=== PATIENT | female | born 1930 | race Asian ===

== ENCOUNTER 2016-06-21 10:58 | Inpatient (IN) | payer MEDICARE ==
[2016-06-21] MEDS ORDERED: MOTRIN PO ONE ×2 (11:17→11:23)
[2016-06-21] MEDS ORDERED: ZOFRAN IV ONE (11:41)
[2016-06-21] MEDS ORDERED: NACL 0.9% 1000 ML 1,000 ML IV ONE (11:41)
--- NOTE | 2016-06-21 11:57 | Emergency Department Report ---
ED Fever HPI - General Chief Complaint: Nausea/Vomiting/Diarrhea Stated Complaint: SHAKES/RUNNY BOWELS/HOT/COLD Time Seen by Provider: 06/21/16 11:31 Source: patient Exam Limitations: no limitations - History of Present Illness Initial Comments: 86-year-old female with no past medical history and no medications presents to the hospital with complaints of fever and cold symptoms 1 week. Patient states she has had a cough occasional productive of sputum. She's had intermittent chills with hot and cold flashes. This morning she developed nausea, one episode of vomiting, and multiple episodes of diarrhea. Generalized pain and aches rated a 10 intensity. Symptoms worse with movement and palpation. ED Review of Systems ROS: Stated complaint: SHAKES/RUNNY BOWELS/HOT/COLD Other details as noted in HPI Comment: All other systems reviewed and negative Other: Constitutional:as per hpi Eyes: No eye pain visual changes ENT: No ear pain or throat pain Neck: Denies pain Respiratory: Denieswheezing shortness of breath Cardiovascular: Denies chest pain, palpitations, syncope GI: as per hpi : Denies dysuria Musculoskeletal: Denies back pain, joint swelling Skin: Denies rash, lesions, erythema Neurologic: Denies headache, numbness, weakness Psychiatric: Denies suicidal ideation, hallucinations ED Past Medical Hx - Past Medical History Previous Medical History?: No - Surgical History Past Surgical History?: Yes Additional Surgical History: eyes, D&C - Medications Home Medications: Home Medications Medication Instructions Recorded Confirmed Last Taken Type No Known Home Medications [No 06/21/16 06/21/16 Unknown History Reported Home Medications] ED Physical Exam - General Limitations: No Limitations - Other Other exam information: General: No limitations, patient is alert in no acute distress Head exam: Atraumatic, normocephalic Eyes exam: Normal appearance, pupils equal reactive to light, extraocular movements intact ENT: Moist mucous membrane, normal oropharynx but no exudate Neck exam: Normal inspection, full range of motion, no meningismus nontender Respiratory exam: Clear to auscultation bilateral, no wheezes, rales, crackles Cardiovascular: Normal rate and rhythm, normal heart sounds Abdomen: Soft, nondistended, mild left lower quadrant tenderness, with normal bowel sounds, no rebound, or guarding Extremity: Full range of motion normal inspection no deformity Back: Normal Inspection, full range of motion, no tenderness Neurologic: Alert, oriented x3, cranial nerves intact, no motor or sensory deficit Psychiatric: normal affect, normal mood Skin: Warm, dry, intact ED Course Vital Signs 06/21/16 06/21/16 06/21/16 11:08 11:40 11:52 Temperature 100.2 F H 99.9 F H Pulse Rate 99 H 87 Respiratory 18 16 Rate Blood Pressure Blood Pressure 182/88 [Left] O2 Sat by Pulse 98 94 94 Oximetry 06/21/16 06/21/16 06/21/16 12:00 12:30 13:00 Temperature Pulse Rate Respiratory Rate Blood Pressure 156/77 143/66 139/69 Blood Pressure [Left] O2 Sat by Pulse 93 91 92 Oximetry 06/21/16 06/21/16 06/21/16 14:20 14:30 15:00 Temperature Pulse Rate Respiratory Rate Blood Pressure 143/66 152/61 143/63 Blood Pressure [Left] O2 Sat by Pulse 93 92 92 Oximetry ED Medical Decision Making - Lab Data Result diagrams: 06/21/16 11:49 06/21/16 11:49 Lab Results 06/21/16 06/21/16 06/21/16 Range/Units 11:49 11:49 11:49 WBC 6.5 (4.5-11.0) K/mm3 RBC 4.57 (3.65-5.03) M/mm3 Hgb 13.6 (10.1-14.3) gm/dl Hct 41.5 (30.3-42.9) % MCV 91 (79-97) fl MCH 30 (28-32) pg MCHC 33 (30-34) % RDW 13.3 (13.2-15.2) % Plt Count 147 (140-440) K/mm3 Add Manual Diff Complete Total Counted 100 Seg Neutrophils % [employer] Seg Neuts % (Manual) 72.0 H (40.0-70.0) % Band Neutrophils % 25.0 % Lymphocytes % (Manual) 3.0 L (13.4-35.0) % Reactive Lymphs % (Man) 0 % Monocytes % (Manual) 0 (0.0-7.3) % Eosinophils % (Manual) 0 (0.0-4.3) % Basophils % (Manual) 0 (0.0-1.8) % Metamyelocytes % 0 % Myelocytes % 0 % Promyelocytes % 0 % Blast Cells % 0 % Nucleated RBC % Not Reportable Seg Neutrophils # Man 4.7 (1.8-7.7) K/mm3 Band Neutrophils # 1.6 K/mm3 Lymphocytes # (Manual) 0.2 L (1.2-5.4) K/mm3 Abs React Lymphs (Man) 0.0 K/mm3 Monocytes # (Manual) 0.0 (0.0-0.8) K/mm3 Eosinophils # (Manual) 0.0 (0.0-0.4) K/mm3 Basophils # (Manual) 0.0 (0.0-0.1) K/mm3 Metamyelocytes # 0.0 K/mm3 Myelocytes # 0.0 K/mm3 Promyelocytes # 0.0 K/mm3 Blast Cells # 0.0 K/mm3 WBC Morphology Not Reportable Hypersegmented Neuts Not Reportable Hyposegmented Neuts Not Reportable Hypogranular Neuts Not Reportable Smudge Cells Not Reportable Toxic Granulation Not Reportable Toxic Vacuolation Not Reportable Dohle Bodies Not Reportable Pelger-Huet Anomaly Not Reportable Carlos Alberto Rods Not Reportable Platelet Estimate Consistent w auto Clumped Platelets Not Reportable Plt Clumps, EDTA Not Reportable Large Platelets Not Reportable Giant Platelets Not Reportable Platelet Satelliting Not Reportable Plt Morphology Comment Not Reportable RBC Morphology Not Reportable Dimorphic RBCs Not Reportable Polychromasia Not Reportable Hypochromasia Not Reportable Poikilocytosis Not Reportable Anisocytosis Not Reportable Microcytosis Not Reportable Macrocytosis Not Reportable Spherocytes Not Reportable Pappenheimer Bodies Not Reportable Sickle Cells Not Reportable Target Cells Not Reportable Tear Drop Cells Not Reportable Ovalocytes Not Reportable Helmet Cells Not Reportable Jacobsen-Heeia Bodies Not Reportable Olin Rings Not Reportable John Cells Not Reportable Bite Cells Not Reportable Crenated Cell Not Reportable Elliptocytes Not Reportable Acanthocytes (Spur) Not Reportable Rouleaux Not Reportable Hemoglobin C Crystals Not Reportable Schistocytes Not Reportable Malaria parasites Not Reportable Tyler Bodies Not Reportable Hem Pathologist Commnt No Sodium 137 (137-145) mmol/L Potassium 3.7 (3.6-5.0) mmol/L Chloride 92.4 L (98-107) mmol/L Carbon Dioxide 24 (22-30) mmol/L Anion Gap 24 mmol/L BUN 23 H (7-17) mg/dL Creatinine 1.6 H (0.7-1.2) mg/dL Estimated GFR 31 ml/min BUN/Creatinine Ratio 14.37 % Glucose 133 H (65-100) mg/dL Lactic Acid 2.2 H* (0.7-2.0) mmol/L Calcium 8.7 (8.4-10.2) mg/dL Total Bilirubin 0.4 (0.1-1.2) mg/dL AST 36 (5-40) units/L ALT 14 (7-56) units/L Alkaline Phosphatase 99 (35-129) units/L Total Protein 7.5 (6.3-8.2) g/dL Albumin 3.9 (3.9-5) g/dL Albumin/Globulin Ratio 1.1 % Lipase (13-60) units/L Urine Color (Yellow) Urine Turbidity (Clear) Urine pH (5.0-7.0) Ur Specific Pavo (1.003-1.030) Urine Protein (Negative) mg/dL Urine Glucose (UA) (Negative) mg/dL Urine Ketones (Negative) mg/dL Urine Blood (Negative) Urine Nitrite (Negative) Urine Bilirubin (Negative) Urine Urobilinogen (<2.0) mg/dL Ur Leukocyte Esterase (Negative) Urine WBC (Auto) (0.0-6.0) /HPF Urine RBC (Auto) (0.0-6.0) /HPF U Epithel Cells (Auto) (0-13.0) /HPF Urine Mucus /HPF Urine Yeast (Budding) /HPF 06/21/16 06/21/16 Range/Units 14:51 Unknown WBC (4.5-11.0) K/mm3 RBC (3.65-5.03) M/mm3 Hgb (10.1-14.3) gm/dl Hct (30.3-42.9) % MCV (79-97) fl MCH (28-32) pg MCHC (30-34) % RDW (13.2-15.2) % Plt Count (140-440) K/mm3 Add Manual Diff Total Counted Seg Neutrophils % Seg Neuts % (Manual) (40.0-70.0) % Band Neutrophils % % Lymphocytes % (Manual) (13.4-35.0) % Reactive Lymphs % (Man) % Monocytes % (Manual) (0.0-7.3) % Eosinophils % (Manual) (0.0-4.3) % Basophils % (Manual) (0.0-1.8) % Metamyelocytes % % Myelocytes % % Promyelocytes % % Blast Cells % % Nucleated RBC % Seg Neutrophils # Man (1.8-7.7) K/mm3 Band Neutrophils # K/mm3 Lymphocytes # (Manual) (1.2-5.4) K/mm3 Abs React Lymphs (Man) K/mm3 Monocytes # (Manual) (0.0-0.8) K/mm3 Eosinophils # (Manual) (0.0-0.4) K/mm3 Basophils # (Manual) (0.0-0.1) K/mm3 Metamyelocytes # K/mm3 Myelocytes # K/mm3 Promyelocytes # K/mm3 Blast Cells # K/mm3 WBC Morphology Hypersegmented Neuts Hyposegmented Neuts Hypogranular Neuts Smudge Cells Toxic Granulation Toxic Vacuolation Dohle Bodies Pelger-Huet Anomaly Carlos Alberto Rods Platelet Estimate Clumped Platelets Plt Clumps, EDTA Large Platelets Giant Platelets Platelet Satelliting Plt Morphology Comment RBC Morphology Dimorphic RBCs Polychromasia Hypochromasia Poikilocytosis Anisocytosis Microcytosis Macrocytosis Spherocytes Pappenheimer Bodies Sickle Cells Target Cells Tear Drop Cells Ovalocytes Helmet Cells Jacobsen-Heeia Bodies [place] Rings John Cells Bite Cells Crenated Cell Elliptocytes Acanthocytes (Spur) Rouleaux Hemoglobin C Crystals Schistocytes Malaria parasites Tyler Bodies Hem Pathologist Commnt Sodium (137-145) mmol/L Potassium (3.6-5.0) mmol/L Chloride (98-107) mmol/L Carbon Dioxide (22-30) mmol/L Anion Gap mmol/L BUN (7-17) mg/dL Creatinine (0.7-1.2) mg/dL Estimated GFR ml/min BUN/Creatinine Ratio % Glucose (65-100) mg/dL Lactic Acid (0.7-2.0) mmol/L Calcium (8.4-10.2) mg/dL Total Bilirubin (0.1-1.2) mg/dL AST (5-40) units/L ALT (7-56) units/L Alkaline Phosphatase (35-129) units/L Total Protein (6.3-8.2) g/dL Albumin (3.9-5) g/dL Albumin/Globulin Ratio % Lipase 43 (13-60) units/L Urine Color Yellow (Yellow) Urine Turbidity Clear (Clear) Urine pH 5.0 (5.0-7.0) Ur Specific Pavo 1.019 (1.003-1.030) Urine Protein 100 mg/dl (Negative) mg/dL Urine Glucose (UA) Neg (Negative) mg/dL Urine Ketones Tr (Negative) mg/dL Urine Blood Lg (Negative) Urine Nitrite Neg (Negative) Urine Bilirubin Neg (Negative) Urine Urobilinogen < 2.0 (<2.0) mg/dL Ur Leukocyte Esterase Neg (Negative) Urine WBC (Auto) 3.0 (0.0-6.0) /HPF Urine RBC (Auto) 20.0 (0.0-6.0) /HPF U Epithel Cells (Auto) 1.0 (0-13.0) /HPF Urine Mucus Few /HPF Urine Yeast (Budding) Few /HPF - Radiology Data Radiology results: report reviewed CT abdomen and pelvis IV contrast: Right kaye-abdominal subtle nonspecific CT appearance with clinical/laboratory correlation for possibilities as gastritis/ duodenitis versus subtle pancreatitis or colitis be obtained in light of provide a history of this unenhanced exam. Extensive diverticulosis without diverticulitis. See report for other various findings. Cxr: No acute findings - Medical Decision Making Patient's symptoms likely due to influenza. Patient has various some incidental findings on CT. Patient has renal sufficiency without previous creatinine for comparison. Given her age, dehydration, and GI symptoms diarrhea /vomiting patient will be admitted to the hospital for hydration and supportive care. Patient received normal saline, Zofran, and ibuprofen in the ED. - Differential Diagnosis Viral syndrome, diverticulitis, influenza Critical Care Time: No Critical care attestation.: If time is entered above; I have spent that time in minutes in the direct care of this critically ill patient, excluding procedure time. ED Disposition Clinical Impression: Influenza A, Acute diarrhea, Vomiting, Renal insufficiency, Dehydration Disposition: OP ADMITTED IP TO THIS HOSP Is pt being admited?: Yes Condition: Stable Time of Disposition: 15:29 (Dr Vaz/hosp)
[2016-06-21 12:07] LABS: Hematocrit 41.5 % (30.3-42.9); Hemoglobin 13.6 gm/dl (10.1-14.3); Mean Corpuscular HGB Conc 33 % (30-34); Mean Corpuscular Hemoglobin 30 pg (28-32); Mean Corpuscular Volume 91 fl (79-97); Platelet Count 147 K/mm3 (140-440); Red Blood Count 4.57 M/mm3 (3.65-5.03); Red Cell Distribution Width 13.3 % (13.2-15.2); White Blood Count 6.5 K/mm3 (4.5-11.0)
--- NOTE | 2016-06-21 12:11 | XRay Report ---
Single view chest: History: Fever and cough. Findings: Borderline cardiomegaly the trachea is midline. No consolidation, pneumothorax or pleural effusion. Impression: No acute cardiopulmonary findings.
[2016-06-21 12:22] LABS: Albumin 3.9 g/dL (3.9-5); Albumin/Globulin Ratio 1.1 %; BUN/Creatinine Ratio 14.37; Bilirubin,Total 0.4 mg/dL (0.1-1.2); Calcium 8.7 mg/dL (8.4-10.2); Chloride 92.4 mmol/L (98-107); Potassium 3.7 mmol/L (3.6-5.0); Total Protein 7.5 g/dL (6.3-8.2)
[2016-06-21 12:55] LABS: Basophils % (Manual) 0 % (0.0-1.8); Blastocytes % (Manual) 0 %; Eosinophils % (Manual) 0 % (0.0-4.3); Total Cells Counted Percent 0
[2016-06-21 12:56] LABS: Diff Status Complete; Platelet Estimate Consistent w Auto
--- NOTE | 2016-06-21 13:48 | Admit Criteria Form ---
Admission Criteria Documentation: DEHYDRATION Clinical Indications for Admission to Inpatient Care (Place 'X' for any and all applicable criteria): Admission is indicated for ANY ONE of the following (1)(2)(3)(4)(5): [X ]I. Inpatient admission required rather than observation care (see Dehydration: Observation Care guideline as appropriate) because of ANY ONE of the following: [ ]a) Vomiting that is severe or persistent [ ]b) Severe electrolyte abnormalities requiring inpatient care [ ]c) Hemodynamic instability [ ]d) IV fluid to replace significant ongoing losses (greater than 3 L/m2 per day (10) (11) [ ]e) Parenteral nutrition regimen that must be implemented on inpatient basis [ X]f) Other condition,treatment or monitoring requiring inpatient admission [ ]II. Serious cause for dehydration requiring acute hospitalization (eg, bowel obstruction, increased intracranial pressure, infectious cause) Extended stay beyond goal length of stay may be needed for(1)(3 )(4)(17): [ ]a) Chronic severe dehydration [ ]b) Persistent vital sign changes, severe electrolyte imbalance, or diagnosed cause of dehydration that requires continued hospitalization (eg, bowel obstruction, increased intracranial pressure) [ ]c) Older patients (65 years or older) [ ]d) Severe comorbid illness (eg, renal failure, heart failure, poorly controlled diabetes) The original [employer] content created by [employer] has been revised. The portions of the content which have been revised are identified through the use of italic text or in bold, and [facility] has neither reviewed nor approved the modified material. All other unmodified content is copyright [facility]. Please see references footnoted in the original [employer] edition 2016 Admission Criteria Met: Yes
--- NOTE | 2016-06-21 14:20 | Cat Scan Report ---
CT ABDOMEN AND PELVIS WITHOUT CONTRAST INDICATION: Abdominal pain, nausea, vomiting, diarrhea, fever. COMPARISON: None similar. FINDINGS: Noncontrast abdomen and pelvis CT performed. LUNG BASES: Borderline cardiomegaly. No effusions. Few atherosclerotic calcifications. Increased AP chest diameter/COPD. Right middle lobe, lingular and slight right lower lobe scarring. Bibasilar dependent atelectasis. Nonspecific distal esophageal wall thickening, not excluded for gastroesophageal reflux and/or hiatal hernia, amongst others. ABDOMEN: Please note that sensitivity to detect small visceral lesions is limited due to the absence of intravenous or oral contrast. Grossly unremarkable unenhanced liver, spleen, adrenals, nonaneurysmal abdominal aorta with few atherosclerotic calcifications and IVC. Possibly extrahepatic gallbladder as on axial image 20, series 2, amongst others. No radiopaque gallstones. Subtle prominent vascularity in the right hemiabdomen and questionable subtle fat stranding about the duodenum in the region of the pancreatic head as on axial image 27, series 2 nonspecific, though not entirely excluded for subtle inflammation. Pancreatic body and tail though appears age-appropriate atrophic. No radiopaque renal calculi or hydronephrosis with asymmetrically atrophic left renal length of 6.9 cm as compared to 9.2 cm on the right. No definite size significant retroperitoneal adenopathy, though few small right lower quadrant mesenteric lymph nodes measure up to 0.8 cm on axial image 41, series 2. Nonopacified GI tract evaluation limited, though grossly nonobstructive. Stomach poorly distended with exaggerated wall thickness. Similar appearance to the third and fourth portions of the duodenum also seen, containing some debris as on axial image 42, series 2, amongst others. Normal appendix. Approximately 9 mm ascending colon possible lipoma. Decompressed colon with somewhat exaggerated mid to distal ascending colon wall thickness as well, nonspecific. No ascites. PELVIS: Extensive sigmoid diverticulosis without acute inflammation. Grossly unremarkable nonopacified uterus, urinary bladder and the rectum. Small pelvic phleboliths. No free fluid or definite significant adenopathy. Mild thoracolumbar dextroscoliosis apex about L1. Demineralized bones with multilevel degenerative spurring along the imaged spine. CONCLUSION: 1. Right hemiabdomen subtle nonspecific CT appearance with clinical/laboratory correlation for possibilities as gastritis/duodenitis versus subtle pancreatitis or colitis be obtained in light of provided history on this unenhanced exam, as detailed above. 2. Various other incidental findings, as described. I phoned the above results to Dr. Luciano in the ER at 2 PM, 06/21/2016. Thank you for the opportunity to participate in this patient's care.
[2016-06-21 14:59] LABS: Bilirubin,Urine NEG (Negative); Blood,Urine LG (Negative); Ketones,Urine TR mg/dL (Negative); Leukocyte Esterase,Urine NEG (Negative); Mucus,Urine FEW /HPF; Nitrite,Urine NEG (Negative); Urobilinogen,Urine < 2.0 mg/dL (<2.0)
[2016-06-21] MEDS ORDERED: DULCOLAX PR PRN (20:17)
[2016-06-21] MEDS ORDERED: MILK OF MAGNESIA PO PRN (20:17)
[2016-06-21] MEDS ORDERED: TYLENOL PO PRN (20:17)
[2016-06-21] MEDS ORDERED: PERCOCET 5/325 PO PRN (20:17)
[2016-06-21] MEDS ORDERED: ZOFRAN IV PRN (20:17)
--- NOTE | 2016-06-21 20:17 | Event Note ---
Date: 06/21/16 See H/p in reports
[2016-06-21] MEDS ORDERED: LEVAQUIN 750MG/150ML 750 MG/150 ML BAG IV ONE (21:00)
[2016-06-21] MEDS ORDERED: LEVAQUIN 750MG/150ML 750 MG/150 ML BAG IV SCH (21:00)
[2016-06-22] MEDS: D5/0.45NS 1,000 ML IV SCH ×2 (10:55→22:15)
[2016-06-22] MEDS ORDERED: PNEUMOVAX 23 IM ONE (12:00)
--- NOTE | 2016-06-22 20:50 | History and Physical Report ---
CHIEF COMPLAINT: Fever. HISTORY OF PRESENT ILLNESS: This is an 86-year-old with no significant past medical history, comes in for fever and cold of 1 week duration. The patient has a cough productive of mucoid to light yellow sputum. Also, intermittent chills and hot and cold flashes. She does have nausea this morning and one episode of vomiting and multiple episodes of diarrhea. Generalized body aches. The pain is 10 on a scale of 1-10. In summary, the patient has fever and chills and diarrhea. Pain is about 10 on a scale of 1-10. PAST MEDICAL HISTORY: None. PAST SURGICAL HISTORY: D and C and eye surgery. CURRENT MEDICATIONS: None. FAMILY HISTORY: No diabetes, no hypertension. REVIEW OF SYSTEMS: CONSTITUTIONAL: Fever and chills present. No weight loss, no weight gain. HEENT: No sore throat. No postnasal drip. RESPIRATORY: No shortness of breath, no wheezing. Cough productive of mucoid sputum present. CARDIOVASCULAR: No shortness of breath, no chest pain, no palpitations. GASTROINTESTINAL: Nausea and vomiting x 1 present and also diarrhea 3-4 times. GENITOURINARY: No dysuria, no flank pain. MUSCULOSKELETAL: Has muscle pains and joint pains. CENTRAL NERVOUS SYSTEM: No syncope, no seizures. SKIN: No rashes. PSYCHIATRIC: Normal mood, no homicidal ideations. PHYSICAL EXAMINATION: GENERAL: Elderly female lying in bed. VITAL SIGNS: Temperature 100.2, pulse is 99, respirations are 18, sats are 98%. HEENT: Unremarkable. Pupils equal and reactive. NECK: Supple. No lymphadenopathy, no thyromegaly, no neck stiffness. LUNGS: Clear to auscultation and percussion. Good air entry. CARDIOVASCULAR: S1, S2 heard. No gallop, no murmur, no rub. Apical impulse in left fifth intercostal space and midclavicular line. ABDOMEN: Soft and benign. No hepatosplenomegaly. No guarding, no rigidity. Hernial orifices are normal. EXTREMITIES: Good pedal pulses. No pedal edema. CENTRAL NERVOUS SYSTEM: Alert and oriented x 4, nonfocal exam. LABORATORY DATA: White count is 6500, H and H is 13.6 and 41.5, platelet count is 147,000. BUN and creatinine are 23 and 1.6. Lactic acid is 2.2. CT of the abdomen and pelvis shows gastritis, duodenitis, and . ASSESSMENT AND PLAN: 1. Systemic inflammatory response syndrome. The patient with a high lactic acid of 2.2, but white count is normal, temperature of 100.2. The patient qualifies for SIRS. The patient to be on broad spectrum antibiotics possible, levofloxacin started ____ to cover possible colitis too. Also, Tamiflu 75 mg twice a day. 2. Dehydration. IV fluids for the time being. 3. Acute renal failure consistent with vasomotor nephropathy. IV fluids. 4. Deep venous thrombosis prophylaxis, Lovenox 40 mg subcutaneous daily. JOB# [id number] JOSE/JAS
--- NOTE | 2016-06-22 20:52 | Progress Note ---
Assessment and Plan - Patient Problems (1) Influenza A Current Visit: Yes Status: Acute Plan to address problem: Tamiflu BID, supportive care, IVF replacement, encourage oral intake (2) Dehydration Current Visit: Yes Status: Acute Plan to address problem: IVF, monitor uop q shift (3) Acute renal failure Current Visit: Yes Status: Acute Qualifiers: Acute renal failure type: A Plan to address problem: IVR replacement, monitor uop q shift, (4) DVT prophylaxis Current Visit: Yes Status: Acute History Interval history: Pt lying in bed, No reported nursing events. Pt denies pain. Pt states that she feels tired Hospitalist Physical - Constitutional Vitals: Temp Pulse Resp BP Pulse Ox 99.2 F 71 22 157/84 94 06/22/16 15:45 06/22/16 15:45 06/22/16 15:45 06/22/16 15:45 06/22/16 15:45 General appearance: Present: no acute distress - EENT Eyes: Present: PERRL ENT: hearing intact - Neck Neck: Present: supple - Respiratory Respiratory: bilateral: diminished - Cardiovascular Rhythm: regular Heart Sounds: Present: S1 & S2 - Extremities Extremities: no ischemia Peripheral Pulses: within normal limits - Abdominal General gastrointestinal: soft, non-tender, non-distended - Integumentary Integumentary: Present: clear, dry, decreased turgor - Psychiatric Psychiatric: appropriate mood/affect, cooperative - Neurologic Neurologic: CNII-XII intact, moves all extremities Results - Labs CBC & Chem 7: 06/21/16 11:49 06/21/16 11:49 Labs: Laboratory Last Values WBC 6.5 K/mm3 (4.5-11.0) 06/21/16 11:49 RBC 4.57 M/mm3 (3.65-5.03) 06/21/16 11:49 Hgb 13.6 gm/dl (10.1-14.3) 06/21/16 11:49 Hct 41.5 % (30.3-42.9) 06/21/16 11:49 MCV 91 fl (79-97) 06/21/16 11:49 MCH 30 pg (28-32) 06/21/16 11:49 MCHC 33 % (30-34) 06/21/16 11:49 RDW 13.3 % (13.2-15.2) 06/21/16 11:49 Plt Count 147 K/mm3 (140-440) 06/21/16 11:49 Add Manual Diff Complete 06/21/16 11:49 Total Counted 100 06/21/16 11:49 Seg Neutrophils % Glass Products Inspector 06/21/16 11:49 Seg Neuts % (Manual) 72.0 % (40.0-70.0) H 06/21/16 11:49 Band Neutrophils % 25.0 % 06/21/16 11:49 Lymphocytes % (Manual) 3.0 % (13.4-35.0) L 06/21/16 11:49 Reactive Lymphs % (Man) 0 % 06/21/16 11:49 Monocytes % (Manual) 0 % (0.0-7.3) 06/21/16 11:49 Eosinophils % (Manual) 0 % (0.0-4.3) 06/21/16 11:49 Basophils % (Manual) 0 % (0.0-1.8) 06/21/16 11:49 Metamyelocytes % 0 % 06/21/16 11:49 Myelocytes % 0 % 06/21/16 11:49 Promyelocytes % 0 % 06/21/16 11:49 Blast Cells % 0 % 06/21/16 11:49 Nucleated RBC % Not Reportable 06/21/16 11:49 Seg Neutrophils # Man 4.7 K/mm3 (1.8-7.7) 06/21/16 11:49 Band Neutrophils # 1.6 K/mm3 06/21/16 11:49 Lymphocytes # (Manual) 0.2 K/mm3 (1.2-5.4) L 06/21/16 11:49 Abs React Lymphs (Man) 0.0 K/mm3 06/21/16 11:49 Monocytes # (Manual) 0.0 K/mm3 (0.0-0.8) 06/21/16 11:49 Eosinophils # (Manual) 0.0 K/mm3 (0.0-0.4) 06/21/16 11:49 Basophils # (Manual) 0.0 K/mm3 (0.0-0.1) 06/21/16 11:49 Metamyelocytes # 0.0 K/mm3 06/21/16 11:49 Myelocytes # 0.0 K/mm3 06/21/16 11:49 Promyelocytes # 0.0 K/mm3 06/21/16 11:49 Blast Cells # 0.0 K/mm3 06/21/16 11:49 WBC Morphology Not Reportable 06/21/16 11:49 Hypersegmented Neuts Not Reportable 06/21/16 11:49 Hyposegmented Neuts Not Reportable 06/21/16 11:49 Hypogranular Neuts Not Reportable 06/21/16 11:49 Smudge Cells Not Reportable 06/21/16 11:49 Toxic Granulation Not Reportable 06/21/16 11:49 Toxic Vacuolation Not Reportable 06/21/16 11:49 Dohle Bodies Not Reportable 06/21/16 11:49 Pelger-Huet Anomaly Not Reportable 06/21/16 11:49 Carlos Alberto Rods Not Reportable 06/21/16 11:49 Platelet Estimate Consistent w auto 06/21/16 11:49 Clumped Platelets Not Reportable 06/21/16 11:49 Plt Clumps, EDTA Not Reportable 06/21/16 11:49 Large Platelets Not Reportable 06/21/16 11:49 Giant Platelets Not Reportable 06/21/16 11:49 Platelet Satelliting Not Reportable 06/21/16 11:49 Plt Morphology Comment Not Reportable 06/21/16 11:49 RBC Morphology Not Reportable 06/21/16 11:49 Dimorphic RBCs Not Reportable 06/21/16 11:49 Polychromasia Not Reportable 06/21/16 11:49 Hypochromasia Not Reportable 06/21/16 11:49 Poikilocytosis Not Reportable 06/21/16 11:49 Anisocytosis Not Reportable 06/21/16 11:49 Microcytosis Not Reportable 06/21/16 11:49 Macrocytosis Not Reportable 06/21/16 11:49 Spherocytes Not Reportable 06/21/16 11:49 Pappenheimer Bodies Not Reportable 06/21/16 11:49 Sickle Cells Not Reportable 06/21/16 11:49 Target Cells Not Reportable 06/21/16 11:49 Tear Drop Cells Not Reportable 06/21/16 11:49 Ovalocytes Not Reportable 06/21/16 11:49 Helmet Cells Not Reportable 06/21/16 11:49 Jacobsen-[place] Bodies Not Reportable 06/21/16 11:49 [place] Rings Not Reportable 06/21/16 11:49 [place] Cells Not Reportable 06/21/16 11:49 Bite Cells Not Reportable 06/21/16 11:49 Crenated Cell Not Reportable 06/21/16 11:49 Elliptocytes Not Reportable 06/21/16 11:49 Acanthocytes (Spur) Not Reportable 06/21/16 11:49 Rouleaux Not Reportable 06/21/16 11:49 Hemoglobin C Crystals Not Reportable 06/21/16 11:49 Schistocytes Not Reportable 06/21/16 11:49 Malaria parasites Not Reportable 06/21/16 11:49 Tyler Bodies Not Reportable 06/21/16 11:49 Hem Pathologist Commnt No 06/21/16 11:49 Sodium 137 mmol/L (137-145) 06/21/16 11:49 Potassium 3.7 mmol/L (3.6-5.0) 06/21/16 11:49 Chloride 92.4 mmol/L (98-107) L 06/21/16 11:49 Carbon Dioxide 24 mmol/L (22-30) 06/21/16 11:49 Anion Gap 24 mmol/L 06/21/16 11:49 BUN 23 mg/dL (7-17) H 06/21/16 11:49 Creatinine 1.6 mg/dL (0.7-1.2) H 06/21/16 11:49 Estimated GFR 31 ml/min 06/21/16 11:49 BUN/Creatinine Ratio 14.37 % 06/21/16 11:49 Glucose 133 mg/dL (65-100) H 06/21/16 11:49 Lactic Acid 2.2 mmol/L (0.7-2.0) H* 06/21/16 11:49 Calcium 8.7 mg/dL (8.4-10.2) 06/21/16 11:49 Total Bilirubin 0.4 mg/dL (0.1-1.2) 06/21/16 11:49 AST 36 units/L (5-40) 06/21/16 11:49 ALT 14 units/L (7-56) 06/21/16 11:49 Alkaline Phosphatase 99 units/L (35-129) 06/21/16 11:49 Total Protein 7.5 g/dL (6.3-8.2) 06/21/16 11:49 Albumin 3.9 g/dL (3.9-5) 06/21/16 11:49 Albumin/Globulin Ratio 1.1 % 06/21/16 11:49 Lipase 43 units/L (13-60) 06/21/16 Unknown Urine Color Yellow (Yellow) 06/21/16 14:51 Urine Turbidity Clear (Clear) 06/21/16 14:51 Urine pH 5.0 (5.0-7.0) 06/21/16 14:51 Ur Specific [place] 1.019 (1.003-1.030) 06/21/16 14:51 Urine Protein 100 mg/dl mg/dL (Negative) 06/21/16 14:51 Urine Glucose (UA) Neg mg/dL (Negative) 06/21/16 14:51 Urine Ketones Tr mg/dL (Negative) 06/21/16 14:51 Urine Blood Lg (Negative) 06/21/16 14:51 Urine Nitrite Neg (Negative) 06/21/16 14:51 Urine Bilirubin Neg (Negative) 06/21/16 14:51 Urine Urobilinogen < 2.0 mg/dL (<2.0) 06/21/16 14:51 Ur Leukocyte Esterase Neg (Negative) 06/21/16 14:51 Urine WBC (Auto) 3.0 /HPF (0.0-6.0) 06/21/16 14:51 Urine RBC (Auto) 20.0 /HPF (0.0-6.0) 06/21/16 14:51 U Epithel Cells (Auto) 1.0 /HPF (0-13.0) 06/21/16 14:51 Urine Mucus Few /HPF 06/21/16 14:51 Urine Yeast (Budding) Few /HPF 06/21/16 14:51
[2016-06-22] MEDS: TAMIFLU PO SCH (22:16)
[2016-06-23] MEDS: TAMIFLU PO SCH ×2 (10:30→21:20)
[2016-06-23] MEDS: LEVAQUIN 500MG/100ML 500 MG/100 ML BAG IV SCH (10:31)
[2016-06-23] MEDS: ZOFRAN IV PRN (13:51)
[2016-06-23] MEDS: D5/0.45NS 1,000 ML IV SCH (19:36)
[2016-06-24] MEDS: D5/0.45NS 1,000 ML IV SCH ×2 (06:23→18:47)
--- NOTE | 2016-06-24 06:55 | Progress Note ---
Assessment and Plan - Patient Problems (1) Influenza A Current Visit: Yes Status: Acute Plan to address problem: Tamiflu BID, supportive care, IVF replacement, encourage oral intake (2) Dehydration Current Visit: Yes Status: Acute Plan to address problem: IVF, monitor uop q shift (3) Acute renal failure Current Visit: Yes Status: Acute Qualifiers: Acute renal failure type: A Plan to address problem: IVR replacement, monitor uop q shift, (4) DVT prophylaxis Current Visit: Yes Status: Acute History Interval history: Pt lying in bed, No reported nursing events. Pt denies pain. Pt states that she feels weak and tired, and like her body is broken down Hospitalist Physical - Constitutional Vitals: Temp Pulse Resp BP Pulse Ox 98.2 F 70 18 111/62 97 06/24/16 00:00 06/24/16 00:00 06/24/16 00:00 06/24/16 00:00 06/24/16 00:00 General appearance: Present: no acute distress - EENT Eyes: Present: PERRL, EOM intact ENT: hearing intact - Neck Neck: Present: supple - Respiratory Respiratory: bilateral: diminished - Cardiovascular Rhythm: regular Heart Sounds: Present: S1 & S2 - Extremities Extremities: no ischemia Peripheral Pulses: within normal limits - Abdominal General gastrointestinal: soft, non-tender, non-distended - Integumentary Integumentary: Present: clear, dry, decreased turgor - Psychiatric Psychiatric: appropriate mood/affect, intact judgment & insight, cooperative - Neurologic Neurologic: CNII-XII intact, moves all extremities Results - Labs CBC & Chem 7: 06/21/16 11:49 06/21/16 11:49 Labs: Laboratory Last Values WBC 6.5 K/mm3 (4.5-11.0) 06/21/16 11:49 RBC 4.57 M/mm3 (3.65-5.03) 06/21/16 11:49 Hgb 13.6 gm/dl (10.1-14.3) 06/21/16 11:49 Hct 41.5 % (30.3-42.9) 06/21/16 11:49 MCV 91 fl (79-97) 06/21/16 11:49 MCH 30 pg (28-32) 06/21/16 11:49 MCHC 33 % (30-34) 06/21/16 11:49 RDW 13.3 % (13.2-15.2) 06/21/16 11:49 Plt Count 147 K/mm3 (140-440) 06/21/16 11:49 Add Manual Diff Complete 06/21/16 11:49 Total Counted 100 06/21/16 11:49 Seg Neutrophils % Shingle Grader 06/21/16 11:49 Seg Neuts % (Manual) 72.0 % (40.0-70.0) H 06/21/16 11:49 Band Neutrophils % 25.0 % 06/21/16 11:49 Lymphocytes % (Manual) 3.0 % (13.4-35.0) L 06/21/16 11:49 Reactive Lymphs % (Man) 0 % 06/21/16 11:49 Monocytes % (Manual) 0 % (0.0-7.3) 06/21/16 11:49 Eosinophils % (Manual) 0 % (0.0-4.3) 06/21/16 11:49 Basophils % (Manual) 0 % (0.0-1.8) 06/21/16 11:49 Metamyelocytes % 0 % 06/21/16 11:49 Myelocytes % 0 % 06/21/16 11:49 Promyelocytes % 0 % 06/21/16 11:49 Blast Cells % 0 % 06/21/16 11:49 Nucleated RBC % Not Reportable 06/21/16 11:49 Seg Neutrophils # Man 4.7 K/mm3 (1.8-7.7) 06/21/16 11:49 Band Neutrophils # 1.6 K/mm3 06/21/16 11:49 Lymphocytes # (Manual) 0.2 K/mm3 (1.2-5.4) L 06/21/16 11:49 Abs React Lymphs (Man) 0.0 K/mm3 06/21/16 11:49 Monocytes # (Manual) 0.0 K/mm3 (0.0-0.8) 06/21/16 11:49 Eosinophils # (Manual) 0.0 K/mm3 (0.0-0.4) 06/21/16 11:49 Basophils # (Manual) 0.0 K/mm3 (0.0-0.1) 06/21/16 11:49 Metamyelocytes # 0.0 K/mm3 06/21/16 11:49 Myelocytes # 0.0 K/mm3 06/21/16 11:49 Promyelocytes # 0.0 K/mm3 06/21/16 11:49 Blast Cells # 0.0 K/mm3 06/21/16 11:49 WBC Morphology Not Reportable 06/21/16 11:49 Hypersegmented Neuts Not Reportable 06/21/16 11:49 Hyposegmented Neuts Not Reportable 06/21/16 11:49 Hypogranular Neuts Not Reportable 06/21/16 11:49 Smudge Cells Not Reportable 06/21/16 11:49 Toxic Granulation Not Reportable 06/21/16 11:49 Toxic Vacuolation Not Reportable 06/21/16 11:49 Dohle Bodies Not Reportable 06/21/16 11:49 Pelger-Huet Anomaly Not Reportable 06/21/16 11:49 Carlos Alberto Rods Not Reportable 06/21/16 11:49 Platelet Estimate Consistent w auto 06/21/16 11:49 Clumped Platelets Not Reportable 06/21/16 11:49 Plt Clumps, EDTA Not Reportable 06/21/16 11:49 Large Platelets Not Reportable 06/21/16 11:49 Giant Platelets Not Reportable 06/21/16 11:49 Platelet Satelliting Not Reportable 06/21/16 11:49 Plt Morphology Comment Not Reportable 06/21/16 11:49 RBC Morphology Not Reportable 06/21/16 11:49 Dimorphic RBCs Not Reportable 06/21/16 11:49 Polychromasia Not Reportable 06/21/16 11:49 Hypochromasia Not Reportable 06/21/16 11:49 Poikilocytosis Not Reportable 06/21/16 11:49 Anisocytosis Not Reportable 06/21/16 11:49 Microcytosis Not Reportable 06/21/16 11:49 Macrocytosis Not Reportable 06/21/16 11:49 Spherocytes Not Reportable 06/21/16 11:49 Pappenheimer Bodies Not Reportable 06/21/16 11:49 Sickle Cells Not Reportable 06/21/16 11:49 Target Cells Not Reportable 06/21/16 11:49 Tear Drop Cells Not Reportable 06/21/16 11:49 Ovalocytes Not Reportable 06/21/16 11:49 Helmet Cells Not Reportable 06/21/16 11:49 Jacobsen-[place] Bodies Not Reportable 06/21/16 11:49 [place] Rings Not Reportable 06/21/16 11:49 [place]on Cells Not Reportable 06/21/16 11:49 Bite Cells Not Reportable 06/21/16 11:49 Crenated Cell Not Reportable 06/21/16 11:49 Elliptocytes Not Reportable 06/21/16 11:49 Acanthocytes (Spur) Not Reportable 06/21/16 11:49 Rouleaux Not Reportable 06/21/16 11:49 Hemoglobin C Crystals Not Reportable 06/21/16 11:49 Schistocytes Not Reportable 06/21/16 11:49 Malaria parasites Not Reportable 06/21/16 11:49 Tyler Bodies Not Reportable 06/21/16 11:49 Hem Pathologist Commnt No 06/21/16 11:49 Sodium 137 mmol/L (137-145) 06/21/16 11:49 Potassium 3.7 mmol/L (3.6-5.0) 06/21/16 11:49 Chloride 92.4 mmol/L (98-107) L 06/21/16 11:49 Carbon Dioxide 24 mmol/L (22-30) 06/21/16 11:49 Anion Gap 24 mmol/L 06/21/16 11:49 BUN 23 mg/dL (7-17) H 06/21/16 11:49 Creatinine 1.6 mg/dL (0.7-1.2) H 06/21/16 11:49 Estimated GFR 31 ml/min 06/21/16 11:49 BUN/Creatinine Ratio 14.37 % 06/21/16 11:49 Glucose 133 mg/dL (65-100) H 06/21/16 11:49 Lactic Acid 2.2 mmol/L (0.7-2.0) H* 06/21/16 11:49 Calcium 8.7 mg/dL (8.4-10.2) 06/21/16 11:49 Total Bilirubin 0.4 mg/dL (0.1-1.2) 06/21/16 11:49 AST 36 units/L (5-40) 06/21/16 11:49 ALT 14 units/L (7-56) 06/21/16 11:49 Alkaline Phosphatase 99 units/L (35-129) 06/21/16 11:49 Total Protein 7.5 g/dL (6.3-8.2) 06/21/16 11:49 Albumin 3.9 g/dL (3.9-5) 06/21/16 11:49 Albumin/Globulin Ratio 1.1 % 06/21/16 11:49 Lipase 43 units/L (13-60) 06/21/16 Unknown Urine Color Yellow (Yellow) 06/21/16 14:51 Urine Turbidity Clear (Clear) 06/21/16 14:51 Urine pH 5.0 (5.0-7.0) 06/21/16 14:51 Ur Specific [place] 1.019 (1.003-1.030) 06/21/16 14:51 Urine Protein 100 mg/dl mg/dL (Negative) 06/21/16 14:51 Urine Glucose (UA) Neg mg/dL (Negative) 06/21/16 14:51 Urine Ketones Tr mg/dL (Negative) 06/21/16 14:51 Urine Blood Lg (Negative) 06/21/16 14:51 Urine Nitrite Neg (Negative) 06/21/16 14:51 Urine Bilirubin Neg (Negative) 06/21/16 14:51 Urine Urobilinogen < 2.0 mg/dL (<2.0) 06/21/16 14:51 Ur Leukocyte Esterase Neg (Negative) 06/21/16 14:51 Urine WBC (Auto) 3.0 /HPF (0.0-6.0) 06/21/16 14:51 Urine RBC (Auto) 20.0 /HPF (0.0-6.0) 06/21/16 14:51 U Epithel Cells (Auto) 1.0 /HPF (0-13.0) 06/21/16 14:51 Urine Mucus Few /HPF 06/21/16 14:51 Urine Yeast (Budding) Few /HPF 06/21/16 14:51
[2016-06-24] MEDS: TAMIFLU PO SCH (09:44)
[2016-06-24 09:53] LABS: Sodium TNR mmol/L (137-145)
[2016-06-24 09:54] LABS: Anion Gap TNR mmol/L; BUN/Creatinine Ratio TNR; Blood Urea Nitrogen TNR mg/dL (7-17); Carbon Dioxide TNR mmol/L (22-30); Chloride TNR mmol/L (98-107); Potassium TNR mmol/L (3.6-5.0)
[2016-06-24 09:56] LABS: Calcium TNR mg/dL (8.4-10.2); Glucose TNR mg/dL (65-100)
[2016-06-24] MEDS: DILAUDID IV PRN (10:44)
[2016-06-24 14:06] LABS: Anion Gap 15 mmol/L; BUN/Creatinine Ratio 11.25; Blood Urea Nitrogen 9 mg/dL (7-17); Calcium 7.7 mg/dL (8.4-10.2); Carbon Dioxide 27 mmol/L (22-30); Chloride 84.9 mmol/L (98-107); Glucose 162 mg/dL (65-100); Sodium 124 mmol/L (137-145)
[2016-06-24 14:20] LABS: Potassium 2.6 mmol/L (3.6-5.0)
[2016-06-24] MEDS: ZOFRAN IV PRN ×2 (15:16→19:03)
--- NOTE | 2016-06-24 15:18 | Progress Note ---
Assessment and Plan - Patient Problems (1) Influenza A Current Visit: Yes Status: Acute Plan to address problem: Tamiflu BID, supportive care, IVF replacement, encourage oral intake (2) Dehydration Current Visit: Yes Status: Acute Plan to address problem: IVF, monitor uop q shift (3) Acute renal failure Current Visit: Yes Status: Acute Qualifiers: Acute renal failure type: A Plan to address problem: IVR replacement, monitor uop q shift, (4) DVT prophylaxis Current Visit: Yes Status: Acute History Interval history: Pt lying in bed, No reported nursing events. Pt denies pain. Pt states that she feels weak and tired. Pt acknowledges diminished oral intake, Hospitalist Physical - Constitutional Vitals: Temp Pulse Resp BP Pulse Ox 98.6 F 80 20 136/73 95 06/24/16 09:42 06/24/16 11:00 06/24/16 11:00 06/24/16 09:42 06/24/16 09:42 General appearance: Present: no acute distress - EENT Eyes: Present: PERRL ENT: hearing intact - Neck Neck: Present: supple - Respiratory Respiratory: bilateral: diminished - Cardiovascular Rhythm: regular Heart Sounds: Present: S1 & S2 - Extremities Extremities: no ischemia - Abdominal General gastrointestinal: soft - Integumentary Integumentary: Present: clear, dry - Psychiatric Psychiatric: appropriate mood/affect, cooperative - Neurologic Neurologic: CNII-XII intact Results - Labs CBC & Chem 7: 06/21/16 11:49 06/24/16 13:32 Labs: Laboratory Last Values WBC 6.5 K/mm3 (4.5-11.0) 06/21/16 11:49 RBC 4.57 M/mm3 (3.65-5.03) 06/21/16 11:49 Hgb 13.6 gm/dl (10.1-14.3) 06/21/16 11:49 Hct 41.5 % (30.3-42.9) 06/21/16 11:49 MCV 91 fl (79-97) 06/21/16 11:49 MCH 30 pg (28-32) 06/21/16 11:49 MCHC 33 % (30-34) 06/21/16 11:49 RDW 13.3 % (13.2-15.2) 06/21/16 11:49 Plt Count 147 K/mm3 (140-440) 06/21/16 11:49 Add Manual Diff Complete 06/21/16 11:49 Total Counted 100 06/21/16 11:49 Seg Neutrophils % Study Assistant 06/21/16 11:49 Seg Neuts % (Manual) 72.0 % (40.0-70.0) H 06/21/16 11:49 Band Neutrophils % 25.0 % 06/21/16 11:49 Lymphocytes % (Manual) 3.0 % (13.4-35.0) L 06/21/16 11:49 Reactive Lymphs % (Man) 0 % 06/21/16 11:49 Monocytes % (Manual) 0 % (0.0-7.3) 06/21/16 11:49 Eosinophils % (Manual) 0 % (0.0-4.3) 06/21/16 11:49 Basophils % (Manual) 0 % (0.0-1.8) 06/21/16 11:49 Metamyelocytes % 0 % 06/21/16 11:49 Myelocytes % 0 % 06/21/16 11:49 Promyelocytes % 0 % 06/21/16 11:49 Blast Cells % 0 % 06/21/16 11:49 Nucleated RBC % Not Reportable 06/21/16 11:49 Seg Neutrophils # Man 4.7 K/mm3 (1.8-7.7) 06/21/16 11:49 Band Neutrophils # 1.6 K/mm3 06/21/16 11:49 Lymphocytes # (Manual) 0.2 K/mm3 (1.2-5.4) L 06/21/16 11:49 Abs React Lymphs (Man) 0.0 K/mm3 06/21/16 11:49 Monocytes # (Manual) 0.0 K/mm3 (0.0-0.8) 06/21/16 11:49 Eosinophils # (Manual) 0.0 K/mm3 (0.0-0.4) 06/21/16 11:49 Basophils # (Manual) 0.0 K/mm3 (0.0-0.1) 06/21/16 11:49 Metamyelocytes # 0.0 K/mm3 06/21/16 11:49 Myelocytes # 0.0 K/mm3 06/21/16 11:49 Promyelocytes # 0.0 K/mm3 06/21/16 11:49 Blast Cells # 0.0 K/mm3 06/21/16 11:49 WBC Morphology Not Reportable 06/21/16 11:49 Hypersegmented Neuts Not Reportable 06/21/16 11:49 Hyposegmented Neuts Not Reportable 06/21/16 11:49 Hypogranular Neuts Not Reportable 06/21/16 11:49 Smudge Cells Not Reportable 06/21/16 11:49 Toxic Granulation Not Reportable 06/21/16 11:49 Toxic Vacuolation Not Reportable 06/21/16 11:49 Dohle Bodies Not Reportable 06/21/16 11:49 Pelger-Huet Anomaly Not Reportable 06/21/16 11:49 Carlos Alberto Rods Not Reportable 06/21/16 11:49 Platelet Estimate Consistent w auto 06/21/16 11:49 Clumped Platelets Not Reportable 06/21/16 11:49 Plt Clumps, EDTA Not Reportable 06/21/16 11:49 Large Platelets Not Reportable 06/21/16 11:49 Giant Platelets Not Reportable 06/21/16 11:49 Platelet Satelliting Not Reportable 06/21/16 11:49 Plt Morphology Comment Not Reportable 06/21/16 11:49 RBC Morphology Not Reportable 06/21/16 11:49 Dimorphic RBCs Not Reportable 06/21/16 11:49 Polychromasia Not Reportable 06/21/16 11:49 Hypochromasia Not Reportable 06/21/16 11:49 Poikilocytosis Not Reportable 06/21/16 11:49 Anisocytosis Not Reportable 06/21/16 11:49 Microcytosis Not Reportable 06/21/16 11:49 Macrocytosis Not Reportable 06/21/16 11:49 Spherocytes Not Reportable 06/21/16 11:49 Pappenheimer Bodies Not Reportable 06/21/16 11:49 Sickle Cells Not Reportable 06/21/16 11:49 Target Cells Not Reportable 06/21/16 11:49 Tear Drop Cells Not Reportable 06/21/16 11:49 Ovalocytes Not Reportable 06/21/16 11:49 Helmet Cells Not Reportable 06/21/16 11:49 Jacobsen-[place] Bodies Not Reportable 06/21/16 11:49 [place] Rings Not Reportable 06/21/16 11:49 [place] Cells Not Reportable 06/21/16 11:49 Bite Cells Not Reportable 06/21/16 11:49 Crenated Cell Not Reportable 06/21/16 11:49 Elliptocytes Not Reportable 06/21/16 11:49 Acanthocytes (Spur) Not Reportable 06/21/16 11:49 Rouleaux Not Reportable 06/21/16 11:49 Hemoglobin C Crystals Not Reportable 06/21/16 11:49 Schistocytes Not Reportable 06/21/16 11:49 Malaria parasites Not Reportable 06/21/16 11:49 Tyler Bodies Not Reportable 06/21/16 11:49 Hem Pathologist Commnt No 06/21/16 11:49 Sodium 124 mmol/L (137-145) L D 06/24/16 13:32 Potassium 2.6 mmol/L (3.6-5.0) L* D 06/24/16 13:32 Chloride 84.9 mmol/L (98-107) L 06/24/16 13:32 Carbon Dioxide 27 mmol/L (22-30) 06/24/16 13:32 Anion Gap 15 mmol/L 06/24/16 13:32 BUN 9 mg/dL (7-17) 06/24/16 13:32 Creatinine 0.8 mg/dL (0.7-1.2) 06/24/16 13:32 Estimated GFR > 60 ml/min 06/24/16 13:32 BUN/Creatinine Ratio 11.25 % 06/24/16 13:32 Glucose 162 mg/dL (65-100) H 06/24/16 13:32 Lactic Acid 2.2 mmol/L (0.7-2.0) H* 06/21/16 11:49 Calcium 7.7 mg/dL (8.4-10.2) L 06/24/16 13:32 Total Bilirubin 0.4 mg/dL (0.1-1.2) 06/21/16 11:49 AST 36 units/L (5-40) 06/21/16 11:49 ALT 14 units/L (7-56) 06/21/16 11:49 Alkaline Phosphatase 99 units/L (35-129) 06/21/16 11:49 Total Protein 7.5 g/dL (6.3-8.2) 06/21/16 11:49 Albumin 3.9 g/dL (3.9-5) 06/21/16 11:49 Albumin/Globulin Ratio 1.1 % 06/21/16 11:49 Lipase 43 units/L (13-60) 06/21/16 Unknown Urine Color Yellow (Yellow) 06/21/16 14:51 Urine Turbidity Clear (Clear) 06/21/16 14:51 Urine pH 5.0 (5.0-7.0) 06/21/16 14:51 Ur Specific [place] 1.019 (1.003-1.030) 06/21/16 14:51 Urine Protein 100 mg/dl mg/dL (Negative) 06/21/16 14:51 Urine Glucose (UA) Neg mg/dL (Negative) 06/21/16 14:51 Urine Ketones Tr mg/dL (Negative) 06/21/16 14:51 Urine Blood Lg (Negative) 06/21/16 14:51 Urine Nitrite Neg (Negative) 06/21/16 14:51 Urine Bilirubin Neg (Negative) 06/21/16 14:51 Urine Urobilinogen < 2.0 mg/dL (<2.0) 06/21/16 14:51 Ur Leukocyte Esterase Neg (Negative) 06/21/16 14:51 Urine WBC (Auto) 3.0 /HPF (0.0-6.0) 06/21/16 14:51 Urine RBC (Auto) 20.0 /HPF (0.0-6.0) 06/21/16 14:51 U Epithel Cells (Auto) 1.0 /HPF (0-13.0) 06/21/16 14:51 Urine Mucus Few /HPF 06/21/16 14:51 Urine Yeast (Budding) Few /HPF 06/21/16 14:51
[2016-06-24] MEDS ORDERED: POTASSIUM CHLORIDE FEEDTUBE ONE (15:25)
[2016-06-24] MEDS: POTASSIUM CHLORIDE FEEDTUBE SCH (17:53)
[2016-06-25] MEDS: TAMIFLU PO SCH ×3 (00:15→22:10)
[2016-06-25] MEDS: KCL 10MEQ/100ML 10 MEQ/100 ML BAG IV SCH ×4 (00:17→04:22)
[2016-06-25] MEDS: POTASSIUM CHLORIDE FEEDTUBE SCH (00:38)
[2016-06-25] MEDS: DILAUDID IV PRN ×2 (00:49→04:24)
[2016-06-25] MEDS: D5/0.45NS 1,000 ML IV SCH ×2 (08:40→22:06)
--- NOTE | 2016-06-25 09:32 | Query- Renal Failure ---
Deahanna Sr Date:__06/25/2016 Associate Web Developer/CDS:__Glen Paz Phone#: Exercise your independent professional judgment when responding to query. Questions asked do not imply a particular answer is desired or expected. We greatly appreciate your clarification on this issue. Clinical Documentation States: The patient was admitted due to Hip Effusion. "Acute Renal Failure" (Dr. Phelps in [place] on 06/24/2016). Clinical Findings Show: 06/21 06/24 Creatinine 1.6 mg/dl 0.8 mg/dl BUN 23 mg/dl 9 mg/dl GFR 31 60 Please clarify if you mean: Acute Renal Failure with or due to: [ ] Tubular Necrosis [ ] Medullary Necrosis [ x] Vasomotor Nephropathy [ ] Shock Kidney [ ] Tubular Nephrosis [ ] Renal Tubular Stasis [ ] Cortical Necrosis [ ] Acute Renal Failure (unspecified) [ ] Lower Tubular Nephrosis [ ] Other: [ ] Not Applicable Present on Admission: [x ] Yes (Y) [ ] Clinically undeterminable (W) [ ] No (N) Please also document response in your Progress Notes and/or Discharge Summary and indicate if the condition was present on admission. MTDD
[2016-06-25] MEDS: LEVAQUIN 500MG/100ML 500 MG/100 ML BAG IV SCH (10:26)
--- NOTE | 2016-06-25 16:46 | Progress Note ---
Assessment and Plan - Patient Problems (1) Influenza A Current Visit: Yes Status: Acute Plan to address problem: Tamiflu BID, supportive care, IVF replacement, encourage oral intake (2) Dehydration Current Visit: Yes Status: Acute Plan to address problem: IVF, monitor uop q shift (3) Acute renal failure Current Visit: Yes Status: Acute Qualifiers: Acute renal failure type: A Plan to address problem: IVR replacement, monitor uop q shift, (4) DVT prophylaxis Current Visit: Yes Status: Acute History Interval history: Pt lying in bed, No reported nursing events. Pt denies pain. Pt states that she still feels weak and tired. Pt acknowledges diminished oral intake, Hospitalist Physical - Constitutional Vitals: Temp Pulse Resp BP Pulse Ox 98.4 F 69 18 144/74 95 06/25/16 07:00 06/25/16 07:00 06/25/16 07:00 06/25/16 00:00 06/25/16 07:00 General appearance: Present: no acute distress - EENT Eyes: Present: PERRL, EOM intact ENT: hearing intact - Neck Neck: Present: supple - Respiratory Respiratory: bilateral: diminished - Cardiovascular Rhythm: regular Heart Sounds: Present: S1 & S2 - Extremities Extremities: no ischemia Peripheral Pulses: within normal limits - Abdominal General gastrointestinal: soft, non-tender, non-distended - Integumentary Integumentary: Present: clear, dry, decreased turgor - Psychiatric Psychiatric: appropriate mood/affect, cooperative - Neurologic Neurologic: CNII-XII intact, no gait normal Results - Labs CBC & Chem 7: 06/21/16 11:49 06/24/16 13:32 Labs: Laboratory Last Values WBC 6.5 K/mm3 (4.5-11.0) 06/21/16 11:49 RBC 4.57 M/mm3 (3.65-5.03) 06/21/16 11:49 Hgb 13.6 gm/dl (10.1-14.3) 06/21/16 11:49 Hct 41.5 % (30.3-42.9) 06/21/16 11:49 MCV 91 fl (79-97) 06/21/16 11:49 MCH 30 pg (28-32) 06/21/16 11:49 MCHC 33 % (30-34) 06/21/16 11:49 RDW 13.3 % (13.2-15.2) 06/21/16 11:49 Plt Count 147 K/mm3 (140-440) 06/21/16 11:49 Add Manual Diff Complete 06/21/16 11:49 Total Counted 100 06/21/16 11:49 Seg Neutrophils % Baby Sitter 06/21/16 11:49 Seg Neuts % (Manual) 72.0 % (40.0-70.0) H 06/21/16 11:49 Band Neutrophils % 25.0 % 06/21/16 11:49 Lymphocytes % (Manual) 3.0 % (13.4-35.0) L 06/21/16 11:49 Reactive Lymphs % (Man) 0 % 06/21/16 11:49 Monocytes % (Manual) 0 % (0.0-7.3) 06/21/16 11:49 Eosinophils % (Manual) 0 % (0.0-4.3) 06/21/16 11:49 Basophils % (Manual) 0 % (0.0-1.8) 06/21/16 11:49 Metamyelocytes % 0 % 06/21/16 11:49 Myelocytes % 0 % 06/21/16 11:49 Promyelocytes % 0 % 06/21/16 11:49 Blast Cells % 0 % 06/21/16 11:49 Nucleated RBC % Not Reportable 06/21/16 11:49 Seg Neutrophils # Man 4.7 K/mm3 (1.8-7.7) 06/21/16 11:49 Band Neutrophils # 1.6 K/mm3 06/21/16 11:49 Lymphocytes # (Manual) 0.2 K/mm3 (1.2-5.4) L 06/21/16 11:49 Abs React Lymphs (Man) 0.0 K/mm3 06/21/16 11:49 Monocytes # (Manual) 0.0 K/mm3 (0.0-0.8) 06/21/16 11:49 Eosinophils # (Manual) 0.0 K/mm3 (0.0-0.4) 06/21/16 11:49 Basophils # (Manual) 0.0 K/mm3 (0.0-0.1) 06/21/16 11:49 Metamyelocytes # 0.0 K/mm3 06/21/16 11:49 Myelocytes # 0.0 K/mm3 06/21/16 11:49 Promyelocytes # 0.0 K/mm3 06/21/16 11:49 Blast Cells # 0.0 K/mm3 06/21/16 11:49 WBC Morphology Not Reportable 06/21/16 11:49 Hypersegmented Neuts Not Reportable 06/21/16 11:49 Hyposegmented Neuts Not Reportable 06/21/16 11:49 Hypogranular Neuts Not Reportable 06/21/16 11:49 Smudge Cells Not Reportable 06/21/16 11:49 Toxic Granulation Not Reportable 06/21/16 11:49 Toxic Vacuolation Not Reportable 06/21/16 11:49 Dohle Bodies Not Reportable 06/21/16 11:49 Pelger-Huet Anomaly Not Reportable 06/21/16 11:49 Carlos Alberto Rods Not Reportable 06/21/16 11:49 Platelet Estimate Consistent w auto 06/21/16 11:49 Clumped Platelets Not Reportable 06/21/16 11:49 Plt Clumps, EDTA Not Reportable 06/21/16 11:49 Large Platelets Not Reportable 06/21/16 11:49 Giant Platelets Not Reportable 06/21/16 11:49 Platelet Satelliting Not Reportable 06/21/16 11:49 Plt Morphology Comment Not Reportable 06/21/16 11:49 RBC Morphology Not Reportable 06/21/16 11:49 Dimorphic RBCs Not Reportable 06/21/16 11:49 Polychromasia Not Reportable 06/21/16 11:49 Hypochromasia Not Reportable 06/21/16 11:49 Poikilocytosis Not Reportable 06/21/16 11:49 Anisocytosis Not Reportable 06/21/16 11:49 Microcytosis Not Reportable 06/21/16 11:49 Macrocytosis Not Reportable 06/21/16 11:49 Spherocytes Not Reportable 06/21/16 11:49 Pappenheimer Bodies Not Reportable 06/21/16 11:49 Sickle Cells Not Reportable 06/21/16 11:49 Target Cells Not Reportable 06/21/16 11:49 Tear Drop Cells Not Reportable 06/21/16 11:49 Ovalocytes Not Reportable 06/21/16 11:49 Helmet Cells Not Reportable 06/21/16 11:49 Jacobsen[place] Bodies Not Reportable 06/21/16 11:49 [place] Rings Not Reportable 06/21/16 11:49 John Cells Not Reportable 06/21/16 11:49 Bite Cells Not Reportable 06/21/16 11:49 Crenated Cell Not Reportable 06/21/16 11:49 Elliptocytes Not Reportable 06/21/16 11:49 Acanthocytes (Spur) Not Reportable 06/21/16 11:49 Rouleaux Not Reportable 06/21/16 11:49 Hemoglobin C Crystals Not Reportable 06/21/16 11:49 Schistocytes Not Reportable 06/21/16 11:49 Malaria parasites Not Reportable 06/21/16 11:49 Tyler Bodies Not Reportable 06/21/16 11:49 Hem Pathologist Commnt No 06/21/16 11:49 Sodium 124 mmol/L (137-145) L D 06/24/16 13:32 Potassium 2.6 mmol/L (3.6-5.0) L* D 06/24/16 13:32 Chloride 84.9 mmol/L (98-107) L 06/24/16 13:32 Carbon Dioxide 27 mmol/L (22-30) 06/24/16 13:32 Anion Gap 15 mmol/L 06/24/16 13:32 BUN 9 mg/dL (7-17) 06/24/16 13:32 Creatinine 0.8 mg/dL (0.7-1.2) 06/24/16 13:32 Estimated GFR > 60 ml/min 06/24/16 13:32 BUN/Creatinine Ratio 11.25 % 06/24/16 13:32 Glucose 162 mg/dL (65-100) H 06/24/16 13:32 Lactic Acid 2.2 mmol/L (0.7-2.0) H* 06/21/16 11:49 Calcium 7.7 mg/dL (8.4-10.2) L 06/24/16 13:32 Total Bilirubin 0.4 mg/dL (0.1-1.2) 06/21/16 11:49 AST 36 units/L (5-40) 06/21/16 11:49 ALT 14 units/L (7-56) 06/21/16 11:49 Alkaline Phosphatase 99 units/L (35-129) 06/21/16 11:49 Total Protein 7.5 g/dL (6.3-8.2) 06/21/16 11:49 Albumin 3.9 g/dL (3.9-5) 06/21/16 11:49 Albumin/Globulin Ratio 1.1 % 06/21/16 11:49 Lipase 43 units/L (13-60) 06/21/16 Unknown Urine Color Yellow (Yellow) 06/21/16 14:51 Urine Turbidity Clear (Clear) 06/21/16 14:51 Urine pH 5.0 (5.0-7.0) 06/21/16 14:51 Ur Specific [place] 1.019 (1.003-1.030) 06/21/16 14:51 Urine Protein 100 mg/dl mg/dL (Negative) 06/21/16 14:51 Urine Glucose (UA) Neg mg/dL (Negative) 06/21/16 14:51 Urine Ketones Tr mg/dL (Negative) 06/21/16 14:51 Urine Blood Lg (Negative) 06/21/16 14:51 Urine Nitrite Neg (Negative) 06/21/16 14:51 Urine Bilirubin Neg (Negative) 06/21/16 14:51 Urine Urobilinogen < 2.0 mg/dL (<2.0) 06/21/16 14:51 Ur Leukocyte Esterase Neg (Negative) 06/21/16 14:51 Urine WBC (Auto) 3.0 /HPF (0.0-6.0) 06/21/16 14:51 Urine RBC (Auto) 20.0 /HPF (0.0-6.0) 06/21/16 14:51 U Epithel Cells (Auto) 1.0 /HPF (0-13.0) 06/21/16 14:51 Urine Mucus Few /HPF 06/21/16 14:51 Urine Yeast (Budding) Few /HPF 06/21/16 14:51
[2016-06-26 05:22] LABS: BUN/Creatinine Ratio 11.11; Calcium 7.8 mg/dL (8.4-10.2); Potassium 3.3 mmol/L (3.6-5.0)
[2016-06-26] MEDS ORDERED: K-DUR PO ONE (05:58)
[2016-06-26] MEDS: LEVAQUIN PO SCH (11:28)
[2016-06-26] MEDS: TAMIFLU PO SCH ×2 (11:28→22:46)
--- NOTE | 2016-06-26 14:21 | Progress Note ---
Assessment and Plan - Patient Problems (1) Acute renal failure Current Visit: Yes Status: Acute Qualifiers: Acute renal failure type: A Plan to address problem: Erum was treated with IV fluids and resolved. (2) Dehydration Current Visit: Yes Status: Acute Plan to address problem: Patient was treated with IV fluid and get better. (3) Influenza A Current Visit: Yes Status: Acute Plan to address problem: Patient is on Tamiflu, and denied any fever or chills (4) Hyponatremia Current Visit: Yes Status: Acute Plan to address problem: Showed mild improvement from yesterday, no neurologic symptoms, will improve slowly. (5) Hypokalemia Current Visit: Yes Status: Acute Plan to address problem: Repleted History Interval history: Patient was seen and evaluated this morning, patient states she wants to go to [facility]. Hospitalist Physical - Physical exam Narrative exam: Friable, female lying on the bed. Not in cardiopulmonary distress. Vital signs as documented. Head exam is unremarkable. No scleral icterus . Neck is without jugular venous distension, thyromegaly, or carotid bruits. Lungs are clear to auscultation. Cardiac exam reveals regular rate and Rhythm. First and second heart sounds normal. No murmurs, rubs or gallops. Abdominal exam reveals normal bowel sounds, no masses, no organomegaly and no aortic enlargement. Extremities are nonedematous and both femoral and pedal pulses are normal. 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 No focal weakness. - Constitutional Vitals: Temp Pulse Resp BP Pulse Ox 98.6 F 80 16 166/81 94 06/26/16 07:55 06/26/16 07:55 06/26/16 07:55 06/26/16 07:55 06/26/16 07:55 General appearance: Present: no acute distress Results - Labs CBC & Chem 7: 06/21/16 11:49 06/26/16 04:27 Labs: Laboratory Last Values WBC 6.5 K/mm3 (4.5-11.0) 06/21/16 11:49 RBC 4.57 M/mm3 (3.65-5.03) 06/21/16 11:49 Hgb 13.6 gm/dl (10.1-14.3) 06/21/16 11:49 Hct 41.5 % (30.3-42.9) 06/21/16 11:49 MCV 91 fl (79-97) 06/21/16 11:49 MCH 30 pg (28-32) 06/21/16 11:49 MCHC 33 % (30-34) 06/21/16 11:49 RDW 13.3 % (13.2-15.2) 06/21/16 11:49 Plt Count 147 K/mm3 (140-440) 06/21/16 11:49 Add Manual Diff Complete 06/21/16 11:49 Total Counted 100 06/21/16 11:49 Seg Neutrophils % Project Management 06/21/16 11:49 Seg Neuts % (Manual) 72.0 % (40.0-70.0) H 06/21/16 11:49 Band Neutrophils % 25.0 % 06/21/16 11:49 Lymphocytes % (Manual) 3.0 % (13.4-35.0) L 06/21/16 11:49 Reactive Lymphs % (Man) 0 % 06/21/16 11:49 Monocytes % (Manual) 0 % (0.0-7.3) 06/21/16 11:49 Eosinophils % (Manual) 0 % (0.0-4.3) 06/21/16 11:49 Basophils % (Manual) 0 % (0.0-1.8) 06/21/16 11:49 Metamyelocytes % 0 % 06/21/16 11:49 Myelocytes % 0 % 06/21/16 11:49 Promyelocytes % 0 % 06/21/16 11:49 Blast Cells % 0 % 06/21/16 11:49 Nucleated RBC % Not Reportable 06/21/16 11:49 Seg Neutrophils # Man 4.7 K/mm3 (1.8-7.7) 06/21/16 11:49 Band Neutrophils # 1.6 K/mm3 06/21/16 11:49 Lymphocytes # (Manual) 0.2 K/mm3 (1.2-5.4) L 06/21/16 11:49 Abs React Lymphs (Man) 0.0 K/mm3 06/21/16 11:49 Monocytes # (Manual) 0.0 K/mm3 (0.0-0.8) 06/21/16 11:49 Eosinophils # (Manual) 0.0 K/mm3 (0.0-0.4) 06/21/16 11:49 Basophils # (Manual) 0.0 K/mm3 (0.0-0.1) 06/21/16 11:49 Metamyelocytes # 0.0 K/mm3 06/21/16 11:49 Myelocytes # 0.0 K/mm3 06/21/16 11:49 Promyelocytes # 0.0 K/mm3 06/21/16 11:49 Blast Cells # 0.0 K/mm3 06/21/16 11:49 WBC Morphology Not Reportable 06/21/16 11:49 Hypersegmented Neuts Not Reportable 06/21/16 11:49 Hyposegmented Neuts Not Reportable 06/21/16 11:49 Hypogranular Neuts Not Reportable 06/21/16 11:49 Smudge Cells Not Reportable 06/21/16 11:49 Toxic Granulation Not Reportable 06/21/16 11:49 Toxic Vacuolation Not Reportable 06/21/16 11:49 Dohle Bodies Not Reportable 06/21/16 11:49 Pelger-Huet Anomaly Not Reportable 06/21/16 11:49 Carlos Alberto Rods Not Reportable 06/21/16 11:49 Platelet Estimate Consistent w auto 06/21/16 11:49 Clumped Platelets Not Reportable 06/21/16 11:49 Plt Clumps, EDTA Not Reportable 06/21/16 11:49 Large Platelets Not Reportable 06/21/16 11:49 Giant Platelets Not Reportable 06/21/16 11:49 Platelet Satelliting Not Reportable 06/21/16 11:49 Plt Morphology Comment Not Reportable 06/21/16 11:49 RBC Morphology Not Reportable 06/21/16 11:49 Dimorphic RBCs Not Reportable 06/21/16 11:49 Polychromasia Not Reportable 06/21/16 11:49 Hypochromasia Not Reportable 06/21/16 11:49 Poikilocytosis Not Reportable 06/21/16 11:49 Anisocytosis Not Reportable 06/21/16 11:49 Microcytosis Not Reportable 06/21/16 11:49 Macrocytosis Not Reportable 06/21/16 11:49 Spherocytes Not Reportable 06/21/16 11:49 Pappenheimer Bodies Not Reportable 06/21/16 11:49 Sickle Cells Not Reportable 06/21/16 11:49 Target Cells Not Reportable 06/21/16 11:49 Tear Drop Cells Not Reportable 06/21/16 11:49 Ovalocytes Not Reportable 06/21/16 11:49 Helmet Cells Not Reportable 06/21/16 11:49 Jacobsen-[place] Bodies Not Reportable 06/21/16 11:49 [place] Rings Not Reportable 06/21/16 11:49 John Cells Not Reportable 06/21/16 11:49 Bite Cells Not Reportable 06/21/16 11:49 Crenated Cell Not Reportable 06/21/16 11:49 Elliptocytes Not Reportable 06/21/16 11:49 Acanthocytes (Spur) Not Reportable 06/21/16 11:49 Rouleaux Not Reportable 06/21/16 11:49 Hemoglobin C Crystals Not Reportable 06/21/16 11:49 Schistocytes Not Reportable 06/21/16 11:49 Malaria parasites Not Reportable 06/21/16 11:49 Tyler Bodies Not Reportable 06/21/16 11:49 Hem Pathologist Commnt No 06/21/16 11:49 Sodium 126 mmol/L (137-145) L 06/26/16 04:27 Potassium 3.3 mmol/L (3.6-5.0) L D 06/26/16 04:27 Chloride 88.0 mmol/L (98-107) L 06/26/16 04:27 Carbon Dioxide 28 mmol/L (22-30) 06/26/16 04:27 Anion Gap 13 mmol/L 06/26/16 04:27 BUN 10 mg/dL (7-17) 06/26/16 04:27 Creatinine 0.9 mg/dL (0.7-1.2) 06/26/16 04:27 Estimated GFR 60 ml/min 06/26/16 04:27 BUN/Creatinine Ratio 11.11 % 06/26/16 04:27 Glucose 95 mg/dL (65-100) 06/26/16 04:27 Lactic Acid 2.2 mmol/L (0.7-2.0) H* 06/21/16 11:49 Calcium 7.8 mg/dL (8.4-10.2) L 06/26/16 04:27 Magnesium 1.9 mg/dL (1.7-2.3) 06/26/16 04:27 Total Bilirubin 0.4 mg/dL (0.1-1.2) 06/21/16 11:49 AST 36 units/L (5-40) 06/21/16 11:49 ALT 14 units/L (7-56) 06/21/16 11:49 Alkaline Phosphatase 99 units/L (35-129) 06/21/16 11:49 Total Protein 7.5 g/dL (6.3-8.2) 06/21/16 11:49 Albumin 3.9 g/dL (3.9-5) 06/21/16 11:49 Albumin/Globulin Ratio 1.1 % 06/21/16 11:49 Lipase 43 units/L (13-60) 06/21/16 Unknown Urine Color Yellow (Yellow) 06/21/16 14:51 Urine Turbidity Clear (Clear) 06/21/16 14:51 Urine pH 5.0 (5.0-7.0) 06/21/16 14:51 Ur Specific [place] 1.019 (1.003-1.030) 06/21/16 14:51 Urine Protein 100 mg/dl mg/dL (Negative) 06/21/16 14:51 Urine Glucose (UA) Neg mg/dL (Negative) 06/21/16 14:51 Urine Ketones Tr mg/dL (Negative) 06/21/16 14:51 Urine Blood Lg (Negative) 06/21/16 14:51 Urine Nitrite Neg (Negative) 06/21/16 14:51 Urine Bilirubin Neg (Negative) 06/21/16 14:51 Urine Urobilinogen < 2.0 mg/dL (<2.0) 06/21/16 14:51 Ur Leukocyte Esterase Neg (Negative) 06/21/16 14:51 Urine WBC (Auto) 3.0 /HPF (0.0-6.0) 06/21/16 14:51 Urine RBC (Auto) 20.0 /HPF (0.0-6.0) 06/21/16 14:51 U Epithel Cells (Auto) 1.0 /HPF (0-13.0) 06/21/16 14:51 Urine Mucus Few /HPF 06/21/16 14:51 Urine Yeast (Budding) Few /HPF 06/21/16 14:51
[2016-06-26] MEDS: D5/0.45NS 1,000 ML IV SCH (18:20)
[2016-06-27] MEDS: D5/0.45NS 1,000 ML IV SCH (04:05)
[2016-06-27 07:06] LABS: Chloride 95.1 mmol/L (98-107); Potassium 3.6 mmol/L (3.6-5.0)
[2016-06-27] MEDS: LEVAQUIN PO SCH (10:06)
[2016-06-27] MEDS: TAMIFLU PO SCH (10:07)
--- NOTE | 2016-06-27 13:41 | Progress Note ---
Assessment and Plan - Patient Problems (1) Acute renal failure Current Visit: Yes Status: Acute Qualifiers: Acute renal failure type: A (2) Dehydration Current Visit: Yes Status: Acute (3) Influenza A Current Visit: Yes Status: Acute (4) Hyponatremia Current Visit: Yes Status: Acute (5) Hypokalemia Current Visit: Yes Status: Acute History Interval history: Patient was seen and evaluated this morning, patient is pending placement. Hospitalist Physical - Physical exam Narrative exam: Friable, female lying on the bed. Not in cardiopulmonary distress. Vital signs as documented. Head exam is unremarkable. No scleral icterus . Neck is without jugular venous distension, thyromegaly, or carotid bruits. Lungs are clear to auscultation. Cardiac exam reveals regular rate and Rhythm. First and second heart sounds normal. No murmurs, rubs or gallops. Abdominal exam reveals normal bowel sounds, no masses, no organomegaly and no aortic enlargement. Extremities are nonedematous and both femoral and pedal pulses are normal. 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 No focal weakness. - Constitutional Vitals: Temp Pulse Resp BP Pulse Ox 98.7 F 87 16 157/85 94 06/27/16 07:15 06/27/16 07:15 06/27/16 07:15 06/27/16 07:15 06/27/16 07:15 General appearance: Present: no acute distress Results - Labs CBC & Chem 7: 06/21/16 11:49 06/27/16 06:20 Labs: Laboratory Last Values WBC 6.5 K/mm3 (4.5-11.0) 06/21/16 11:49 RBC 4.57 M/mm3 (3.65-5.03) 06/21/16 11:49 Hgb 13.6 gm/dl (10.1-14.3) 06/21/16 11:49 Hct 41.5 % (30.3-42.9) 06/21/16 11:49 MCV 91 fl (79-97) 06/21/16 11:49 MCH 30 pg (28-32) 06/21/16 11:49 MCHC 33 % (30-34) 06/21/16 11:49 RDW 13.3 % (13.2-15.2) 06/21/16 11:49 Plt Count 147 K/mm3 (140-440) 06/21/16 11:49 Add Manual Diff Complete 06/21/16 11:49 Total Counted 100 06/21/16 11:49 Seg Neutrophils % Cullet Crusher 06/21/16 11:49 Seg Neuts % (Manual) 72.0 % (40.0-70.0) H 06/21/16 11:49 Band Neutrophils % 25.0 % 06/21/16 11:49 Lymphocytes % (Manual) 3.0 % (13.4-35.0) L 06/21/16 11:49 Reactive Lymphs % (Man) 0 % 06/21/16 11:49 Monocytes % (Manual) 0 % (0.0-7.3) 06/21/16 11:49 Eosinophils % (Manual) 0 % (0.0-4.3) 06/21/16 11:49 Basophils % (Manual) 0 % (0.0-1.8) 06/21/16 11:49 Metamyelocytes % 0 % 06/21/16 11:49 Myelocytes % 0 % 06/21/16 11:49 Promyelocytes % 0 % 06/21/16 11:49 Blast Cells % 0 % 06/21/16 11:49 Nucleated RBC % Not Reportable 06/21/16 11:49 Seg Neutrophils # Man 4.7 K/mm3 (1.8-7.7) 06/21/16 11:49 Band Neutrophils # 1.6 K/mm3 06/21/16 11:49 Lymphocytes # (Manual) 0.2 K/mm3 (1.2-5.4) L 06/21/16 11:49 Abs React Lymphs (Man) 0.0 K/mm3 06/21/16 11:49 Monocytes # (Manual) 0.0 K/mm3 (0.0-0.8) 06/21/16 11:49 Eosinophils # (Manual) 0.0 K/mm3 (0.0-0.4) 06/21/16 11:49 Basophils # (Manual) 0.0 K/mm3 (0.0-0.1) 06/21/16 11:49 Metamyelocytes # 0.0 K/mm3 06/21/16 11:49 Myelocytes # 0.0 K/mm3 06/21/16 11:49 Promyelocytes # 0.0 K/mm3 06/21/16 11:49 Blast Cells # 0.0 K/mm3 06/21/16 11:49 WBC Morphology Not Reportable 06/21/16 11:49 Hypersegmented Neuts Not Reportable 06/21/16 11:49 Hyposegmented Neuts Not Reportable 06/21/16 11:49 Hypogranular Neuts Not Reportable 06/21/16 11:49 Smudge Cells Not Reportable 06/21/16 11:49 Toxic Granulation Not Reportable 06/21/16 11:49 Toxic Vacuolation Not Reportable 06/21/16 11:49 Dohle Bodies Not Reportable 06/21/16 11:49 Pelger-Huet Anomaly Not Reportable 06/21/16 11:49 Carlos Alberto Rods Not Reportable 06/21/16 11:49 Platelet Estimate Consistent w auto 06/21/16 11:49 Clumped Platelets Not Reportable 06/21/16 11:49 Plt Clumps, EDTA Not Reportable 06/21/16 11:49 Large Platelets Not Reportable 06/21/16 11:49 Giant Platelets Not Reportable 06/21/16 11:49 Platelet Satelliting Not Reportable 06/21/16 11:49 Plt Morphology Comment Not Reportable 06/21/16 11:49 RBC Morphology Not Reportable 06/21/16 11:49 Dimorphic RBCs Not Reportable 06/21/16 11:49 Polychromasia Not Reportable 06/21/16 11:49 Hypochromasia Not Reportable 06/21/16 11:49 Poikilocytosis Not Reportable 06/21/16 11:49 Anisocytosis Not Reportable 06/21/16 11:49 Microcytosis Not Reportable 06/21/16 11:49 Macrocytosis Not Reportable 06/21/16 11:49 Spherocytes Not Reportable 06/21/16 11:49 Pappenheimer Bodies Not Reportable 06/21/16 11:49 Sickle Cells Not Reportable 06/21/16 11:49 Target Cells Not Reportable 06/21/16 11:49 Tear Drop Cells Not Reportable 06/21/16 11:49 Ovalocytes Not Reportable 06/21/16 11:49 Helmet Cells Not Reportable 06/21/16 11:49 [place] Bodies Not Reportable 06/21/16 11:49 [place] Rings Not Reportable 06/21/16 11:49 John Cells Not Reportable 06/21/16 11:49 Bite Cells Not Reportable 06/21/16 11:49 Crenated Cell Not Reportable 06/21/16 11:49 Elliptocytes Not Reportable 06/21/16 11:49 Acanthocytes (Spur) Not Reportable 06/21/16 11:49 Rouleaux Not Reportable 06/21/16 11:49 Hemoglobin C Crystals Not Reportable 06/21/16 11:49 Schistocytes Not Reportable 06/21/16 11:49 Malaria parasites Not Reportable 06/21/16 11:49 Tyler Bodies Not Reportable 06/21/16 11:49 Hem Pathologist Commnt No 06/21/16 11:49 Sodium 133 mmol/L (137-145) L D 06/27/16 06:20 Potassium 3.6 mmol/L (3.6-5.0) 06/27/16 06:20 Chloride 95.1 mmol/L (98-107) L 06/27/16 06:20 Carbon Dioxide 28 mmol/L (22-30) 06/27/16 06:20 Anion Gap 14 mmol/L 06/27/16 06:20 BUN 12 mg/dL (7-17) 06/27/16 06:20 Creatinine 1.0 mg/dL (0.7-1.2) 06/27/16 06:20 Estimated GFR 53 ml/min 06/27/16 06:20 BUN/Creatinine Ratio 12.00 % 06/27/16 06:20 Glucose 100 mg/dL (65-100) 06/27/16 06:20 Lactic Acid 2.2 mmol/L (0.7-2.0) H* 06/21/16 11:49 Calcium 8.0 mg/dL (8.4-10.2) L 06/27/16 06:20 Magnesium 1.9 mg/dL (1.7-2.3) 06/26/16 04:27 Total Bilirubin 0.4 mg/dL (0.1-1.2) 06/21/16 11:49 AST 36 units/L (5-40) 06/21/16 11:49 ALT 14 units/L (7-56) 06/21/16 11:49 Alkaline Phosphatase 99 units/L (35-129) 06/21/16 11:49 Total Protein 7.5 g/dL (6.3-8.2) 06/21/16 11:49 Albumin 3.9 g/dL (3.9-5) 06/21/16 11:49 Albumin/Globulin Ratio 1.1 % 06/21/16 11:49 Lipase 43 units/L (13-60) 06/21/16 Unknown Urine Color Yellow (Yellow) 06/21/16 14:51 Urine Turbidity Clear (Clear) 06/21/16 14:51 Urine pH 5.0 (5.0-7.0) 06/21/16 14:51 Ur Specific [place] 1.019 (1.003-1.030) 06/21/16 14:51 Urine Protein 100 mg/dl mg/dL (Negative) 06/21/16 14:51 Urine Glucose (UA) Neg mg/dL (Negative) 06/21/16 14:51 Urine Ketones Tr mg/dL (Negative) 06/21/16 14:51 Urine Blood Lg (Negative) 06/21/16 14:51 Urine Nitrite Neg (Negative) 06/21/16 14:51 Urine Bilirubin Neg (Negative) 06/21/16 14:51 Urine Urobilinogen < 2.0 mg/dL (<2.0) 06/21/16 14:51 Ur Leukocyte Esterase Neg (Negative) 06/21/16 14:51 Urine WBC (Auto) 3.0 /HPF (0.0-6.0) 06/21/16 14:51 Urine RBC (Auto) 20.0 /HPF (0.0-6.0) 06/21/16 14:51 U Epithel Cells (Auto) 1.0 /HPF (0-13.0) 06/21/16 14:51 Urine Mucus Few /HPF 06/21/16 14:51 Urine Yeast (Budding) Few /HPF 06/21/16 14:51
--- NOTE | 2016-06-27 13:48 | Discharge Summary ---
Providers - Providers Date of Admission: 06/21/16 15:30 Date of discharge: 06/27/16 Attending physician: TORY MANCINI MD 06/26/16 16:14 Physical Therapy Evaluation and Treat [CONS] Routine Comment: Reason For Exam: DECONDITIONING AND PLACEMENT Primary care physician: ADJUNCT PHILOSOPHY FACULTY Hospitalization Reason for admission: Influenza infection Condition: Stable Disposition: DC/TX [facility] Time spent for discharge: 31 minutes - Discharge Diagnoses (1) Acute renal failure Status: Acute Qualifiers: Acute renal failure type: A (2) Dehydration Status: Acute (3) Influenza A Status: Acute (4) Hyponatremia Status: Acute (5) Hypokalemia Status: Acute Core Measure Documentation - Palliative Care Palliative Care/ Comfort Measures: Not Applicable - Core Measures Any of the following diagnoses?: none Exam - Physical Exam Narrative exam: Friable, female lying on the bed. Not in cardiopulmonary distress. Vital signs as documented. Head exam is unremarkable. No scleral icterus . Neck is without jugular venous distension, thyromegaly, or carotid bruits. Lungs are clear to auscultation. Cardiac exam reveals regular rate and Rhythm. First and second heart sounds normal. No murmurs, rubs or gallops. Abdominal exam reveals normal bowel sounds, no masses, no organomegaly and no aortic enlargement. Extremities are nonedematous and both femoral and pedal pulses are normal. LEASE EXAMINER: Alert and oriented 3. No focal weakness. - Constitutional Vitals: Temp Pulse Resp BP Pulse Ox 98.7 F 87 16 157/85 94 06/27/16 07:15 06/27/16 07:15 06/27/16 07:15 06/27/16 07:15 06/27/16 07:15 Plan Activity: no restrictions, advance as tolerated Weight Bearing Status: Weight Bear as Tolerated Diet: regular Follow up with: PRIMARY CAREMD [Primary Care Provider] - 7 Days Prescriptions: oxyCODONE /ACETAMINOPHEN [Percocet 5/325 mg] 1 tab PO Q6H PRN #12 tablet PRN Reason: Pain, Moderate (4-6)
[2016-06-27] MEDS ORDERED: APRESOLINE IV ONE (16:13)
[2016-06-27 17:37] VITALS: BP 122/66
== END 2016-06-27 17:30 | DRG 152 ==
LOC: ED 10:58 → 3A 15:30
PROVIDERS: ADMIT Internal Medicine; ATTEND Internal Medicine
DX: J11.1 Influenza due to unidentified influenza virus with other respiratory manifestations (principal); N17.0 Acute kidney failure with tubular necrosis; R65.10 Systemic inflammatory response syndrome (SIRS) of non-infectious origin without acute organ dysfunction; E87.1 Hypo-osmolality and hyponatremia; E86.0 Dehydration; E87.6 Hypokalemia
CPT/HCPCS: 36415; 71010; 74176; 80048; 80053; 81001; 82140; 83690; 83735; 85007; 85025; 87040; 87086; 87400; 90732; 96361; 96374; J0360; J1170; J1956; J2405; J3480; J7030

== ENCOUNTER 2017-04-23 11:41 | Inpatient (IN) | payer MEDICARE ==
--- NOTE | 2017-04-23 13:16 | Emergency Department Report ---
Chief Complaint: Upper Respiratory Infection Stated Complaint: FLU LIKE SYMPTOMS Time Seen by Provider: 04/23/17 13:12 - HPI History of Present Illness: Patient is a 87-year-old female with a history of blood pressure presents ED complaining of intermittent, yellow productive cough 1 week. Patient states symptoms persisted for about a week now. Patient states she sat up primary care physician sometime ago. Patient denies fever/chills/vomiting Patient also mentions that she has aching pain all over. - ROS Review of Systems: As noted in HPI - Exam Vital Signs: Vital Signs 04/23/17 11:48 Temperature 98.5 F Pulse Rate 118 H Respiratory 22 Rate Blood Pressure 147/80 O2 Sat by Pulse 92 Oximetry Physical Exam: GENERAL: Alert , no apparent distress, , atraumatic. LUNGS: Symetrical with respiration, No wheezing, no rales or crackles, CTAB. HEART: S1, S2 present, regular rate and rhythm without murmur, no rubs, no gallops. Non tender to palpation SKIN: Warm and dry, No lesions, No ulceration or induration present. MSE screening note: Focused history and physical exam performed. Due to findings the following was ordered: ED Medical Decision Making - Medical Decision Making Chest x-ray ordered: A 87-year-old female she states she is in no acute distress The patient to be seen by ED physician. ED Disposition for MSE Condition: Stable
--- NOTE | 2017-04-23 14:13 | XRay Report ---
ROUTINE CHEST, TWO VIEWS: HISTORY: Cough. Advanced COPD changes are again noted. There is subtle peribronchial density in the inferior right lung which is new since 06/21/16. This could represent an early infiltrate. There is no evidence for consolidation, pleural effusion or pneumothorax. Heart and mediastinal structures are unremarkable. The bony structures are demineralized but grossly intact. IMPRESSION: COPD. Questionable early infiltrate in the right lung. Correlate for pneumonia.
[2017-04-23] MEDS ORDERED: NACL 0.9% 1000 ML IV ONE (16:44)
[2017-04-23] MEDS ORDERED: ROCEPHIN/NS 1 GM/50 ML 1 GM/50 ML BAG IV ONE (16:44)
[2017-04-23] MEDS ORDERED: ZITHROMAX 500 MG in NACL 0.9% 250ML 250 ML IV ONE (16:47)
--- NOTE | 2017-04-23 16:48 | Emergency Department Report ---
ED General Adult HPI - General Chief complaint: Upper Respiratory Infection Stated complaint: FLU LIKE SYMPTOMS Time Seen by Provider: 04/23/17 13:12 Source: patient, family, RN/MD, RN notes reviewed, old records reviewed Mode of arrival: Wheelchair Limitations: Physical Limitation, Other (the patient is a poor historian) - History of Present Illness Initial comments: This is an 87-year-old female who was previously unknown to this provider. Past medical history includes Hospital admission for systemic inflammatory response syndrome, dehydration, Lyme disease, diverticulitis, shingles. As per triage nurse documentation, patient is sent to the ER for flulike symptoms for one week. The patient complains of cough and mucus production and generalized weakness. The patient is a poor historian, and she cannot describe exacerbating or relieving factors. To me, the patient denies headache, neck pain, chest pain, abdominal pain. She admits to cough, mucus production and shortness of breath. Patient cannot describe exacerbating or relieving factors or radiation. -: unknown Radiation: other (per hpi) Quality: other (per hpi) Consistency: other (per hpi) Improves with: other (per hpi) Associated Symptoms: cough, fever/chills, shortness of breath, weakness - Related Data Home Medications Medication Instructions Recorded Confirmed Last Taken Benazepril (Nf) 10 mg PO DAILY 04/23/17 04/23/17 Unknown Allergies Allergy/AdvReac Type Severity Reaction Status Date / Time dextromethorphan HBr Allergy Unknown Verified 06/21/16 11:57 [From DexAlone] ED Review of Systems ROS: Stated complaint: FLU LIKE SYMPTOMS Other details as noted in HPI Comment: Unobtainable due to pts medical conditions ED Past Medical Hx - Past Medical History Previous Medical History?: Yes Hx Hypertension: Yes Additional medical history: Lyme disease, Diverticulitis, Shingles - Surgical History Past Surgical History?: Yes Additional Surgical History: eyes, D&C - Social History Smoking Status: Never Smoker Substance Use Type: Prescribed - Medications Home Medications: Home Medications Medication Instructions Recorded Confirmed Last Taken Type Benazepril (Nf) 10 mg PO DAILY 04/23/17 04/23/17 Unknown History ED Physical Exam - General Limitations: Physical Limitation, Other (the patient is a poor historian) General appearance: in no apparent distress - Head Head exam: Present: atraumatic, normocephalic - Eye Eye exam: Present: normal appearance, EOMI - ENT ENT exam: Present: mucous membranes dry - Neck Neck exam: Present: normal inspection, full ROM - Respiratory Respiratory exam: Present: decreased breath sounds. Absent: respiratory distress - Cardiovascular Cardiovascular Exam: Present: normal rhythm, tachycardia, normal heart sounds. Absent: systolic murmur, diastolic murmur, rubs, gallop - GI/Abdominal GI/Abdominal exam: Present: soft, normal bowel sounds. Absent: distended, tenderness, rebound, pulsatile mass - Extremities Exam Extremities exam: Present: normal inspection, full ROM. Absent: pedal edema, joint swelling, calf tenderness - Back Exam Back exam: Present: normal inspection, full ROM. Absent: tenderness, CVA tenderness (R), paraspinal tenderness, vertebral tenderness - Neurological Exam Neurological exam: Present: alert, other (Extraocular movements intact. Tongue midline. No facial droop. Facial sensation intact to light touch in the V1, V2 , V3 distribution bilaterally. 5 and 5 strength in 4 extremities.. Sensation is intact to light touch in 4 extremities.) - Psychiatric Psychiatric exam: Present: anxious - Skin Skin exam: Present: warm, dry, intact, normal color. Absent: rash ED Course Vital Signs 04/23/17 04/23/17 04/23/17 11:48 14:04 14:15 Temperature 98.5 F Pulse Rate 118 H 95 H 108 H Respiratory 22 11 L 29 H Rate Blood Pressure 147/80 Blood Pressure [Left] O2 Sat by Pulse 92 96 Oximetry 04/23/17 04/23/17 04/23/17 14:30 14:45 15:00 Temperature Pulse Rate 97 H 98 H 94 H Respiratory 19 22 17 Rate Blood Pressure 145/67 120/83 140/68 Blood Pressure [Left] O2 Sat by Pulse 94 94 95 Oximetry 04/23/17 04/23/17 04/23/17 15:05 17:04 19:28 Temperature 98.6 F 101.8 F H 99.1 F Pulse Rate 104 H 103 H 93 H Respiratory 15 18 20 Rate Blood Pressure Blood Pressure 146/76 140/78 128/64 [Left] O2 Sat by Pulse 96 94 94 Oximetry 04/23/17 04/23/17 20:35 21:16 Temperature 100 F H 97.6 F Pulse Rate 98 H 84 Respiratory 18 19 Rate Blood Pressure 139/78 Blood Pressure 127/88 [Left] O2 Sat by Pulse 100 92 Oximetry - Reevaluation(s) Reevaluation #1: 04/23/17 18:09 Arterial blood gas demonstrates hypoxemic respiratory failure 04/24/17 01:04 Reevaluation #2: 04/23/17 19:31 Blood pressure within acceptable limits. Influenza screen is negative. ED Medical Decision Making - Lab Data Result diagrams: 04/23/17 17:00 04/23/17 17:00 Vital Signs 04/23/17 04/23/17 04/23/17 11:48 14:04 14:15 Temperature 98.5 F Pulse Rate 118 H 95 H 108 H Respiratory 22 11 L 29 H Rate Blood Pressure 147/80 Blood Pressure [Left] O2 Sat by Pulse 92 96 Oximetry 04/23/17 04/23/17 04/23/17 14:30 14:45 15:00 Temperature Pulse Rate 97 H 98 H 94 H Respiratory 19 22 17 Rate Blood Pressure 145/67 120/83 140/68 Blood Pressure [Left] O2 Sat by Pulse 94 94 95 Oximetry 04/23/17 04/23/17 15:05 17:04 Temperature 98.6 F 101.8 F H Pulse Rate 104 H 103 H Respiratory 15 18 Rate Blood Pressure Blood Pressure 146/76 140/78 [Left] O2 Sat by Pulse 96 94 Oximetry Labs 04/23/17 04/23/17 04/23/17 17:00 17:00 17:00 WBC 17.3 H RBC 4.01 Hgb 12.2 Hct 36.4 MCV 91 MCH 31 MCHC 34 RDW 13.2 Plt Count 289 Add Manual Diff Complete Total Counted 100 Seg Neutrophils % Esl Teacher Seg Neuts % (Manual) 96.0 H Band Neutrophils % 0 Lymphocytes % (Manual) 2.0 L Reactive Lymphs % (Man) 0 Monocytes % (Manual) 2.0 Eosinophils % (Manual) 0 Basophils % (Manual) 0 Metamyelocytes % 0 Myelocytes % 0 Promyelocytes % 0 Blast Cells % 0 Nucleated RBC % Not Reportable Seg Neutrophils # Man 16.6 H Band Neutrophils # 0.0 Lymphocytes # (Manual) 0.3 L Abs React Lymphs (Man) 0.0 Monocytes # (Manual) 0.3 Eosinophils # (Manual) 0.0 Basophils # (Manual) 0.0 Metamyelocytes # 0.0 Myelocytes # 0.0 Promyelocytes # 0.0 Blast Cells # 0.0 WBC Morphology Not Reportable Hypersegmented Neuts Not Reportable Hyposegmented Neuts Not Reportable Hypogranular Neuts Not Reportable Smudge Cells Not Reportable Toxic Granulation Not Reportable Toxic Vacuolation Not Reportable Dohle Bodies Not Reportable Pelger-Huet Anomaly Not Reportable Carlos Alberto Rods Not Reportable Platelet Estimate Appears normal Clumped Platelets Not Reportable Plt Clumps, EDTA Not Reportable Large Platelets Not Reportable Giant Platelets Not Reportable Platelet Satelliting Not Reportable Plt Morphology Comment Not Reportable RBC Morphology Not Reportable Dimorphic RBCs Not Reportable Polychromasia Not Reportable Hypochromasia Not Reportable Poikilocytosis Few Anisocytosis Few Microcytosis Not Reportable Macrocytosis Not Reportable Spherocytes Not Reportable Pappenheimer Bodies Not Reportable Sickle Cells Not Reportable Target Cells Not Reportable Tear Drop Cells Not Reportable Ovalocytes Not Reportable Helmet Cells Not Reportable Jacobsen-[place] Bodies Not Reportable [place] Rings Not Reportable John Cells Not Reportable Bite Cells Not Reportable Crenated Cell Not Reportable Elliptocytes Not Reportable Acanthocytes (Spur) Not Reportable Rouleaux Not Reportable Hemoglobin C Crystals Not Reportable Schistocytes Not Reportable Malaria parasites Not Reportable Tyler Bodies Not Reportable Hem Pathologist Commnt No PT 13.7 INR 1.00 POC ABG pH POC ABG pCO2 POC ABG pO2 POC ABG HCO3 POC ABG Total CO2 POC ABG O2 Sat POC ABG Base Excess FiO2 Sodium Potassium Chloride Carbon Dioxide Anion Gap BUN Creatinine Estimated GFR BUN/Creatinine Ratio Glucose Lactic Acid 1.30 Calcium Magnesium Troponin T 04/23/17 04/23/17 04/23/17 17:00 17:00 17:19 WBC RBC Hgb Hct MCV MCH MCHC RDW Plt Count Add Manual Diff Total Counted Seg Neutrophils % Seg Neuts % (Manual) Band Neutrophils % Lymphocytes % (Manual) Reactive Lymphs % (Man) Monocytes % (Manual) Eosinophils % (Manual) Basophils % (Manual) Metamyelocytes % Myelocytes % Promyelocytes % Blast Cells % Nucleated RBC % Seg Neutrophils # Man Band Neutrophils # Lymphocytes # (Manual) Abs React Lymphs (Man) Monocytes # (Manual) Eosinophils # (Manual) Basophils # (Manual) Metamyelocytes # Myelocytes # Promyelocytes # Blast Cells # WBC Morphology Hypersegmented Neuts Hyposegmented Neuts Hypogranular Neuts Smudge Cells Toxic Granulation Toxic Vacuolation Dohle Bodies Pelger-Huet Anomaly Carlos Alberto Rods Platelet Estimate Clumped Platelets Plt Clumps, EDTA Large Platelets Giant Platelets Platelet Satelliting Plt Morphology Comment RBC Morphology Dimorphic RBCs Polychromasia Hypochromasia Poikilocytosis Anisocytosis Microcytosis Macrocytosis Spherocytes Pappenheimer Bodies Sickle Cells Target Cells Tear Drop Cells Ovalocytes Helmet Cells Jacobsen-[place] Bodies [place] Rings John Cells Bite Cells Crenated Cell Elliptocytes Acanthocytes (Spur) Rouleaux Hemoglobin C Crystals Schistocytes Malaria parasites Tyler Bodies Hem Pathologist Commnt PT INR POC ABG pH 7.485 H POC ABG pCO2 33.9 L POC ABG pO2 58 L POC ABG HCO3 25.5 POC ABG Total CO2 27 POC ABG O2 Sat 92 POC ABG Base Excess 2 FiO2 21 Sodium 136 L Potassium 3.8 Chloride 94.6 L Carbon Dioxide 25 Anion Gap 20 BUN 41 H Creatinine 1.4 H Estimated GFR 36 BUN/Creatinine Ratio 29 Glucose 113 H Lactic Acid Calcium 8.5 Magnesium 1.90 Troponin T < 0.010 - Radiology Data Radiology results: report reviewed, image reviewed X-ray of the chest, interpreted by radiology, suggests pneumonia on the right hemithorax. - Medical Decision Making Differential diagnosis, including not limited to: Urinary tract infection, bacteremia, viremia, influenza, pneumonia Assessment and plan: 87-year-old female with fever, tachycardia, leukocytosis, x -ray of the chest suggesting pneumonia, systemic inflammatory response syndrome/ sepsis criteria, patient was medicated with IV fluids, Tylenol, 30 mL/kg bolus of IV fluid, ceftriaxone, azithromycin. Lactic acid, blood cultures will be ordered as per the sepsis pathway protocol. Case presented to the Hospital physician, Dr. Phelps who accepts the patient to the medical service for the aforementioned. Critical care attestation.: If time is entered above; I have spent that time in minutes in the direct care of this critically ill patient, excluding procedure time. ED Disposition Clinical Impression: Dehydration, Acute renal failure, Acute hypoxemic respiratory failure Sepsis Qualifiers: Sepsis type: sepsis due to unspecified organism Qualified Code(s): A41.9 - Sepsis, unspecified organism Disposition: [id number] OP ADMIT IP TO THIS HOSP Is pt being admited?: Yes Condition: Good
[2017-04-23] MEDS ORDERED: cefTRIAXone 1 GM in NACL 0.9% 20 ML IV ONE (17:00)
[2017-04-23] MEDS ORDERED: TYLENOL PO ONE (17:00)
[2017-04-23] MEDS ORDERED: TYLENOL ONE (17:02)
[2017-04-23 17:22] LABS: Hematocrit 36.4 % (30.3-42.9); Hemoglobin 12.2 gm/dl (10.1-14.3); Mean Corpuscular HGB Conc 34 % (30-34); Mean Corpuscular Hemoglobin 31 pg (28-32); Mean Corpuscular Volume 91 fl (79-97); Platelet Count 289 K/mm3 (140-440); Red Blood Count 4.01 M/mm3 (3.65-5.03); Red Cell Distribution Width 13.2 % (13.2-15.2)
[2017-04-23 17:34] LABS: BUN/Creatinine Ratio 29; Blood Urea Nitrogen 41 mg/dL (7-17); Calcium 8.5 mg/dL (8.4-10.2); Hemolysis Index 0
[2017-04-23 17:55] LABS: Basophils % (Manual) 0 % (0.0-1.8); Eosinophils % (Manual) 0 % (0.0-4.3); Total Cells Counted 100
[2017-04-23 17:56] LABS: Anisocytosis Few; Poikilocytosis Few
--- NOTE | 2017-04-23 18:08 | History and Physical Report ---
History of Present Illness Chief complaint: I feel like i got the flu, History of present illness: 87 YO Female HTN, Lyme Disease, Diverticulitis, Shingles presents to ED for evaluation. Pt states that she has been feeling sick for the past 1 week. Pt states that she has experienced productive cough of green sputum, and shortness of breath and subjective fever. The patient denies headache, neck pain, chest pain, abdominal pain, NVD, Syncope, BRBPR, hemoptysis, or recent ill contacts. Pt seen and evaluated in ED found to have Pneumonia complicated by sepsis. Pt initiated on the sepsis protocol and treated with IV antibiotics, and IVF resuscitation. Past History Past Medical History: hypertension, other (Diverticulitis, Lyme disease, Shingles) Past Surgical History: Other (eye surgery, D&C) Social history: . denies: smoking, alcohol abuse, prescription drug abuse Family history: hypertension Medications and Allergies Allergies Allergy/AdvReac Type Severity Reaction Status Date / Time dextromethorphan HBr Allergy Unknown Verified 06/21/16 11:57 [From DexAlone] Home Medications Medication Instructions Recorded Confirmed Last Taken Type Benazepril (Nf) 10 mg PO DAILY 04/23/17 04/23/17 Unknown History Review of Systems Constitutional: fever, no weight loss, no weight gain, no chills, no sweats, no night sweats Ears, nose, mouth and throat: no ear pain, no ear discharge, no tinnitis, no decreased hearing, no nose pain, no nasal congestion, no nasal discharge Breasts: no change in shape, no swelling, no mass Cardiovascular: no chest pain, no orthopnea, no palpitations, no rapid/ irregular heart beat Respiratory: cough with sputum, shortness of breath Gastrointestinal: no abdominal pain, no nausea, no vomiting, no diarrhea, no constipation Genitourinary Female: no pelvic pain, no flank pain, no menorrhagia, no dysuria Rectal: no pain, no incontinence, no bleeding Musculoskeletal: no neck stiffness, no neck pain, no shooting arm pain, no arm numbness/tingling, no low back pain Integumentary: no rash, no pruritis, no redness, no sores Neurological: no head injury, no transient paralysis, no paralysis, no weakness , no parathesias, no numbness, no tingling Psychiatric: no anxiety, no memory loss, no change in sleep habits, no sleep disturbances, no insomnia, no hypersomnia, no change in appetite, no change in libido Endocrine: no cold intolerance, no heat intolerance, no polyphagia, no excessive thirst, no polydipsia, no polyuria, no nocturia Hematologic/Lymphatic: no easy bruising, no easy bleeding Allergic/Immunologic: no urticaria, no allergic rhinitis, no wheezing Exam - Constitutional Vitals: Temp Pulse Resp BP Pulse Ox 101.8 F H 103 H 18 140/78 94 04/23/17 17:04 04/23/17 17:04 04/23/17 17:04 04/23/17 17:04 04/23/17 17:04 General appearance: Present: mild distress - EENT Eyes: Present: PERRL ENT: hearing intact, clear oral mucosa - Neck Neck: Present: supple, normal ROM - Respiratory Respiratory effort: labored Respiratory: bilateral: diminished - Cardiovascular Heart Sounds: Present: S1 & S2. Absent: rub, click - Extremities Extremities: pulses symmetrical, No edema Peripheral Pulses: within normal limits - Abdominal General gastrointestinal: Present: soft, non-tender, non-distended, normal bowel sounds Female genitourinary: Present: normal - Integumentary Integumentary: Present: clear, warm, dry - Musculoskeletal Musculoskeletal: generalized weakness - Psychiatric Psychiatric: appropriate mood/affect, intact judgment & insight - Neurologic Neurologic: CNII-XII intact, moves all extremities Results - Labs CBC & Chem 7: 04/23/17 17:00 04/23/17 17:00 Labs: Abnormal lab results 04/23/17 04/23/17 04/23/17 Range/Units 17:00 17:00 17:19 WBC 17.3 H (4.5-11.0) K/mm3 Seg Neuts % (Manual) 96.0 H (40.0-70.0) % Lymphocytes % (Manual) 2.0 L (13.4-35.0) % Seg Neutrophils # Man 16.6 H (1.8-7.7) K/mm3 Lymphocytes # (Manual) 0.3 L (1.2-5.4) K/mm3 POC ABG pH 7.485 H (7.35-7.45) POC ABG pCO2 33.9 L (35-45) POC ABG pO2 58 L (80-105) Sodium 136 L (137-145) mmol/L Chloride 94.6 L (98-107) mmol/L BUN 41 H (7-17) mg/dL Creatinine 1.4 H (0.7-1.2) mg/dL Glucose 113 H (65-100) mg/dL Assessment and Plan - Patient Problems (1) Sepsis Current Visit: Yes Status: Acute Qualifiers: Sepsis type: sepsis due to unspecified organism Qualified Code(s): A41.9 - Sepsis, unspecified organism Plan to address problem: Sepsis Protocol: IV abx, IVF Resuscitation, Monitor UOP q shift, Serial lactic acid level, blood cultures, urinalysis, Chest X ray, (2) Pneumonia Current Visit: Yes Status: Acute Qualifiers: Laterality: right Lung location: lower lobe of lung Plan to address problem: IV abx, nebulizer therapy, supplemental oxygen, aspiration precautions, blood cultures, supportive care. (3) Acute hypoxemic respiratory failure Current Visit: Yes Status: Acute Plan to address problem: Supplemental oxygen, nebulizer therapy, aspiration precautions, NIPPV as clinically indicated. (4) Acute renal failure Current Visit: Yes Status: Acute Plan to address problem: IVF resuscitation therapy, monitor uop q shift, repeat bmp. (5) COPD (chronic obstructive pulmonary disease) Current Visit: Yes Status: Acute Plan to address problem: Supplemental oxygen, nebulizer therapy, aspiration precautions, Hold steroids for now. (6) Hyponatremia syndrome Current Visit: Yes Status: Acute Plan to address problem: IVF resuscitation, supportive care. (7) DVT prophylaxis Current Visit: Yes Status: Acute Plan to address problem: SCD to BLE while in bed.
[2017-04-23] MEDS ORDERED: TYLENOL PO PRN (18:10)
[2017-04-23] MEDS ORDERED: ZOFRAN IV PRN (18:10)
[2017-04-23] MEDS ORDERED: PROVENTIL IH PRN (18:10)
[2017-04-23 18:37] LABS: Bacteria,Urine 1+ /HPF (Negative); Bilirubin,Urine NEG (Negative); Blood,Urine MOD (Negative); Color,Urine Amber (Yellow); Mucus,Urine FEW /HPF; Nitrite,Urine NEG (Negative)
--- NOTE | 2017-04-24 09:31 | Progress Note ---
Assessment and Plan Assessment and plan: 87 YO Female HTN, Lyme Disease, Diverticulitis, Shingles presents with productive cough, sob and subjective fever Sepsis Sepsis Protocol: IV abx, IVF Resuscitation, Monitor UOP q shift, Serial lactic acid level, blood cultures, urinalysis, Chest X ray, Pneumonia IV abx, nebulizer therapy, supplemental oxygen, aspiration precautions, blood cultures, supportive care. Acute hypoxemic respiratory failure Supplemental oxygen, nebulizer therapy, aspiration precautions, NIPPV as clinically indicated. wean off oxygen as tolerated Acute renal failure/vasomotor nephropathy IVF resuscitation therapy, monitor uop q shift, repeat bmp. COPD (chronic obstructive pulmonary disease) Supplemental oxygen, not in exacerbation Hyponatremia syndrome IVF resuscitation, supportive care. 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 continue abx, fup urine cultures History Interval history: She is complaining of productive cough, denies chest pain, denies shortness of breath. She admits generalized weakness, anorexia. States that she'll likely stay in the hospital longer because she is entering a nursing care does not want to come in. She also states that she does not want to go to subacute rehabilitation placement either. that she would like to stay in the hospital for a week and then go home Review of systems Constitutional: No fevers, no malaise, no joint pains CVS: No chest pain, no orthopnea, no dyspnea on exertion, no pedal edema GI: No abdominal pain, no diarrhea, no vomiting, no constipation Respiratory: No shortness of breath, no wheezing, Hospitalist Physical - Physical exam Narrative exam: General.: Appears well, no distress, nontoxic HEENT: Moist mucous membranes, extraocular muscles intact, no lymphadenopathy Neck: supple Cardiac: S1-S2 heard Lungs: clear to auscultation bilaterally Abdomen: soft , nontender, nondistended, bowel sounds positive Extremities: no edema clubbing or cyanosis Skin: no rash or lesions Neurologic: no gross focal deficits Psych: appropriate behavior, appropriate mood, corporative, judgment intact - Constitutional Vitals: Temp Pulse Resp BP Pulse Ox 97.3 F L 65 17 142/78 97 04/24/17 00:13 04/24/17 06:31 04/24/17 06:31 04/24/17 06:31 04/24/17 06:31 General appearance: Present: mild distress Results - Labs CBC & Chem 7: 04/23/17 17:00 04/23/17 17:00 Labs: Laboratory Last Values WBC 17.3 K/mm3 (4.5-11.0) H 04/23/17 17:00 RBC 4.01 M/mm3 (3.65-5.03) 04/23/17 17:00 Hgb 12.2 gm/dl (10.1-14.3) 04/23/17 17:00 Hct 36.4 % (30.3-42.9) 04/23/17 17:00 MCV 91 fl (79-97) 04/23/17 17:00 MCH 31 pg (28-32) 04/23/17 17:00 MCHC 34 % (30-34) 04/23/17 17:00 RDW 13.2 % (13.2-15.2) 04/23/17 17:00 Plt Count 289 K/mm3 (140-440) 04/23/17 17:00 Add Manual Diff Complete 04/23/17 17:00 Total Counted 100 04/23/17 17:00 Seg Neutrophils % Rn Pediatric 04/23/17 17:00 Seg Neuts % (Manual) 96.0 % (40.0-70.0) H 04/23/17 17:00 Band Neutrophils % 0 % 04/23/17 17:00 Lymphocytes % (Manual) 2.0 % (13.4-35.0) L 04/23/17 17:00 Reactive Lymphs % (Man) 0 % 04/23/17 17:00 Monocytes % (Manual) 2.0 % (0.0-7.3) 04/23/17 17:00 Eosinophils % (Manual) 0 % (0.0-4.3) 04/23/17 17:00 Basophils % (Manual) 0 % (0.0-1.8) 04/23/17 17:00 Metamyelocytes % 0 % 04/23/17 17:00 Myelocytes % 0 % 04/23/17 17:00 Promyelocytes % 0 % 04/23/17 17:00 Blast Cells % 0 % 04/23/17 17:00 Nucleated RBC % Not Reportable 04/23/17 17:00 Seg Neutrophils # Man 16.6 K/mm3 (1.8-7.7) H 04/23/17 17:00 Band Neutrophils # 0.0 K/mm3 04/23/17 17:00 Lymphocytes # (Manual) 0.3 K/mm3 (1.2-5.4) L 04/23/17 17:00 Abs React Lymphs (Man) 0.0 K/mm3 04/23/17 17:00 Monocytes # (Manual) 0.3 K/mm3 (0.0-0.8) 04/23/17 17:00 Eosinophils # (Manual) 0.0 K/mm3 (0.0-0.4) 04/23/17 17:00 Basophils # (Manual) 0.0 K/mm3 (0.0-0.1) 04/23/17 17:00 Metamyelocytes # 0.0 K/mm3 04/23/17 17:00 Myelocytes # 0.0 K/mm3 04/23/17 17:00 Promyelocytes # 0.0 K/mm3 04/23/17 17:00 Blast Cells # 0.0 K/mm3 04/23/17 17:00 WBC Morphology Not Reportable 04/23/17 17:00 Hypersegmented Neuts Not Reportable 04/23/17 17:00 Hyposegmented Neuts Not Reportable 04/23/17 17:00 Hypogranular Neuts Not Reportable 04/23/17 17:00 Smudge Cells Not Reportable 04/23/17 17:00 Toxic Granulation Not Reportable 04/23/17 17:00 Toxic Vacuolation Not Reportable 04/23/17 17:00 Dohle Bodies Not Reportable 04/23/17 17:00 Pelger-Huet Anomaly Not Reportable 04/23/17 17:00 Carlos Alberto Rods Not Reportable 04/23/17 17:00 Platelet Estimate Appears normal 04/23/17 17:00 Clumped Platelets Not Reportable 04/23/17 17:00 Plt Clumps, EDTA Not Reportable 04/23/17 17:00 Large Platelets Not Reportable 04/23/17 17:00 Giant Platelets Not Reportable 04/23/17 17:00 Platelet Satelliting Not Reportable 04/23/17 17:00 Plt Morphology Comment Not Reportable 04/23/17 17:00 RBC Morphology Not Reportable 04/23/17 17:00 Dimorphic RBCs Not Reportable 04/23/17 17:00 Polychromasia Not Reportable 04/23/17 17:00 Hypochromasia Not Reportable 04/23/17 17:00 Poikilocytosis Few 04/23/17 17:00 Anisocytosis Few 04/23/17 17:00 Microcytosis Not Reportable 04/23/17 17:00 Macrocytosis Not Reportable 04/23/17 17:00 Spherocytes Not Reportable 04/23/17 17:00 Pappenheimer Bodies Not Reportable 04/23/17 17:00 Sickle Cells Not Reportable 04/23/17 17:00 Target Cells Not Reportable 04/23/17 17:00 Tear Drop Cells Not Reportable 04/23/17 17:00 Ovalocytes Not Reportable 04/23/17 17:00 Helmet Cells Not Reportable 04/23/17 17:00 Jacob[place] Bodies Not Reportable 04/23/17 17:00 [place] Rings Not Reportable 04/23/17 17:00 [place] Cells Not Reportable 04/23/17 17:00 Bite Cells Not Reportable 04/23/17 17:00 Crenated Cell Not Reportable 04/23/17 17:00 Elliptocytes Not Reportable 04/23/17 17:00 Acanthocytes (Spur) Not Reportable 04/23/17 17:00 Rouleaux Not Reportable 04/23/17 17:00 Hemoglobin C Crystals Not Reportable 04/23/17 17:00 Schistocytes Not Reportable 04/23/17 17:00 Malaria parasites Not Reportable 04/23/17 17:00 Tyler Bodies Not Reportable 04/23/17 17:00 Hem Pathologist Commnt No 04/23/17 17:00 PT 13.7 Sec. (12.2-14.9) 04/23/17 17:00 INR 1.00 (0.87-1.13) 04/23/17 17:00 POC ABG pH 7.485 (7.35-7.45) H 04/23/17 17:19 POC ABG pCO2 33.9 (35-45) L 04/23/17 17:19 POC ABG pO2 58 (80-105) L 04/23/17 17:19 POC ABG HCO3 25.5 04/23/17 17:19 POC ABG Total CO2 27 04/23/17 17:19 POC ABG O2 Sat 92 04/23/17 17:19 POC ABG Base Excess 2 04/23/17 17:19 FiO2 21 % 04/23/17 17:19 Sodium 136 mmol/L (137-145) L 04/23/17 17:00 Potassium 3.8 mmol/L (3.6-5.0) 04/23/17 17:00 Chloride 94.6 mmol/L (98-107) L 04/23/17 17:00 Carbon Dioxide 25 mmol/L (22-30) 04/23/17 17:00 Anion Gap 20 mmol/L 04/23/17 17:00 BUN 41 mg/dL (7-17) H 04/23/17 17:00 Creatinine 1.4 mg/dL (0.7-1.2) H 04/23/17 17:00 Estimated GFR 36 ml/min 04/23/17 17:00 BUN/Creatinine Ratio 29 % 04/23/17 17:00 Glucose 113 mg/dL (65-100) H 04/23/17 17:00 Lactic Acid 1.10 mmol/L (0.7-2.0) 04/24/17 00:24 Calcium 8.5 mg/dL (8.4-10.2) 04/23/17 17:00 Magnesium 1.90 mg/dL (1.7-2.3) 04/23/17 17:00 Troponin T < 0.010 ng/mL (0.00-0.029) 04/23/17 17:00 Urine Color Jannet (Yellow) 04/23/17 17:52 Urine Turbidity Clear (Clear) 04/23/17 17:52 Urine pH 5.0 (5.0-7.0) 04/23/17 17:52 Ur Specific [place] 1.018 (1.003-1.030) 04/23/17 17:52 Urine Protein 30 mg/dl mg/dL (Negative) 04/23/17 17:52 Urine Glucose (UA) Neg mg/dL (Negative) 04/23/17 17:52 Urine Ketones Neg mg/dL (Negative) 04/23/17 17:52 Urine Blood Mod (Negative) 04/23/17 17:52 Urine Nitrite Neg (Negative) 04/23/17 17:52 Urine Bilirubin Neg (Negative) 04/23/17 17:52 Urine Urobilinogen 4.0 mg/dL (<2.0) 04/23/17 17:52 Ur Leukocyte Esterase Neg (Negative) 04/23/17 17:52 Urine WBC (Auto) 18.0 /HPF (0.0-6.0) H 04/23/17 17:52 Urine RBC (Auto) 40.0 /HPF (0.0-6.0) 04/23/17 17:52 Urine Bacteria (Auto) 1+ /HPF (Negative) 04/23/17 17:52 Urine Mucus Few /HPF 04/23/17 17:52
[2017-04-24] MEDS ORDERED: ROCEPHIN/NS 2 GM/100 ML 2 GM/100 ML BAG IV SCH (10:00)
[2017-04-24] MEDS: cefTRIAXone 2 GM in NACL 0.9% 20 ML IV SCH (10:15)
[2017-04-24] MEDS: ZITHROMAX 500 MG in NACL 0.9% 250ML 250 ML IV SCH (10:16)
[2017-04-24] MEDS ORDERED: BENAZEPRIL 10 MG PO SCH (11:30)
[2017-04-24] MEDS ORDERED: Fluarix Quad 2017-2018(36 MOS+ IM ONE (12:00)
[2017-04-24] MEDS: APRESOLINE IV PRN (12:20)
[2017-04-25] MEDS: ZESTRIL PO SCH (09:48)
[2017-04-25] MEDS: ZITHROMAX 500 MG in NACL 0.9% 250ML 250 ML IV SCH (09:50)
[2017-04-25] MEDS: cefTRIAXone 2 GM in NACL 0.9% 20 ML IV SCH (09:50)
[2017-04-25] MEDS: ISOPTO TEARS 0.5% OU SCH ×2 (16:13→22:53)
[2017-04-26] MEDS: cefTRIAXone 2 GM in NACL 0.9% 20 ML IV SCH (09:46)
[2017-04-26] MEDS: ISOPTO TEARS 0.5% OU SCH ×3 (09:47→21:39)
[2017-04-26] MEDS: ZESTRIL PO SCH (09:47)
[2017-04-26] MEDS: ZITHROMAX 500 MG in NACL 0.9% 250ML 250 ML IV SCH (10:16)
--- NOTE | 2017-04-26 11:54 | Progress Note ---
Assessment and Plan Assessment and plan: 87 YO Female HTN, Lyme Disease, Diverticulitis, Shingles presents with productive cough, sob and subjective fever Sepsis due to PNA Pneumonia continue abx, for 7 days total Acute hypoxemic respiratory failure improved has now weaned off oxygen Acute renal failure/vasomotor nephropathy IVF resuscitation therapy, monitor uop q shift, repeat bmp. COPD (chronic obstructive pulmonary disease) Supplemental oxygen, not in exacerbation Hyponatremia syndrome IVF resuscitation, supportive care. 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 She admits generalized weakness, anorexia. States that she'll likely stay in the hospital longer because she is entering a nursing care does not want to come in. She also states that she does not want to go to subacute rehabilitation placement either. that she would like to stay in the hospital for a week and then go home Review of systems Constitutional: No fevers, no malaise, no joint pains CVS: No chest pain, no orthopnea, no dyspnea on exertion, no pedal edema GI: No abdominal pain, no diarrhea, no vomiting, no constipation Respiratory: No shortness of breath, no wheezing, Hospitalist Physical - Physical exam Narrative exam: General.: Appears well, no distress, nontoxic HEENT: Moist mucous membranes, extraocular muscles intact, no lymphadenopathy Neck: supple Cardiac: S1-S2 heard Lungs: clear to auscultation bilaterally Abdomen: soft , nontender, nondistended, bowel sounds positive Extremities: no edema clubbing or cyanosis Skin: no rash or lesions Neurologic: no gross focal deficits Psych: appropriate behavior, appropriate mood, corporative, judgment intact - Constitutional Vitals: Temp Pulse Resp BP Pulse Ox 98.0 F 95 H 18 164/75 93 04/26/17 04:29 04/26/17 04:29 04/26/17 04:29 04/26/17 04:29 04/26/17 11:01 General appearance: Present: mild distress Results - Labs CBC & Chem 7: 04/23/17 17:00 04/23/17 17:00 Labs: Laboratory Last Values WBC 17.3 K/mm3 (4.5-11.0) H 04/23/17 17:00 RBC 4.01 M/mm3 (3.65-5.03) 04/23/17 17:00 Hgb 12.2 gm/dl (10.1-14.3) 04/23/17 17:00 Hct 36.4 % (30.3-42.9) 04/23/17 17:00 MCV 91 fl (79-97) 04/23/17 17:00 MCH 31 pg (28-32) 04/23/17 17:00 MCHC 34 % (30-34) 04/23/17 17:00 RDW 13.2 % (13.2-15.2) 04/23/17 17:00 Plt Count 289 K/mm3 (140-440) 04/23/17 17:00 Add Manual Diff Complete 04/23/17 17:00 Total Counted 100 04/23/17 17:00 Seg Neutrophils % Information Systems Security Analyst 04/23/17 17:00 Seg Neuts % (Manual) 96.0 % (40.0-70.0) H 04/23/17 17:00 Band Neutrophils % 0 % 04/23/17 17:00 Lymphocytes % (Manual) 2.0 % (13.4-35.0) L 04/23/17 17:00 Reactive Lymphs % (Man) 0 % 04/23/17 17:00 Monocytes % (Manual) 2.0 % (0.0-7.3) 04/23/17 17:00 Eosinophils % (Manual) 0 % (0.0-4.3) 04/23/17 17:00 Basophils % (Manual) 0 % (0.0-1.8) 04/23/17 17:00 Metamyelocytes % 0 % 04/23/17 17:00 Myelocytes % 0 % 04/23/17 17:00 Promyelocytes % 0 % 04/23/17 17:00 Blast Cells % 0 % 04/23/17 17:00 Nucleated RBC % Not Reportable 04/23/17 17:00 Seg Neutrophils # Man 16.6 K/mm3 (1.8-7.7) H 04/23/17 17:00 Band Neutrophils # 0.0 K/mm3 04/23/17 17:00 Lymphocytes # (Manual) 0.3 K/mm3 (1.2-5.4) L 04/23/17 17:00 Abs React Lymphs (Man) 0.0 K/mm3 04/23/17 17:00 Monocytes # (Manual) 0.3 K/mm3 (0.0-0.8) 04/23/17 17:00 Eosinophils # (Manual) 0.0 K/mm3 (0.0-0.4) 04/23/17 17:00 Basophils # (Manual) 0.0 K/mm3 (0.0-0.1) 04/23/17 17:00 Metamyelocytes # 0.0 K/mm3 04/23/17 17:00 Myelocytes # 0.0 K/mm3 04/23/17 17:00 Promyelocytes # 0.0 K/mm3 04/23/17 17:00 Blast Cells # 0.0 K/mm3 04/23/17 17:00 WBC Morphology Not Reportable 04/23/17 17:00 Hypersegmented Neuts Not Reportable 04/23/17 17:00 Hyposegmented Neuts Not Reportable 04/23/17 17:00 Hypogranular Neuts Not Reportable 04/23/17 17:00 Smudge Cells Not Reportable 04/23/17 17:00 Toxic Granulation Not Reportable 04/23/17 17:00 Toxic Vacuolation Not Reportable 04/23/17 17:00 Dohle Bodies Not Reportable 04/23/17 17:00 Pelger-Huet Anomaly Not Reportable 04/23/17 17:00 Carlos Alberto Rods Not Reportable 04/23/17 17:00 Platelet Estimate Appears normal 04/23/17 17:00 Clumped Platelets Not Reportable 04/23/17 17:00 Plt Clumps, EDTA Not Reportable 04/23/17 17:00 Large Platelets Not Reportable 04/23/17 17:00 Giant Platelets Not Reportable 04/23/17 17:00 Platelet Satelliting Not Reportable 04/23/17 17:00 Plt Morphology Comment Not Reportable 04/23/17 17:00 RBC Morphology Not Reportable 04/23/17 17:00 Dimorphic RBCs Not Reportable 04/23/17 17:00 Polychromasia Not Reportable 04/23/17 17:00 Hypochromasia Not Reportable 04/23/17 17:00 Poikilocytosis Few 04/23/17 17:00 Anisocytosis Few 04/23/17 17:00 Microcytosis Not Reportable 04/23/17 17:00 Macrocytosis Not Reportable 04/23/17 17:00 Spherocytes Not Reportable 04/23/17 17:00 Pappenheimer Bodies Not Reportable 04/23/17 17:00 Sickle Cells Not Reportable 04/23/17 17:00 Target Cells Not Reportable 04/23/17 17:00 Tear Drop Cells Not Reportable 04/23/17 17:00 Ovalocytes Not Reportable 04/23/17 17:00 Helmet Cells Not Reportable 04/23/17 17:00 Jacobsen-[place] Bodies Not Reportable 04/23/17 17:00 [place] Rings Not Reportable 04/23/17 17:00 [place] Cells Not Reportable 04/23/17 17:00 Bite Cells Not Reportable 04/23/17 17:00 Crenated Cell Not Reportable 04/23/17 17:00 Elliptocytes Not Reportable 04/23/17 17:00 Acanthocytes (Spur) Not Reportable 04/23/17 17:00 Rouleaux Not Reportable 04/23/17 17:00 Hemoglobin C Crystals Not Reportable 04/23/17 17:00 Schistocytes Not Reportable 04/23/17 17:00 Malaria parasites Not Reportable 04/23/17 17:00 Tyler Bodies Not Reportable 04/23/17 17:00 Hem Pathologist Commnt No 04/23/17 17:00 PT 13.7 Sec. (12.2-14.9) 04/23/17 17:00 INR 1.00 (0.87-1.13) 04/23/17 17:00 POC ABG pH 7.485 (7.35-7.45) H 04/23/17 17:19 POC ABG pCO2 33.9 (35-45) L 04/23/17 17:19 POC ABG pO2 58 (80-105) L 04/23/17 17:19 POC ABG HCO3 25.5 04/23/17 17:19 POC ABG Total CO2 27 04/23/17 17:19 POC ABG O2 Sat 92 04/23/17 17:19 POC ABG Base Excess 2 04/23/17 17:19 FiO2 21 % 04/23/17 17:19 Sodium 136 mmol/L (137-145) L 04/23/17 17:00 Potassium 3.8 mmol/L (3.6-5.0) 04/23/17 17:00 Chloride 94.6 mmol/L (98-107) L 04/23/17 17:00 Carbon Dioxide 25 mmol/L (22-30) 04/23/17 17:00 Anion Gap 20 mmol/L 04/23/17 17:00 BUN 41 mg/dL (7-17) H 04/23/17 17:00 Creatinine 1.4 mg/dL (0.7-1.2) H 04/23/17 17:00 Estimated GFR 36 ml/min 04/23/17 17:00 BUN/Creatinine Ratio 29 % 04/23/17 17:00 Glucose 113 mg/dL (65-100) H 04/23/17 17:00 Lactic Acid 1.10 mmol/L (0.7-2.0) 04/24/17 00:24 Calcium 8.5 mg/dL (8.4-10.2) 04/23/17 17:00 Magnesium 1.90 mg/dL (1.7-2.3) 04/23/17 17:00 Troponin T < 0.010 ng/mL (0.00-0.029) 04/23/17 17:00 Urine Color Jannet (Yellow) 04/23/17 17:52 Urine Turbidity Clear (Clear) 04/23/17 17:52 Urine pH 5.0 (5.0-7.0) 04/23/17 17:52 Ur Specific [place] 1.018 (1.003-1.030) 04/23/17 17:52 Urine Protein 30 mg/dl mg/dL (Negative) 04/23/17 17:52 Urine Glucose (UA) Neg mg/dL (Negative) 04/23/17 17:52 Urine Ketones Neg mg/dL (Negative) 04/23/17 17:52 Urine Blood Mod (Negative) 04/23/17 17:52 Urine Nitrite Neg (Negative) 04/23/17 17:52 Urine Bilirubin Neg (Negative) 04/23/17 17:52 Urine Urobilinogen 4.0 mg/dL (<2.0) 04/23/17 17:52 Ur Leukocyte Esterase Neg (Negative) 04/23/17 17:52 Urine WBC (Auto) 18.0 /HPF (0.0-6.0) H 04/23/17 17:52 Urine RBC (Auto) 40.0 /HPF (0.0-6.0) 04/23/17 17:52 Urine Bacteria (Auto) 1+ /HPF (Negative) 04/23/17 17:52 Urine Mucus Few /HPF 04/23/17 17:52
[2017-04-26 13:29] LABS: Hematocrit 36.4 % (30.3-42.9); Hemoglobin 12.3 gm/dl (10.1-14.3); Mean Corpuscular HGB Conc 34 % (30-34); Mean Corpuscular Hemoglobin 31 pg (28-32); Mean Corpuscular Volume 91 fl (79-97); Platelet Count 364 K/mm3 (140-440); Red Blood Count 4.01 M/mm3 (3.65-5.03); Red Cell Distribution Width 13.4 % (13.2-15.2)
[2017-04-26 13:30] LABS: BUN/Creatinine Ratio 36; Blood Urea Nitrogen 25 mg/dL (7-17); Calcium 8.4 mg/dL (8.4-10.2); Hemolysis Index 11
[2017-04-27] MEDS: ISOPTO TEARS 0.5% OU SCH ×3 (06:21→22:22)
[2017-04-27] MEDS: ZITHROMAX PO SCH (09:17)
[2017-04-27] MEDS: ZESTRIL PO SCH (09:17)
[2017-04-27] MEDS: cefTRIAXone 2 GM in NACL 0.9% 20 ML IV SCH (10:51)
--- NOTE | 2017-04-27 15:29 | Progress Note ---
Assessment and Plan Assessment and plan: 87 YO Female HTN, Lyme Disease, Diverticulitis, Shingles presents with productive cough, sob and subjective fever Sepsis due to PNA Pneumonia continue abx, for 7 days total Acute hypoxemic respiratory failure improved has now weaned off oxygen Acute renal failure/vasomotor nephropathy IVF resuscitation therapy, monitor uop q shift, repeat bmp. COPD (chronic obstructive pulmonary disease) Supplemental oxygen, not in exacerbation Hyponatremia syndrome IVF resuscitation, supportive care. 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 She admits generalized weakness, anorexia. States that she'll likely stay in the hospital longer because she is entering a nursing care does not want to come in. She also states that she does not want to go to subacute rehabilitation placement either. that she would like to stay in the hospital for a week and then go home Review of systems Constitutional: No fevers, no malaise, no joint pains CVS: No chest pain, no orthopnea, no dyspnea on exertion, no pedal edema GI: No abdominal pain, no diarrhea, no vomiting, no constipation Respiratory: No shortness of breath, no wheezing, Hospitalist Physical - Physical exam Narrative exam: General.: Appears well, no distress, nontoxic HEENT: Moist mucous membranes, extraocular muscles intact, no lymphadenopathy Neck: supple Cardiac: S1-S2 heard Lungs: clear to auscultation bilaterally Abdomen: soft , nontender, nondistended, bowel sounds positive Extremities: no edema clubbing or cyanosis Skin: no rash or lesions Neurologic: no gross focal deficits Psych: appropriate behavior, appropriate mood, corporative, judgment intact - Constitutional Vitals: Temp Pulse Resp BP Pulse Ox 98.1 F 105 H 20 154/85 92 04/27/17 12:14 04/27/17 12:14 04/27/17 12:14 04/27/17 12:14 04/27/17 12:14 General appearance: Present: mild distress Results - Labs CBC & Chem 7: 04/26/17 12:34 04/26/17 12:34 Labs: Laboratory Last Values WBC 12.4 K/mm3 (4.5-11.0) H 04/26/17 12:34 RBC 4.01 M/mm3 (3.65-5.03) 04/26/17 12:34 Hgb 12.3 gm/dl (10.1-14.3) 04/26/17 12:34 Hct 36.4 % (30.3-42.9) 04/26/17 12:34 MCV 91 fl (79-97) 04/26/17 12:34 MCH 31 pg (28-32) 04/26/17 12:34 MCHC 34 % (30-34) 04/26/17 12:34 RDW 13.4 % (13.2-15.2) 04/26/17 12:34 Plt Count 364 K/mm3 (140-440) 04/26/17 12:34 Add Manual Diff Complete 04/23/17 17:00 Total Counted 100 04/23/17 17:00 Seg Neutrophils % Scale Tester 04/23/17 17:00 Seg Neuts % (Manual) 96.0 % (40.0-70.0) H 04/23/17 17:00 Band Neutrophils % 0 % 04/23/17 17:00 Lymphocytes % (Manual) 2.0 % (13.4-35.0) L 04/23/17 17:00 Reactive Lymphs % (Man) 0 % 04/23/17 17:00 Monocytes % (Manual) 2.0 % (0.0-7.3) 04/23/17 17:00 Eosinophils % (Manual) 0 % (0.0-4.3) 04/23/17 17:00 Basophils % (Manual) 0 % (0.0-1.8) 04/23/17 17:00 Metamyelocytes % 0 % 04/23/17 17:00 Myelocytes % 0 % 04/23/17 17:00 Promyelocytes % 0 % 04/23/17 17:00 Blast Cells % 0 % 04/23/17 17:00 Nucleated RBC % Not Reportable 04/23/17 17:00 Seg Neutrophils # Man 16.6 K/mm3 (1.8-7.7) H 04/23/17 17:00 Band Neutrophils # 0.0 K/mm3 04/23/17 17:00 Lymphocytes # (Manual) 0.3 K/mm3 (1.2-5.4) L 04/23/17 17:00 Abs React Lymphs (Man) 0.0 K/mm3 04/23/17 17:00 Monocytes # (Manual) 0.3 K/mm3 (0.0-0.8) 04/23/17 17:00 Eosinophils # (Manual) 0.0 K/mm3 (0.0-0.4) 04/23/17 17:00 Basophils # (Manual) 0.0 K/mm3 (0.0-0.1) 04/23/17 17:00 Metamyelocytes # 0.0 K/mm3 04/23/17 17:00 Myelocytes # 0.0 K/mm3 04/23/17 17:00 Promyelocytes # 0.0 K/mm3 04/23/17 17:00 Blast Cells # 0.0 K/mm3 04/23/17 17:00 WBC Morphology Not Reportable 04/23/17 17:00 Hypersegmented Neuts Not Reportable 04/23/17 17:00 Hyposegmented Neuts Not Reportable 04/23/17 17:00 Hypogranular Neuts Not Reportable 04/23/17 17:00 Smudge Cells Not Reportable 04/23/17 17:00 Toxic Granulation Not Reportable 04/23/17 17:00 Toxic Vacuolation Not Reportable 04/23/17 17:00 Dohle Bodies Not Reportable 04/23/17 17:00 Pelger-Huet Anomaly Not Reportable 04/23/17 17:00 Carlos Alberto Rods Not Reportable 04/23/17 17:00 Platelet Estimate Appears normal 04/23/17 17:00 Clumped Platelets Not Reportable 04/23/17 17:00 Plt Clumps, EDTA Not Reportable 04/23/17 17:00 Large Platelets Not Reportable 04/23/17 17:00 Giant Platelets Not Reportable 04/23/17 17:00 Platelet Satelliting Not Reportable 04/23/17 17:00 Plt Morphology Comment Not Reportable 04/23/17 17:00 RBC Morphology Not Reportable 04/23/17 17:00 Dimorphic RBCs Not Reportable 04/23/17 17:00 Polychromasia Not Reportable 04/23/17 17:00 Hypochromasia Not Reportable 04/23/17 17:00 Poikilocytosis Few 04/23/17 17:00 Anisocytosis Few 04/23/17 17:00 Microcytosis Not Reportable 04/23/17 17:00 Macrocytosis Not Reportable 04/23/17 17:00 Spherocytes Not Reportable 04/23/17 17:00 Pappenheimer Bodies Not Reportable 04/23/17 17:00 Sickle Cells Not Reportable 04/23/17 17:00 Target Cells Not Reportable 04/23/17 17:00 Tear Drop Cells Not Reportable 04/23/17 17:00 Ovalocytes Not Reportable 04/23/17 17:00 Helmet Cells Not Reportable 04/23/17 17:00 Jacobsen-[place]oul[place] Bodies Not Reportable 04/23/17 17:00 [place] Rings Not Reportable 04/23/17 17:00 John Cells Not Reportable 04/23/17 17:00 Bite Cells Not Reportable 04/23/17 17:00 Crenated Cell Not Reportable 04/23/17 17:00 Elliptocytes Not Reportable 04/23/17 17:00 Acanthocytes (Spur) Not Reportable 04/23/17 17:00 Rouleaux Not Reportable 04/23/17 17:00 Hemoglobin C Crystals Not Reportable 04/23/17 17:00 Schistocytes Not Reportable 04/23/17 17:00 Malaria parasites Not Reportable 04/23/17 17:00 Tyler Bodies Not Reportable 04/23/17 17:00 Hem Pathologist Commnt No 04/23/17 17:00 PT 13.7 Sec. (12.2-14.9) 04/23/17 17:00 INR 1.00 (0.87-1.13) 04/23/17 17:00 POC ABG pH 7.485 (7.35-7.45) H 04/23/17 17:19 POC ABG pCO2 33.9 (35-45) L 04/23/17 17:19 POC ABG pO2 58 (80-105) L 04/23/17 17:19 POC ABG HCO3 25.5 04/23/17 17:19 POC ABG Total CO2 27 04/23/17 17:19 POC ABG O2 Sat 92 04/23/17 17:19 POC ABG Base Excess 2 04/23/17 17:19 FiO2 21 % 04/23/17 17:19 Sodium 139 mmol/L (137-145) 04/26/17 12:34 Potassium 4.0 mmol/L (3.6-5.0) 04/26/17 12:34 Chloride 98.7 mmol/L (98-107) 04/26/17 12:34 Carbon Dioxide 26 mmol/L (22-30) 04/26/17 12:34 Anion Gap 18 mmol/L 04/26/17 12:34 BUN 25 mg/dL (7-17) H 04/26/17 12:34 Creatinine 0.7 mg/dL (0.7-1.2) 04/26/17 12:34 Estimated GFR > 60 ml/min 04/26/17 12:34 BUN/Creatinine Ratio 36 % 04/26/17 12:34 Glucose 119 mg/dL (65-100) H 04/26/17 12:34 Lactic Acid 1.10 mmol/L (0.7-2.0) 04/24/17 00:24 Calcium 8.4 mg/dL (8.4-10.2) 04/26/17 12:34 Magnesium 1.90 mg/dL (1.7-2.3) 04/23/17 17:00 Troponin T < 0.010 ng/mL (0.00-0.029) 04/23/17 17:00 Urine Color Jannet (Yellow) 04/23/17 17:52 Urine Turbidity Clear (Clear) 04/23/17 17:52 Urine pH 5.0 (5.0-7.0) 04/23/17 17:52 Ur Specific [place] 1.018 (1.003-1.030) 04/23/17 17:52 Urine Protein 30 mg/dl mg/dL (Negative) 04/23/17 17:52 Urine Glucose (UA) Neg mg/dL (Negative) 04/23/17 17:52 Urine Ketones Neg mg/dL (Negative) 04/23/17 17:52 Urine Blood Mod (Negative) 04/23/17 17:52 Urine Nitrite Neg (Negative) 04/23/17 17:52 Urine Bilirubin Neg (Negative) 04/23/17 17:52 Urine Urobilinogen 4.0 mg/dL (<2.0) 04/23/17 17:52 Ur Leukocyte Esterase Neg (Negative) 04/23/17 17:52 Urine WBC (Auto) 18.0 /HPF (0.0-6.0) H 04/23/17 17:52 Urine RBC (Auto) 40.0 /HPF (0.0-6.0) 04/23/17 17:52 Urine Bacteria (Auto) 1+ /HPF (Negative) 04/23/17 17:52 Urine Mucus Few /HPF 04/23/17 17:52
[2017-04-28] MEDS: ISOPTO TEARS 0.5% OU SCH ×3 (06:31→21:38)
--- NOTE | 2017-04-28 10:26 | Progress Note ---
Assessment and Plan Assessment and plan: 87 YO Female HTN, Lyme Disease, Diverticulitis, Shingles presents with productive cough, sob and subjective fever Sepsis due to PNA Pneumonia continue abx, for 7 days total Acute hypoxemic respiratory failure improved has now weaned off oxygen Acute renal failure/vasomotor nephropathy IVF resuscitation therapy, monitor uop q shift, repeat bmp. COPD (chronic obstructive pulmonary disease) Supplemental oxygen, not in exacerbation Hyponatremia syndrome IVF resuscitation, supportive care. 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 She admits generalized weakness, anorexia. States that she'll likely stay in the hospital longer because she is entering a nursing care does not want to come in. She also states that she does not want to go to subacute rehabilitation placement either. that she would like to stay in the hospital for a week and then go home Review of systems Constitutional: No fevers, no malaise, no joint pains CVS: No chest pain, no orthopnea, no dyspnea on exertion, no pedal edema GI: No abdominal pain, no diarrhea, no vomiting, no constipation Respiratory: No shortness of breath, no wheezing, Hospitalist Physical - Physical exam Narrative exam: General.: Appears well, no distress, nontoxic HEENT: Moist mucous membranes, extraocular muscles intact, no lymphadenopathy Neck: supple Cardiac: S1-S2 heard Lungs: clear to auscultation bilaterally Abdomen: soft , nontender, nondistended, bowel sounds positive Extremities: no edema clubbing or cyanosis Skin: no rash or lesions Neurologic: no gross focal deficits Psych: appropriate behavior, appropriate mood, corporative, judgment intact - Constitutional Vitals: Temp Pulse Resp BP Pulse Ox 98.4 F 112 H 18 128/71 89 04/28/17 08:36 04/28/17 08:36 04/28/17 08:36 04/28/17 08:36 04/28/17 08:36 General appearance: Present: mild distress Results - Labs CBC & Chem 7: 04/26/17 12:34 04/26/17 12:34 Labs: Laboratory Last Values WBC 12.4 K/mm3 (4.5-11.0) H 04/26/17 12:34 RBC 4.01 M/mm3 (3.65-5.03) 04/26/17 12:34 Hgb 12.3 gm/dl (10.1-14.3) 04/26/17 12:34 Hct 36.4 % (30.3-42.9) 04/26/17 12:34 MCV 91 fl (79-97) 04/26/17 12:34 MCH 31 pg (28-32) 04/26/17 12:34 MCHC 34 % (30-34) 04/26/17 12:34 RDW 13.4 % (13.2-15.2) 04/26/17 12:34 Plt Count 364 K/mm3 (140-440) 04/26/17 12:34 Add Manual Diff Complete 04/23/17 17:00 Total Counted 100 04/23/17 17:00 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 04/23/17 17:00 Seg Neuts % (Manual) 96.0 % (40.0-70.0) H 04/23/17 17:00 Band Neutrophils % 0 % 04/23/17 17:00 Lymphocytes % (Manual) 2.0 % (13.4-35.0) L 04/23/17 17:00 Reactive Lymphs % (Man) 0 % 04/23/17 17:00 Monocytes % (Manual) 2.0 % (0.0-7.3) 04/23/17 17:00 Eosinophils % (Manual) 0 % (0.0-4.3) 04/23/17 17:00 Basophils % (Manual) 0 % (0.0-1.8) 04/23/17 17:00 Metamyelocytes % 0 % 04/23/17 17:00 Myelocytes % 0 % 04/23/17 17:00 Promyelocytes % 0 % 04/23/17 17:00 Blast Cells % 0 % 04/23/17 17:00 Nucleated RBC % Not Reportable 04/23/17 17:00 Seg Neutrophils # Man 16.6 K/mm3 (1.8-7.7) H 04/23/17 17:00 Band Neutrophils # 0.0 K/mm3 04/23/17 17:00 Lymphocytes # (Manual) 0.3 K/mm3 (1.2-5.4) L 04/23/17 17:00 Abs React Lymphs (Man) 0.0 K/mm3 04/23/17 17:00 Monocytes # (Manual) 0.3 K/mm3 (0.0-0.8) 04/23/17 17:00 Eosinophils # (Manual) 0.0 K/mm3 (0.0-0.4) 04/23/17 17:00 Basophils # (Manual) 0.0 K/mm3 (0.0-0.1) 04/23/17 17:00 Metamyelocytes # 0.0 K/mm3 04/23/17 17:00 Myelocytes # 0.0 K/mm3 04/23/17 17:00 Promyelocytes # 0.0 K/mm3 04/23/17 17:00 Blast Cells # 0.0 K/mm3 04/23/17 17:00 WBC Morphology Not Reportable 04/23/17 17:00 Hypersegmented Neuts Not Reportable 04/23/17 17:00 Hyposegmented Neuts Not Reportable 04/23/17 17:00 Hypogranular Neuts Not Reportable 04/23/17 17:00 Smudge Cells Not Reportable 04/23/17 17:00 Toxic Granulation Not Reportable 04/23/17 17:00 Toxic Vacuolation Not Reportable 04/23/17 17:00 Dohle Bodies Not Reportable 04/23/17 17:00 Pelger-Huet Anomaly Not Reportable 04/23/17 17:00 Carlos Alberto Rods Not Reportable 04/23/17 17:00 Platelet Estimate Appears normal 04/23/17 17:00 Clumped Platelets Not Reportable 04/23/17 17:00 Plt Clumps, EDTA Not Reportable 04/23/17 17:00 Large Platelets Not Reportable 04/23/17 17:00 Giant Platelets Not Reportable 04/23/17 17:00 Platelet Satelliting Not Reportable 04/23/17 17:00 Plt Morphology Comment Not Reportable 04/23/17 17:00 RBC Morphology Not Reportable 04/23/17 17:00 Dimorphic RBCs Not Reportable 04/23/17 17:00 Polychromasia Not Reportable 04/23/17 17:00 Hypochromasia Not Reportable 04/23/17 17:00 Poikilocytosis Few 04/23/17 17:00 Anisocytosis Few 04/23/17 17:00 Microcytosis Not Reportable 04/23/17 17:00 Macrocytosis Not Reportable 04/23/17 17:00 Spherocytes Not Reportable 04/23/17 17:00 Pappenheimer Bodies Not Reportable 04/23/17 17:00 Sickle Cells Not Reportable 04/23/17 17:00 Target Cells Not Reportable 04/23/17 17:00 Tear Drop Cells Not Reportable 04/23/17 17:00 Ovalocytes Not Reportable 04/23/17 17:00 Helmet Cells Not Reportable 04/23/17 17:00 Jacobsen-Vel[place] Bodies Not Reportable 04/23/17 17:00 [place] Rings Not Reportable 04/23/17 17:00 John Cells Not Reportable 04/23/17 17:00 Bite Cells Not Reportable 04/23/17 17:00 Crenated Cell Not Reportable 04/23/17 17:00 Elliptocytes Not Reportable 04/23/17 17:00 Acanthocytes (Spur) Not Reportable 04/23/17 17:00 Rouleaux Not Reportable 04/23/17 17:00 Hemoglobin C Crystals Not Reportable 04/23/17 17:00 Schistocytes Not Reportable 04/23/17 17:00 Malaria parasites Not Reportable 04/23/17 17:00 Tyler Bodies Not Reportable 04/23/17 17:00 Hem Pathologist Commnt No 04/23/17 17:00 PT 13.7 Sec. (12.2-14.9) 04/23/17 17:00 INR 1.00 (0.87-1.13) 04/23/17 17:00 POC ABG pH 7.485 (7.35-7.45) H 04/23/17 17:19 POC ABG pCO2 33.9 (35-45) L 04/23/17 17:19 POC ABG pO2 58 (80-105) L 04/23/17 17:19 POC ABG HCO3 25.5 04/23/17 17:19 POC ABG Total CO2 27 04/23/17 17:19 POC ABG O2 Sat 92 04/23/17 17:19 POC ABG Base Excess 2 04/23/17 17:19 FiO2 21 % 04/23/17 17:19 Sodium 139 mmol/L (137-145) 04/26/17 12:34 Potassium 4.0 mmol/L (3.6-5.0) 04/26/17 12:34 Chloride 98.7 mmol/L (98-107) 04/26/17 12:34 Carbon Dioxide 26 mmol/L (22-30) 04/26/17 12:34 Anion Gap 18 mmol/L 04/26/17 12:34 BUN 25 mg/dL (7-17) H 04/26/17 12:34 Creatinine 0.7 mg/dL (0.7-1.2) 04/26/17 12:34 Estimated GFR > 60 ml/min 04/26/17 12:34 BUN/Creatinine Ratio 36 % 04/26/17 12:34 Glucose 119 mg/dL (65-100) H 04/26/17 12:34 Lactic Acid 1.10 mmol/L (0.7-2.0) 04/24/17 00:24 Calcium 8.4 mg/dL (8.4-10.2) 04/26/17 12:34 Magnesium 1.90 mg/dL (1.7-2.3) 04/23/17 17:00 Troponin T < 0.010 ng/mL (0.00-0.029) 04/23/17 17:00 Urine Color Jannet (Yellow) 04/23/17 17:52 Urine Turbidity Clear (Clear) 04/23/17 17:52 Urine pH 5.0 (5.0-7.0) 04/23/17 17:52 Ur Specific [place] 1.018 (1.003-1.030) 04/23/17 17:52 Urine Protein 30 mg/dl mg/dL (Negative) 04/23/17 17:52 Urine Glucose (UA) Neg mg/dL (Negative) 04/23/17 17:52 Urine Ketones Neg mg/dL (Negative) 04/23/17 17:52 Urine Blood Mod (Negative) 04/23/17 17:52 Urine Nitrite Neg (Negative) 04/23/17 17:52 Urine Bilirubin Neg (Negative) 04/23/17 17:52 Urine Urobilinogen 4.0 mg/dL (<2.0) 04/23/17 17:52 Ur Leukocyte Esterase Neg (Negative) 04/23/17 17:52 Urine WBC (Auto) 18.0 /HPF (0.0-6.0) H 04/23/17 17:52 Urine RBC (Auto) 40.0 /HPF (0.0-6.0) 04/23/17 17:52 Urine Bacteria (Auto) 1+ /HPF (Negative) 04/23/17 17:52 Urine Mucus Few /HPF 04/23/17 17:52
[2017-04-28] MEDS: ZITHROMAX PO SCH (11:10)
[2017-04-28] MEDS: ZESTRIL PO SCH (11:12)
[2017-04-28] MEDS: cefTRIAXone 2 GM in NACL 0.9% 20 ML IV SCH (17:37)
[2017-04-29] MEDS: ISOPTO TEARS 0.5% OU SCH ×3 (06:15→22:05)
[2017-04-29] MEDS: ZITHROMAX PO SCH (10:11)
[2017-04-29] MEDS: ZESTRIL PO SCH (10:12)
[2017-04-29] MEDS: cefTRIAXone 2 GM in NACL 0.9% 20 ML IV SCH (10:47)
--- NOTE | 2017-04-29 13:17 | Progress Note ---
Assessment and Plan 87 YO Female HTN, Lyme Disease, Diverticulitis, Shingles presents with productive cough, sob and subjective fever /Sepsis due to PNA /Pneumonia continue abx, for 7 days total / Acute hypoxemic respiratory failure improved has now weaned off oxygen /Acute renal failure/vasomotor nephropathy IVF resuscitation therapy, monitor uop q shift, repeat bmp. /COPD (chronic obstructive pulmonary disease) Supplemental oxygen, not in exacerbation /Hyponatremia syndrome IVF resuscitation, supportive care. 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 She admits generalized weakness, anorexia. States that she'll likely stay in the hospital longer because she is entering a nursing care does not want to come in. She also states that she does not want to go to subacute rehabilitation placement either. that she would like to stay in the hospital for a week and then go home Hospitalist Physical - Physical exam Narrative exam: General.: Appears well, no distress, nontoxic, malnurished HEENT: Moist mucous membranes, extraocular muscles intact, no lymphadenopathy Neck: supple Cardiac: S1-S2 heard Lungs: clear to auscultation bilaterally Abdomen: soft , nontender, nondistended, bowel sounds positive Extremities: no edema clubbing or cyanosis Skin: no rash or lesions Neurologic: no gross focal deficits Psych: appropriate behavior, appropriate mood, corporative, judgment intact Subjective Date of service: 04/29/17 Objective - Constitutional Vitals: Vital Signs - 12hr 04/29/17 04/29/17 04/29/17 01:18 02:47 02:55 Temperature 98.5 F Pulse Rate 91 H 91 H Respiratory 22 Rate Blood Pressure 151/85 153/90 O2 Sat by Pulse 90 Oximetry 04/29/17 04/29/17 04/29/17 04:35 07:27 10:12 Temperature 98.8 F 98.3 F Pulse Rate 94 H 90 92 H Respiratory 18 16 Rate Blood Pressure 147/87 151/82 151/82 O2 Sat by Pulse 95 96 Oximetry - Labs CBC & Chem 7: 04/26/17 12:34 04/26/17 12:34
[2017-04-29] MEDS: APRESOLINE IV PRN (20:38)
[2017-04-30] MEDS: ISOPTO TEARS 0.5% OU SCH ×3 (05:15→21:25)
[2017-04-30] MEDS: cefTRIAXone 2 GM in NACL 0.9% 20 ML IV SCH (10:04)
[2017-04-30] MEDS: ZESTRIL PO SCH (10:05)
[2017-04-30] MEDS: ZITHROMAX PO SCH (10:05)
--- NOTE | 2017-04-30 18:35 | Progress Note ---
Assessment and Plan 87 YO Female HTN, Lyme Disease, Diverticulitis, Shingles presents with productive cough, sob and subjective fever /Sepsis due to PNA /Pneumonia continue abx, for 7 days total (stop on 05/03/17) / Acute hypoxemic respiratory failure improved has now weaned off oxygen /Acute renal failure/vasomotor nephropathy IVF resuscitation therapy, monitor uop q shift, repeat bmp. /COPD (chronic obstructive pulmonary disease) Supplemental oxygen, not in exacerbation /Hyponatremia syndrome IVF resuscitation, supportive care. 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 She admits generalized weakness, anorexia. States that she'll likely stay in the hospital longer because she is entering a nursing care does not want to come in. She also states that she does not want to go to subacute rehabilitation placement either. that she would like to stay in the hospital for a week and then go home Hospitalist Physical - Physical exam Narrative exam: General.: Appears well, no distress, nontoxic, malnurished HEENT: Moist mucous membranes, extraocular muscles intact, no lymphadenopathy Neck: supple Cardiac: S1-S2 heard Lungs: clear to auscultation bilaterally Abdomen: soft , nontender, nondistended, bowel sounds positive Extremities: no edema clubbing or cyanosis Skin: no rash or lesions Neurologic: no gross focal deficits Psych: appropriate behavior, appropriate mood, corporative, judgment intact Subjective Date of service: 04/30/17 Objective - Constitutional Vitals: Vital Signs - 12hr 04/30/17 04/30/17 04/30/17 08:03 10:00 10:05 Temperature 98.9 F Pulse Rate 99 H 99 H 98 H Respiratory 18 Rate Blood Pressure 137/75 137/75 O2 Sat by Pulse 95 Oximetry 04/30/17 04/30/17 11:18 15:31 Temperature 98.4 F 98.8 F Pulse Rate 95 H 96 H Respiratory 18 18 Rate Blood Pressure 129/72 129/70 O2 Sat by Pulse 94 93 Oximetry - Labs CBC & Chem 7: 04/26/17 12:34 04/26/17 12:34
[2017-05-01] MEDS: ISOPTO TEARS 0.5% OU SCH ×3 (05:22→22:17)
[2017-05-01] MEDS: ZITHROMAX PO SCH (09:50)
[2017-05-01] MEDS: ZESTRIL PO SCH (09:50)
[2017-05-01] MEDS: cefTRIAXone 2 GM in NACL 0.9% 20 ML IV SCH (10:17)
--- NOTE | 2017-05-01 14:20 | Event Note ---
Date: 05/01/17 Echocardiogram done today shows a mobile echogenic density in the right atrium. Normal left ventricular systolic function, EF 65%. LISBETH is warranted for further cardiac evaluation. Discussed findings and recommendation for LISBETH with son, Bill Han, who agrees to proceed.
--- NOTE | 2017-05-01 15:17 | Progress Note ---
Assessment and Plan Assessment and plan: 87 YO Female HTN, Lyme Disease, Diverticulitis, Shingles presents with productive cough, sob and subjective fever /Sepsis due to PNA /Pneumonia continue abx, for 7 days total (stop on 05/03/17) / Acute hypoxemic respiratory failure improved has now weaned off oxygen /Acute renal failure/vasomotor nephropathy IVF resuscitation therapy, monitor uop q shift, repeat bmp. /COPD (chronic obstructive pulmonary disease) Supplemental oxygen, not in exacerbation /Hyponatremia syndrome IVF resuscitation, supportive care. 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 Normal left ventricular systolic function, EF 65%. LISBETH is warranted for further cardiac evaluation. Discussed findings and recommendation for LISBETH with son, Bill Han, who agrees to proceed. History Interval history: Patient was seen and examined. Follow-up on current diagnosis. Overnight uneventful. Patient denies any chest pain, shortness breath, nausea/vomiting or severe headaches. Imaging, nursing note, chart, labs and old chart reviewed. Discussed with patient. Hospitalist Physical - Physical exam Narrative exam: GEN: Cachectic BMI 15 NAD, AWAKE, ALERT, ORIENTATED x 3 HEENT: NCAT, EOMI, PERRL, OP Clear NECK: supple, no adenopathy, no thyromegaly, no JVD CVS/HEART: RRR, NORMAL S1S2, NO JVD, pulses present bilaterally CHEST/LUNGS: CTA B, Symmetrical chest expansion, good air entry bilaterally GI/Abdomen: soft, NTND, good bowel sounds, no guarding or rebound /Bladder: no suprapubic tenderness, no CVA or paraspinal tenderness EXT/Skin: no c/c/e, no obvious rash MSK: FROM x 4 Neuro: CN 2-12 grossly intact, no new focal deficits Psych: calm - Constitutional Vitals: Temp Pulse Resp BP Pulse Ox 98.1 F 100 H 20 121/63 97 05/01/17 11:58 05/01/17 11:58 05/01/17 11:58 05/01/17 11:58 05/01/17 11:58 Results - Labs CBC & Chem 7: 04/26/17 12:34 04/26/17 12:34 Labs: Laboratory Last Values WBC 12.4 K/mm3 (4.5-11.0) H 04/26/17 12:34 RBC 4.01 M/mm3 (3.65-5.03) 04/26/17 12:34 Hgb 12.3 gm/dl (10.1-14.3) 04/26/17 12:34 Hct 36.4 % (30.3-42.9) 04/26/17 12:34 MCV 91 fl (79-97) 04/26/17 12:34 MCH 31 pg (28-32) 04/26/17 12:34 MCHC 34 % (30-34) 04/26/17 12:34 RDW 13.4 % (13.2-15.2) 04/26/17 12:34 Plt Count 364 K/mm3 (140-440) 04/26/17 12:34 Add Manual Diff Complete 04/23/17 17:00 Total Counted 100 04/23/17 17:00 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 04/23/17 17:00 Seg Neuts % (Manual) 96.0 % (40.0-70.0) H 04/23/17 17:00 Band Neutrophils % 0 % 04/23/17 17:00 Lymphocytes % (Manual) 2.0 % (13.4-35.0) L 04/23/17 17:00 Reactive Lymphs % (Man) 0 % 04/23/17 17:00 Monocytes % (Manual) 2.0 % (0.0-7.3) 04/23/17 17:00 Eosinophils % (Manual) 0 % (0.0-4.3) 04/23/17 17:00 Basophils % (Manual) 0 % (0.0-1.8) 04/23/17 17:00 Metamyelocytes % 0 % 04/23/17 17:00 Myelocytes % 0 % 04/23/17 17:00 Promyelocytes % 0 % 04/23/17 17:00 Blast Cells % 0 % 04/23/17 17:00 Nucleated RBC % Not Reportable 04/23/17 17:00 Seg Neutrophils # Man 16.6 K/mm3 (1.8-7.7) H 04/23/17 17:00 Band Neutrophils # 0.0 K/mm3 04/23/17 17:00 Lymphocytes # (Manual) 0.3 K/mm3 (1.2-5.4) L 04/23/17 17:00 Abs React Lymphs (Man) 0.0 K/mm3 04/23/17 17:00 Monocytes # (Manual) 0.3 K/mm3 (0.0-0.8) 04/23/17 17:00 Eosinophils # (Manual) 0.0 K/mm3 (0.0-0.4) 04/23/17 17:00 Basophils # (Manual) 0.0 K/mm3 (0.0-0.1) 04/23/17 17:00 Metamyelocytes # 0.0 K/mm3 04/23/17 17:00 Myelocytes # 0.0 K/mm3 04/23/17 17:00 Promyelocytes # 0.0 K/mm3 04/23/17 17:00 Blast Cells # 0.0 K/mm3 04/23/17 17:00 WBC Morphology Not Reportable 04/23/17 17:00 Hypersegmented Neuts Not Reportable 04/23/17 17:00 Hyposegmented Neuts Not Reportable 04/23/17 17:00 Hypogranular Neuts Not Reportable 04/23/17 17:00 Smudge Cells Not Reportable 04/23/17 17:00 Toxic Granulation Not Reportable 04/23/17 17:00 Toxic Vacuolation Not Reportable 04/23/17 17:00 Dohle Bodies Not Reportable 04/23/17 17:00 Pelger-Huet Anomaly Not Reportable 04/23/17 17:00 Carlos Alberto Rods Not Reportable 04/23/17 17:00 Platelet Estimate Appears normal 04/23/17 17:00 Clumped Platelets Not Reportable 04/23/17 17:00 Plt Clumps, EDTA Not Reportable 04/23/17 17:00 Large Platelets Not Reportable 04/23/17 17:00 Giant Platelets Not Reportable 04/23/17 17:00 Platelet Satelliting Not Reportable 04/23/17 17:00 Plt Morphology Comment Not Reportable 04/23/17 17:00 RBC Morphology Not Reportable 04/23/17 17:00 Dimorphic RBCs Not Reportable 04/23/17 17:00 Polychromasia Not Reportable 04/23/17 17:00 Hypochromasia Not Reportable 04/23/17 17:00 Poikilocytosis Few 04/23/17 17:00 Anisocytosis Few 04/23/17 17:00 Microcytosis Not Reportable 04/23/17 17:00 Macrocytosis Not Reportable 04/23/17 17:00 Spherocytes Not Reportable 04/23/17 17:00 Pappenheimer Bodies Not Reportable 04/23/17 17:00 Sickle Cells Not Reportable 04/23/17 17:00 Target Cells Not Reportable 04/23/17 17:00 Tear Drop Cells Not Reportable 04/23/17 17:00 Ovalocytes Not Reportable 04/23/17 17:00 Helmet Cells Not Reportable 04/23/17 17:00 Jacobsen-[place] Bodies Not Reportable 04/23/17 17:00 [place] Rings Not Reportable 04/23/17 17:00 [place] Cells Not Reportable 04/23/17 17:00 Bite Cells Not Reportable 04/23/17 17:00 Crenated Cell Not Reportable 04/23/17 17:00 Elliptocytes Not Reportable 04/23/17 17:00 Acanthocytes (Spur) Not Reportable 04/23/17 17:00 Rouleaux Not Reportable 04/23/17 17:00 Hemoglobin C Crystals Not Reportable 04/23/17 17:00 Schistocytes Not Reportable 04/23/17 17:00 Malaria parasites Not Reportable 04/23/17 17:00 Tyler Bodies Not Reportable 04/23/17 17:00 Hem Pathologist Commnt No 04/23/17 17:00 PT 13.7 Sec. (12.2-14.9) 04/23/17 17:00 INR 1.00 (0.87-1.13) 04/23/17 17:00 POC ABG pH 7.485 (7.35-7.45) H 04/23/17 17:19 POC ABG pCO2 33.9 (35-45) L 04/23/17 17:19 POC ABG pO2 58 (80-105) L 04/23/17 17:19 POC ABG HCO3 25.5 04/23/17 17:19 POC ABG Total CO2 27 04/23/17 17:19 POC ABG O2 Sat 92 04/23/17 17:19 POC ABG Base Excess 2 04/23/17 17:19 FiO2 21 % 04/23/17 17:19 Sodium 139 mmol/L (137-145) 04/26/17 12:34 Potassium 4.0 mmol/L (3.6-5.0) 04/26/17 12:34 Chloride 98.7 mmol/L (98-107) 04/26/17 12:34 Carbon Dioxide 26 mmol/L (22-30) 04/26/17 12:34 Anion Gap 18 mmol/L 04/26/17 12:34 BUN 25 mg/dL (7-17) H 04/26/17 12:34 Creatinine 0.7 mg/dL (0.7-1.2) 04/26/17 12:34 Estimated GFR > 60 ml/min 04/26/17 12:34 BUN/Creatinine Ratio 36 % 04/26/17 12:34 Glucose 119 mg/dL (65-100) H 04/26/17 12:34 Lactic Acid 1.10 mmol/L (0.7-2.0) 04/24/17 00:24 Calcium 8.4 mg/dL (8.4-10.2) 04/26/17 12:34 Magnesium 1.90 mg/dL (1.7-2.3) 04/23/17 17:00 Troponin T < 0.010 ng/mL (0.00-0.029) 04/23/17 17:00 Urine Color Jannet (Yellow) 04/23/17 17:52 Urine Turbidity Clear (Clear) 04/23/17 17:52 Urine pH 5.0 (5.0-7.0) 04/23/17 17:52 Ur Specific [place] 1.018 (1.003-1.030) 04/23/17 17:52 Urine Protein 30 mg/dl mg/dL (Negative) 04/23/17 17:52 Urine Glucose (UA) Neg mg/dL (Negative) 04/23/17 17:52 Urine Ketones Neg mg/dL (Negative) 04/23/17 17:52 Urine Blood Mod (Negative) 04/23/17 17:52 Urine Nitrite Neg (Negative) 04/23/17 17:52 Urine Bilirubin Neg (Negative) 04/23/17 17:52 Urine Urobilinogen 4.0 mg/dL (<2.0) 04/23/17 17:52 Ur Leukocyte Esterase Neg (Negative) 04/23/17 17:52 Urine WBC (Auto) 18.0 /HPF (0.0-6.0) H 04/23/17 17:52 Urine RBC (Auto) 40.0 /HPF (0.0-6.0) 04/23/17 17:52 Urine Bacteria (Auto) 1+ /HPF (Negative) 04/23/17 17:52 Urine Mucus Few /HPF 04/23/17 17:52
[2017-05-01] MEDS: MUCINEX ER PO SCH ×2 (18:40→22:17)
[2017-05-02] MEDS: ISOPTO TEARS 0.5% OU SCH ×3 (05:55→21:12)
[2017-05-02] MEDS: MUCINEX ER PO SCH ×2 (10:58→21:12)
[2017-05-02] MEDS: ZITHROMAX PO SCH (10:59)
[2017-05-02] MEDS: ZESTRIL PO SCH (11:02)
[2017-05-02] MEDS: cefTRIAXone 2 GM in NACL 0.9% 20 ML IV SCH (12:06)
--- NOTE | 2017-05-02 15:19 | Progress Note ---
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 /COPD (chronic obstructive pulmonary disease) Supplemental oxygen, not in exacerbation /Hyponatremia syndrome IVF resuscitation, supportive care. 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 Normal left ventricular systolic function, EF 65%. LISBETH is warranted for further cardiac evaluation. Discussed findings and recommendation for LISBETH with son, Bill Han, who agrees to proceed. 05/02/17: LISBETH pending [facility] has accepted per Case management. History Interval history: Patient was seen and examined. Follow-up on current diagnosis. Overnight uneventful. Patient denies any chest pain, shortness breath, nausea/vomiting or severe headaches. Imaging, nursing note, chart, labs and old chart reviewed. Discussed with patient. Hospitalist Physical - Physical exam Narrative exam: GEN: Cachectic BMI 15 NAD, AWAKE, ALERT, ORIENTATED x 3 HEENT: NCAT, EOMI, PERRL, OP Clear NECK: supple, no adenopathy, no thyromegaly, no JVD CVS/HEART: RRR, NORMAL S1S2, NO JVD, pulses present bilaterally CHEST/LUNGS: CTA B, Symmetrical chest expansion, good air entry bilaterally GI/Abdomen: soft, NTND, good bowel sounds, no guarding or rebound /Bladder: no suprapubic tenderness, no CVA or paraspinal tenderness EXT/Skin: no c/c/e, no obvious rash MSK: FROM x 4 Neuro: CN 2-12 grossly intact, no new focal deficits Psych: calm - Constitutional Vitals: Temp Pulse Resp BP Pulse Ox 98.3 F 96 H 18 114/60 95 05/02/17 13:42 05/02/17 13:42 05/02/17 13:42 05/02/17 13:42 05/02/17 13:42 Results - Labs CBC & Chem 7: 04/26/17 12:34 04/26/17 12:34 Labs: Laboratory Last Values WBC 12.4 K/mm3 (4.5-11.0) H 04/26/17 12:34 RBC 4.01 M/mm3 (3.65-5.03) 04/26/17 12:34 Hgb 12.3 gm/dl (10.1-14.3) 04/26/17 12:34 Hct 36.4 % (30.3-42.9) 04/26/17 12:34 MCV 91 fl (79-97) 04/26/17 12:34 MCH 31 pg (28-32) 04/26/17 12:34 MCHC 34 % (30-34) 04/26/17 12:34 RDW 13.4 % (13.2-15.2) 04/26/17 12:34 Plt Count 364 K/mm3 (140-440) 04/26/17 12:34 Add Manual Diff Complete 04/23/17 17:00 Total Counted 100 04/23/17 17:00 Seg Neutrophils % House Parent 04/23/17 17:00 Seg Neuts % (Manual) 96.0 % (40.0-70.0) H 04/23/17 17:00 Band Neutrophils % 0 % 04/23/17 17:00 Lymphocytes % (Manual) 2.0 % (13.4-35.0) L 04/23/17 17:00 Reactive Lymphs % (Man) 0 % 04/23/17 17:00 Monocytes % (Manual) 2.0 % (0.0-7.3) 04/23/17 17:00 Eosinophils % (Manual) 0 % (0.0-4.3) 04/23/17 17:00 Basophils % (Manual) 0 % (0.0-1.8) 04/23/17 17:00 Metamyelocytes % 0 % 04/23/17 17:00 Myelocytes % 0 % 04/23/17 17:00 Promyelocytes % 0 % 04/23/17 17:00 Blast Cells % 0 % 04/23/17 17:00 Nucleated RBC % Not Reportable 04/23/17 17:00 Seg Neutrophils # Man 16.6 K/mm3 (1.8-7.7) H 04/23/17 17:00 Band Neutrophils # 0.0 K/mm3 04/23/17 17:00 Lymphocytes # (Manual) 0.3 K/mm3 (1.2-5.4) L 04/23/17 17:00 Abs React Lymphs (Man) 0.0 K/mm3 04/23/17 17:00 Monocytes # (Manual) 0.3 K/mm3 (0.0-0.8) 04/23/17 17:00 Eosinophils # (Manual) 0.0 K/mm3 (0.0-0.4) 04/23/17 17:00 Basophils # (Manual) 0.0 K/mm3 (0.0-0.1) 04/23/17 17:00 Metamyelocytes # 0.0 K/mm3 04/23/17 17:00 Myelocytes # 0.0 K/mm3 04/23/17 17:00 Promyelocytes # 0.0 K/mm3 04/23/17 17:00 Blast Cells # 0.0 K/mm3 04/23/17 17:00 WBC Morphology Not Reportable 04/23/17 17:00 Hypersegmented Neuts Not Reportable 04/23/17 17:00 Hyposegmented Neuts Not Reportable 04/23/17 17:00 Hypogranular Neuts Not Reportable 04/23/17 17:00 Smudge Cells Not Reportable 04/23/17 17:00 Toxic Granulation Not Reportable 04/23/17 17:00 Toxic Vacuolation Not Reportable 04/23/17 17:00 Dohle Bodies Not Reportable 04/23/17 17:00 Pelger-Huet Anomaly Not Reportable 04/23/17 17:00 Carlos Alberto Rods Not Reportable 04/23/17 17:00 Platelet Estimate Appears normal 04/23/17 17:00 Clumped Platelets Not Reportable 04/23/17 17:00 Plt Clumps, EDTA Not Reportable 04/23/17 17:00 Large Platelets Not Reportable 04/23/17 17:00 Giant Platelets Not Reportable 04/23/17 17:00 Platelet Satelliting Not Reportable 04/23/17 17:00 Plt Morphology Comment Not Reportable 04/23/17 17:00 RBC Morphology Not Reportable 04/23/17 17:00 Dimorphic RBCs Not Reportable 04/23/17 17:00 Polychromasia Not Reportable 04/23/17 17:00 Hypochromasia Not Reportable 04/23/17 17:00 Poikilocytosis Few 04/23/17 17:00 Anisocytosis Few 04/23/17 17:00 Microcytosis Not Reportable 04/23/17 17:00 Macrocytosis Not Reportable 04/23/17 17:00 Spherocytes Not Reportable 04/23/17 17:00 Pappenheimer Bodies Not Reportable 04/23/17 17:00 Sickle Cells Not Reportable 04/23/17 17:00 Target Cells Not Reportable 04/23/17 17:00 Tear Drop Cells Not Reportable 04/23/17 17:00 Ovalocytes Not Reportable 04/23/17 17:00 Helmet Cells Not Reportable 04/23/17 17:00 [place] Bodies Not Reportable 04/23/17 17:00 Rupert Rings Not Reportable 04/23/17 17:00 John Cells Not Reportable 04/23/17 17:00 Bite Cells Not Reportable 04/23/17 17:00 Crenated Cell Not Reportable 04/23/17 17:00 Elliptocytes Not Reportable 04/23/17 17:00 Acanthocytes (Spur) Not Reportable 04/23/17 17:00 Rouleaux Not Reportable 04/23/17 17:00 Hemoglobin C Crystals Not Reportable 04/23/17 17:00 Schistocytes Not Reportable 04/23/17 17:00 Malaria parasites Not Reportable 04/23/17 17:00 Tyler Bodies Not Reportable 04/23/17 17:00 Hem Pathologist Commnt No 04/23/17 17:00 PT 13.7 Sec. (12.2-14.9) 04/23/17 17:00 INR 1.00 (0.87-1.13) 04/23/17 17:00 POC ABG pH 7.485 (7.35-7.45) H 04/23/17 17:19 POC ABG pCO2 33.9 (35-45) L 04/23/17 17:19 POC ABG pO2 58 (80-105) L 04/23/17 17:19 POC ABG HCO3 25.5 04/23/17 17:19 POC ABG Total CO2 27 04/23/17 17:19 POC ABG O2 Sat 92 04/23/17 17:19 POC ABG Base Excess 2 04/23/17 17:19 FiO2 21 % 04/23/17 17:19 Sodium 139 mmol/L (137-145) 04/26/17 12:34 Potassium 4.0 mmol/L (3.6-5.0) 04/26/17 12:34 Chloride 98.7 mmol/L (98-107) 04/26/17 12:34 Carbon Dioxide 26 mmol/L (22-30) 04/26/17 12:34 Anion Gap 18 mmol/L 04/26/17 12:34 BUN 25 mg/dL (7-17) H 04/26/17 12:34 Creatinine 0.7 mg/dL (0.7-1.2) 04/26/17 12:34 Estimated GFR > 60 ml/min 04/26/17 12:34 BUN/Creatinine Ratio 36 % 04/26/17 12:34 Glucose 119 mg/dL (65-100) H 04/26/17 12:34 Lactic Acid 1.10 mmol/L (0.7-2.0) 04/24/17 00:24 Calcium 8.4 mg/dL (8.4-10.2) 04/26/17 12:34 Magnesium 1.90 mg/dL (1.7-2.3) 04/23/17 17:00 Troponin T < 0.010 ng/mL (0.00-0.029) 04/23/17 17:00 Urine Color Jannet (Yellow) 04/23/17 17:52 Urine Turbidity Clear (Clear) 04/23/17 17:52 Urine pH 5.0 (5.0-7.0) 04/23/17 17:52 Ur Specific [place] 1.018 (1.003-1.030) 04/23/17 17:52 Urine Protein 30 mg/dl mg/dL (Negative) 04/23/17 17:52 Urine Glucose (UA) Neg mg/dL (Negative) 04/23/17 17:52 Urine Ketones Neg mg/dL (Negative) 04/23/17 17:52 Urine Blood Mod (Negative) 04/23/17 17:52 Urine Nitrite Neg (Negative) 04/23/17 17:52 Urine Bilirubin Neg (Negative) 04/23/17 17:52 Urine Urobilinogen 4.0 mg/dL (<2.0) 04/23/17 17:52 Ur Leukocyte Esterase Neg (Negative) 04/23/17 17:52 Urine WBC (Auto) 18.0 /HPF (0.0-6.0) H 04/23/17 17:52 Urine RBC (Auto) 40.0 /HPF (0.0-6.0) 04/23/17 17:52 Urine Bacteria (Auto) 1+ /HPF (Negative) 04/23/17 17:52 Urine Mucus Few /HPF 04/23/17 17:52
[2017-05-03] MEDS: ISOPTO TEARS 0.5% OU SCH ×3 (05:11→21:19)
[2017-05-03] MEDS ORDERED: SUBLIMAZE IV ONE (09:21)
[2017-05-03] MEDS ORDERED: VERSED IV ONE (09:21)
[2017-05-03] MEDS ORDERED: HURRICAINE ONE 20% TOPICAL SPRAY MM NR (10:00)
[2017-05-03] MEDS: ZESTRIL PO SCH (10:00)
[2017-05-03] MEDS: MUCINEX ER PO SCH ×2 (10:00→21:20)
--- NOTE | 2017-05-03 11:11 | Progress Note ---
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 /COPD (chronic obstructive pulmonary disease) Supplemental oxygen, not in exacerbation /Hyponatremia syndrome IVF resuscitation, supportive care. 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 Normal left ventricular systolic function, EF 65%. LISBETH is warranted for further cardiac evaluation. Discussed findings and recommendation for LISBETH with son, Bill Han, who agrees to proceed. 05/03/17: LISBETH pending [facility] has accepted per Case management. Last day for abx History Interval history: Patient was seen and examined. Follow-up on current diagnosis. Overnight uneventful. Patient denies any chest pain, shortness breath, nausea/vomiting or severe headaches. Imaging, nursing note, chart, labs and old chart reviewed. Discussed with patient. Hospitalist Physical - Physical exam Narrative exam: GEN: Cachectic BMI 15 NAD, AWAKE, ALERT, ORIENTATED x 3 HEENT: NCAT, EOMI, PERRL, OP Clear NECK: supple, no adenopathy, no thyromegaly, no JVD CVS/HEART: RRR, NORMAL S1S2, NO JVD, pulses present bilaterally CHEST/LUNGS: CTA B, Symmetrical chest expansion, good air entry bilaterally GI/Abdomen: soft, NTND, good bowel sounds, no guarding or rebound /Bladder: no suprapubic tenderness, no CVA or paraspinal tenderness EXT/Skin: no c/c/e, no obvious rash MSK: FROM x 4 Neuro: CN 2-12 grossly intact, no new focal deficits Psych: calm - Constitutional Vitals: Temp Pulse Resp BP Pulse Ox 97.9 F 102 H 20 139/77 90 12/29/17 08:21 05/03/17 10:10 05/03/17 10:10 05/03/17 10:10 05/03/17 10:10 Results - Labs CBC & Chem 7: 04/26/17 12:34 04/26/17 12:34 Labs: Laboratory Last Values WBC 12.4 K/mm3 (4.5-11.0) H 04/26/17 12:34 RBC 4.01 M/mm3 (3.65-5.03) 04/26/17 12:34 Hgb 12.3 gm/dl (10.1-14.3) 04/26/17 12:34 Hct 36.4 % (30.3-42.9) 04/26/17 12:34 MCV 91 fl (79-97) 04/26/17 12:34 MCH 31 pg (28-32) 04/26/17 12:34 MCHC 34 % (30-34) 04/26/17 12:34 RDW 13.4 % (13.2-15.2) 04/26/17 12:34 Plt Count 364 K/mm3 (140-440) 04/26/17 12:34 Add Manual Diff Complete 04/23/17 17:00 Total Counted 100 04/23/17 17:00 Seg Neutrophils % Health Specialist 04/23/17 17:00 Seg Neuts % (Manual) 96.0 % (40.0-70.0) H 04/23/17 17:00 Band Neutrophils % 0 % 04/23/17 17:00 Lymphocytes % (Manual) 2.0 % (13.4-35.0) L 04/23/17 17:00 Reactive Lymphs % (Man) 0 % 04/23/17 17:00 Monocytes % (Manual) 2.0 % (0.0-7.3) 04/23/17 17:00 Eosinophils % (Manual) 0 % (0.0-4.3) 04/23/17 17:00 Basophils % (Manual) 0 % (0.0-1.8) 04/23/17 17:00 Metamyelocytes % 0 % 04/23/17 17:00 Myelocytes % 0 % 04/23/17 17:00 Promyelocytes % 0 % 04/23/17 17:00 Blast Cells % 0 % 04/23/17 17:00 Nucleated RBC % Not Reportable 04/23/17 17:00 Seg Neutrophils # Man 16.6 K/mm3 (1.8-7.7) H 04/23/17 17:00 Band Neutrophils # 0.0 K/mm3 04/23/17 17:00 Lymphocytes # (Manual) 0.3 K/mm3 (1.2-5.4) L 04/23/17 17:00 Abs React Lymphs (Man) 0.0 K/mm3 04/23/17 17:00 Monocytes # (Manual) 0.3 K/mm3 (0.0-0.8) 04/23/17 17:00 Eosinophils # (Manual) 0.0 K/mm3 (0.0-0.4) 04/23/17 17:00 Basophils # (Manual) 0.0 K/mm3 (0.0-0.1) 04/23/17 17:00 Metamyelocytes # 0.0 K/mm3 04/23/17 17:00 Myelocytes # 0.0 K/mm3 04/23/17 17:00 Promyelocytes # 0.0 K/mm3 04/23/17 17:00 Blast Cells # 0.0 K/mm3 04/23/17 17:00 WBC Morphology Not Reportable 04/23/17 17:00 Hypersegmented Neuts Not Reportable 04/23/17 17:00 Hyposegmented Neuts Not Reportable 04/23/17 17:00 Hypogranular Neuts Not Reportable 04/23/17 17:00 Smudge Cells Not Reportable 04/23/17 17:00 Toxic Granulation Not Reportable 04/23/17 17:00 Toxic Vacuolation Not Reportable 04/23/17 17:00 Dohle Bodies Not Reportable 04/23/17 17:00 Pelger-Huet Anomaly Not Reportable 04/23/17 17:00 Carlos Alberto Rods Not Reportable 04/23/17 17:00 Platelet Estimate Appears normal 04/23/17 17:00 Clumped Platelets Not Reportable 04/23/17 17:00 Plt Clumps, EDTA Not Reportable 04/23/17 17:00 Large Platelets Not Reportable 04/23/17 17:00 Giant Platelets Not Reportable 04/23/17 17:00 Platelet Satelliting Not Reportable 04/23/17 17:00 Plt Morphology Comment Not Reportable 04/23/17 17:00 RBC Morphology Not Reportable 04/23/17 17:00 Dimorphic RBCs Not Reportable 04/23/17 17:00 Polychromasia Not Reportable 04/23/17 17:00 Hypochromasia Not Reportable 04/23/17 17:00 Poikilocytosis Few 04/23/17 17:00 Anisocytosis Few 04/23/17 17:00 Microcytosis Not Reportable 04/23/17 17:00 Macrocytosis Not Reportable 04/23/17 17:00 Spherocytes Not Reportable 04/23/17 17:00 Pappenheimer Bodies Not Reportable 04/23/17 17:00 Sickle Cells Not Reportable 04/23/17 17:00 Target Cells Not Reportable 04/23/17 17:00 Tear Drop Cells Not Reportable 04/23/17 17:00 Ovalocytes Not Reportable 04/23/17 17:00 Helmet Cells Not Reportable 04/23/17 17:00 Jacobsen-[place] Bodies Not Reportable 04/23/17 17:00 [place] Rings Not Reportable 04/23/17 17:00 John Cells Not Reportable 04/23/17 17:00 Bite Cells Not Reportable 04/23/17 17:00 Crenated Cell Not Reportable 04/23/17 17:00 Elliptocytes Not Reportable 04/23/17 17:00 Acanthocytes (Spur) Not Reportable 04/23/17 17:00 Rouleaux Not Reportable 04/23/17 17:00 Hemoglobin C Crystals Not Reportable 04/23/17 17:00 Schistocytes Not Reportable 04/23/17 17:00 Malaria parasites Not Reportable 04/23/17 17:00 Tyler Bodies Not Reportable 04/23/17 17:00 Hem Pathologist Commnt No 04/23/17 17:00 PT 13.7 Sec. (12.2-14.9) 04/23/17 17:00 INR 1.00 (0.87-1.13) 04/23/17 17:00 POC ABG pH 7.485 (7.35-7.45) H 04/23/17 17:19 POC ABG pCO2 33.9 (35-45) L 12/19/17 17:19 POC ABG pO2 58 (80-105) L 04/23/17 17:19 POC ABG HCO3 25.5 04/23/17 17:19 POC ABG Total CO2 27 04/23/17 17:19 POC ABG O2 Sat 92 04/23/17 17:19 POC ABG Base Excess 2 04/23/17 17:19 FiO2 21 % 04/23/17 17:19 Sodium 139 mmol/L (137-145) 04/26/17 12:34 Potassium 4.0 mmol/L (3.6-5.0) 04/26/17 12:34 Chloride 98.7 mmol/L (98-107) 04/26/17 12:34 Carbon Dioxide 26 mmol/L (22-30) 04/26/17 12:34 Anion Gap 18 mmol/L 04/26/17 12:34 BUN 25 mg/dL (7-17) H 04/26/17 12:34 Creatinine 0.7 mg/dL (0.7-1.2) 04/26/17 12:34 Estimated GFR > 60 ml/min 04/26/17 12:34 BUN/Creatinine Ratio 36 % 04/26/17 12:34 Glucose 119 mg/dL (65-100) H 04/26/17 12:34 Lactic Acid 1.10 mmol/L (0.7-2.0) 04/24/17 00:24 Calcium 8.4 mg/dL (8.4-10.2) 04/26/17 12:34 Magnesium 1.90 mg/dL (1.7-2.3) 04/23/17 17:00 Troponin T < 0.010 ng/mL (0.00-0.029) 04/23/17 17:00 Urine Color Jannet (Yellow) 04/23/17 17:52 Urine Turbidity Clear (Clear) 04/23/17 17:52 Urine pH 5.0 (5.0-7.0) 04/23/17 17:52 Ur Specific [place] 1.018 (1.003-1.030) 04/23/17 17:52 Urine Protein 30 mg/dl mg/dL (Negative) 04/23/17 17:52 Urine Glucose (UA) Neg mg/dL (Negative) 04/23/17 17:52 Urine Ketones Neg mg/dL (Negative) 04/23/17 17:52 Urine Blood Mod (Negative) 04/23/17 17:52 Urine Nitrite Neg (Negative) 04/23/17 17:52 Urine Bilirubin Neg (Negative) 04/23/17 17:52 Urine Urobilinogen 4.0 mg/dL (<2.0) 04/23/17 17:52 Ur Leukocyte Esterase Neg (Negative) 04/23/17 17:52 Urine WBC (Auto) 18.0 /HPF (0.0-6.0) H 04/23/17 17:52 Urine RBC (Auto) 40.0 /HPF (0.0-6.0) 04/23/17 17:52 Urine Bacteria (Auto) 1+ /HPF (Negative) 04/23/17 17:52 Urine Mucus Few /HPF 04/23/17 17:52
--- NOTE | 2017-05-03 13:03 | Progress Note ---
Assessment and Plan Abnormal TTE suggestive of right atrial mass LISBETH showing no evidence of a right atrial mass - prominent eustachian valve and cristae terminalis (normal structures) No need for further cardiac testing Subjective Date of service: 05/03/17 Principal diagnosis: Abnormal echocardiogram Interval history: Patient underwent a LISBETH today without complications Objective Vital Signs Temp Pulse Pulse Pulse Resp Resp Resp 05/03/17 10:10 102 H 20 05/03/17 09:53 108 H 16 05/03/17 09:50 100 H 27 H 05/03/17 09:47 112 H 28 H 05/03/17 09:45 104 H 20 05/03/17 09:42 98 H 14 05/03/17 08:21 97.9 F 16 05/03/17 04:14 98.3 F 90 19 05/03/17 01:15 98.3 F 88 18 05/02/17 19:44 20 05/02/17 19:10 98.5 F 96 H 20 05/02/17 19:05 96 H 05/02/17 17:52 05/02/17 13:42 98.3 F 96 H 18 BP BP BP Pulse Ox Pulse Ox Pulse Ox 05/03/17 10:10 139/77 90 05/03/17 09:53 179/108 90 05/03/17 09:50 175/91 100 05/03/17 09:47 191/88 94 05/03/17 09:45 172/82 99 05/03/17 09:42 190/89 96 05/03/17 08:21 115/69 05/03/17 04:14 148/74 94 05/03/17 01:15 135/74 97 05/02/17 19:44 05/02/17 19:10 116/63 96 05/02/17 19:05 05/02/17 17:52 125/65 05/02/17 13:42 114/60 95 - Physical Examination General: Appears Well HEENT: Positive: PERRL Neck: Positive: neck supple Cardiac: Positive: Reg Rate and Rhythm Lungs: Positive: Normal Exam Abdomen: Positive: Soft
[2017-05-03] MEDS: ZITHROMAX PO SCH (15:30)
[2017-05-03] MEDS: cefTRIAXone 2 GM in NACL 0.9% 20 ML IV SCH (15:35)
[2017-05-04] MEDS: ISOPTO TEARS 0.5% OU SCH ×3 (05:26→23:09)
[2017-05-04] MEDS: ZESTRIL PO SCH (09:15)
[2017-05-04] MEDS: ZITHROMAX PO SCH (09:15)
[2017-05-04] MEDS: MUCINEX ER PO SCH ×2 (09:15→23:09)
--- NOTE | 2017-05-04 14:12 | Progress Note ---
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 /COPD (chronic obstructive pulmonary disease) Supplemental oxygen, not in exacerbation /Hyponatremia syndrome IVF resuscitation, supportive care. 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 Normal left ventricular systolic function, EF 65%. LISBETH is warranted for further cardiac evaluation. Discussed findings and recommendation for LISBETH with son, Bill Han, who agrees to proceed. 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. Last day for abx 05/04/17: Discussed case management; hopefully to [facility] today History Interval history: Patient was seen and examined. Follow-up on current diagnosis. Overnight uneventful. Patient denies any chest pain, shortness breath, nausea/vomiting or severe headaches. Imaging, nursing note, chart, labs and old chart reviewed. Discussed with patient. Hospitalist Physical - Physical exam Narrative exam: GEN: Cachectic BMI 15 NAD, AWAKE, ALERT, ORIENTATED x 3 HEENT: NCAT, EOMI, PERRL, OP Clear NECK: supple, no adenopathy, no thyromegaly, no JVD CVS/HEART: RRR, NORMAL S1S2, NO JVD, pulses present bilaterally CHEST/LUNGS: CTA B, Symmetrical chest expansion, good air entry bilaterally GI/Abdomen: soft, NTND, good bowel sounds, no guarding or rebound /Bladder: no suprapubic tenderness, no CVA or paraspinal tenderness EXT/Skin: no c/c/e, no obvious rash MSK: FROM x 4 Neuro: CN 2-12 grossly intact, no new focal deficits Psych: calm - Constitutional Vitals: Temp Pulse Resp BP Pulse Ox 98.6 F 94 H 16 102/61 94 05/04/17 12:39 05/04/17 12:39 05/04/17 12:39 05/04/17 12:39 05/04/17 12:39 Results - Labs CBC & Chem 7: 04/26/17 12:34 04/26/17 12:34 Labs: Laboratory Last Values WBC 12.4 K/mm3 (4.5-11.0) H 04/26/17 12:34 RBC 4.01 M/mm3 (3.65-5.03) 04/26/17 12:34 Hgb 12.3 gm/dl (10.1-14.3) 04/26/17 12:34 Hct 36.4 % (30.3-42.9) 04/26/17 12:34 MCV 91 fl (79-97) 04/26/17 12:34 MCH 31 pg (28-32) 04/26/17 12:34 MCHC 34 % (30-34) 04/26/17 12:34 RDW 13.4 % (13.2-15.2) 04/26/17 12:34 Plt Count 364 K/mm3 (140-440) 04/26/17 12:34 Add Manual Diff Complete 04/23/17 17:00 Total Counted 100 04/23/17 17:00 Seg Neutrophils % [facility] 04/23/17 17:00 Seg Neuts % (Manual) 96.0 % (40.0-70.0) H 04/23/17 17:00 Band Neutrophils % 0 % 04/23/17 17:00 Lymphocytes % (Manual) 2.0 % (13.4-35.0) L 04/23/17 17:00 Reactive Lymphs % (Man) 0 % 04/23/17 17:00 Monocytes % (Manual) 2.0 % (0.0-7.3) 04/23/17 17:00 Eosinophils % (Manual) 0 % (0.0-4.3) 04/23/17 17:00 Basophils % (Manual) 0 % (0.0-1.8) 04/23/17 17:00 Metamyelocytes % 0 % 04/23/17 17:00 Myelocytes % 0 % 04/23/17 17:00 Promyelocytes % 0 % 04/23/17 17:00 Blast Cells % 0 % 04/23/17 17:00 Nucleated RBC % Not Reportable 04/23/17 17:00 Seg Neutrophils # Man 16.6 K/mm3 (1.8-7.7) H 04/23/17 17:00 Band Neutrophils # 0.0 K/mm3 04/23/17 17:00 Lymphocytes # (Manual) 0.3 K/mm3 (1.2-5.4) L 04/23/17 17:00 Abs React Lymphs (Man) 0.0 K/mm3 04/23/17 17:00 Monocytes # (Manual) 0.3 K/mm3 (0.0-0.8) 04/23/17 17:00 Eosinophils # (Manual) 0.0 K/mm3 (0.0-0.4) 04/23/17 17:00 Basophils # (Manual) 0.0 K/mm3 (0.0-0.1) 04/23/17 17:00 Metamyelocytes # 0.0 K/mm3 04/23/17 17:00 Myelocytes # 0.0 K/mm3 04/23/17 17:00 Promyelocytes # 0.0 K/mm3 04/23/17 17:00 Blast Cells # 0.0 K/mm3 04/23/17 17:00 WBC Morphology Not Reportable 04/23/17 17:00 Hypersegmented Neuts Not Reportable 04/23/17 17:00 Hyposegmented Neuts Not Reportable 04/23/17 17:00 Hypogranular Neuts Not Reportable 04/23/17 17:00 Smudge Cells Not Reportable 04/23/17 17:00 Toxic Granulation Not Reportable 04/23/17 17:00 Toxic Vacuolation Not Reportable 04/23/17 17:00 Dohle Bodies Not Reportable 04/23/17 17:00 Pelger-Huet Anomaly Not Reportable 04/23/17 17:00 Carlos Alberto Rods Not Reportable 04/23/17 17:00 Platelet Estimate Appears normal 04/23/17 17:00 Clumped Platelets Not Reportable 04/23/17 17:00 Plt Clumps, EDTA Not Reportable 04/23/17 17:00 Large Platelets Not Reportable 04/23/17 17:00 Giant Platelets Not Reportable 04/23/17 17:00 Platelet Satelliting Not Reportable 04/23/17 17:00 Plt Morphology Comment Not Reportable 04/23/17 17:00 RBC Morphology Not Reportable 04/23/17 17:00 Dimorphic RBCs Not Reportable 04/23/17 17:00 Polychromasia Not Reportable 04/23/17 17:00 Hypochromasia Not Reportable 04/23/17 17:00 Poikilocytosis Few 04/23/17 17:00 Anisocytosis Few 04/23/17 17:00 Microcytosis Not Reportable 04/23/17 17:00 Macrocytosis Not Reportable 04/23/17 17:00 Spherocytes Not Reportable 04/23/17 17:00 Pappenheimer Bodies Not Reportable 04/23/17 17:00 Sickle Cells Not Reportable 04/23/17 17:00 Target Cells Not Reportable 04/23/17 17:00 Tear Drop Cells Not Reportable 04/23/17 17:00 Ovalocytes Not Reportable 04/23/17 17:00 Helmet Cells Not Reportable 04/23/17 17:00 [place] Bodies Not Reportable 04/23/17 17:00 [place] Rings Not Reportable 04/23/17 17:00 John Cells Not Reportable 04/23/17 17:00 Bite Cells Not Reportable 04/23/17 17:00 Crenated Cell Not Reportable 04/23/17 17:00 Elliptocytes Not Reportable 04/23/17 17:00 Acanthocytes (Spur) Not Reportable 04/23/17 17:00 Rouleaux Not Reportable 04/23/17 17:00 Hemoglobin C Crystals Not Reportable 04/23/17 17:00 Schistocytes Not Reportable 04/23/17 17:00 Malaria parasites Not Reportable 04/23/17 17:00 [place] Bodies Not Reportable 04/23/17 17:00 Hem Pathologist Commnt No 04/23/17 17:00 PT 13.7 Sec. (12.2-14.9) 04/23/17 17:00 INR 1.00 (0.87-1.13) 04/23/17 17:00 POC ABG pH 7.485 (7.35-7.45) H 04/23/17 17:19 POC ABG pCO2 33.9 (35-45) L 04/23/17 17:19 POC ABG pO2 58 (80-105) L 04/23/17 17:19 POC ABG HCO3 25.5 04/23/17 17:19 POC ABG Total CO2 27 04/23/17 17:19 POC ABG O2 Sat 92 04/23/17 17:19 POC ABG Base Excess 2 04/23/17 17:19 FiO2 21 % 04/23/17 17:19 Sodium 139 mmol/L (137-145) 04/26/17 12:34 Potassium 4.0 mmol/L (3.6-5.0) 04/26/17 12:34 Chloride 98.7 mmol/L (98-107) 04/26/17 12:34 Carbon Dioxide 26 mmol/L (22-30) 04/26/17 12:34 Anion Gap 18 mmol/L 04/26/17 12:34 BUN 25 mg/dL (7-17) H 04/26/17 12:34 Creatinine 0.7 mg/dL (0.7-1.2) 04/26/17 12:34 Estimated GFR > 60 ml/min 04/26/17 12:34 BUN/Creatinine Ratio 36 % 04/26/17 12:34 Glucose 119 mg/dL (65-100) H 04/26/17 12:34 Lactic Acid 1.10 mmol/L (0.7-2.0) 04/24/17 00:24 Calcium 8.4 mg/dL (8.4-10.2) 04/26/17 12:34 Magnesium 1.90 mg/dL (1.7-2.3) 04/23/17 17:00 Troponin T < 0.010 ng/mL (0.00-0.029) 04/23/17 17:00 Urine Color Jannet (Yellow) 04/23/17 17:52 Urine Turbidity Clear (Clear) 04/23/17 17:52 Urine pH 5.0 (5.0-7.0) 04/23/17 17:52 Ur Specific [place] 1.018 (1.003-1.030) 04/23/17 17:52 Urine Protein 30 mg/dl mg/dL (Negative) 04/23/17 17:52 Urine Glucose (UA) Neg mg/dL (Negative) 04/23/17 17:52 Urine Ketones Neg mg/dL (Negative) 04/23/17 17:52 Urine Blood Mod (Negative) 04/23/17 17:52 Urine Nitrite Neg (Negative) 04/23/17 17:52 Urine Bilirubin Neg (Negative) 04/23/17 17:52 Urine Urobilinogen 4.0 mg/dL (<2.0) 04/23/17 17:52 Ur Leukocyte Esterase Neg (Negative) 04/23/17 17:52 Urine WBC (Auto) 18.0 /HPF (0.0-6.0) H 04/23/17 17:52 Urine RBC (Auto) 40.0 /HPF (0.0-6.0) 04/23/17 17:52 Urine Bacteria (Auto) 1+ /HPF (Negative) 04/23/17 17:52 Urine Mucus Few /HPF 04/23/17 17:52
--- NOTE | 2017-05-04 14:17 | Discharge Summary ---
Providers - Providers Date of Admission: 04/23/17 18:10 Date of discharge: 05/07/17 Attending physician: BLAINE YARBROUGH 04/24/17 11:25 Physical Therapy Evaluation and Treat [CONS] Routine Comment: Reason For Exam: debility Speech Therapy Evaluation and Treat [CONS] Routine Reason For Exam: dysphagia/ ?aspiration Primary care physician: CARLOS ARROYO Hospitalization Condition: Stable Hospital course: 87 YO Female HTN, Lyme Disease, Diverticulitis, Shingles who presented with productive cough, sob and subjective fevers /Sepsis due to PNA continue abx, for 7 days total (stop on 05/03/17) /Severe malnutrition, 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 /COPD (chronic obstructive pulmonary disease) Supplemental oxygen, not in exacerbation /Hyponatremia syndrome IVF resuscitation, supportive care. 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 Normal left ventricular systolic function, EF 65%. LISBETH is warranted for further cardiac evaluation. Discussed findings and recommendation for LISBETH with son, Bill Han, who agrees to proceed. 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 [facility] has accepted per Case management. Last day for abx per Cardiology, Dr. Ponce: Abnormal TTE suggestive of right atrial mass LISBETH showing no evidence of a right atrial mass - prominent eustachian valve and cristae terminalis (normal structures) No need for further cardiac testing" 05/04/17: Discussed case management; hopefully to [facility] today poor chcf prognosis BMI only 16 Disposition: DC/TX-03 SNF W [facility] CERT Time spent for discharge: 35 minutes Core Measure Documentation - Palliative Care Palliative Care/ Comfort Measures: Not Applicable - Core Measures Any of the following diagnoses?: none - VTE Discharge Requirements Deep Vein Thrombosis/Pulmonary Embolism Present on Admission: No Has pt received <5 days of overlap therapy or INR<2.0: No Anticoagulant overlap therapy prescribed at discharge: No Contraindication No Overlap Therapy order at DC: Not Indicated Exam - Physical Exam Narrative exam: GEN: Cachectic BMI 15 NAD, AWAKE, ALERT, ORIENTATED x 3 HEENT: NCAT, EOMI, PERRL, OP Clear NECK: supple, no adenopathy, no thyromegaly, no JVD CVS/HEART: RRR, NORMAL S1S2, NO JVD, pulses present bilaterally CHEST/LUNGS: CTA B, Symmetrical chest expansion, good air entry bilaterally GI/Abdomen: soft, NTND, good bowel sounds, no guarding or rebound /Bladder: no suprapubic tenderness, no CVA or paraspinal tenderness EXT/Skin: no c/c/e, no obvious rash MSK: FROM x 4 Neuro: CN 2-12 grossly intact, no new focal deficits Psych: calm - Constitutional Vitals: Temp Pulse Resp BP Pulse Ox 98.6 F 94 H 16 102/61 94 05/04/17 12:39 05/04/17 12:39 05/04/17 12:39 05/04/17 12:39 05/04/17 12:39 Plan Activity: other (no strenous activity) Diet: other (mechanical soft diet) Follow up with: CARLOS ARROYO MD [Primary Care Provider] - 3-5 Days
[2017-05-05] MEDS: ISOPTO TEARS 0.5% OU SCH ×3 (05:53→21:35)
[2017-05-05] MEDS: ZESTRIL PO SCH (10:06)
[2017-05-05] MEDS: MUCINEX ER PO SCH ×2 (10:06→21:34)
--- NOTE | 2017-05-05 17:24 | Progress Note ---
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 /COPD (chronic obstructive pulmonary disease) Supplemental oxygen, not in exacerbation /Hyponatremia syndrome IVF resuscitation, supportive care. 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 Normal left ventricular systolic function, EF 65%. LISBETH is warranted for further cardiac evaluation. Discussed findings and recommendation for LISBETH with son, Bill Han, who agrees to proceed. 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 [facility] management. Last day for abx 05/04/17: Discussed case management; hopefully to [facility] today 05/05/17: Waiting on placement History Interval history: Patient was seen and examined. Follow-up on current diagnosis. Overnight uneventful. Patient denies any chest pain, shortness breath, nausea/vomiting or severe headaches. Imaging, nursing note, chart, labs and old chart reviewed. Discussed with patient. Hospitalist Physical - Physical exam Narrative exam: GEN: Cachectic BMI 15 NAD, AWAKE, ALERT, ORIENTATED x 3 HEENT: NCAT, EOMI, PERRL, OP Clear NECK: supple, no adenopathy, no thyromegaly, no JVD CVS/HEART: RRR, NORMAL S1S2, NO JVD, pulses present bilaterally CHEST/LUNGS: CTA B, Symmetrical chest expansion, good air entry bilaterally GI/Abdomen: soft, NTND, good bowel sounds, no guarding or rebound /Bladder: no suprapubic tenderness, no CVA or paraspinal tenderness EXT/Skin: no c/c/e, no obvious rash MSK: FROM x 4 Neuro: CN 2-12 grossly intact, no new focal deficits Psych: calm - Constitutional Vitals: Temp Pulse Resp BP Pulse Ox 97.8 F 84 18 114/44 97 05/05/17 04:48 05/05/17 10:06 05/05/17 04:48 05/05/17 10:06 05/05/17 07:28 General appearance: Absent: mild distress Results - Labs CBC & Chem 7: 04/26/17 12:34 04/26/17 12:34 Labs: Laboratory Last Values WBC 12.4 K/mm3 (4.5-11.0) H 04/26/17 12:34 RBC 4.01 M/mm3 (3.65-5.03) 04/26/17 12:34 Hgb 12.3 gm/dl (10.1-14.3) 04/26/17 12:34 Hct 36.4 % (30.3-42.9) 04/26/17 12:34 MCV 91 fl (79-97) 04/26/17 12:34 MCH 31 pg (28-32) 04/26/17 12:34 MCHC 34 % (30-34) 04/26/17 12:34 RDW 13.4 % (13.2-15.2) 04/26/17 12:34 Plt Count 364 K/mm3 (140-440) 04/26/17 12:34 Add Manual Diff Complete 04/23/17 17:00 Total Counted 100 04/23/17 17:00 Seg Neutrophils % Event Representative 04/23/17 17:00 Seg Neuts % (Manual) 96.0 % (40.0-70.0) H 04/23/17 17:00 Band Neutrophils % 0 % 04/23/17 17:00 Lymphocytes % (Manual) 2.0 % (13.4-35.0) L 04/23/17 17:00 Reactive Lymphs % (Man) 0 % 04/23/17 17:00 Monocytes % (Manual) 2.0 % (0.0-7.3) 04/23/17 17:00 Eosinophils % (Manual) 0 % (0.0-4.3) 04/23/17 17:00 Basophils % (Manual) 0 % (0.0-1.8) 04/23/17 17:00 Metamyelocytes % 0 % 04/23/17 17:00 Myelocytes % 0 % 04/23/17 17:00 Promyelocytes % 0 % 04/23/17 17:00 Blast Cells % 0 % 04/23/17 17:00 Nucleated RBC % Not Reportable 04/23/17 17:00 Seg Neutrophils # Man 16.6 K/mm3 (1.8-7.7) H 04/23/17 17:00 Band Neutrophils # 0.0 K/mm3 04/23/17 17:00 Lymphocytes # (Manual) 0.3 K/mm3 (1.2-5.4) L 04/23/17 17:00 Abs React Lymphs (Man) 0.0 K/mm3 04/23/17 17:00 Monocytes # (Manual) 0.3 K/mm3 (0.0-0.8) 04/23/17 17:00 Eosinophils # (Manual) 0.0 K/mm3 (0.0-0.4) 04/23/17 17:00 Basophils # (Manual) 0.0 K/mm3 (0.0-0.1) 04/23/17 17:00 Metamyelocytes # 0.0 K/mm3 04/23/17 17:00 Myelocytes # 0.0 K/mm3 04/23/17 17:00 Promyelocytes # 0.0 K/mm3 04/23/17 17:00 Blast Cells # 0.0 K/mm3 04/23/17 17:00 WBC Morphology Not Reportable 04/23/17 17:00 Hypersegmented Neuts Not Reportable 04/23/17 17:00 Hyposegmented Neuts Not Reportable 04/23/17 17:00 Hypogranular Neuts Not Reportable 04/23/17 17:00 Smudge Cells Not Reportable 04/23/17 17:00 Toxic Granulation Not Reportable 04/23/17 17:00 Toxic Vacuolation Not Reportable 04/23/17 17:00 Dohle Bodies Not Reportable 04/23/17 17:00 Pelger-Huet Anomaly Not Reportable 04/23/17 17:00 Carlos Alberto Rods Not Reportable 04/23/17 17:00 Platelet Estimate Appears normal 04/23/17 17:00 Clumped Platelets Not Reportable 04/23/17 17:00 Plt Clumps, EDTA Not Reportable 04/23/17 17:00 Large Platelets Not Reportable 04/23/17 17:00 Giant Platelets Not Reportable 04/23/17 17:00 Platelet Satelliting Not Reportable 04/23/17 17:00 Plt Morphology Comment Not Reportable 04/23/17 17:00 RBC Morphology Not Reportable 04/23/17 17:00 Dimorphic RBCs Not Reportable 04/23/17 17:00 Polychromasia Not Reportable 04/23/17 17:00 Hypochromasia Not Reportable 04/23/17 17:00 Poikilocytosis Few 04/23/17 17:00 Anisocytosis Few 04/23/17 17:00 Microcytosis Not Reportable 04/23/17 17:00 Macrocytosis Not Reportable 04/23/17 17:00 Spherocytes Not Reportable 04/23/17 17:00 Pappenheimer Bodies Not Reportable 04/23/17 17:00 Sickle Cells Not Reportable 04/23/17 17:00 Target Cells Not Reportable 04/23/17 17:00 Tear Drop Cells Not Reportable 04/23/17 17:00 Ovalocytes Not Reportable 04/23/17 17:00 Helmet Cells Not Reportable 04/23/17 17:00 [place] Bodies Not Reportable 04/23/17 17:00 [place] Rings Not Reportable 04/23/17 17:00 [place] Cells Not Reportable 04/23/17 17:00 Bite Cells Not Reportable 04/23/17 17:00 Crenated Cell Not Reportable 04/23/17 17:00 Elliptocytes Not Reportable 04/23/17 17:00 Acanthocytes (Spur) Not Reportable 04/23/17 17:00 Rouleaux Not Reportable 04/23/17 17:00 Hemoglobin C Crystals Not Reportable 04/23/17 17:00 Schistocytes Not Reportable 04/23/17 17:00 Malaria parasites Not Reportable 04/23/17 17:00 [place] Bodies Not Reportable 04/23/17 17:00 Hem Pathologist Commnt No 04/23/17 17:00 PT 13.7 Sec. (12.2-14.9) 04/23/17 17:00 INR 1.00 (0.87-1.13) 04/23/17 17:00 POC ABG pH 7.485 (7.35-7.45) H 04/23/17 17:19 POC ABG pCO2 33.9 (35-45) L 04/23/17 17:19 POC ABG pO2 58 (80-105) L 04/23/17 17:19 POC ABG HCO3 25.5 04/23/17 17:19 POC ABG Total CO2 27 04/23/17 17:19 POC ABG O2 Sat 92 04/23/17 17:19 POC ABG Base Excess 2 04/23/17 17:19 FiO2 21 % 04/23/17 17:19 Sodium 139 mmol/L (137-145) 04/26/17 12:34 Potassium 4.0 mmol/L (3.6-5.0) 04/26/17 12:34 Chloride 98.7 mmol/L (98-107) 04/26/17 12:34 Carbon Dioxide 26 mmol/L (22-30) 04/26/17 12:34 Anion Gap 18 mmol/L 04/26/17 12:34 BUN 25 mg/dL (7-17) H 04/26/17 12:34 Creatinine 0.7 mg/dL (0.7-1.2) 04/26/17 12:34 Estimated GFR > 60 ml/min 04/26/17 12:34 BUN/Creatinine Ratio 36 % 04/26/17 12:34 Glucose 119 mg/dL (65-100) H 04/26/17 12:34 Lactic Acid 1.10 mmol/L (0.7-2.0) 04/24/17 00:24 Calcium 8.4 mg/dL (8.4-10.2) 04/26/17 12:34 Magnesium 1.90 mg/dL (1.7-2.3) 04/23/17 17:00 Troponin T < 0.010 ng/mL (0.00-0.029) 04/23/17 17:00 Urine Color Jannet (Yellow) 04/23/17 17:52 Urine Turbidity Clear (Clear) 04/23/17 17:52 Urine pH 5.0 (5.0-7.0) 04/23/17 17:52 Ur Specific [place] 1.018 (1.003-1.030) 04/23/17 17:52 Urine Protein 30 mg/dl mg/dL (Negative) 04/23/17 17:52 Urine Glucose (UA) Neg mg/dL (Negative) 04/23/17 17:52 Urine Ketones Neg mg/dL (Negative) 04/23/17 17:52 Urine Blood Mod (Negative) 04/23/17 17:52 Urine Nitrite Neg (Negative) 04/23/17 17:52 Urine Bilirubin Neg (Negative) 04/23/17 17:52 Urine Urobilinogen 4.0 mg/dL (<2.0) 04/23/17 17:52 Ur Leukocyte Esterase Neg (Negative) 04/23/17 17:52 Urine WBC (Auto) 18.0 /HPF (0.0-6.0) H 04/23/17 17:52 Urine RBC (Auto) 40.0 /HPF (0.0-6.0) 04/23/17 17:52 Urine Bacteria (Auto) 1+ /HPF (Negative) 04/23/17 17:52 Urine Mucus Few /HPF 04/23/17 17:52
[2017-05-06] MEDS: ISOPTO TEARS 0.5% OU SCH ×3 (06:09→21:43)
[2017-05-06] MEDS: MUCINEX ER PO SCH ×2 (09:50→21:42)
[2017-05-06] MEDS: ZESTRIL PO SCH (09:51)
--- NOTE | 2017-05-06 14:34 | Progress Note ---
Assessment and Plan Assessment and plan: 87 YO Female HTN, Lyme Disease, Diverticulitis, Shingles who presented with productive cough, sob and subjective fevers /Sepsis due to PNA continue abx, for 7 days total (stop on 05/03/17) /Severe malnutrition manager heavy duty to follow / Acute hypoxemic respiratory failure improved has now weaned off oxygen /Acute renal failure/vasomotor nephropathy IVF resuscitation therapy, monitor uop q shift, repeat bmp. /COPD (chronic obstructive pulmonary disease) Supplemental oxygen, not in exacerbation /Hyponatremia syndrome IVF resuscitation, supportive care. 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 Normal left ventricular systolic function, EF 65%. LISBETH is warranted for further cardiac evaluation. Discussed findings and recommendation for LISBETH with son, Bill Han, who agrees to proceed. 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 [facility] has accepted per Case management. Last day for abx 05/04/17: Discussed case management; hopefully to [facility] today Waiting on placement History Interval history: Patient was seen and examined. Follow-up on current diagnosis. Overnight uneventful. Patient denies any chest pain, shortness breath, nausea/vomiting or severe headaches. Imaging, nursing note, chart, labs and old chart reviewed. Discussed with patient. Hospitalist Physical - Physical exam Narrative exam: GEN: Cachectic BMI 15 NAD, AWAKE, ALERT, ORIENTATED x 3 HEENT: NCAT, EOMI, PERRL, OP Clear NECK: supple, no adenopathy, no thyromegaly, no JVD CVS/HEART: RRR, NORMAL S1S2, NO JVD, pulses present bilaterally CHEST/LUNGS: CTA B, Symmetrical chest expansion, good air entry bilaterally GI/Abdomen: soft, NTND, good bowel sounds, no guarding or rebound /Bladder: no suprapubic tenderness, no CVA or paraspinal tenderness EXT/Skin: no c/c/e, no obvious rash MSK: FROM x 4 Neuro: CN 2-12 grossly intact, no new focal deficits Psych: calm - Constitutional Vitals: Temp Pulse Resp BP Pulse Ox 98.5 F 94 H 16 103/52 94 05/06/17 12:27 05/06/17 12:27 05/06/17 12:27 05/06/17 12:27 05/06/17 12:27 General appearance: Absent: mild distress Results - Labs CBC & Chem 7: 04/26/17 12:34 04/26/17 12:34 Labs: Laboratory Last Values WBC 12.4 K/mm3 (4.5-11.0) H 04/26/17 12:34 RBC 4.01 M/mm3 (3.65-5.03) 04/26/17 12:34 Hgb 12.3 gm/dl (10.1-14.3) 04/26/17 12:34 Hct 36.4 % (30.3-42.9) 04/26/17 12:34 MCV 91 fl (79-97) 04/26/17 12:34 MCH 31 pg (28-32) 04/26/17 12:34 MCHC 34 % (30-34) 04/26/17 12:34 RDW 13.4 % (13.2-15.2) 04/26/17 12:34 Plt Count 364 K/mm3 (140-440) 04/26/17 12:34 Add Manual Diff Complete 04/23/17 17:00 Total Counted 100 04/23/17 17:00 Seg Neutrophils % Route Delivery Service Driver 04/23/17 17:00 Seg Neuts % (Manual) 96.0 % (40.0-70.0) H 04/23/17 17:00 Band Neutrophils % 0 % 04/23/17 17:00 Lymphocytes % (Manual) 2.0 % (13.4-35.0) L 04/23/17 17:00 Reactive Lymphs % (Man) 0 % 04/23/17 17:00 Monocytes % (Manual) 2.0 % (0.0-7.3) 04/23/17 17:00 Eosinophils % (Manual) 0 % (0.0-4.3) 04/23/17 17:00 Basophils % (Manual) 0 % (0.0-1.8) 04/23/17 17:00 Metamyelocytes % 0 % 04/23/17 17:00 Myelocytes % 0 % 04/23/17 17:00 Promyelocytes % 0 % 04/23/17 17:00 Blast Cells % 0 % 04/23/17 17:00 Nucleated RBC % Not Reportable 04/23/17 17:00 Seg Neutrophils # Man 16.6 K/mm3 (1.8-7.7) H 04/23/17 17:00 Band Neutrophils # 0.0 K/mm3 04/23/17 17:00 Lymphocytes # (Manual) 0.3 K/mm3 (1.2-5.4) L 04/23/17 17:00 Abs React Lymphs (Man) 0.0 K/mm3 04/23/17 17:00 Monocytes # (Manual) 0.3 K/mm3 (0.0-0.8) 04/23/17 17:00 Eosinophils # (Manual) 0.0 K/mm3 (0.0-0.4) 04/23/17 17:00 Basophils # (Manual) 0.0 K/mm3 (0.0-0.1) 04/23/17 17:00 Metamyelocytes # 0.0 K/mm3 04/23/17 17:00 Myelocytes # 0.0 K/mm3 04/23/17 17:00 Promyelocytes # 0.0 K/mm3 04/23/17 17:00 Blast Cells # 0.0 K/mm3 04/23/17 17:00 WBC Morphology Not Reportable 04/23/17 17:00 Hypersegmented Neuts Not Reportable 04/23/17 17:00 Hyposegmented Neuts Not Reportable 04/23/17 17:00 Hypogranular Neuts Not Reportable 04/23/17 17:00 Smudge Cells Not Reportable 04/23/17 17:00 Toxic Granulation Not Reportable 04/23/17 17:00 Toxic Vacuolation Not Reportable 04/23/17 17:00 Dohle Bodies Not Reportable 04/23/17 17:00 Pelger-Huet Anomaly Not Reportable 04/23/17 17:00 Carlos Alberto Rods Not Reportable 04/23/17 17:00 Platelet Estimate Appears normal 04/23/17 17:00 Clumped Platelets Not Reportable 04/23/17 17:00 Plt Clumps, EDTA Not Reportable 04/23/17 17:00 Large Platelets Not Reportable 04/23/17 17:00 Giant Platelets Not Reportable 04/23/17 17:00 Platelet Satelliting Not Reportable 04/23/17 17:00 Plt Morphology Comment Not Reportable 04/23/17 17:00 RBC Morphology Not Reportable 04/23/17 17:00 Dimorphic RBCs Not Reportable 04/23/17 17:00 Polychromasia Not Reportable 04/23/17 17:00 Hypochromasia Not Reportable 04/23/17 17:00 Poikilocytosis Few 04/23/17 17:00 Anisocytosis Few 04/23/17 17:00 Microcytosis Not Reportable 04/23/17 17:00 Macrocytosis Not Reportable 04/23/17 17:00 Spherocytes Not Reportable 04/23/17 17:00 Pappenheimer Bodies Not Reportable 04/23/17 17:00 Sickle Cells Not Reportable 04/23/17 17:00 Target Cells Not Reportable 04/23/17 17:00 Tear Drop Cells Not Reportable 04/23/17 17:00 Ovalocytes Not Reportable 04/23/17 17:00 Helmet Cells Not Reportable 04/23/17 17:00 Jacobsen-Joanna Bodies Not Reportable 04/23/17 17:00 [place] Rings Not Reportable 04/23/17 17:00 [place] Cells Not Reportable 04/23/17 17:00 Bite Cells Not Reportable 04/23/17 17:00 Crenated Cell Not Reportable 04/23/17 17:00 Elliptocytes Not Reportable 04/23/17 17:00 Acanthocytes (Spur) Not Reportable 04/23/17 17:00 Rouleaux Not Reportable 04/23/17 17:00 Hemoglobin C Crystals Not Reportable 04/23/17 17:00 Schistocytes Not Reportable 04/23/17 17:00 Malaria parasites Not Reportable 04/23/17 17:00 Tyler Bodies Not Reportable 04/23/17 17:00 Hem Pathologist Commnt No 04/23/17 17:00 PT 13.7 Sec. (12.2-14.9) 04/23/17 17:00 INR 1.00 (0.87-1.13) 04/23/17 17:00 POC ABG pH 7.485 (7.35-7.45) H 04/23/17 17:19 POC ABG pCO2 33.9 (35-45) L 04/23/17 17:19 POC ABG pO2 58 (80-105) L 04/23/17 17:19 POC ABG HCO3 25.5 04/23/17 17:19 POC ABG Total CO2 27 04/23/17 17:19 POC ABG O2 Sat 92 04/23/17 17:19 POC ABG Base Excess 2 04/23/17 17:19 FiO2 21 % 04/23/17 17:19 Sodium 139 mmol/L (137-145) 04/26/17 12:34 Potassium 4.0 mmol/L (3.6-5.0) 04/26/17 12:34 Chloride 98.7 mmol/L (98-107) 04/26/17 12:34 Carbon Dioxide 26 mmol/L (22-30) 04/26/17 12:34 Anion Gap 18 mmol/L 04/26/17 12:34 BUN 25 mg/dL (7-17) H 04/26/17 12:34 Creatinine 0.7 mg/dL (0.7-1.2) 04/26/17 12:34 Estimated GFR > 60 ml/min 04/26/17 12:34 BUN/Creatinine Ratio 36 % 04/26/17 12:34 Glucose 119 mg/dL (65-100) H 04/26/17 12:34 Lactic Acid 1.10 mmol/L (0.7-2.0) 04/24/17 00:24 Calcium 8.4 mg/dL (8.4-10.2) 04/26/17 12:34 Magnesium 1.90 mg/dL (1.7-2.3) 04/23/17 17:00 Troponin T < 0.010 ng/mL (0.00-0.029) 04/23/17 17:00 Urine Color Jannet (Yellow) 04/23/17 17:52 Urine Turbidity Clear (Clear) 04/23/17 17:52 Urine pH 5.0 (5.0-7.0) 04/23/17 17:52 Ur Specific [place] 1.018 (1.003-1.030) 04/23/17 17:52 Urine Protein 30 mg/dl mg/dL (Negative) 04/23/17 17:52 Urine Glucose (UA) Neg mg/dL (Negative) 04/23/17 17:52 Urine Ketones Neg mg/dL (Negative) 04/23/17 17:52 Urine Blood Mod (Negative) 04/23/17 17:52 Urine Nitrite Neg (Negative) 04/23/17 17:52 Urine Bilirubin Neg (Negative) 04/23/17 17:52 Urine Urobilinogen 4.0 mg/dL (<2.0) 04/23/17 17:52 Ur Leukocyte Esterase Neg (Negative) 04/23/17 17:52 Urine WBC (Auto) 18.0 /HPF (0.0-6.0) H 04/23/17 17:52 Urine RBC (Auto) 40.0 /HPF (0.0-6.0) 04/23/17 17:52 Urine Bacteria (Auto) 1+ /HPF (Negative) 04/23/17 17:52 Urine Mucus Few /HPF 04/23/17 17:52
[2017-05-07] MEDS: ISOPTO TEARS 0.5% OU SCH (05:47)
[2017-05-07] MEDS: MUCINEX ER PO SCH (11:06)
[2017-05-07] MEDS: ZESTRIL PO SCH (11:07)
[2017-05-07 14:34] VITALS: BP 101/49
== END 2017-05-07 14:34 | DRG 871 ==
LOC: ED 11:41 → 4A 18:10
PROVIDERS: ADMIT Internal Medicine; ATTEND Internal Medicine
PROC: 4A033R1 Measurement of Arterial Saturation, Peripheral, Percutaneous Approach (ICD-10-PCS; principal; 2017-04-23)
PROC: 3E0234Z Introduction of Serum, Toxoid and Vaccine into Muscle, Percutaneous Approach (ICD-10-PCS; 2017-04-24)
DX: A41.9 Sepsis, unspecified organism (principal); J96.01 Acute respiratory failure with hypoxia; E43 Unspecified severe protein-calorie malnutrition; J18.9 Pneumonia, unspecified organism; N17.0 Acute kidney failure with tubular necrosis; Z68.1 Body mass index [BMI] 19.9 or less, adult; J44.0 Chronic obstructive pulmonary disease with (acute) lower respiratory infection; E87.1 Hypo-osmolality and hyponatremia; A69.20 Lyme disease, unspecified; K57.92 Diverticulitis of intestine, part unspecified, without perforation or abscess without bleeding; I10 Essential (primary) hypertension; E86.0 Dehydration; R53.81 Other malaise; Z23 Encounter for immunization; Z79.899 Other long term (current) drug therapy; Z82.49 Family history of ischemic heart disease and other diseases of the circulatory system
CPT/HCPCS: 36415; 71020; 80048; 81001; 82140; 82803; 83735; 84484; 85007; 85025; 85027; 85610; 87040; 87086; 87400; 90686; 93005; 93010; 93306; 93312; 93320; 93325; 94760; 96374; 96375; J0360; J0456; J0696; J2250; J3010; J7030; J7050

== ENCOUNTER 2018-06-11 08:46 | Emergency (ER) | payer MEDICARE ==
[2018-06-11] MEDS ORDERED: ZOFRAN IV ONE (11:01)
[2018-06-11] MEDS ORDERED: NACL 0.9% 1000 ML 1,000 ML IV ONE (11:01)
--- NOTE | 2018-06-11 11:06 | Emergency Department Report ---
ED General Adult HPI - General Chief complaint: Upper Respiratory Infection Stated complaint: PNEUMONIA Time Seen by Provider: 06/11/18 10:53 Source: patient, family Mode of arrival: Ambulatory Limitations: No Limitations - History of Present Illness Initial comments: Patient is a 88-year-old female with a past medical history of hypertension who is here secondary to multiple general complaints. The patient is a very poor historian and began to discuss why she is here today with a story about a fall. Further questioning of when this fall occurred patient states it actually happened in May and she did not come because of the [place] was going [place] be in the city. Patient states she hurt her tailbone at that time. Patient states she thinks may have passed out while she was found she couldn't hold onto anything with her arms but also states she was holding her cat at the time. Patient states that she feels as though if she doesn't get any help she is going to be "6 feet under". Patient states "I think I have pneumonia" ho wever she denies any cough congestion fevers or chills or shortness of breath. Patient states she did have a problem "holding her urine" yesterday and also states that she does feel some weakness. Patient states she couldn't hold anything down last night. - Related Data Previous Rx's Medication Instructions Recorded Last Taken Type ALBUTEROL NEB's [Proventil 0.083% 2.5 mg IH Q4HRT PRN #30 day 05/04/17 Unknown Rx NEBS] Acetaminophen [Acetaminophen TAB] 650 mg PO Q4H PRN #30 tablet 05/04/17 Unknown Rx Hypromellose [Isopto Tears 0.5%] 2 drops OU Q8HR #30 day 05/04/17 Unknown Rx Lisinopril [Zestril TAB] 10 mg PO QDAY #30 tablet 05/04/17 Unknown Rx guaiFENesin ER [Mucinex ER] 600 mg PO BID #7 day 05/04/17 Unknown Rx Doxycycline [Vibramycin CAP] 100 mg PO Q12HR #14 capsule 06/11/18 Unknown Rx Allergies Allergy/AdvReac Type Severity Reaction Status Date / Time dextromethorphan HBr Allergy Unknown Verified 06/21/16 11:57 [From DexAlone] ED Review of Systems ROS: Stated complaint: PNEUMONIA Other details as noted in HPI Comment: All other systems reviewed and negative ED Past Medical Hx - Past Medical History Hx Hypertension: Yes Additional medical history: Lyme disease, Diverticulitis, Shingles - Surgical History Additional Surgical History: eyes, D&C - Social History Smoking Status: Never Smoker Substance Use Type: None - Medications Home Medications: Home Medications Medication Instructions Recorded Confirmed Last Taken Type ALBUTEROL NEB's [Proventil 0.083% 2.5 mg IH Q4HRT PRN #30 day 05/04/17 Unknown Rx NEBS] Acetaminophen [Acetaminophen TAB] 650 mg PO Q4H PRN #30 tablet 05/04/17 Unknown Rx Hypromellose [Isopto Tears 0.5%] 2 drops OU Q8HR #30 day 05/04/17 Unknown Rx Lisinopril [Zestril TAB] 10 mg PO QDAY #30 tablet 05/04/17 Unknown Rx guaiFENesin ER [Mucinex ER] 600 mg PO BID #7 day 05/04/17 Unknown Rx Doxycycline [Vibramycin CAP] 100 mg PO Q12HR #14 capsule 06/11/18 Unknown Rx ED Physical Exam - General Limitations: No Limitations General appearance: alert, in no apparent distress - Head Head exam: Present: atraumatic, normocephalic - Eye Eye exam: Present: normal appearance - ENT ENT exam: Present: normal orophraynx, mucous membranes moist - Neck Neck exam: Present: normal inspection - Respiratory Respiratory exam: Present: normal lung sounds bilaterally. Absent: respiratory distress, wheezes, rales, rhonchi, stridor - Cardiovascular Cardiovascular Exam: Present: regular rate, normal rhythm, normal heart sounds. Absent: systolic murmur, diastolic murmur, rubs, gallop - GI/Abdominal GI/Abdominal exam: Present: soft, normal bowel sounds. Absent: distended, tenderness, guarding, rebound - Extremities Exam Extremities exam: Present: normal inspection - Back Exam Back exam: Present: normal inspection - Neurological Exam Neurological exam: Present: alert, oriented X3 - Psychiatric Psychiatric exam: Present: normal affect, normal mood - Skin Skin exam: Present: warm, dry, intact, normal color. Absent: rash ED Course Vital Signs 06/11/18 06/11/18 06/11/18 08:51 12:15 12:33 Temperature 98.3 F 98.7 F Pulse Rate 111 H 90 80 Respiratory 18 Rate Blood Pressure 192/110 200/105 Blood Pressure 200/105 [Left] O2 Sat by Pulse 95 Oximetry 06/11/18 13:15 Temperature Pulse Rate Respiratory Rate Blood Pressure Blood Pressure 147/76 [Left] O2 Sat by Pulse Oximetry ED Medical Decision Making - Lab Data Result diagrams: 06/11/18 11:15 06/11/18 11:15 Labs 06/11/18 06/11/18 06/11/18 11:15 11:15 12:14 WBC 5.8 RBC 4.33 Hgb 13.5 Hct 40.2 MCV 93 MCH 31 MCHC 34 RDW 13.3 Plt Count 212 Lymph % (Auto) Experience Specialist [place] % (Auto) Experience Specialist Eos % (Auto) Experience Specialist Baso % (Auto) Experience Specialist Lymph # Experience Specialist [place] # Experience Specialist Eos # Experience Specialist Baso # Experience Specialist Add Manual Diff Complete Total Counted 100 Seg Neutrophils % Experience Specialist Seg Neuts % (Manual) 89.0 H Band Neutrophils % 0 Lymphocytes % (Manual) 7.0 L Reactive Lymphs % (Man) 0 Monocytes % (Manual) 4.0 Eosinophils % (Manual) 0 Basophils % (Manual) 0 Metamyelocytes % 0 Myelocytes % 0 Promyelocytes % 0 Blast Cells % 0 Nucleated RBC % Not Reportable Seg Neutrophils # Experience Specialist Seg Neutrophils # Man 5.2 Band Neutrophils # 0.0 Lymphocytes # (Manual) 0.4 L Abs React Lymphs (Man) 0.0 Monocytes # (Manual) 0.2 Eosinophils # (Manual) 0.0 Basophils # (Manual) 0.0 Metamyelocytes # 0.0 Myelocytes # 0.0 Promyelocytes # 0.0 Blast Cells # 0.0 WBC Morphology Not Reportable Hypersegmented Neuts Not Reportable Hyposegmented Neuts Not Reportable Hypogranular Neuts Not Reportable Smudge Cells Not Reportable Toxic Granulation Not Reportable Toxic Vacuolation Not Reportable Dohle Bodies Not Reportable Pelger-Huet Anomaly Not Reportable Carlos Alberto Rods Not Reportable Platelet Estimate Consistent w auto Clumped Platelets Not Reportable Plt Clumps, EDTA Not Reportable Large Platelets Not Reportable Giant Platelets Not Reportable Platelet Satelliting Not Reportable Plt Morphology Comment Not Reportable RBC Morphology Not Reportable Dimorphic RBCs Not Reportable Polychromasia Not Reportable Hypochromasia Not Reportable Poikilocytosis 1+ Anisocytosis 1+ Microcytosis Not Reportable Macrocytosis Not Reportable Spherocytes Not Reportable Pappenheimer Bodies Not Reportable Sickle Cells Not Reportable Target Cells Not Reportable Tear Drop Cells Not Reportable Ovalocytes Few Helmet Cells Not Reportable Jacobsen-Kenedy Bodies Not Reportable [place] Rings Not Reportable John Cells Not Reportable Bite Cells Not Reportable Crenated Cell Not Reportable Elliptocytes Few Acanthocytes (Spur) Not Reportable Rouleaux Not Reportable Hemoglobin C Crystals Not Reportable Schistocytes Not Reportable Malaria parasites Not Reportable Tyler Bodies Not Reportable Hem Pathologist Commnt No Sodium 132 L Potassium 5.3 H Chloride 93.0 L Carbon Dioxide 23 Anion Gap 21 BUN 19 H Creatinine 1.1 Estimated GFR 47 BUN/Creatinine Ratio 17 Glucose 91 Calcium 9.3 Urine Color Colorless Urine Turbidity Clear Urine pH 8.0 H Ur Specific [place] 1.004 Urine Protein <15 mg/dl Urine Glucose (UA) Neg Urine Ketones Neg Urine Blood Mod Urine Nitrite Neg Urine Bilirubin Neg Urine Urobilinogen < 2.0 Ur Leukocyte Esterase Neg Urine WBC (Auto) 1.0 Urine RBC (Auto) 24.0 U Epithel Cells (Auto) < 1.0 - Medical Decision Making Patient so was hydrated here in the emergency department. She had a very mild h yponatremia that was treated with the normal saline. Patient still states she wants to stay in the hospital however she is still unable to tell exactly how she feels. She denies any having any pain or dizziness upon standing. Patient vital signs are stable at discharge. The patient did show some mild hematuria on her urinalysis. There is no leuk esterase and nitrites with the patient was having some difficulty urinating yesterday and patient will be started on antibiotics for possible interstitial cystitis. Patient stable for discharge and will follow with Dr. Hoskins. Critical care attestation.: If time is entered above; I have spent that time in minutes in the direct care of this critically ill patient, excluding procedure time. ED Disposition Clinical Impression: Interstitial cystitis, Mild dehydration Disposition: DC-01 TO HOME OR SELFCARE Is pt being admited?: No Does the pt Need Aspirin: No Condition: Stable Instructions: Dehydration (ED) Referrals: KERVIN BRUNNER MD [Primary Care Provider] - 3-5 Days Time of Disposition: 13:56
[2018-06-11] MEDS ORDERED: APRESOLINE IV ONE (11:07)
[2018-06-11 11:42] LABS: Hematocrit 40.2 % (30.3-42.9); Hemoglobin 13.5 gm/dl (10.1-14.3); Mean Corpuscular HGB Conc 34 % (30-34); Mean Corpuscular Volume 93 fl (79-97); Platelet Count 212 K/mm3 (140-440); Red Blood Count 4.33 M/mm3 (3.65-5.03); Red Cell Distribution Width 13.3 % (13.2-15.2)
[2018-06-11 12:01] LABS: Calcium 9.3 mg/dL (8.4-10.2)
[2018-06-11 12:42] LABS: Bilirubin,Urine NEG (Negative); Blood,Urine MOD (Negative); Color,Urine Colorless (Yellow); Protein,Urine <15 mg/dL mg/dL (Negative); Urobilinogen,Urine < 2.0 mg/dL (<2.0)
[2018-06-11 13:28] LABS: Basophils % (Manual) 0 % (0.0-1.8); Eosinophils % (Manual) 0 % (0.0-4.3); Total Cells Counted 100
[2018-06-11 13:29] LABS: Anisocytosis 1+; Ovalocytes Few; Platelet Estimate Consistent w Auto; Poikilocytosis 1+
[2018-06-11 14:52] VITALS: BP 174/90
== END 2018-06-11 14:52 | disposition home or self-care (01) ==
LOC: ED 08:46
DX: E86.0 Dehydration (principal); N30.10 Interstitial cystitis (chronic) without hematuria; I10 Essential (primary) hypertension; Z79.899 Other long term (current) drug therapy; Z88.8 Allergy status to other drugs, medicaments and biological substances
CPT/HCPCS: 36415; 80048; 81001; 85007; 85025; 96361; 96374; 96375; 99283; J0360; J2405; J7030

== ENCOUNTER 2018-06-30 08:08 | Emergency (ER) | payer MEDICARE ==
[2018-06-30] MEDS ORDERED: ZOFRAN IV ONE (10:22)
[2018-06-30] MEDS ORDERED: NACL 0.9% 1000 ML 1,000 ML IV ONE (10:22)
[2018-06-30 10:51] LABS: Hematocrit 34.7 % (30.3-42.9); Hemoglobin 12.2 gm/dl (10.1-14.3); Mean Corpuscular HGB Conc 35 % (30-34); Mean Corpuscular Volume 93 fl (79-97); Platelet Count 389 K/mm3 (140-440); Red Blood Count 3.72 M/mm3 (3.65-5.03); Red Cell Distribution Width 13.4 % (13.2-15.2)
[2018-06-30 11:04] LABS: INR 1.05 (0.87-1.13); Partial Thromboplastin Time 27.5 Sec. (24.2-36.6)
[2018-06-30 11:20] LABS: Albumin 3.4 g/dL (3.9-5); BUN/Creatinine Ratio 31; Blood Urea Nitrogen 53 mg/dL (7-17); Calcium 9.5 mg/dL (8.4-10.2); Hemolysis Index 270
[2018-06-30 11:27] LABS: Alanine Aminotransferase TNR units/L (7-56)
--- NOTE | 2018-06-30 12:01 | Emergency Department Report ---
ED General Adult HPI - General Chief complaint: Nausea/Vomiting/Diarrhea Stated complaint: GENERAL SICKNESS Time Seen by Provider: 06/30/18 10:13 Source: patient, family Mode of arrival: Ambulatory Limitations: No Limitations - History of Present Illness Initial comments: Patient presents to the emergency department complaint of abdominal pain with nausea, vomiting, diarrhea 2 weeks. Patient denies any sick contacts. Patient also denies chest pain, shortness breath, or headache. Patient also complains of cough 2 weeks. -: Gradual Location: abdomen Severity scale (0 -10): 7 Quality: aching Consistency: constant Improves with: none Worsens with: none Associated Symptoms: nausea/vomiting Treatments Prior to Arrival: none - Related Data Previous Rx's Medication Instructions Recorded Last Taken Type ALBUTEROL NEB's [Proventil 0.083% 2.5 mg IH Q4HRT PRN #30 day 05/04/17 Unknown Rx NEBS] Acetaminophen [Acetaminophen TAB] 650 mg PO Q4H PRN #30 tablet 05/04/17 Unknown Rx Hypromellose [Isopto Tears 0.5%] 2 drops OU Q8HR #30 day 05/04/17 Unknown Rx Lisinopril [Zestril TAB] 10 mg PO QDAY #30 tablet 05/04/17 Unknown Rx guaiFENesin ER [Mucinex ER] 600 mg PO BID #7 day 05/04/17 Unknown Rx Doxycycline [Vibramycin CAP] 100 mg PO Q12HR #14 capsule 06/11/18 Unknown Rx ALBUTEROL Inhaler (OR & NICU) 2 puff IH Q4HR PRN #1 inhalation 06/30/18 Unknown Rx [ProAir HFA Inhaler] Benzonatate [Tessalon Perles] 100 mg PO Q8HR PRN #20 capsule 06/30/18 Unknown Rx Ondansetron [Zofran Odt] 4 mg PO Q4HR PRN #20 tab.rapdis 06/30/18 Unknown Rx Allergies Allergy/AdvReac Type Severity Reaction Status Date / Time dextromethorphan HBr Allergy Unknown Verified 06/21/16 11:57 [From DexAlone] ED Review of Systems ROS: Stated complaint: GENERAL SICKNESS Other details as noted in HPI Comment: All other systems reviewed and negative Constitutional: denies: chills, fever Eyes: denies: eye pain, eye discharge, vision change ENT: denies: ear pain, throat pain Respiratory: denies: cough, shortness of breath, wheezing Cardiovascular: denies: chest pain, palpitations Endocrine: no symptoms reported Gastrointestinal: abdominal pain, nausea, vomiting, diarrhea Genitourinary: denies: urgency, dysuria, discharge Musculoskeletal: denies: back pain, joint swelling, arthralgia Skin: denies: rash, lesions Neurological: denies: headache, weakness, paresthesias Psychiatric: denies: anxiety, depression Hematological/Lymphatic: denies: easy bleeding, easy bruising ED Past Medical Hx - Past Medical History Previous Medical History?: Yes Hx Hypertension: Yes Additional medical history: Lyme disease, Diverticulitis, Shingles - Surgical History Past Surgical History?: Yes Additional Surgical History: eyes, D&C - Social History Smoking Status: Never Smoker Substance Use Type: None - Medications Home Medications: Home Medications Medication Instructions Recorded Confirmed Last Taken Type ALBUTEROL NEB's [Proventil 0.083% 2.5 mg IH Q4HRT PRN #30 day 05/04/17 Unknown Rx NEBS] Acetaminophen [Acetaminophen TAB] 650 mg PO Q4H PRN #30 tablet 05/04/17 Unknown Rx Hypromellose [Isopto Tears 0.5%] 2 drops OU Q8HR #30 day 05/04/17 Unknown Rx Lisinopril [Zestril TAB] 10 mg PO QDAY #30 tablet 05/04/17 Unknown Rx guaiFENesin ER [Mucinex ER] 600 mg PO BID #7 day 05/04/17 Unknown Rx Doxycycline [Vibramycin CAP] 100 mg PO Q12HR #14 capsule 06/11/18 Unknown Rx ALBUTEROL Inhaler (OR & NICU) 2 puff IH Q4HR PRN #1 inhalation 06/30/18 Unknown Rx [ProAir HFA Inhaler] Benzonatate [Tessalon Perles] 100 mg PO Q8HR PRN #20 capsule 06/30/18 Unknown Rx Ondansetron [Zofran Odt] 4 mg PO Q4HR PRN #20 tab.rapdis 06/30/18 Unknown Rx ED Physical Exam - General Limitations: No Limitations General appearance: alert, in no apparent distress - Head Head exam: Present: atraumatic, normocephalic - Eye Eye exam: Present: normal appearance, PERRL, EOMI - ENT ENT exam: Present: mucous membranes dry - Neck Neck exam: Present: normal inspection - Respiratory Respiratory exam: Present: normal lung sounds bilaterally. Absent: respiratory distress, wheezes, rales - Cardiovascular Cardiovascular Exam: Present: regular rate, normal rhythm. Absent: systolic murmur, diastolic murmur, rubs, gallop - GI/Abdominal GI/Abdominal exam: Present: soft, tenderness (diffusely tender to palpation), normal bowel sounds. Absent: distended - Extremities Exam Extremities exam: Present: normal inspection - Back Exam Back exam: Present: normal inspection - Neurological Exam Neurological exam: Present: alert, oriented X3, CN II-XII intact. Absent: motor sensory deficit - Psychiatric Psychiatric exam: Present: normal affect, normal mood - Skin Skin exam: Present: warm, dry, intact, normal color. Absent: rash ED Course Vital Signs 06/30/18 06/30/18 08:27 09:14 Temperature 97.7 F Pulse Rate 104 H Respiratory 16 20 Rate Blood Pressure 116/77 [Left] O2 Sat by Pulse 97 97 Oximetry ED Medical Decision Making - Lab Data Result diagrams: 06/30/18 10:39 06/30/18 11:39 Lab Results 06/30/18 06/30/18 06/30/18 Range/Units 10:39 10:39 10:39 WBC 10.6 (4.5-11.0) K/mm3 RBC 3.72 (3.65-5.03) M/mm3 Hgb 12.2 (10.1-14.3) gm/dl Hct 34.7 (30.3-42.9) % MCV 93 (79-97) fl MCH 33 H (28-32) pg MCHC 35 H (30-34) % RDW 13.4 (13.2-15.2) % Plt Count 389 (140-440) K/mm3 Add Manual Diff Complete Total Counted 100 Seg Neuts % (Manual) 89.0 H (40.0-70.0) % Band Neutrophils % 0 % Lymphocytes % (Manual) 9.0 L (13.4-35.0) % Reactive Lymphs % (Man) 0 % Monocytes % (Manual) 2.0 (0.0-7.3) % Eosinophils % (Manual) 0 (0.0-4.3) % Basophils % (Manual) 0 (0.0-1.8) % Metamyelocytes % 0 % Myelocytes % 0 % Promyelocytes % 0 % Blast Cells % 0 % Nucleated RBC % Not Reportable Seg Neutrophils # Man 9.4 H (1.8-7.7) K/mm3 Band Neutrophils # 0.0 K/mm3 Lymphocytes # (Manual) 1.0 L (1.2-5.4) K/mm3 Abs React Lymphs (Man) 0.0 K/mm3 Monocytes # (Manual) 0.2 (0.0-0.8) K/mm3 Eosinophils # (Manual) 0.0 (0.0-0.4) K/mm3 Basophils # (Manual) 0.0 (0.0-0.1) K/mm3 Metamyelocytes # 0.0 K/mm3 Myelocytes # 0.0 K/mm3 Promyelocytes # 0.0 K/mm3 Blast Cells # 0.0 K/mm3 WBC Morphology Not Reportable Hypersegmented Neuts Not Reportable Hyposegmented Neuts Not Reportable Hypogranular Neuts Not Reportable Smudge Cells Not Reportable Toxic Granulation Not Reportable Toxic Vacuolation Not Reportable Dohle Bodies Not Reportable Pelger-Huet Anomaly Not Reportable Carlos Alberto Rods Not Reportable Platelet Estimate Consistent w auto Clumped Platelets Not Reportable Plt Clumps, EDTA Not Reportable Large Platelets Not Reportable Giant Platelets Not Reportable Platelet Satelliting Not Reportable Plt Morphology Comment Not Reportable RBC Morphology Not Reportable Dimorphic RBCs Not Reportable Polychromasia Not Reportable Hypochromasia Not Reportable Poikilocytosis 1+ Anisocytosis 1+ Microcytosis Not Reportable Macrocytosis Not Reportable Spherocytes Not Reportable Pappenheimer Bodies Not Reportable Sickle Cells Not Reportable Target Cells Not Reportable Tear Drop Cells Not Reportable Ovalocytes Few Helmet Cells Not Reportable Jacobsen-Gracey Bodies Not Reportable Strunk Rings Not Reportable [place] Cells Not Reportable Bite Cells Not Reportable Crenated Cell Not Reportable Elliptocytes Not Reportable Acanthocytes (Spur) Not Reportable Rouleaux Not Reportable Hemoglobin C Crystals Not Reportable Schistocytes Not Reportable Malaria parasites Not Reportable Tyler Bodies Not Reportable Hem Pathologist Commnt No PT 14.3 (12.2-14.9) Sec. INR 1.05 (0.87-1.13) APTT 27.5 (24.2-36.6) Sec. Sodium 133 L (137-145) mmol/L Potassium TNR Chloride 92.7 L (98-107) mmol/L Carbon Dioxide 21 L (22-30) mmol/L Anion Gap 25 mmol/L BUN 53 H (7-17) mg/dL Creatinine 1.7 H (0.7-1.2) mg/dL Estimated GFR 28 ml/min BUN/Creatinine Ratio 31 % Glucose 87 (65-100) mg/dL Calcium 9.5 (8.4-10.2) mg/dL Total Bilirubin 0.50 (0.1-1.2) mg/dL AST TNR ALT TNR Alkaline Phosphatase TNR NT-Pro-B Natriuret Pep 1770 H (0-900) pg/mL Total Protein 7.8 (6.3-8.2) g/dL Albumin 3.4 L (3.9-5) g/dL Albumin/Globulin Ratio 0.8 % Lipase 41 (13-60) units/L 06/30/18 Range/Units 11:39 WBC (4.5-11.0) K/mm3 RBC (3.65-5.03) M/mm3 Hgb (10.1-14.3) gm/dl Hct (30.3-42.9) % MCV (79-97) fl MCH (28-32) pg MCHC (30-34) % RDW (13.2-15.2) % Plt Count (140-440) K/mm3 Add Manual Diff Total Counted Seg Neuts % (Manual) (40.0-70.0) % Band Neutrophils % % Lymphocytes % (Manual) (13.4-35.0) % Reactive Lymphs % (Man) % Monocytes % (Manual) (0.0-7.3) % Eosinophils % (Manual) (0.0-4.3) % Basophils % (Manual) (0.0-1.8) % Metamyelocytes % % Myelocytes % % Promyelocytes % % Blast Cells % % Nucleated RBC % Seg Neutrophils # Man (1.8-7.7) K/mm3 Band Neutrophils # K/mm3 Lymphocytes # (Manual) (1.2-5.4) K/mm3 Abs React Lymphs (Man) K/mm3 Monocytes # (Manual) (0.0-0.8) K/mm3 Eosinophils # (Manual) (0.0-0.4) K/mm3 Basophils # (Manual) (0.0-0.1) K/mm3 Metamyelocytes # K/mm3 Myelocytes # K/mm3 Promyelocytes # K/mm3 Blast Cells # K/mm3 WBC Morphology Hypersegmented Neuts Hyposegmented Neuts Hypogranular Neuts Smudge Cells Toxic Granulation Toxic Vacuolation Dohle Bodies Pelger-Huet Anomaly Carlos Alberto Rods Platelet Estimate Clumped Platelets Plt Clumps, EDTA Large Platelets Giant Platelets Platelet Satelliting Plt Morphology Comment RBC Morphology Dimorphic RBCs Polychromasia Hypochromasia Poikilocytosis Anisocytosis Microcytosis Macrocytosis Spherocytes Pappenheimer Bodies Sickle Cells Target Cells Tear Drop Cells Ovalocytes Helmet Cells Jacobsen-Gracey Bodies Strunk Rings [place] Cells Bite Cells Crenated Cell Elliptocytes Acanthocytes (Spur) Rouleaux Hemoglobin C Crystals Schistocytes Malaria parasites Tyler Bodies Hem Pathologist Commnt PT (12.2-14.9) Sec. INR (0.87-1.13) APTT (24.2-36.6) Sec. Sodium 135 L (137-145) mmol/L Potassium 4.8 Chloride 96.3 L (98-107) mmol/L Carbon Dioxide 21 L (22-30) mmol/L Anion Gap 23 mmol/L BUN 50 H (7-17) mg/dL Creatinine 1.5 H (0.7-1.2) mg/dL Estimated GFR 33 ml/min BUN/Creatinine Ratio 33 % Glucose 88 (65-100) mg/dL Calcium 9.0 (8.4-10.2) mg/dL Total Bilirubin 0.50 (0.1-1.2) mg/dL AST 22 ALT 12 Alkaline Phosphatase 142 H NT-Pro-B Natriuret Pep (0-900) pg/mL Total Protein 7.5 (6.3-8.2) g/dL Albumin 3.3 L (3.9-5) g/dL Albumin/Globulin Ratio 0.8 % Lipase (13-60) units/L - Radiology Data Radiology results: report reviewed - Medical Decision Making Discussed results with patient and her son Critical care attestation.: If time is entered above; I have spent that time in minutes in the direct care of this critically ill patient, excluding procedure time. ED Disposition Clinical Impression: Nausea & vomiting, Diarrhea, Cough Disposition: DC-01 TO HOME OR SELFCARE Is pt being admited?: No Does the pt Need Aspirin: No Condition: Stable Instructions: Acute Nausea and Vomiting (ED), Acute Diarrhea (ED), Cold Symptoms (ED) Additional Instructions: return if worse Prescriptions: ALBUTEROL Inhaler (OR & NICU) [ProAir HFA Inhaler] 2 puff IH Q4HR PRN #1 inhalation PRN Reason: Shortness Of Breath Benzonatate [Tessalon Perles] 100 mg PO Q8HR PRN #20 capsule PRN Reason: Cough Ondansetron [Zofran Odt] 4 mg PO Q4HR PRN #20 tab.rapdis PRN Reason: Nausea [facility] - 3-5 Days POONAM CARTER MD [Staff Physician] - 3-5 Days [facility] [Provider Group] - 3-5 Days [facility] [Provider Group] - 3-5 Days Time of Disposition: 13:59
[2018-06-30 12:10] LABS: Albumin 3.3 g/dL (3.9-5)
--- NOTE | 2018-06-30 12:44 | Cat Scan Report ---
CT ABDOMEN PELVIS WITHOUT CONTRAST: HISTORY: Nausea, vomiting and diarrhea. COMPARISON: 06/21/16. TECHNIQUE: Helical CT in 1.25mm intervals without IV contrast. Sagittal and coronal reconstructions. FINDINGS: Lung bases: Multifocal segmental atelectasis or scarring is identified at the lung bases. No pleural effusion. Borderline to mild cardiomegaly. Small hiatal hernia. Liver: Normal. Biliary system: Normal. Pancreas: Normal. Spleen: Normal. Kidneys/ureters/bladder: The left kidney is markedly atrophic. The right kidney is normal size. No focal renal lesion or nephrolithiasis. The collecting systems and bladder are unremarkable. Adrenal glands: Normal. Aorta: Moderate diffuse calcifications. No aneurysm. Intestines: Limited without oral contrast. Diverticulosis of the distal colon is identified. No evidence for obstruction or focal inflammation. Appendix: Not confidently identified. Pelvic viscera: Normal. Ascites: None. Adenopathy: None. Musculoskeletal: Osteopenia. Mild scoliosis and moderate degenerative changes in the spine. IMPRESSION: No acute inflammatory process is identified. Small hiatal hernia. Atrophic left kidney. Diverticulosis of the distal colon. Multifocal atelectasis or scarring at the lung bases. Scoliosis with degenerative changes.
[2018-06-30 12:51] LABS: Anisocytosis 1+; Basophils % (Manual) 0 % (0.0-1.8); Eosinophils % (Manual) 0 % (0.0-4.3); Poikilocytosis 1+; Total Cells Counted 100
[2018-06-30 12:52] LABS: Ovalocytes Few; Platelet Estimate Consistent w Auto
[2018-06-30 13:58] LABS: Bilirubin,Urine NEG (Negative); Blood,Urine MOD (Negative); Color,Urine Yellow (Yellow); Mucus,Urine 1+ /HPF; Urobilinogen,Urine < 2.0 mg/dL (<2.0)
[2018-06-30 14:17] VITALS: BP 168/79
== END 2018-06-30 14:18 | disposition home or self-care (01) ==
LOC: ED 08:08
DX: R10.9 Unspecified abdominal pain (principal); R11.2 Nausea with vomiting, unspecified; R19.7 Diarrhea, unspecified; I10 Essential (primary) hypertension
CPT/HCPCS: 36415; 74176; 80053; 81001; 83690; 83880; 85007; 85025; 85610; 85730; 96361; 96374; 99284; J2405; J7030

== ENCOUNTER 2018-07-01 17:17 | Inpatient (IN) | payer MEDICARE ==
--- NOTE | 2018-07-01 18:52 | Emergency Department Report ---
Blank Doc - Documentation Documentation: This is a 88 y.o. female that presents for medical clearance for admission to a [facility]. Patient son states he tried to admit her into [facility]. Patient can't take care of herself and need assistance. Patient was discharged from this ER yesterday. Main ER for further evaluation.
--- NOTE | 2018-07-01 20:58 | Emergency Department Report ---
ED General Adult HPI - General Chief complaint: Medical Clearance Stated complaint: PRISON PLACEMENT Time Seen by Provider: 07/01/18 18:47 Source: patient Mode of arrival: Ambulatory Limitations: No Limitations - History of Present Illness Initial comments: Patient is a 88-year-old female with history of hypertension, congestive heart failure, COPD and history of Lyme disease. Patient presented to the ER accompanied by her son stating that she's been having diarrhea for the last week. Patient stated that everything she eats or drinks it will pass through as the diarrhea. Patient also complaining of generalized weakness. Patient son stating that his mother is unable to take care of herself and nobody at home to take care of her. Patient denies any fever or chills. Patient was seen here yesterday and had a CT abdomen and pelvis which was unremarkable. Severity scale (0 -10): 0 - Related Data Previous Rx's Medication Instructions Recorded Last Taken Type ALBUTEROL NEB's [Proventil 0.083% 2.5 mg IH Q4HRT PRN #30 day 05/04/17 Unknown Rx NEBS] Acetaminophen [Acetaminophen TAB] 650 mg PO Q4H PRN #30 tablet 05/04/17 Unknown Rx Hypromellose [Isopto Tears 0.5%] 2 drops OU Q8HR #30 day 05/04/17 Unknown Rx Lisinopril [Zestril TAB] 10 mg PO QDAY #30 tablet 05/04/17 Unknown Rx guaiFENesin ER [Mucinex ER] 600 mg PO BID #7 day 05/04/17 Unknown Rx Doxycycline [Vibramycin CAP] 100 mg PO Q12HR #14 capsule 06/11/18 Unknown Rx ALBUTEROL Inhaler (OR & NICU) 2 puff IH Q4HR PRN #1 inhalation 06/30/18 Unknown Rx [ProAir HFA Inhaler] Benzonatate [Tessalon Perles] 100 mg PO Q8HR PRN #20 capsule 06/30/18 Unknown Rx Ondansetron [Zofran Odt] 4 mg PO Q4HR PRN #20 tab.rapdis 06/30/18 Unknown Rx Allergies Allergy/AdvReac Type Severity Reaction Status Date / Time dextromethorphan HBr Allergy Unknown Verified 07/01/18 17:20 [From DexAlone] ED Review of Systems ROS: Stated complaint: PRISON PLACEMENT Other details as noted in HPI Comment: All other systems reviewed and negative Constitutional: denies: chills, fever Respiratory: denies: cough, orthopnea, shortness of breath, SOB with exertion, SOB at rest, wheezing Cardiovascular: denies: chest pain Gastrointestinal: nausea, diarrhea. denies: abdominal pain, constipation, h ematemesis, melena, hematochezia Musculoskeletal: denies: back pain ED Past Medical Hx - Past Medical History Previous Medical History?: Yes Hx Hypertension: Yes Additional medical history: Lyme disease, Diverticulitis, Shingles - Surgical History Additional Surgical History: eyes, D&C - Social History Smoking Status: Never Smoker - Medications Home Medications: Home Medications Medication Instructions Recorded Confirmed Last Taken Type ALBUTEROL NEB's [Proventil 0.083% 2.5 mg IH Q4HRT PRN #30 day 05/04/17 Unknown Rx NEBS] Acetaminophen [Acetaminophen TAB] 650 mg PO Q4H PRN #30 tablet 05/04/17 Unknown Rx Hypromellose [Isopto Tears 0.5%] 2 drops OU Q8HR #30 day 05/04/17 Unknown Rx Lisinopril [Zestril TAB] 10 mg PO QDAY #30 tablet 05/04/17 Unknown Rx guaiFENesin ER [Mucinex ER] 600 mg PO BID #7 day 05/04/17 Unknown Rx Doxycycline [Vibramycin CAP] 100 mg PO Q12HR #14 capsule 06/11/18 Unknown Rx ALBUTEROL Inhaler (OR & NICU) 2 puff IH Q4HR PRN #1 inhalation 06/30/18 Unknown Rx [ProAir HFA Inhaler] Benzonatate [Tessalon Perles] 100 mg PO Q8HR PRN #20 capsule 06/30/18 Unknown Rx Ondansetron [Zofran Odt] 4 mg PO Q4HR PRN #20 tab.rapdis 06/30/18 Unknown Rx ED Physical Exam - General Limitations: No Limitations General appearance: alert, in no apparent distress - Head Head exam: Present: atraumatic, normocephalic, normal inspection - ENT ENT exam: Present: normal exam - Neck Neck exam: Present: normal inspection, full ROM. Absent: tenderness, meningismus - Respiratory Respiratory exam: Present: normal lung sounds bilaterally. Absent: respiratory distress, wheezes, rales, rhonchi, chest wall tenderness, accessory muscle use, decreased breath sounds, prolonged expiratory - Cardiovascular Cardiovascular Exam: Present: regular rate, normal rhythm, normal heart sounds - GI/Abdominal GI/Abdominal exam: Present: soft, normal bowel sounds. Absent: distended, tenderness, guarding, rebound, rigid, organomegaly, mass, bruit, pulsatile mass, hernia - Extremities Exam Extremities exam: Present: normal inspection, full ROM, normal capillary refill. Absent: pedal edema, calf tenderness - Back Exam Back exam: Present: normal inspection, full ROM - Neurological Exam Neurological exam: Present: alert, oriented X3, CN II-XII intact - Skin Skin exam: Present: warm, intact, normal color ED Course Vital Signs 07/01/18 18:00 Temperature 98.4 F Pulse Rate 98 H Respiratory 12 Rate Blood Pressure 163/90 [Right] O2 Sat by Pulse 97 Oximetry ED Medical Decision Making - Lab Data Result diagrams: 07/01/18 21:02 07/01/18 21:02 - Medical Decision Making Patient is a 88-year-old female with history of hypertension, congestive heart f ailure, COPD and history of Lyme disease. Patient presented to the ER accompanied by her son stating that she's been having diarrhea for the last week. Patient stated that everything she eats or drinks it will pass through as the diarrhea. Patient also complaining of generalized weakness. Patient son stating that his mother is unable to take care of herself and nobody at home to take care of her. Patient denies any fever or chills. Patient was seen here yesterday and had a CT abdomen and pelvis which was unremarkable. Patient found to be in acute renal failure. Patient baseline creatinine is 0.7 and now her creatinine is 1.7. Patient is started on fluids. I did discuss the patient was Dr. Maldonado who was personal clothing laundry aide for Dr. Hoskins her primary care physician, Dr. Maldonado agreed that patient needed to be admitted to the hospital and plan for half-way admission. I discussed the patient was Dr. Arellano, she agreed to admit the patient to medical service. Critical Care Time: Yes Critical care time in (mins) excluding proc time.: 30 Critical care attestation.: If time is entered above; I have spent that time in minutes in the direct care of this critically ill patient, excluding procedure time. ED Disposition Clinical Impression: Acute renal failure, Hyperkalemia, Acute diarrhea Disposition: OP ADMIT IP TO THIS HOSP Is pt being admited?: Yes Condition: Stable Referrals: PRIMARY CARE, [Primary Care Provider] - 3-5 Days
[2018-07-01 21:21] LABS: Basophils % (Auto) 0.2 % (0.0-1.8); Eosinophils % (Auto) 0.4 % (0.0-4.3); Hematocrit 36.1 % (30.3-42.9); Hemoglobin 12.2 gm/dl (10.1-14.3); Lymphocytes # (Auto) 0.8 K/mm3 (1.2-5.4); Lymphocytes % (Auto) 9.3 % (13.4-35.0); Mean Corpuscular HGB Conc 34 % (30-34); Mean Corpuscular Volume 94 fl (79-97); Monocytes # (Auto) 0.5 K/mm3 (0.0-0.8); Monocytes % (Auto) 6.2 % (0.0-7.3); Platelet Count 424 K/mm3 (140-440); Red Blood Count 3.85 M/mm3 (3.65-5.03); Red Cell Distribution Width 13.8 % (13.2-15.2)
[2018-07-01 21:42] LABS: Alanine Aminotransferase 12 units/L (7-56); Albumin 3.4 g/dL (3.9-5); BUN/Creatinine Ratio 28; Blood Urea Nitrogen 47 mg/dL (7-17); Calcium 9.6 mg/dL (8.4-10.2); Hemolysis Index 3
[2018-07-01 21:43] LABS: Bilirubin,Direct < 0.2 mg/dL (0-0.2)
[2018-07-01] MEDS ORDERED: NACL 0.9% 1000 ML 1,000 ML IV ONE ×2 (21:44→23:20)
[2018-07-01] MEDS ORDERED: ZOFRAN IV PRN (22:49)
[2018-07-01] MEDS ORDERED: TYLENOL PO PRN (22:49)
[2018-07-01] MEDS ORDERED: SODIUM CHLORIDE FLUSH SYRINGE 10 ML IV PRN (22:49)
[2018-07-02] MEDS: LOPRESSOR PO SCH ×2 (00:41→09:35)
[2018-07-02] MEDS: NACL 0.9% 1000 ML 1,000 ML IV SCH ×2 (00:41→20:21)
--- NOTE | 2018-07-02 00:51 | History and Physical Report ---
History of Present Illness Date of examination: 07/01/18 Date of admission: 07/01/18 22:50 Chief complaint: Diarrhea History of present illness: Patient is a 88-year-old female with history of hypertension who was brought to the ED by the son on account of 1 Week History of Diarrhea. Patient was seen in the ED on 06/30/18 for the same complaint and was sent home after treatment. She returns today with associated generalized weakness and inability to take care of herself according to the son. Patient was a very poor historian and the son was not available during my history taking. No reported history of fever, chills, chest pain, shortness of breath, nausea, vomiting, syncope or loss of consciousness. No other history could be obtained from the patient. Past History Past Medical History: hypertension Past Surgical History: Other (eye surgery, D&C) Social history: no significant social history (no reported history of tobacco, alcohol or illicit drug use) Family history: other (unable to obtain due to altered mental status which is likely her baseline) Medications and Allergies Allergies Allergy/AdvReac Type Severity Reaction Status Date / Time dextromethorphan HBr Allergy Unknown Verified 07/01/18 17:20 [From DexAlone] Home Medications Medication Instructions Recorded Confirmed Last Taken Type ALBUTEROL NEB's [Proventil 0.083% 2.5 mg IH Q4HRT PRN #30 day 05/04/17 Unknown Rx NEBS] Acetaminophen [Acetaminophen TAB] 650 mg PO Q4H PRN #30 tablet 05/04/17 Unknown Rx Hypromellose [Isopto Tears 0.5%] 2 drops OU Q8HR #30 day 05/04/17 Unknown Rx Lisinopril [Zestril TAB] 10 mg PO QDAY #30 tablet 05/04/17 Unknown Rx guaiFENesin ER [Mucinex ER] 600 mg PO BID #7 day 05/04/17 Unknown Rx Doxycycline [Vibramycin CAP] 100 mg PO Q12HR #14 capsule 06/11/18 Unknown Rx ALBUTEROL Inhaler (OR & NICU) 2 puff IH Q4HR PRN #1 inhalation 06/30/18 Unknown Rx [ProAir HFA Inhaler] Benzonatate [Tessalon Perles] 100 mg PO Q8HR PRN #20 capsule 06/30/18 Unknown Rx Ondansetron [Zofran Odt] 4 mg PO Q4HR PRN #20 tab.rapdis 06/30/18 Unknown Rx Active Meds: Active Medications Acetaminophen (Tylenol) 650 mg PO Q4H PRN PRN Reason: Pain MILD(1-3)/Fever >100.5/SILVESTRE Heparin Sodium (Porcine) (Heparin) 5,000 unit SUB-Q Q12HR RUDDY Sodium Chloride (Nacl 0.9% 1000 Ml) 1,000 mls @ 250 mls/hr IV ONCE ONE Stop: 07/02/18 01:43 Last Admin: 07/01/18 22:15 Dose: 250 mls/hr Documented by: Sodium Chloride (Nacl 0.9% 1000 Ml) 1,000 mls @ 100 mls/hr IV DIRECT RUDDY Last Admin: 07/02/18 00:41 Dose: 100 mls/hr Documented by: Metoprolol Tartrate (Lopressor) 25 mg PO BID RUDDY Last Admin: 07/02/18 00:41 Dose: 25 mg Documented by: Ondansetron HCl (Zofran) 4 mg IV Q8H PRN PRN Reason: Nausea And Vomiting Sodium Chloride (Sodium Chloride Flush Syringe 10 Ml) 10 ml IV BID RUDDY Sodium Chloride (Sodium Chloride Flush Syringe 10 Ml) 10 ml IV PRN PRN PRN Reason: LINE FLUSH Review of Systems ROS unobtainable: due to mental status (unable to obtain due to altered mental status which is likely her baseline) Exam - Constitutional Vitals: Temp Pulse Resp BP Pulse Ox 98.4 F 88 12 188/90 97 07/01/18 18:00 07/02/18 00:41 07/01/18 18:00 07/02/18 00:41 07/01/18 18:00 General appearance: Present: no acute distress - EENT Eyes: Present: PERRL, EOM intact ENT: hearing intact, clear oral mucosa - Neck Neck: Present: supple, normal ROM - Respiratory Respiratory effort: normal Respiratory: bilateral: CTA - Cardiovascular Rhythm: regular Heart Sounds: Present: S1 & S2. Absent: rub, click - Extremities Extremities: No edema Peripheral Pulses: within normal limits - Abdominal General gastrointestinal: Present: soft, non-tender, non-distended, normal bowel sounds Female genitourinary: Present: deferred - Integumentary Integumentary: Present: clear, warm, dry - Musculoskeletal Musculoskeletal: generalized weakness - Neurologic Neurologic: CNII-XII intact, moves all extremities Results - Labs CBC & Chem 7: 07/01/18 21:02 07/01/18 21:02 Labs: Laboratory Last Values WBC 8.8 K/mm3 (4.5-11.0) 07/01/18 21:02 RBC 3.85 M/mm3 (3.65-5.03) 07/01/18 21:02 Hgb 12.2 gm/dl (10.1-14.3) 07/01/18 21:02 Hct 36.1 % (30.3-42.9) 07/01/18 21: MCV 94 fl (79-97) 07/01/18 21: MCH 32 pg (28-32) 07/01/18 21:02 MCHC 34 % (30-34) 07/01/18 21:02 RDW 13.8 % (13.2-15.2) 07/01/18 21:02 Plt Count 424 K/mm3 (140-440) 07/01/18 21:02 Lymph % (Auto) 9.3 % (13.4-35.0) L 07/01/18 21:02 [place] % (Auto) 6.2 % (0.0-7.3) 07/01/18 21:02 Eos % (Auto) 0.4 % (0.0-4.3) 07/01/18 21:02 Baso % (Auto) 0.2 % (0.0-1.8) 07/01/18 21:02 Lymph # 0.8 K/mm3 (1.2-5.4) L 07/01/18 21:02 [place] # 0.5 K/mm3 (0.0-0.8) 07/01/18 21:02 Eos # 0.0 K/mm3 (0.0-0.4) 07/01/18 21:02 Baso # 0.0 K/mm3 (0.0-0.1) 07/01/18 21:02 Seg Neutrophils % 83.9 % (40.0-70.0) H 07/01/18 21:02 Seg Neutrophils # 7.3 K/mm3 (1.8-7.7) 07/01/18 21:02 Sodium 138 mmol/L (137-145) 07/01/18 21:02 Potassium 5.1 mmol/L (3.6-5.0) H 07/01/18 21:02 Chloride 99.0 mmol/L (98-107) 07/01/18 21:02 Carbon Dioxide 23 mmol/L (22-30) 07/01/18 21:02 Anion Gap 21 mmol/L 07/01/18 21:02 BUN 47 mg/dL (7-17) H 07/01/18 21:02 Creatinine 1.7 mg/dL (0.7-1.2) H 07/01/18 21:02 Estimated GFR 28 ml/min 07/01/18 21:02 BUN/Creatinine Ratio 28 % 07/01/18 21:02 Glucose 83 mg/dL (65-100) 07/01/18 21:02 Calcium 9.6 mg/dL (8.4-10.2) 07/01/18 21:02 Total Bilirubin 0.50 mg/dL (0.1-1.2) 07/01/18 21:02 Direct Bilirubin < 0.2 mg/dL (0-0.2) 07/01/18 21:02 Indirect Bilirubin 0.3 mg/dL 07/01/18 21:02 AST 24 units/L (5-40) 07/01/18 21:02 ALT 12 units/L (7-56) 07/01/18 21:02 Alkaline Phosphatase 147 units/L (35-129) H 07/01/18 21:02 Total Protein 7.5 g/dL (6.3-8.2) 07/01/18 21:02 Albumin 3.4 g/dL (3.9-5) L 07/01/18 21:02 Albumin/Globulin Ratio 0.8 % 07/01/18 21:02 Assessment and Plan Assessment and plan: GUSTAVO, likely prerenal azotemia -On IV fluid, will monitor creatinine level Mild hyperkalemia -On IV fluid, will monitor potassium level Diarrhea -Resolved Uncontrolled hypertension -On antihypertensive, will monitor -Avoid ACEI due to the hyperkalemia Generalized weakness -PT/OT consulted Placement -The patient's son requested for her to be placed in a custodial because she is unable to take care of herself -manager care consulted DVT prophylaxis with heparin Disposition: Patient will be placed on inpatient status. Time spent: 35 minutes
[2018-07-02 06:43] LABS: Calcium 8.9 mg/dL (8.4-10.2)
[2018-07-02 07:15] LABS: Bacteria,Urine 1+ /HPF (Negative); Bilirubin,Urine NEG (Negative); Blood,Urine MOD (Negative); Color,Urine Yellow (Yellow); Protein,Urine <15 mg/dL mg/dL (Negative); Urobilinogen,Urine < 2.0 mg/dL (<2.0)
[2018-07-02] MEDS: HEPARIN SUB-Q SCH (09:35)
[2018-07-02] MEDS: SODIUM CHLORIDE FLUSH SYRINGE 10 ML IV SCH (09:36)
[2018-07-02] MEDS ORDERED: PNEUMOVAX 23 IM ONE (12:00)
[2018-07-02] MEDS ORDERED: PROAIR IH PRN (16:29)
[2018-07-02] MEDS ORDERED: PROVENTIL IH PRN (16:29)
[2018-07-02] MEDS ORDERED: LOMOTIL PO PRN (16:30)
[2018-07-02] MEDS ORDERED: APRESOLINE IV PRN (16:30)
[2018-07-02] MEDS ORDERED: IMODIUM PO PRN (16:30)
[2018-07-02] MEDS: ZESTRIL PO SCH (17:32)
[2018-07-03] MEDS: ISOPTO TEARS 0.5% OU SCH ×4 (00:41→22:09)
[2018-07-03] MEDS: HEPARIN SUB-Q SCH ×3 (00:42→22:09)
[2018-07-03] MEDS: LOPRESSOR PO SCH ×3 (00:42→22:08)
[2018-07-03] MEDS: MUCINEX ER PO SCH ×3 (00:42→22:09)
[2018-07-03] MEDS: SODIUM CHLORIDE FLUSH SYRINGE 10 ML IV SCH ×3 (00:49→22:10)
[2018-07-03] MEDS: NACL 0.9% 1000 ML 1,000 ML IV SCH ×2 (06:07→15:45)
[2018-07-03] MEDS: ZESTRIL PO SCH (08:59)
--- NOTE | 2018-07-03 09:36 | Progress Note ---
Assessment and Plan Assessment and plan: Patient is a 88-year-old female with history of hypertension, congestive heart failure, COPD and history of Lyme disease., pw diarrhea x 1 week, son requesting NH placement Diagnosis Diarrhea, due to ?gastroenteritis GUSTAVO- vasomotor nephropathy htn urgency hyperkalemia, resolved Debility Plan -stool studies have been difficult to collect as she is incontinent of stool in diaper, asked RN to put her on bed zambrano, anti-diarrheals prn -cont IVF -PT consult, for NH placement per son's request History Interval history: Review of systems Constitutional: No fevers, no malaise, no joint pains CVS: No chest pain, no orthopnea, no dyspnea on exertion, no pedal edema GI: She still complaining of watery diarrhea, she is incontinent, Respiratory: No shortness of breath, no wheezing, no coughing Hospitalist Physical - Physical exam Narrative exam: General.: Appears well, no distress, nontoxic HEENT: Moist mucous membranes, extraocular muscles intact, no lymphadenopathy Neck: supple Cardiac: S1-S2 heard Lungs: clear to auscultation bilaterally Abdomen: soft , nontender, nondistended, bowel sounds positive Extremities: no edema clubbing or cyanosis Skin: no rash or lesions Neurologic: no gross focal deficits Psych: calm, and cooperative - Constitutional Vitals: Temp Pulse Resp BP Pulse Ox 99.0 F 83 18 127/63 96 07/03/18 07:31 07/03/18 08:59 07/03/18 07:31 07/03/18 08:59 07/03/18 08:21 General appearance: Present: no acute distress Results - Labs CBC & Chem 7: 07/01/18 21:02 07/03/18 10:59 Labs: Laboratory Last Values WBC 8.8 K/mm3 (4.5-11.0) 07/01/18 21:02 RBC 3.85 M/mm3 (3.65-5.03) 07/01/18 21:02 Hgb 12.2 gm/dl (10.1-14.3) 07/01/18 21:02 Hct 36.1 % (30.3-42.9) 07/01/18 21:02 MCV 94 fl (79-97) 07/01/18 21:02 MCH 32 pg (28-32) 07/01/18 21:02 MCHC 34 % (30-34) 07/01/18 21:02 RDW 13.8 % (13.2-15.2) 07/01/18 21:02 Plt Count 424 K/mm3 (140-440) 07/01/18 21:02 Lymph % (Auto) 9.3 % (13.4-35.0) L 07/01/18 21:02 [place] % (Auto) 6.2 % (0.0-7.3) 07/01/18 21:02 Eos % (Auto) 0.4 % (0.0-4.3) 07/01/18 21:02 Baso % (Auto) 0.2 % (0.0-1.8) 07/01/18 21:02 Lymph # 0.8 K/mm3 (1.2-5.4) L 07/01/18 21:02 [place] # 0.5 K/mm3 (0.0-0.8) 07/01/18 21:02 Eos # 0.0 K/mm3 (0.0-0.4) 07/01/18 21:02 Baso # 0.0 K/mm3 (0.0-0.1) 07/01/18 21:02 Seg Neutrophils % 83.9 % (40.0-70.0) H 07/01/18 21:02 Seg Neutrophils # 7.3 K/mm3 (1.8-7.7) 07/01/18 21:02 Sodium 137 mmol/L (137-145) 07/02/18 05:51 Potassium 4.6 mmol/L (3.6-5.0) 07/02/18 05:51 Chloride 100.8 mmol/L (98-107) 07/02/18 05:51 Carbon Dioxide 21 mmol/L (22-30) L 07/02/18 05:51 Anion Gap 20 mmol/L 07/02/18 05:51 BUN 41 mg/dL (7-17) H 07/02/18 05:51 Creatinine 1.4 mg/dL (0.7-1.2) H 07/02/18 05:51 Estimated GFR 36 ml/min 07/02/18 05:51 BUN/Creatinine Ratio 29 % 07/02/18 05:51 Glucose 74 mg/dL (65-100) 07/02/18 05:51 Calcium 8.9 mg/dL (8.4-10.2) 07/02/18 05:51 Magnesium 2.00 mg/dL (1.7-2.3) 07/02/18 05:51 Total Bilirubin 0.50 mg/dL (0.1-1.2) 07/01/18 21:02 Direct Bilirubin < 0.2 mg/dL (0-0.2) 07/01/18 21:02 Indirect Bilirubin 0.3 mg/dL 07/01/18 21:02 AST 24 units/L (5-40) 07/01/18 21:02 ALT 12 units/L (7-56) 07/01/18 21:02 Alkaline Phosphatase 147 units/L (35-129) H 07/01/18 21:02 Total Protein 7.5 g/dL (6.3-8.2) 07/01/18 21:02 Albumin 3.4 g/dL (3.9-5) L 07/01/18 21:02 Albumin/Globulin Ratio 0.8 % 07/01/18 21:02 Urine Color Yellow (Yellow) 07/02/18 06:58 Urine Turbidity Clear (Clear) 07/02/18 06:58 Urine pH 5.0 (5.0-7.0) 07/02/18 06:58 Ur Specific [place] 1.011 (1.003-1.030) 07/02/18 06:58 Urine Protein <15 mg/dl mg/dL (Negative) 07/02/18 06:58 Urine Glucose (UA) Neg mg/dL (Negative) 07/02/18 06:58 Urine Ketones Tr mg/dL (Negative) 07/02/18 06:58 Urine Blood Mod (Negative) 07/02/18 06:58 Urine Nitrite Neg (Negative) 07/02/18 06:58 Urine Bilirubin Neg (Negative) 07/02/18 06:58 Urine Urobilinogen < 2.0 mg/dL (<2.0) 07/02/18 06:58 Ur Leukocyte Esterase Neg (Negative) 07/02/18 06:58 Urine WBC (Auto) 1.0 /HPF (0.0-6.0) 07/02/18 06:58 Urine RBC (Auto) 4.0 /HPF (0.0-6.0) 07/02/18 06:58 Urine Bacteria (Auto) 1+ /HPF (Negative) 07/02/18 06:58
[2018-07-03 12:12] LABS: Calcium 8.3 mg/dL (8.4-10.2)
[2018-07-04] MEDS: NACL 0.9% 1000 ML 1,000 ML IV SCH (01:41)
[2018-07-04] MEDS: ISOPTO TEARS 0.5% OU SCH (05:42)
[2018-07-04] MEDS: ZESTRIL PO SCH (09:20)
[2018-07-04] MEDS: LOPRESSOR PO SCH (09:20)
[2018-07-04] MEDS: HEPARIN SUB-Q SCH (09:20)
[2018-07-04] MEDS: SODIUM CHLORIDE FLUSH SYRINGE 10 ML IV SCH (09:21)
[2018-07-04] MEDS: MUCINEX ER PO SCH (09:25)
--- NOTE | 2018-07-04 10:47 | Discharge Summary ---
Providers - Providers Date of Admission: 07/01/18 22:50 Date of discharge: 07/04/18 Attending physician: DAVID ABBOTT 07/02/18 00:57 Consult to Case Management [CONS] Routine Services Needed at Discharge: Other Notified:: Romelia Additional Physician Instructions: NH PLACEMENT Occupational Therapy Evaluate and Treat [CONS] Routine Comment: Reason For Exam: GENERALIZED WEAKNESS Physical Therapy Evaluation and Treat [CONS] Routine Comment: Reason For Exam: GENERALIZED WEAKNESS Primary care physician: [employer]PER[employer] Hospitalization Reason for admission: Generalized weakness, Diarrhea Condition: Fair Pertinent studies: None Procedures: None. Hospital course: CC: Diarrhea History of present illness: Patient is a 88-year-old female with history of hypertension who was brought to the ED by the son on account of 1 Week History of Diarrhea. Patient was seen in the ED on 06/30/18 for the same complaint and was sent home after treatment. She returns today with associated generalized weakness and inability to take care of herself according to the son. Patient was a very poor historian and the son was not available during my history taking. No reported history of fever, chills, chest pain, shortness of breath, nausea, vomiting, syncope or loss of consciousness. No other history could be obtained from the patient. Brief Hospital course: Patient is a 88-year-old female with history of hypertension, congestive heart failure, COPD and history of Lyme disease., pw diarrhea x 1 week, son requesting NH placement. Patient was admitted to the hospital medicine service, managed with IVF hydration. Seen by the PT who recommended SNF placement. Diarrhea has resolved. Patient remains weak but better. Her appetite has improved. No falls reported by the staff. Patient has been accepted to SNF at [facility] and is being discharged today with stable VS. Fall and aspiration precautions to be instituted at all times at the SNF. Disposition: DC/TX-03 SNF W [facility] CERT Time spent for discharge: More than 30 mins spent - Discharge Diagnoses (1) Physical deconditioning Status: Acute Comment: Seen by PT and is being discharged to [facility] facility (2) Generalized muscle weakness Status: Acute (3) Acute renal failure Status: Resolved Comment: Managed with IVF hydration and has resolved. (4) Hyperkalemia Status: Resolved Comment: Resolved. Will continue to monitor (5) Acute diarrhea Status: Resolved Comment: stool studies negative. Keep hydrated. Core Measure Documentation - Palliative Care Palliative Care/ Comfort Measures: Not Applicable - Core Measures Any of the following diagnoses?: none - VTE Discharge Requirements Deep Vein Thrombosis/Pulmonary Embolism Present on Admission: No - Acute CO Discharge Requirements Aspirin at discharge: No Reason for no aspirin on DC: Medical contraindication SANDEEP/ARB for LVSD if EF <40%: Not Applicable Reason for no SANDEEP/ARB: Hyperkalemia Beta benny at discharge: No Reason for no beta benny on DC: COPD Statin for LDL = or >100 mg/dl on DC: Not Applicable Reason for no statin on DC: Allergy or sensitivity - Heart Failure Discharge Requirements SANDEEP/ARB for LVSD if EF <40%: Not Applicable Reason for no SANDEEP/ARB: Hyperkalemia Beta benny at discharge: No Reason for no beta benny on DC: COPD - Stroke Discharge Requirements Statin for LDL = or >70 mg/dl on DC: Not Applicable Exam - Constitutional Vitals: Temp Pulse Resp BP Pulse Ox 98.3 F 71 20 175/91 96 07/04/18 02:00 07/04/18 09:20 07/04/18 07:46 07/04/18 09:20 07/04/18 07:46 General appearance: Present: no acute distress, other (elderly female, fairly nourished. ) - EENT Eyes: Present: PERRL, EOM intact ENT: clear oral mucosa, other (hard of hearing) - Neck Neck: Present: supple, normal ROM - Respiratory Respiratory: bilateral: CTA, negative: diminished, rales, rhonchi, wheezing - Cardiovascular Rhythm: regular Heart Sounds: Present: S1 & S2 - Extremities Extremities: no ischemia, No edema, normal temperature - Abdominal General gastrointestinal: Present: soft, non-tender, non-distended, normal bowel sounds Female genitourinary: Present: deferred - Rectal Rectal Exam: deferred - Integumentary Integumentary: Present: clear, warm, dry - Musculoskeletal Musculoskeletal: generalized weakness - Psychiatric Psychiatric: appropriate mood/affect, intact judgment & insight - Neurologic Neurologic: CNII-XII intact, moves all extremities - Allied Health Allied health notes reviewed: nursing, PT, OT, social work, case management Plan Activity: advance as tolerated, fall precautions Weight Bearing Status: Weight Bear as Tolerated Diet: low fat, low cholesterol Special Instructions: record daily weights, record daily BP diary Follow up with: PRIMARY CARE, [Primary Care Provider] - 3-5 Days
[2018-07-04 12:49] VITALS: BP 157/83
== END 2018-07-04 13:23 | DRG 684 ==
LOC: ED 17:17 → 2B-ACE 22:50
PROVIDERS: ADMIT Internal Medicine; ATTEND Family Medicine
PROC: 3E0234Z Introduction of Serum, Toxoid and Vaccine into Muscle, Percutaneous Approach (ICD-10-PCS; principal; 2018-07-02)
DX: N17.0 Acute kidney failure with tubular necrosis (principal); E87.5 Hyperkalemia; R19.7 Diarrhea, unspecified; I16.0 Hypertensive urgency; I11.0 Hypertensive heart disease with heart failure; I50.9 Heart failure, unspecified; J44.9 Chronic obstructive pulmonary disease, unspecified; R53.81 Other malaise; Z79.899 Other long term (current) drug therapy; Z23 Encounter for immunization
CPT/HCPCS: 36415; 74176; 80048; 80053; 80076; 81001; 83690; 83735; 83880; 85007; 85025; 85610; 85730; 87045; 87177; 87324; 90471; 90732; 96360; 96361; 96374; G0378; G0009; J1644; J2405; J7030

== ENCOUNTER 2019-11-25 08:37 | Emergency (ER) | payer MEDICARE ==
[2019-11-25 17:48] LABS: Hematocrit 36.5 % (30.3-42.9)
[2019-11-25 17:53] LABS: Calcium 9.6 mg/dL (8.4-10.2)
--- NOTE | 2019-11-25 18:18 | Emergency Department Report ---
ED General Adult HPI - General Chief complaint: Nausea/Vomiting/Diarrhea Stated complaint: RUNNY BM PUI?: No Time Seen by Provider: 11/25/19 17:01 Source: patient, RN notes reviewed, old records reviewed Mode of arrival: Wheelchair Limitations: No Limitations - History of Present Illness Initial comments: Patient is an 89-year-old female. I have evaluated her in the past. She has a past medical history of diverticulosis, hard of hearing, and Lyme disease. She presents to the ER with a complaint of 6 weeks of diarrhea. Her primary care doctor is Dr. Atilio Maldonado. She is currently being maintained on loperamide, and she also takes chronic narcotics, such as morphine and oxycodone. She denies physical pain. She denies headache, neck pain, chest pain, abdominal pain, new or different shortness of breath, vomiting, and she denies dysuria. Of note, the patient was evaluated in this hospital in the past for chronic diarrhea. She had a fairly unremarkable work-up. Diarrhea does not have exacerbating or relieving factors with the exception of eating, which she indicates increases her symptoms. -: week(s) Severity scale (0 -10): 0 Worsens with: eating - Related Data Previous Rx's Medication Instructions Recorded Last Taken Type Acetaminophen [Acetaminophen TAB] 650 mg PO Q4H PRN #30 tablet 05/04/17 Unknown Rx Hypromellose [Isopto Tears 0.5%] 2 drops OU Q8HR #30 day 05/04/17 Unknown Rx lisinopriL [Zestril TAB] 10 mg PO QDAY #30 tablet 05/04/17 Unknown Rx Benzonatate [Tessalon Perles] 100 mg PO Q8HR PRN #20 capsule 06/30/18 Unknown Rx Ondansetron [Zofran ODT TAB] 4 mg PO Q4HR PRN #20 tab.rapdis 06/30/18 Unknown Rx Metoprolol [Lopressor TAB] 25 mg PO BID tablet 07/04/18 Unknown Rx Nitrofurantoin [place]/M-Cryst 100 mg PO Q12HR #14 capsule 11/25/19 Unknown Rx [Macrobid CAP] Allergies Allergy/AdvReac Type Severity Reaction Status Date / Time dextromethorphan HBr Allergy Unknown Verified 11/25/19 08:50 [From DexAlone] ED Review of Systems ROS: Stated complaint: RUNNY BM Other details as noted in HPI Constitutional: denies: fever Eyes: denies: eye discharge Respiratory: denies: cough Cardiovascular: denies: chest pain Gastrointestinal: diarrhea. denies: nausea, vomiting Genitourinary: denies: dysuria Musculoskeletal: as per HPI, other (Chronic bilateral lower extremity edema) Skin: as per HPI Hematological/Lymphatic: denies: easy bleeding ED Past Medical Hx - Past Medical History Hx Hypertension: Yes Hx Heart Attack/AMI: Yes Additional medical history: Lyme disease, Diverticulitis, Shingles - Surgical History Additional Surgical History: eyes, D&C - Social History Smoking Status: Unknown if ever smoked - Medications Home Medications: Home Medications Medication Instructions Recorded Confirmed Last Taken Type Acetaminophen [Acetaminophen TAB] 650 mg PO Q4H PRN #30 tablet 05/04/17 10/14/19 Unknown Rx Hypromellose [Isopto Tears 0.5%] 2 drops OU Q8HR #30 day 05/04/17 10/14/19 Unknown Rx lisinopriL [Zestril TAB] 10 mg PO QDAY #30 tablet 05/04/17 10/14/19 Unknown Rx Benzonatate [Tessalon Perles] 100 mg PO Q8HR PRN #20 capsule 06/30/18 10/14/19 Unknown Rx Ondansetron [Zofran ODT TAB] 4 mg PO Q4HR PRN #20 tab.rapdis 06/30/18 10/14/19 Unknown Rx Metoprolol [Lopressor TAB] 25 mg PO BID tablet 07/04/18 10/14/19 Unknown Rx Nitrofurantoin [place]/M-Cryst 100 mg PO Q12HR #14 capsule 11/25/19 Unknown Rx [Macrobid CAP] ED Physical Exam - General Limitations: No Limitations General appearance: alert, in no apparent distress - Head Head exam: Present: atraumatic, normocephalic - Eye Eye exam: Present: normal appearance - ENT ENT exam: Present: normal exam, mucous membranes moist, normal external ear exam - Neck Neck exam: Present: normal inspection, full ROM. Absent: tenderness, meningismus - Respiratory Respiratory exam: Present: normal lung sounds bilaterally. Absent: respiratory distress - Cardiovascular Cardiovascular Exam: Present: regular rate, normal rhythm, normal heart sounds. Absent: bradycardia, tachycardia, irregular rhythm, systolic murmur, diastolic murmur, rubs, gallop - GI/Abdominal GI/Abdominal exam: Present: soft, normal bowel sounds. Absent: distended, tenderness, guarding, rebound, rigid, pulsatile mass - Extremities Exam Extremities exam: Present: normal inspection, full ROM, pedal edema, other (2+ pulses noted in the bilateral upper and lower extremities. There is no palpable cord. negative Homans sign. Muscular compartments are soft. The pelvis is stable.). Absent: calf tenderness - Back Exam Back exam: Present: normal inspection, full ROM. Absent: tenderness, CVA tenderness (R), CVA tenderness (L), paraspinal tenderness, vertebral tenderness - Neurological Exam Neurological exam: Present: alert, normal gait, other (No facial droop. Tongue midline. Extraocular movements intact bilaterally. Facial sensation intact to light touch in V1, V2, V3 distribution bilaterally. 5 and a 5 strength in 4 extremities. Sensation intact to light touch in 4 extremities.). Absent: motor sensory deficit - Psychiatric Psychiatric exam: Present: normal affect, normal mood - Skin Skin exam: Present: warm, dry, intact, normal color. Absent: rash ED Course Vital Signs 11/25/19 11/25/19 11/25/19 08:56 16:54 16:56 Temperature 98.2 F 98.3 F 98.3 F Pulse Rate 83 83 83 Respiratory 18 20 20 Rate Blood Pressure 177/87 185/86 Blood Pressure 185/86 [Right] O2 Sat by Pulse 94 100 100 Oximetry - Reevaluation(s) Reevaluation #1: 11/25/19 18:21 Differential diagnosis, including but not limited to: Electrolyte derangement, urinary tract infection, chronic diarrhea Assessment and plan: 89-year-old female, who is afebrile, with reassuring vital signs, on chronic narcotic therapy, also appears to be on loperamide, with no evidence of electrolyte derangement, unremarkable physical exam with the exception of chronic lower extremity edema, no crackles, no rales, no abdominal tenderness, rebound or guarding, no vomiting, with a complaint of diarrhea for 6 weeks. Her electrolyte studies are unremarkable. Mild elevation in TSH reviewed and appreciated, she can follow-up with her outpatient primary care doctor for this. Urinalysis pending at this time. I reviewed the patient's home medications, it appears that she has not taken an antibiotic recently. The patient does not appear to have an emergent medical condition at this time. She can amend diet and lifestyle at home and follow-up with her outpatient primary care doctor or nursing tech. These changes would include consuming plenty of fiber, vegetables, lean protein, she can continue loperamide for the time being, return precautions are reviewed. Elevated blood pressure is reviewed appreciated and chronic. We will give the patient her home medications. She can follow-up with her outpatient primary care doctor for her elevated blood pressure. 11/25/19 18:23 Reevaluation #2: 11/25/19 18:44 Laboratory studies reviewed and appreciated. Urinalysis reviewed and appreciated. Given advanced age, urinalysis findings, we will initiate Macrobid therapy. Patient can follow-up with her outpatient primary care doctor for this. ED Medical Decision Making - Lab Data Result diagrams: 11/25/19 17:10 11/25/19 17:10 Vital Signs 11/25/19 11/25/19 11/25/19 08:56 16:54 16:56 Temperature 98.2 F 98.3 F 98.3 F Pulse Rate 83 83 83 Respiratory 18 20 20 Rate Blood Pressure 177/87 185/86 Blood Pressure 185/86 [Right] O2 Sat by Pulse 94 100 100 Oximetry Lab Results 11/25/19 11/25/19 11/25/19 Range/Units 17:10 17:10 17:10 Hgb 12.0 (10.1-14.3) gm/dl Hct 36.5 (30.3-42.9) % Plt Count 199 (140-440) K/mm3 Sodium 137 (137-145) mmol/L Potassium 4.5 (3.6-5.0) mmol/L Chloride 97.5 L (98-107) mmol/L Carbon Dioxide 27 (22-30) mmol/L Anion Gap 17 mmol/L BUN 22 H (7-17) mg/dL Creatinine 1.1 (0.7-1.2) mg/dL Estimated GFR 47 ml/min BUN/Creatinine Ratio 20 % Glucose 80 (65-100) mg/dL Calcium 9.6 (8.4-10.2) mg/dL Magnesium 2.20 (1.7-2.3) mg/dL Total Creatine Kinase 68 (30-135) units/L TSH 4.970 H (0.270-4.200) mlU/mL Salicylates (2.8-20.0) mg/dL Acetaminophen (10.0-30.0) ug/mL 11/25/19 11/25/19 Range/Units 17:10 17:10 Hgb (10.1-14.3) gm/dl Hct (30.3-42.9) % Plt Count (140-440) K/mm3 Sodium (137-145) mmol/L Potassium (3.6-5.0) mmol/L Chloride (98-107) mmol/L Carbon Dioxide (22-30) mmol/L Anion Gap mmol/L BUN (7-17) mg/dL Creatinine (0.7-1.2) mg/dL Estimated GFR ml/min BUN/Creatinine Ratio % Glucose (65-100) mg/dL Calcium (8.4-10.2) mg/dL Magnesium (1.7-2.3) mg/dL Total Creatine Kinase (30-135) units/L TSH (0.270-4.200) mlU/mL Salicylates < 0.3 L (2.8-20.0) mg/dL Acetaminophen 5.0 L (10.0-30.0) ug/mL - EKG Data -: EKG Interpreted by Me EKG shows normal: sinus rhythm Rate: normal - EKG Data Interpretation: unchanged when compared t (Unchanged from prior EKG from October 2019) 11/25/19 18:44 Sinus rhythm, 80 bpm, left axis deviation, borderline left anterior fascicular block, poor R wave progression, and motion artifact. The EKG is not a STEMI. It is unchanged from prior EKG. Critical care attestation.: If time is entered above; I have spent that time in minutes in the direct care of this critically ill patient, excluding procedure time. ED Disposition Clinical Impression: History of diarrhea, Elevated blood pressure reading, Bacteriuria Disposition: - TO HOME OR SELFCARE Is pt being admited?: No Does the pt Need Aspirin: No Condition: Stable Instructions: High Fiber Diet (ED) Additional Instructions: Please continue outpatient medications. Please make certain to consume plenty of fiber, vegetables, and lean protein. Patient may also purchase MiraLAX/fiber supplementation [id number], which may help to bulk stool, and may help to stop/slow down diarrhea. Patient may also continue her current loperamide prescription. The patient should follow-up with her outpatient primary care doctor or nursing tech within the next 2 weeks for complaint of diarrhea. Please wash hands frequently, thoroughly and often. Please return to the emergency room right away with new pain, worsening pain, migration of pain, projectile vomiting, change in mental status, confusion, inability to tolerate liquid feeds, new, worsened or different symptoms not present on the initial emergency room evaluation Take the antibiotics as directed. Urine cultures were sent today. These results will be back within the next 5 to 7 days. Please have your primary care doctor contact the medical records department to obtain culture results. Referrals: ATILIO MALDONADO MD [Staff Physician] - 3-5 Days [facility] [Provider Group] - 3-5 Days
[2019-11-25 18:25] LABS: Bacteria,Urine 1+ /HPF (Negative); Bilirubin,Urine NEG (Negative); Blood,Urine MOD (Negative); Color,Urine Straw (Yellow); Mucus,Urine FEW /HPF; Protein,Urine <15 mg/dL mg/dL (Negative); Urobilinogen,Urine < 2.0 mg/dL (<2.0)
[2019-11-25] MEDS ORDERED: LISINOPRIL 10 MG TAB PO SCH (19:00)
[2019-11-25] MEDS ORDERED: METOPROLOL TARTRATE 25 MG TAB PO SCH (22:00)
[2019-11-25 22:45] VITALS: BP 114/83
== END 2019-11-25 19:50 | disposition home or self-care (01) ==
LOC: ED 08:37
DX: R19.7 Diarrhea, unspecified (principal); R03.0 Elevated blood-pressure reading, without diagnosis of hypertension; R82.71 Bacteriuria; I10 Essential (primary) hypertension; I25.2 Old myocardial infarction; Z79.899 Other long term (current) drug therapy; Z88.8 Allergy status to other drugs, medicaments and biological substances
CPT/HCPCS: 36415; 80048; 80320; 81001; 82550; 83735; 84443; 85014; 85018; 85049; 87086; 93005; G0480

== ENCOUNTER 2019-12-14 12:51 | Emergency (ER) | payer MEDICARE ==
[2019-12-14] MEDS ORDERED: SODIUM CHLORIDE 0.9% 1000 ML 1,000 ML IV ONE (18:27)
--- NOTE | 2019-12-14 18:28 | Event Note ---
ED Screening Note ED Screening Note: Chelsey brings patient to fast track after the patient had been missed in the triage area for the last 5 hours. Patient comes in with diarrhea. She is hard of hearing. She is elderly. This initial assessment/diagnostic orders/clinical plan/treatment(s) is/are subject to change based on patients health status, clinical progression and re- assessment by fellow clinical providers in the ED. Further treatment and workup at subsequent clinical providers discretion. Patient/guardian urged not to elope from the ED as their condition may be serious if not clinically assessed and managed. Initial orders include: Orders have been placed. INT and IV fluids. MD to see.
[2019-12-14] MEDS ORDERED: ONDANSETRON 4 MG/2 ML INJ IV ONE (18:38)
--- NOTE | 2019-12-14 18:41 | Emergency Department Report ---
ED N/V/D HPI - General Chief complaint: Abdominal Pain Stated complaint: ABD PAIN Time Seen by Provider: 12/14/19 18:28 Source: patient, old records reviewed Mode of arrival: Ambulatory Limitations: No Limitations - History of Present Illness Initial comments: 89-year-old female with a past medical history of hypertension, CAD, Lyme disease, diverticulosis/diverticulitis, shingles, repeated visits to the hospital for nausea, vomiting, and diarrhea presents to the hospital with complaints of and diarrhea x 3 days that worsened at 2am. Patient is hearing impaired. Patient states she had one episode of vomiting while straining to have a bowel movement but denies persistent vomiting and complains primarily of diarrhea. She denies headache, chest pain, shortness of breath, abdominal pain, fever, melena, or hematochezia. Patient states that her son works at night and she became concerned enough to come to the hospital today since no one was there to help take care of her. She denies previous abdominal surgeries other than D&C. Patient takes morphine oxycodone intermittently for chronic pain. Patient has had repeated visits, CTs, and GI consults in the past for similar symptoms. PMD: Dr. Atilio Maldonado - Related Data Previous Rx's Medication Instructions Recorded Last Taken Type Acetaminophen [Acetaminophen TAB] 650 mg PO Q4H PRN #30 tablet 05/04/17 Unknown Rx Hypromellose [Isopto Tears 0.5%] 2 drops OU Q8HR #30 day 05/04/17 Unknown Rx lisinopriL [Zestril TAB] 10 mg PO QDAY #30 tablet 05/04/17 Unknown Rx Benzonatate [Tessalon Perles] 100 mg PO Q8HR PRN #20 capsule 06/30/18 Unknown Rx Metoprolol [Lopressor TAB] 25 mg PO BID tablet 07/04/18 Unknown Rx Nitrofurantoin [place]/M-Cryst 100 mg PO Q12HR #14 capsule 11/25/19 Unknown Rx [Macrobid CAP] Ondansetron [Zofran ODT TAB] 4 mg PO Q4HR PRN #20 tab.rapdis 11/29/19 Unknown Rx Promethazine [Phenergan] 25 mg PO Q6HR PRN #20 tab 11/29/19 Unknown Rx Loperamide [Imodium] 2 mg PO Q2HR PRN #20 capsule 12/15/19 Unknown Rx Ondansetron [Zofran Odt] 4 mg PO Q8HR PRN #20 tab.rapdis 12/15/19 Unknown Rx cephALEXin [Keflex] 500 mg PO Q12HR #14 cap 12/15/19 Unknown Rx Allergies Allergy/AdvReac Type Severity Reaction Status Date / Time dextromethorphan HBr Allergy Unknown Verified 11/25/19 08:50 [From DexAlone] ED Review of Systems ROS: Stated complaint: ABD PAIN Other details as noted in HPI Comment: All other systems reviewed and negative ED Past Medical Hx - Past Medical History Previous Medical History?: Yes Hx Hypertension: Yes Hx Heart Attack/AMI: Yes Additional medical history: Lyme disease, Diverticulitis, Shingles - Surgical History Additional Surgical History: eyes, D&C - Social History Smoking Status: Never Smoker Substance Use Type: None - Medications Home Medications: Home Medications Medication Instructions Recorded Confirmed Last Taken Type Acetaminophen [Acetaminophen TAB] 650 mg PO Q4H PRN #30 tablet 05/04/17 10/14/19 Unknown Rx Hypromellose [Isopto Tears 0.5%] 2 drops OU Q8HR #30 day 05/04/17 10/14/19 Unknown Rx lisinopriL [Zestril TAB] 10 mg PO QDAY #30 tablet 05/04/17 10/14/19 Unknown Rx Benzonatate [Tessalon Perles] 100 mg PO Q8HR PRN #20 capsule 06/30/18 10/14/19 Unknown Rx Metoprolol [Lopressor TAB] 25 mg PO BID tablet 07/04/18 10/14/19 Unknown Rx Nitrofurantoin [place]/M-Cryst 100 mg PO Q12HR #14 capsule 11/25/19 Unknown Rx [Macrobid CAP] Ondansetron [Zofran ODT TAB] 4 mg PO Q4HR PRN #20 tab.rapdis 11/29/19 Unknown Rx Promethazine [Phenergan] 25 mg PO Q6HR PRN #20 tab 11/29/19 Unknown Rx Loperamide [Imodium] 2 mg PO Q2HR PRN #20 capsule 12/15/19 Unknown Rx Ondansetron [Zofran Odt] 4 mg PO Q8HR PRN #20 tab.rapdis 12/15/19 Unknown Rx cephALEXin [Keflex] 500 mg PO Q12HR #14 cap 12/15/19 Unknown Rx ED Physical Exam - General Limitations: No Limitations - Other Other exam information: General: No acute distress Head: Atraumatic Eyes: normal appearance ENT: Moist mucous membranes, hard of hearing Neck: Normal appearance, no midline tenderness Chest: Clear to auscultation bilaterally CV: Regular rate and rhythm Abdomen: Soft, normal bowel sounds, minimal lower abdominal tenderness to exam, nondistended, no rebound or guarding Back: Normal inspection Extremity: Normal inspection, full range of motion Neuro: Alert O x 3, no facial asymmetry, speech clear, no gross motor sensory deficit Psych: Appropriate behavior Skin: Superficial ingrown hair to left buttock area just lateral to the midline no fluctuance or cellulitis noted ED Course Vital Signs 12/14/19 13:19 Temperature 99.3 F Pulse Rate 89 Respiratory 18 Rate Blood Pressure 140/93 O2 Sat by Pulse 100 Oximetry - Reevaluation(s) Reevaluation #1: 12/14/19 23:30 Patient states she still having diarrhea. No acute distress noted. No vomiting. Patient that she has not had much to eat and is requesting food ED Medical Decision Making - Lab Data Result diagrams: 12/14/19 18:44 12/14/19 18:44 - Radiology Data Radiology results: report reviewed CT ABDOMEN AND PELVIS WITH CONTRAST INDICATION: Diarrhea, crampy abdominal pain, hx of divertiulit. TECHNIQUE: Axial CT images were obtained through the abdomen and pelvis after 100 cc IV contrast. All [address] scans at this location are performed using CT dose reduction for ALARA by means of automated exposure control. COMPARISON: CT abdomen pelvis 11/28/2019 FINDINGS: LOWER CHEST: Moderate increased interstitial markings are again seen within both lung bases with moderate size hiatal hernia again noted. LIVER: No significant abnormality. GALLBLADDER: No significant abnormality. BILE DUCTS: No significant abnormality. PANCREAS: No significant abnormality. SPLEEN: No significant abnormality. ADRENALS: No significant abnormality. RIGHT KIDNEY and URETER: No significant abnormality. LEFT KIDNEY and URETER: Markedly atrophic left kidney, unchanged. STOMACH and SMALL BOWEL: Moderate hiatal hernia, unchanged. No significant abnormality. COLON: Extensive sigmoid diverticulosis without diverticulitis, unchanged. APPENDIX: No significant abnormality. PERITONEUM: No free fluid. No free air. No fluid collection. LYMPH NODES: No significant adenopathy. AORTA and ARTERIES: Intensive vascular calcifications again noted throughout nonaneurysmal abdominal aorta. IVC and VEINS: No significant abnormality. URINARY BLADDER: No significant abnormality. REPRODUCTIVE ORGANS: No significant abnormality. ADDITIONAL FINDINGS: None. SKELETAL SYSTEM: Moderately advanced degenerative changes of lumbar spine. IMPRESSION: 1. Extensive sigmoid diverticulosis without diverticulitis. 2. Severely atrophic left kidney likely secondary to chronic renal artery stenosis, unchanged. 3. 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 4. Moderate size hiatal hernia, unchanged. - Medical Decision Making Patient presents to the ED with her almost exact presentation and story as she did when I saw her 1 month ago with symptom onset/worsening at 2 AM. Patient states she has chronic intermittent diarrhea of unknown cause and has failed multiple outpatient treatments. patient has had inpatient GI work-up. Once again CT abdomen pelvis with IV contrast does not reveal acute findings. patient's son also works primarily at night and I suspect that patient does not feel safe to stay at home alone when she is experiencing the symptoms. UA is suggestive of UTI without signs of dehydration but patient does have mildly elevated BUN to suggest dehydration. Patient tolerated 1 L normal saline, IV Zofran, as well as p.o. meds and food without vomiting. IV Rocephin provided for UTI with culture pending. 1 dose of Diflucan provided for yeast given UA results. patient be discharged home with Imodium and Zofran as well as PMD and GI follow-up Critical Care Time: No Critical care attestation.: If time is entered above; I have spent that time in minutes in the direct care of this critically ill patient, excluding procedure time. ED Disposition Clinical Impression: Diarrhea, Vomiting, Yeast vaginitis, UTI (urinary tract infection) Disposition: DC-01 TO HOME OR SELFCARE Is pt being admited?: No Does the pt Need Aspirin: No Condition: Stable Instructions: Chronic Diarrhea (ED), Acute Nausea and Vomiting (ED), Urinary Tract Infection in Women (ED), Vulvovaginal Candidiasis (ED) Additional Instructions: Take the medication as prescribed. Follow-up with your doctor or doctor/clinic provided. Return if symptoms worsen as indicated by your discharge instructions. Prescriptions: Loperamide [Imodium] 2 mg PO Q2HR PRN #20 capsule PRN Reason: Diarrhea cephALEXin [Keflex] 500 mg PO Q12HR #14 cap Ondansetron [Zofran Odt] 4 mg PO Q8HR PRN #20 tab.rapdis PRN Reason: Nausea And Vomiting Referrals: PRIMARY CARE, [Primary Care Provider] - 3-5 Days ATILIO MALDONADO MD [Staff Physician] - 3-5 Days [facility] [Provider Group] - 3-5 Days
[2019-12-14 18:59] LABS: Basophils % (Auto) 0.2 % (0.0-1.8); Eosinophils # (Auto) 0.1 K/mm3 (0.0-0.4); Eosinophils % (Auto) 1.3 % (0.0-4.3); Hematocrit 35.7 % (30.3-42.9); Hemoglobin 11.7 gm/dl (10.1-14.3); Lymphocytes # (Auto) 1.1 K/mm3 (1.2-5.4); Lymphocytes % (Auto) 11.6 % (13.4-35.0); Mean Corpuscular HGB Conc 33 % (30-34); Mean Corpuscular Volume 106 fl (79-97); Monocytes # (Auto) 0.5 K/mm3 (0.0-0.8); Monocytes % (Auto) 5.8 % (0.0-7.3); Platelet Count 323 K/mm3 (140-440); Red Blood Count 3.36 M/mm3 (3.65-5.03); Red Cell Distribution Width 14.5 % (13.2-15.2)
[2019-12-14 19:16] LABS: Albumin 3.6 g/dL (3.9-5); Calcium 9.2 mg/dL (8.4-10.2)
--- NOTE | 2019-12-14 21:22 | Cat Scan Report ---
CT ABDOMEN AND PELVIS WITH CONTRAST INDICATION: Diarrhea, crampy abdominal pain, hx of divertiulit. TECHNIQUE: Axial CT images were obtained through the abdomen and pelvis after 100 cc IV contrast. All CT scans at this location are performed using CT dose reduction for ALARA by means of automated exposure contr ol. COMPARISON: CT abdomen pelvis 11/28/2019 FINDINGS: LOWER CHEST: Moderate increased interstitial markings are again seen within both lung bases with mode rate size hiatal hernia again noted. LIVER: No significant abnormality. GALLBLADDER: No significant abnormality. BILE DUCTS: No significant abnormality. PANCREAS: No significant abnormality. SPLEEN: No significant abnormality. ADRENALS: No significant abnormality. RIGHT KIDNEY and URETER: No significant abnormality. LEFT KIDNEY and URETER: Markedly atrophic left kidney, unchanged. STOMACH and SMALL BOWEL: Moderate hiatal hernia, unchanged. No significant abnormality. COLON: Extensive sigmoid diverticulosis without diverticulitis, unchanged. APPENDIX: No significant abnormality. PERITONEUM: No free fluid. No free air. No fluid collection. LYMPH NODES: No significant adenopathy. AORTA and ARTERIES: Intensive vascular calcifications again noted throughout nonaneurysmal abdominal aorta. IVC and VEINS: No significant abnormality. URINARY BLADDER: No significant abnormality. REPRODUCTIVE ORGANS: No significant abnormality. ADDITIONAL FINDINGS: None. SKELETAL SYSTEM: Moderately advanced degenerative changes of lumbar spine. IMPRESSION: 1. Extensive sigmoid diverticulosis without diverticulitis. 2. Severely atrophic left kidney likely secondary to chronic renal artery stenosis, unchanged. 3. 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 4. Moderate size hiatal hernia, unchanged. Signer Name: Octavio Lincoln MD Signed: 12/14/2019 9:17 PM Workstation Name: [id number]
[2019-12-14 22:45] LABS: Bacteria,Urine 4+ /HPF (Negative); Bilirubin,Urine NEG (Negative); Blood,Urine MOD (Negative); Color,Urine Yellow (Yellow); Mucus,Urine FEW /HPF; Protein,Urine <15 mg/dL mg/dL (Negative)
[2019-12-14] MEDS ORDERED: cefTRIAXone/NS 1 GM/50 ML 1 GM/50 ML BAG IV ONE (23:05)
[2019-12-14] MEDS ORDERED: FLUCONAZOLE 100 MG TAB PO ONE (23:08)
[2019-12-14] MEDS ORDERED: LOPERAMIDE 2 MG CAP PO ONE (23:30)
[2019-12-15 01:30] VITALS: BP 130/59
== END 2019-12-15 00:30 | disposition home or self-care (01) ==
LOC: ED 12:51
DX: B37.3 Candidiasis of vulva and vagina (principal); N39.0 Urinary tract infection, site not specified; R19.7 Diarrhea, unspecified; R11.10 Vomiting, unspecified; I10 Essential (primary) hypertension; I25.2 Old myocardial infarction; Z98.890 Other specified postprocedural states; Z79.899 Other long term (current) drug therapy; Z88.8 Allergy status to other drugs, medicaments and biological substances
CPT/HCPCS: 36415; 74177; 80053; 81001; 83690; 85025; 87086; 96361; 96365; 96375; 99284; J0696; J2405; J7030; Q9967

== ENCOUNTER 2020-01-04 18:21 | Emergency (ER) | payer MEDICARE ==
--- NOTE | 2020-01-04 20:20 | Event Note ---
ED Screening Note Date of service: 01/04/20 Time: 20:19 ED Screening Note: This 89-year-old female presents the ED complaining of abd pain with watery loose stools This initial assessment/diagnostic orders/clinical plan/treatment(s) is/are subject to change based on patients health status, clinical progression and re- assessment by fellow clinical providers in the ED. Further treatment and workup at subsequent clinical providers discretion. Patient/guardian urged not to elope from the ED as their condition may be serious if not clinically assessed and managed. Initial orders include: Labs, main side eval
[2020-01-04 21:04] LABS: Basophils % (Auto) 0.5 % (0.0-1.8); Eosinophils # (Auto) 0.1 K/mm3 (0.0-0.4); Eosinophils % (Auto) 2.7 % (0.0-4.3); Hematocrit 33.7 % (30.3-42.9); Hemoglobin 11.7 gm/dl (10.1-14.3); Lymphocytes % (Auto) 18.1 % (13.4-35.0); Mean Corpuscular HGB Conc 35 % (30-34); Mean Corpuscular Volume 104 fl (79-97); Monocytes # (Auto) 0.4 K/mm3 (0.0-0.8); Monocytes % (Auto) 7.1 % (0.0-7.3); Platelet Count 158 K/mm3 (140-440); Red Blood Count 3.25 M/mm3 (3.65-5.03); Red Cell Distribution Width 14.9 % (13.2-15.2)
[2020-01-04 21:27] LABS: Albumin 3.9 g/dL (3.9-5); Calcium 9.3 mg/dL (8.4-10.2)
--- NOTE | 2020-01-05 06:52 | Emergency Department Report ---
HPI - General Chief Complaint: Abdominal Pain Time Seen by Provider: 01/05/20 06:27 - HPI HPI: This is an 89-year-old female who presents to the emergency department with a complaint of some nausea and vomiting, decreased appetite, constipation. The patient admits that these are chronic issues for her. This is consistent with the fact that the patient has been here multiple times for the same complaints/symptoms. She has a past medical history of hypertension, coronary artery disease, diverticulosis/diverticulitis, Lyme disease, previous shingles. The patient was here on 12/15/2019 for the same symptoms. Patient had a CT scan of the abdomen and pelvis completed at that time that showed diverticulosis without diverticulitis, a hiatal hernia, and some chronic basilar interstitial lung disease. Her primary care physicians are Dr. Hoskins and Dr. Maldonado. The patient says that she has an appointment with gastroenterology on the . ED Past Medical Hx - Past Medical History Previous Medical History?: Yes Hx Hypertension: Yes Hx Heart Attack/AMI: Yes Additional medical history: Lyme disease, Diverticulitis, Shingles - Surgical History Additional Surgical History: eyes, D&C - Social History Smoking Status: Never Smoker Substance Use Type: None - Medications Home Medications: Home Medications Medication Instructions Recorded Confirmed Last Taken Type Acetaminophen [Acetaminophen TAB] 650 mg PO Q4H PRN #30 tablet 05/04/17 10/14/19 Unknown Rx Hypromellose [Isopto Tears 0.5%] 2 drops OU Q8HR #30 day 05/04/17 10/14/19 Unknown Rx lisinopriL [Zestril TAB] 10 mg PO QDAY #30 tablet 05/04/17 10/14/19 Unknown Rx Benzonatate [Tessalon Perles] 100 mg PO Q8HR PRN #20 capsule 06/30/18 10/14/19 Unknown Rx Metoprolol [Lopressor TAB] 25 mg PO BID tablet 07/04/18 10/14/19 Unknown Rx Nitrofurantoin [place]/M-Cryst 100 mg PO Q12HR #14 capsule 11/25/19 Unknown Rx [Macrobid CAP] Ondansetron [Zofran ODT TAB] 4 mg PO Q4HR PRN #20 tab.rapdis 11/29/19 Unknown Rx Promethazine [Phenergan] 25 mg PO Q6HR PRN #20 tab 11/29/19 Unknown Rx Loperamide [Imodium] 2 mg PO Q2HR PRN #20 capsule 12/15/19 Unknown Rx Ondansetron [Zofran Odt] 4 mg PO Q8HR PRN #20 tab.rapdis 12/15/19 Unknown Rx cephALEXin [Keflex] 500 mg PO Q12HR #14 cap 12/15/19 Unknown Rx ED Review of Systems ROS: Stated complaint: N/V Other details as noted in HPI Comment: All other systems reviewed and negative Constitutional: denies: chills, fever Eyes: denies: eye pain, vision change ENT: denies: ear pain, throat pain Respiratory: denies: cough, shortness of breath Cardiovascular: denies: chest pain, palpitations Gastrointestinal: nausea, vomiting, constipation Genitourinary: denies: dysuria, discharge Musculoskeletal: denies: back pain, arthralgia Skin: denies: rash, lesions Neurological: denies: headache, weakness Physical Exam - Physical Exam Vital Signs: Vital Signs 01/04/20 01/04/20 01/05/20 19:24 20:17 05:55 Temperature 98.3 F 98.3 F 97.8 F Pulse Rate 80 80 72 Respiratory 16 18 16 Rate Blood Pressure 169/77 169/77 Blood Pressure 159/76 [Left] O2 Sat by Pulse 96 96 98 Oximetry 01/05/20 01/05/20 01/05/20 06:00 06:15 06:30 Temperature Pulse Rate 66 67 74 Respiratory 17 13 19 Rate Blood Pressure 185/82 184/78 185/84 Blood Pressure [Left] O2 Sat by Pulse 96 97 98 Oximetry 01/05/20 06:45 Temperature Pulse Rate 76 Respiratory 17 Rate Blood Pressure 169/88 Blood Pressure [Left] O2 Sat by Pulse 96 Oximetry Physical Exam: GENERAL: The patient is well-developed well-nourished. HENT: Normocephalic. Atraumatic. Patient has moist mucous membranes. EYES: Extraocular motions are intact. NECK: Supple. Trachea is midline. CHEST/LUNGS: Clear to auscultation. There is no respiratory distress noted. HEART/CARDIOVASCULAR: Regular. There is no tachycardia. ABDOMEN: Abdomen is soft, nontender. Patient has normal bowel sounds. SKIN: Skin is warm and dry. NEURO: The patient is awake, alert, and oriented. The patient is cooperative. Normal speech. MUSCULOSKELETAL: There is no tenderness or deformity. ED Course Vital Signs 01/04/20 01/04/20 01/05/20 19:24 20:17 05:55 Temperature 98.3 F 98.3 F 97.8 F Pulse Rate 80 80 72 Respiratory 16 18 16 Rate Blood Pressure 169/77 169/77 Blood Pressure 159/76 [Left] O2 Sat by Pulse 96 96 98 Oximetry 01/05/20 01/05/20 01/05/20 06:00 06:15 06:30 Temperature Pulse Rate 66 67 74 Respiratory 17 13 19 Rate Blood Pressure 185/82 184/78 185/84 Blood Pressure [Left] O2 Sat by Pulse 96 97 98 Oximetry 01/05/20 06:45 Temperature Pulse Rate 76 Respiratory 17 Rate Blood Pressure 169/88 Blood Pressure [Left] O2 Sat by Pulse 96 Oximetry ED Medical Decision Making - Lab Data Result diagrams: 01/04/20 20:36 01/04/20 20:36 - Radiology Data Radiology results: image reviewed Abdominal x-ray shows nonspecific nonobstructive bowel gas. - Medical Decision Making This patient presents to the emergency department with the complaint of some nausea, vomiting, diarrhea and some abdominal discomfort. The patient admits that this is something that is chronic. The patient has been seen here multiple times for the same issues including a recent CT scan of the abdomen and pelvis that showed some diverticulosis without diverticulitis and a hiatal hernia but otherwise no acute processes. The patient's labs here today are unremarkable including CBC and metabolic panel. Her abdomen is soft, nontender, nondistended and nontoxic in appearance. Her vital signs have been reassuring throughout he r ED course. She does have some hypertension but is due to take her home blood pressure medications. Patient appears safe for discharge home at this time. She has been instructed to follow-up with her primary care physician and says she is already being set up for a gastroenterology visit. She will return to the ER with any worsening of her symptoms or with any acute distress. Critical Care Time: No Critical care attestation.: If time is entered above; I have spent that time in minutes in the direct care of this critically ill patient, excluding procedure time. ED Disposition Clinical Impression: Chronic abdominal pain Nausea & vomiting Qualifiers: Vomiting type: unspecified Vomiting Intractability: non-intractable Qualified Code(s): R11.2 - Nausea with vomiting, unspecified Hypertension Qualifiers: Hypertension type: essential hypertension Qualified Code(s): I10 - Essential (primary) hypertension Disposition: TO HOME OR SELFCARE Is pt being admited?: No Condition: Stable Instructions: Abdominal Pain (ED), Hypertension (ED) Additional Instructions: Please follow-up with your primary care physician in the next few days. 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 Return to the emergency department with any worsening of your symptoms or with any acute distress. Referrals: EMMA MALDONADO [Other] - 3-5 Days Time of Disposition: 07:50
--- NOTE | 2020-01-05 07:44 | XRay Report ---
ABDOMEN FLAT AND UPRIGHT 0715 INDICATION: Abd pain COMPARISON: Chest x-ray 11/28/2019 FINDINGS: Upright view shows most of the chest as well as the abdomen proper but not the pelvis. No p neumoperitoneum is seen. Bowel gas pattern is unremarkable with no evidence of obstruction. Signer Name: Lawrence Gillette MD Signed: 01/05/2020 7:40 AM Workstation Name: [id number]
[2020-01-05 08:58] VITALS: BP 149/95
== END 2020-01-05 08:58 | disposition home or self-care (01) ==
LOC: ED 18:21
DX: R11.2 Nausea with vomiting, unspecified (principal); I10 Essential (primary) hypertension; R10.9 Unspecified abdominal pain; G89.29 Other chronic pain; I25.2 Old myocardial infarction; Z98.890 Other specified postprocedural states; Z79.899 Other long term (current) drug therapy; Z88.8 Allergy status to other drugs, medicaments and biological substances
CPT/HCPCS: 36415; 74019; 80053; 85025

== ENCOUNTER 2020-02-29 00:15 | Emergency (ER) | payer MEDICARE ==
[2020-02-29 05:18] LABS: Basophils % (Auto) 0.8 % (0.0-1.8); Eosinophils # (Auto) 0.2 K/mm3 (0.0-0.4); Hematocrit 29.3 % (30.3-42.9); Lymphocytes % (Auto) 20.1 % (13.4-35.0); Mean Corpuscular HGB Conc 34 % (30-34); Mean Corpuscular Volume 109 fl (79-97); Monocytes # (Auto) 0.4 K/mm3 (0.0-0.8); Monocytes % (Auto) 8.2 % (0.0-7.3); Platelet Count 172 K/mm3 (140-440); Red Blood Count 2.69 M/mm3 (3.65-5.03); Red Cell Distribution Width 19.8 % (13.2-15.2)
[2020-02-29 05:40] LABS: Albumin 3.8 g/dL (3.9-5); Calcium 9.4 mg/dL (8.4-10.2)
[2020-02-29] MEDS ORDERED: ONDANSETRON 4 MG ODT TAB PO ONE (06:37)
[2020-02-29] MEDS ORDERED: FAMOTIDINE 20 MG TAB PO ONE (06:37)
[2020-02-29] MEDS ORDERED: ACETAMINOPHEN 325 MG TAB PO ONE (06:37)
[2020-02-29] MEDS ORDERED: SODIUM CHLORIDE 0.9% 500 ML 500 ML IV ONE (06:39)
--- NOTE | 2020-02-29 06:39 | Emergency Department Report ---
ED General Adult HPI - General Chief complaint: Abdominal Pain Stated complaint: VOMITING PUI?: No Time Seen by Provider: 02/29/20 06:08 Source: patient, family, RN notes reviewed, old records reviewed Mode of arrival: Wheelchair Limitations: Other (Patient is a poor historian. Patient hard of hearing.) - History of Present Illness Initial comments: The patient was evaluated in the emergency department for symptoms described in the history of present illness. He/she was evaluated in the context of the global COVID-19 pandemic, which necessitated consideration that the patient might be at risk for infection with the virus that causes COVID-19. Institutional protocols and algorithms that pertain to the evaluation of pat ients at risk for COVID-19 are in a state of rapid change based on information released by regulatory bodies including the CDC and federal and state organizations. These policies and algorithms were followed during the patient's care in the emergency department. Please note that these policies, procedures and recommendations changed on a rapid basis. Patient is an 89-year-old female. I have evaluated her in the past. Has a past medical history of diverticulosis, difficulty hearing, Lyme disease, constipation, typically sees Dr. Dianna Henderson, and in the past, has been maintained on loperamide, and has been noted to be prescribed chronic narcotics in the past, such as morphine and oxycodone. History obtained by chart review, discussing with the patient, and speaking to nursing team. Apparently, the patient presented to the emergency room with a complaint of abdominal pain, which was relieved by having a large bowel movement. Patient made no additional complaints. Currently in the emergency room, patient resting comfortably on her stretcher, and in no acute distress. She describes abdominal cramping, but denies additional pain. She does not describe qualitative nature of her symptoms otherwise, exacerbating factors, relieving factors, or aggravating factors. -: unknown Location: abdomen Severity scale (0 -10): 0 Quality: other Consistency: other Improves with: other Worsens with: other Associated Symptoms: other - Related Data Home Medications Medication Instructions Recorded Confirmed Last Taken Famotidine [Acid Controller] 20 mg PO DAILY 02/29/20 02/29/20 02/29/20 Ondansetron [Zofran ODT TAB] 8 mg PO Q12HR 02/29/20 02/29/20 02/29/20 Previous Rx's Medication Instructions Recorded Last Taken Type Acetaminophen [Acetaminophen TAB] 650 mg PO Q4H PRN #30 tablet 05/04/17 02/29/20 Rx lisinopriL [Zestril TAB] 10 mg PO QDAY #30 tablet 05/04/17 Unknown Rx Allergies Allergy/AdvReac Type Severity Reaction Status Date / Time dextromethorphan HBr Allergy Unknown Verified 11/25/19 08:50 [From DexAlone] ED Review of Systems ROS: Stated complaint: VOMITING Other details as noted in HPI Gastrointestinal: abdominal pain, constipation ED Past Medical Hx - Past Medical History Previous Medical History?: Yes Hx Hypertension: Yes Hx Heart Attack/AMI: Yes Additional medical history: Lyme disease, Diverticulitis, Shingles - Surgical History Past Surgical History?: Yes Additional Surgical History: eyes, D&C - Social History Smoking Status: Never Smoker - Medications Home Medications: Home Medications Medication Instructions Recorded Confirmed Last Taken Type Acetaminophen [Acetaminophen TAB] 650 mg PO Q4H PRN #30 tablet 05/04/17 02/29/20 02/29/20 Rx lisinopriL [Zestril TAB] 10 mg PO QDAY #30 tablet 05/04/17 02/29/20 Unknown Rx Famotidine [Acid Controller] 20 mg PO DAILY 02/29/20 02/29/20 02/29/20 History Ondansetron [Zofran ODT TAB] 8 mg PO Q12HR 02/29/20 02/29/20 02/29/20 History ED Physical Exam - General Limitations: Other (Patient very hard of hearing) General appearance: alert, in no apparent distress - Head Head exam: Present: atraumatic, normocephalic - Eye Eye exam: Present: normal appearance, EOMI - ENT ENT exam: Present: normal exam, normal orophraynx, mucous membranes moist, normal external ear exam - Neck Neck exam: Present: normal inspection, full ROM. Absent: tenderness, meningismus - Respiratory Respiratory exam: Present: normal lung sounds bilaterally. Absent: respiratory distress, wheezes, rales, rhonchi, stridor, decreased breath sounds - Cardiovascular Cardiovascular Exam: Present: regular rate, normal rhythm, normal heart sounds. Absent: bradycardia, tachycardia, irregular rhythm, systolic murmur, diastolic murmur, rubs, gallop - GI/Abdominal GI/Abdominal exam: Present: soft, normal bowel sounds. Absent: distended, tenderness, guarding, rebound, rigid, pulsatile mass - Extremities Exam Extremities exam: Present: normal inspection, full ROM, pedal edema (1+ edema in the bilateral lower extremities). Absent: calf tenderness - Back Exam Back exam: Present: normal inspection, full ROM. Absent: tenderness, CVA tenderness (R), CVA tenderness (L), paraspinal tenderness, vertebral tenderness - Neurological Exam Neurological exam: Present: alert, other (No facial droop. Tongue midline. Extraocular movements intact bilaterally. Facial sensation intact to light touch in V1, V2, V3 distribution bilaterally. 5 and a 5 strength in 4 extremi ties. Sensation intact to light touch in 4 extremities.) - Psychiatric Psychiatric exam: Present: normal affect, normal mood - Skin Skin exam: Present: warm, dry, intact, normal color. Absent: rash ED Course Vital Signs 02/29/20 02/29/20 02/29/20 01:07 01:37 04:35 Temperature 97.7 F 98.1 F Pulse Rate 83 82 Respiratory 16 20 16 Rate Blood Pressure 127/64 Blood Pressure 127/64 [Left] O2 Sat by Pulse 96 95 Oximetry 02/29/20 08:29 Temperature Pulse Rate 79 Respiratory 16 Rate Blood Pressure Blood Pressure 145/74 [Left] O2 Sat by Pulse 98 Oximetry - Reevaluation(s) Reevaluation #1: 02/29/20 09:48 Reassessed. No active vomiting. Resting comfortably in stretcher. Urinalysis not consistent with urinary tract infection. Observed in this department for hours without clinical decompensation. Suitable for discharge with outpatient follow-up ED Medical Decision Making - Lab Data Result diagrams: 02/29/20 05:05 02/29/20 05:05 Vital Signs 02/29/20 02/29/20 02/29/20 01:07 01:37 04:35 Temperature 97.7 F 98.1 F Pulse Rate 83 82 Respiratory 16 20 16 Rate Blood Pressure 127/64 Blood Pressure 127/64 [Left] O2 Sat by Pulse 96 95 Oximetry Lab Results 02/29/20 02/29/20 02/29/20 Range/Units 05:05 05:05 06:37 WBC 4.9 (4.5-11.0) K/mm3 RBC 2.69 L (3.65-5.03) M/mm3 Hgb 10.0 L (10.1-14.3) gm/dl Hct 29.3 L (30.3-42.9) % MCV 109 H (79-97) fl MCH 37 H (28-32) pg MCHC 34 (30-34) % RDW 19.8 H (13.2-15.2) % Plt Count 172 (140-440) K/mm3 Lymph % (Auto) 20.1 (13.4-35.0) % [place] % (Auto) 8.2 H (0.0-7.3) % Eos % (Auto) 3.0 (0.0-4.3) % Baso % (Auto) 0.8 (0.0-1.8) % Lymph # (Auto) 1.0 L (1.2-5.4) K/mm3 [place] # (Auto) 0.4 (0.0-0.8) K/mm3 Eos # (Auto) 0.2 (0.0-0.4) K/mm3 Baso # (Auto) 0.0 (0.0-0.1) K/mm3 Seg Neutrophils % 67.9 (40.0-70.0) % Seg Neutrophils # 3.4 (1.8-7.7) K/mm3 Sodium 137 (137-145) mmol/L Potassium 4.4 (3.6-5.0) mmol/L Chloride 97.1 L (98-107) mmol/L Carbon Dioxide 28 (22-30) mmol/L Anion Gap 16 mmol/L BUN 23 H (7-17) mg/dL Creatinine 1.2 (0.6-1.2) mg/dL Estimated GFR 42 ml/min BUN/Creatinine Ratio 19 % Glucose 81 (65-100) mg/dL Calcium 9.4 (8.4-10.2) mg/dL Magnesium 2.10 (1.7-2.3) mg/dL Total Bilirubin 0.80 (0.1-1.2) mg/dL AST 16 (5-40) units/L ALT 7 (7-56) units/L Alkaline Phosphatase 93 (35-129) units/L Total Creatine Kinase 48 (30-135) units/L Total Protein 6.4 (6.3-8.2) g/dL Albumin 3.8 L (3.9-5) g/dL Albumin/Globulin Ratio 1.5 % Lipase 56 (13-60) units/L - EKG Data -: EKG Interpreted by Ms EKG shows normal: sinus rhythm Rate: normal - EKG Data 02/29/20 08:26 The EKG today shows a sinus rhythm, 79 bpm, there is a left axis deviation, there is a borderline left anterior fascicular block, there is motion artifact, the QTC is within normal limits. The EKG is not a STEMI, there is poor R wave progression. The EKG appears to be unchanged from prior EKG from November 2019 - Radiology Data Radiology results: report reviewed, image reviewed Print Report Referring Physician: CARLOS VAZQUEZ Patient Name: GIANCARLO BURTON Date of : 1930 Sex: Female Report Date: 2020-02-29 Report Status: [place] [address] Cat Scan Report Signed Patient: GIANCARLO BURTON MR#: [id number] : [birth year] Acct:[id number] Age/Sex: 89 / F ADM Date: 02/29/20 Loc: ED Attending Dr: Ordering Physician: CARLOS VAZQUEZ MD Date of Service: 02/29/20 Procedure(s): CT abdomen pelvis wo con Accession Number(s): [id number] cc: CARLOS VAZQUEZ MD CT ABDOMEN AND PELVIS WITHOUT CONTRAST HISTORY: MAIN COMPARISON: 01/14/2020 TECHNIQUE: Axial CT images were obtained through the abdomen and pelvis without IV contrast. Sagittal and coronal reformatted images. All CT scans at this location are performed using CT dose reduction for ALARA by means of automated exposure control. FINDINGS: CT ABDOMEN: Lung Bases: Clear. Small hiatal hernia is unchanged. Liver: No significant abnormality. Biliary: No significant a bnormality. Spleen: No significant abnormality. Unenlarged. Pancreas: No significant abnormality. Adrenals: No significant abnormality. Kidneys: The left kidney is atrophic measuring 5.5 cm in length. The right kidney is unremarkable. No focal renal lesion or obstructive uropathy. Lymphatics: No lym phadenopathy. Vasculature: Moderate diffuse aortic and iliac calcifications are identified. No aneurysm. Bowel/Peritoneum: Sigmoid diverticulosis is stable. No evidence for obstruction or focal inflammation. No free fluid or free air. Normal appendix. CT PELVIS: : No significant abnormality. Osseous Structures: Osteopenia. Mild thoracolumbar scoliosis with moderate degenerative changes. No acute fracture or suspicious bony lesion is identified. Additional Findings: None IMPRESSION: No acute abdominal process is appreciated. Chronic findings as outlined above which appear unchanged since 01/14/2020 exam. Signer Name: Ba Lacey Jr, MD Signed: 02/29/2020 8:02 AM Workstation Name: [id number] Transcribed By: TTR Dictated By: BA LACEY JR, MD Electronically Authenticated By: BA LACEY JR, MD Signed Date/Time: 02/29/20801 DD/ 075 - Medical Decision Making Differential diagnosis, include but not limited to: Constipation, obstipation, obstruction, narcotic bowel syndrome, urinary tract infection, general medical screening exam Assessment and plan: 89-year-old female who was afebrile with reassuring vital signs, with a soft benign abdominal examination, with a negative CT scan of the abdomen pelvis for acute findings, laboratory studies which appear to be unremarkable when compared to prior, has mild anemia, which appears to be somewhat chronic, urinalysis pending at this time. Patient has been evaluated in this department multiple times in the past for similar complaints. She has passed her oral challenge at this time. She has been observed in this department today for hours without clinical decompensation. Urinalysis pending, but assuming no acute pathology, we anticipate discharge with outpatient primary care follow-up for her chronic symptomatology. Critical care attestation.: If time is entered above; I have spent that time in minutes in the direct care o f this critically ill patient, excluding procedure time. ED Disposition Clinical Impression: Physical deconditioning, History of abdominal pain, History of constipation Disposition: DC-01 TO HOME OR SELFCARE Is pt being admited?: No Does the pt Need Aspirin: No Condition: Good Additional Instructions: We recommend that the patient drink 3 to 4 cups of water per day. Recommend consumption of plenty of fiber, vegetables and lean protein. Recommend avoidance of narcotic medications such as morphine, oxycodone, hydrocodone. Patient may consume fiber, prune juice [id number] to assist with bowel movements. Recommend that patient follow-up with her primary care doctor in the next week. Please return to the emergency room right away with new pain, worsened pain, migration of pain, projectile vomiting, change in mental status, confusion, inability to tolerate liquid feeds, new, worsened or different symptoms not pr esent on the initial emergency room evaluation. Referrals: DIANNA HENDERSON MD [Staff Physician] - 3-5 Days
--- NOTE | 2020-02-29 08:07 | Cat Scan Report ---
CT ABDOMEN AND PELVIS WITHOUT CONTRAST HISTORY: MAIN COMPARISON: 01/14/2020 TECHNIQUE: Axial CT images were obtained through the abdomen and pelvis without IV contrast. Sagittal and coronal reformatted images. All CT scans at this location are performed using CT dose reduction for ALARA by means of automated exposure control. FINDINGS: CT ABDOMEN: Lung Bases: Clear. Small hiatal hernia is unchanged. Liver: No significant abnormality. Biliary: No significant abnormality. Spleen: No significant abnormality. Unenlarged. Pancreas: No significant abnormality. Adrenals: No significant abnormality. Kidneys: The left kidney is atrophic measuring 5.5 cm in length. The right kidney is unremarkable. No focal renal lesion or obstructive uropathy. Lymphatics: No lymphadenopathy. Vasculature: Moderate diffuse aortic and iliac calcifications are identified. No aneurysm. Bowel/Peritoneum: Sigmoid diverticulosis is stable. No evidence for obstruction or focal inflammation . No free fluid or free air. Normal appendix. CT PELVIS: : No significant abnormality. Osseous Structures: Osteopenia. Mild thoracolumbar scoliosis with moderate degenerative changes. No a cute fracture or suspicious bony lesion is identified. Additional Findings: None IMPRESSION: No acute abdominal process is appreciated. Chronic findings as outlined above which appear unchanged since 01/14/2020 exam. Signer Name: Ba Lacey Jr, MD Signed: 02/29/2020 8:02 AM Workstation Name: [id number]
[2020-02-29 09:15] LABS: Bacteria,Urine 1+ /HPF (Negative); Bilirubin,Urine NEG (Negative); Blood,Urine MOD (Negative); Color,Urine Straw (Yellow); Mucus,Urine FEW /HPF; Protein,Urine <15 mg/dL mg/dL (Negative); Urobilinogen,Urine < 2.0 mg/dL (<2.0)
[2020-02-29 11:00] VITALS: BP 138/65
== END 2020-02-29 12:37 | disposition home or self-care (01) ==
LOC: ED 00:15
DX: K59.00 Constipation, unspecified (principal); Z72.3 Lack of physical exercise; I10 Essential (primary) hypertension; I25.2 Old myocardial infarction; Z79.899 Other long term (current) drug therapy
CPT/HCPCS: 36415; 74176; 80053; 81001; 82550; 83690; 83735; 85025; 93005; 99284; J7040; Q0162

== ENCOUNTER 2020-03-07 01:34 | Emergency (ER) | payer MEDICARE ==
[2020-03-07 03:48] LABS: Basophils % (Auto) 0.4 % (0.0-1.8); Eosinophils # (Auto) 0.1 K/mm3 (0.0-0.4); Eosinophils % (Auto) 1.8 % (0.0-4.3); Hemoglobin 10.9 gm/dl (10.1-14.3); Lymphocytes # (Auto) 1.1 K/mm3 (1.2-5.4); Lymphocytes % (Auto) 17.2 % (13.4-35.0); Mean Corpuscular HGB Conc 35 % (30-34); Monocytes # (Auto) 0.5 K/mm3 (0.0-0.8); Platelet Count 217 K/mm3 (140-440); Red Blood Count 2.81 M/mm3 (3.65-5.03)
[2020-03-07 03:58] LABS: Mean Corpuscular Volume 110 fl (79-97); Red Cell Distribution Width 20.4 % (13.2-15.2)
[2020-03-07 04:08] LABS: Calcium 9.4 mg/dL (8.4-10.2)
[2020-03-07 04:15] LABS: Bilirubin,Direct 0.3 mg/dL (0-0.2)
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
[2020-03-07 04:40] LABS: Bacteria,Urine 1+ /HPF (Negative); Bilirubin,Urine NEG (Negative); Blood,Urine MOD (Negative); Color,Urine Yellow (Yellow); Hyaline Casts,Urine 1 /LPF; Mucus,Urine FEW /HPF
[2020-03-07] MEDS ORDERED: NITROFURANTOIN MONOHYD/M-CRYST 100 MG CAP PO ONE (04:58)
[2020-03-07 06:33] VITALS: BP 183/83
== END 2020-03-07 14:30 | disposition home or self-care (01) ==
LOC: ED 01:34
DX: I12.9 Hypertensive chronic kidney disease with stage 1 through stage 4 chronic kidney disease, or unspecified chronic kidney disease (principal); N18.9 Chronic kidney disease, unspecified; N39.0 Urinary tract infection, site not specified; R19.7 Diarrhea, unspecified; I25.2 Old myocardial infarction; K21.9 Gastro-esophageal reflux disease without esophagitis; Z79.899 Other long term (current) drug therapy; Z98.890 Other specified postprocedural states; Z88.8 Allergy status to other drugs, medicaments and biological substances
CPT/HCPCS: 36415; 80048; 80076; 81001; 85025; 87086

== ENCOUNTER 2020-03-22 22:42 | Emergency (ER) | payer MEDICARE | END 2020-03-23 10:17 | disposition left against medical advice (07) | LOC: ED 22:42 | DX: R50.9 Fever, unspecified (principal); Z53.21 Procedure and treatment not carried out due to patient leaving prior to being seen by health care provider | CPT/HCPCS: 71045 ==

== ENCOUNTER 2020-03-23 22:53 | Emergency (ER) | payer MEDICARE ==
--- NOTE | 2020-03-24 00:04 | Emergency Department Report ---
HPI - HPI HPI: Room 24 The patient is an 89-year-old female present with a chief complaint of feeling hot and cold. The patient is a poor historian but states she came to this emergency department previous night because she felt weak began feeling hot and cold and had tremors. The patient is hard of hearing and apparently did not hear her name called for evaluation throughout the night last night and was eventually brought back to the emergency department for evaluation. Patient states she has had some food to eat during her weight and now she feels like she is stronger. The patient was asked repeatedly if anything is bothering her currently the patient only replies she feels cold. The patient states she does not need to go home because she needs someone that can watch her. When asked why and if anything is specifically bothering her the patient does not answer the question. The patient only complains of feeling cold and is requesting a blanket <LAWSON ALLEN - Last Filed: 03/24/20 01:20> <ARIAN CASTILLO - Last Filed: 03/24/20 10:02> - General Chief Complaint: Medical Clearance Time Seen by Provider: 03/23/20 23:43 ED Past Medical Hx - Past Medical History Hx Hypertension: Yes Hx Heart Attack/AMI: Yes Hx GERD: Yes Additional medical history: Lyme disease, Diverticulitis, Shingles - Surgical History Additional Surgical History: eyes, D&C - Family History Family history: no significant - Social History Smoking Status: Never Smoker Substance Use Type: None <LAWSON ALLEN - Last Filed: 03/24/20 01:20> <ARIAN CASTILLO - Last Filed: 03/24/20 10:02> - Medications Home Medications: Home Medications Medication Instructions Recorded Confirmed Last Taken Type Nitrofurantoin Summers/M-Cryst 100 mg PO Q12HR #14 capsule 03/07/20 Unknown Rx [Macrobid CAP] Multivitamin Tab [Multiple Vitamin 1 each PO QDAY #30 tablet 03/17/20 Unknown Rx TAB (Theragran)] Ondansetron [Zofran ODT TAB] 8 mg PO Q8HR #30 tab.rapdis 03/17/20 Unknown Rx Pantoprazole Sodium [Protonix] 40 mg PO DAILY #30 gran 03/17/20 Unknown Rx amLODIPine 5 mg PO QDAY #30 tablet 03/17/20 Unknown Rx Sulfamethoxazole/Trimethoprim 1 each PO BID #4 tablet 03/24/20 Unknown Rx [Bactrim DS TAB] ED Review of Systems ROS: Stated complaint: FEVER/LOSS OF APPETITE/PT NEEDS CASE MANANGEMENT Other details as noted in HPI Constitutional: chills Eyes: denies: eye pain ENT: denies: throat pain Respiratory: no symptoms reported Cardiovascular: denies: chest pain Endocrine: no symptoms reported Gastrointestinal: denies: abdominal pain Genitourinary: denies: dysuria Musculoskeletal: denies: back pain Neurological: other (Tremors) <LAWSON ALLEN - Last Filed: 03/24/20 01:20> ROS: Stated complaint: FEVER/LOSS OF APPETITE/PT NEEDS CASE MANANGEMENT Other details as noted in HPI <ARIAN CASTILLO - Last Filed: 03/24/20 10:02> Physical Exam - Physical Exam Vital Signs: Vital Signs 03/23/20 23:00 Temperature 97.4 F L Pulse Rate 83 Respiratory 19 Rate Blood Pressure 164/85 O2 Sat by Pulse 95 Oximetry Physical Exam: GENERAL: The patient is well-developed well-nourished female sitting on stretcher not appearing to be in acute distress HEENT: Normocephalic. Atraumatic. Extraocular motions are intact. Patient has moist mucous membranes. NECK: Supple. Trachea midline CHEST/LUNGS: Clear to auscultation. There is no respiratory distress noted. HEART/CARDIOVASCULAR: Regular. There is no tachycardia. There is no gallop rub or murmur. ABDOMEN: Abdomen is soft, nontender. Patient has normal bowel sounds. There is no abdominal distention. SKIN: There is no rash. There is no edema. There is no diaphoresis. NEURO: The patient is awake, alert, and oriented. The patient is cooperative. The patient has no focal neurologic deficits. The patient has normal speech and gait. Patient hard of hearing MUSCULOSKELETAL: There is no evidence of acute injury. <LAWSON ALLEN - Last Filed: 03/24/20 01:20> - Physical Exam Vital Signs: Vital Signs 03/23/20 03/24/20 23:00 06:07 Temperature 97.4 F L 98.7 F Pulse Rate 83 83 Respiratory 19 16 Rate Blood Pressure 164/85 Blood Pressure 128/62 [right arm] O2 Sat by Pulse 95 95 Oximetry <ARIAN CASTILLO - Last Filed: 03/24/20 10:02> ED Course Vital Signs 03/23/20 03/24/20 23:00 06:07 Temperature 97.4 F L 98.7 F Pulse Rate 83 83 Respiratory 19 16 Rate Blood Pressure 164/85 Blood Pressure 128/62 [right arm] O2 Sat by Pulse 95 95 Oximetry <ARIAN CASTILLO - Last Filed: 03/24/20 10:02> ED Medical Decision Making - Lab Data Result diagrams: 03/24/20 00:13 03/24/20 00:13 - EKG Data -: EKG Interpreted by [facility] EKG shows normal: sinus rhythm Rate: normal - EKG Data When compared to previous EKG there are: previous EKG unavailable Interpretation: nonspecific ST-T wave aimee (T wave inversions in leads III and V2) - Differential Diagnosis UTI, hypothyroidism, electrolyte abnormality, symptomatic anemia <LAWSON ALLEN - Last Filed: 03/24/20 01:20> - Lab Data Result diagrams: 03/24/20 00:13 03/24/20 00:13 Lab Results 03/24/20 03/24/20 03/24/20 Range/Units 00:13 00:13 00:13 WBC 4.0 L (4.5-11.0) K/mm3 RBC 3.04 L (3.65-5.03) M/mm3 Hgb 11.5 (10.1-14.3) gm/dl Hct 34.1 (30.3-42.9) % MCV 112 H (79-97) fl MCH 38 H (28-32) pg MCHC 34 (30-34) % RDW 19.2 H (13.2-15.2) % Plt Count 288 (140-440) K/mm3 Lymph % (Auto) 26.2 (13.4-35.0) % Summers % (Auto) 8.5 H (0.0-7.3) % Eos % (Auto) 4.7 H (0.0-4.3) % Baso % (Auto) 0.9 (0.0-1.8) % Lymph # (Auto) 1.0 L (1.2-5.4) K/mm3 Summers # (Auto) 0.3 (0.0-0.8) K/mm3 Eos # (Auto) 0.2 (0.0-0.4) K/mm3 Baso # (Auto) 0.0 (0.0-0.1) K/mm3 Seg Neutrophils % 59.7 (40.0-70.0) % Seg Neutrophils # 2.4 (1.8-7.7) K/mm3 Sodium 139 (137-145) mmol/L Potassium 4.5 (3.6-5.0) mmol/L Chloride 98.2 (98-107) mmol/L Carbon Dioxide 30 (22-30) mmol/L Anion Gap 15 mmol/L BUN 19 H (7-17) mg/dL Creatinine 1.0 (0.6-1.2) mg/dL Estimated GFR 52 ml/min BUN/Creatinine Ratio 19 % Glucose 104 H (65-100) mg/dL Calcium 9.8 (8.4-10.2) mg/dL Troponin T < 0.010 (0.00-0.029) ng/mL TSH 2.460 (0.270-4.200) mlU/mL Free T4 1.25 (0.76-1.46) ng/dL Urine Color (Yellow) Urine Turbidity (Clear) Urine pH (5.0-7.0) Ur Specific Virgil (1.003-1.030) Urine Protein (Negative) mg/dL Urine Glucose (UA) (Negative) mg/dL Urine Ketones (Negative) mg/dL Urine Blood (Negative) Urine Nitrite (Negative) Urine Bilirubin (Negative) Urine Urobilinogen (<2.0) mg/dL Ur Leukocyte Esterase (Negative) Urine WBC (Auto) (0.0-6.0) /HPF Urine RBC (Auto) (0.0-6.0) /HPF U Epithel Cells (Auto) (0-13.0) /HPF Urine Mucus /HPF Urine Yeast (Budding) /HPF 03/24/20 Range/Units 00:40 WBC (4.5-11.0) K/mm3 RBC (3.65-5.03) M/mm3 Hgb (10.1-14.3) gm/dl Hct (30.3-42.9) % MCV (79-97) fl MCH (28-32) pg MCHC (30-34) % RDW (13.2-15.2) % Plt Count (140-440) K/mm3 Lymph % (Auto) (13.4-35.0) % Summers % (Auto) (0.0-7.3) % Eos % (Auto) (0.0-4.3) % Baso % (Auto) (0.0-1.8) % Lymph # (Auto) (1.2-5.4) K/mm3 Summers # (Auto) (0.0-0.8) K/mm3 Eos # (Auto) (0.0-0.4) K/mm3 Baso # (Auto) (0.0-0.1) K/mm3 Seg Neutrophils % (40.0-70.0) % Seg Neutrophils # (1.8-7.7) K/mm3 Sodium (137-145) mmol/L Potassium (3.6-5.0) mmol/L Chloride (98-107) mmol/L Carbon Dioxide (22-30) mmol/L Anion Gap mmol/L BUN (7-17) mg/dL Creatinine (0.6-1.2) mg/dL Estimated GFR ml/min BUN/Creatinine Ratio % Glucose (65-100) mg/dL Calcium (8.4-10.2) mg/dL Troponin T (0.00-0.029) ng/mL TSH (0.270-4.200) mlU/mL Free T4 (0.76-1.46) ng/dL Urine Color Yellow (Yellow) Urine Turbidity Clear (Clear) Urine pH 5.0 (5.0-7.0) Ur Specific Virgil 1.016 (1.003-1.030) Urine Protein <15 mg/dl (Negative) mg/dL Urine Glucose (UA) Neg (Negative) mg/dL Urine Ketones Neg (Negative) mg/dL Urine Blood Lg (Negative) Urine Nitrite Neg (Negative) Urine Bilirubin Neg (Negative) Urine Urobilinogen < 2.0 (<2.0) mg/dL Ur Leukocyte Esterase Neg (Negative) Urine WBC (Auto) 8.0 H (0.0-6.0) /HPF Urine RBC (Auto) 39.0 (0.0-6.0) /HPF U Epithel Cells (Auto) 1.0 (0-13.0) /HPF Urine Mucus Few /HPF Urine Yeast (Budding) Few /HPF <ARIAN CASTILLO - Last Filed: 03/24/20 10:02> Critical care attestation.: If time is entered above; I have spent that time in minutes in the direct care of this critically ill patient, excluding procedure time. <LAWSON ALLEN - Last Filed: 03/24/20 01:20> Critical care attestation.: If time is entered above; I have spent that time in minutes in the direct care of this critically ill patient, excluding procedure time. <ARIAN CASTILLO - Last Filed: 03/24/20 10:02> ED Disposition <LAWSON ALLEN - Last Filed: 03/24/20 01:20> Is pt being admited?: No Does the pt Need Aspirin: No Time of Disposition: 10:02 <ARIAN CASTILLO - Last Filed: 03/24/20 10:02> Clinical Impression: UTI (urinary tract infection) Disposition: - TO HOME OR SELFCARE Condition: Stable Instructions: Urinary Tract Infection, Adult Prescriptions: Sulfamethoxazole/Trimethoprim [Bactrim DS TAB] 1 each PO BID #4 tablet
[2020-03-24 00:32] LABS: Basophils % (Auto) 0.9 % (0.0-1.8); Eosinophils # (Auto) 0.2 K/mm3 (0.0-0.4); Eosinophils % (Auto) 4.7 % (0.0-4.3); Hematocrit 34.1 % (30.3-42.9); Hemoglobin 11.5 gm/dl (10.1-14.3); Lymphocytes % (Auto) 26.2 % (13.4-35.0); Mean Corpuscular HGB Conc 34 % (30-34); Mean Corpuscular Volume 112 fl (79-97); Monocytes # (Auto) 0.3 K/mm3 (0.0-0.8); Monocytes % (Auto) 8.5 % (0.0-7.3); Platelet Count 288 K/mm3 (140-440); Red Blood Count 3.04 M/mm3 (3.65-5.03); Red Cell Distribution Width 19.2 % (13.2-15.2)
[2020-03-24 00:54] LABS: BUN/Creatinine Ratio 19; Blood Urea Nitrogen 19 mg/dL (7-17); Calcium 9.8 mg/dL (8.4-10.2); Hemolysis Index 2
[2020-03-24 01:03] LABS: Free T4 (Free Thyroxine) 1.25 ng/dL (0.76-1.46)
[2020-03-24 01:06] LABS: Bilirubin,Urine NEG (Negative); Blood,Urine LG (Negative); Color,Urine Yellow (Yellow); Mucus,Urine FEW /HPF; Protein,Urine <15 mg/dL mg/dL (Negative); Urobilinogen,Urine < 2.0 mg/dL (<2.0)
[2020-03-24] MEDS ORDERED: levoFLOXacin 500 MG TAB PO ONE (01:16)
[2020-03-24] MEDS ORDERED: SULFAMETHOXAZOLE/TRIMETHOPRIM 800/160MG DS TAB PO ONE (01:32)
[2020-03-24] MEDS ORDERED: levETIRAcetam 1000 MG/NS 0.75% 0 MG/0 ML BAG IV ONE (02:18)
[2020-03-24 06:07] VITALS: BP 128/62
[2020-03-24] MEDS ORDERED: FLUCONAZOLE 200 MG TAB PO SCH (10:00)
== END 2020-03-24 10:16 | disposition home or self-care (01) ==
LOC: ED 22:53
DX: N39.0 Urinary tract infection, site not specified (principal); I10 Essential (primary) hypertension; I25.2 Old myocardial infarction; K21.9 Gastro-esophageal reflux disease without esophagitis; Z88.8 Allergy status to other drugs, medicaments and biological substances
CPT/HCPCS: 36415; 80048; 81001; 84439; 84443; 84484; 85025; 93005; 99283; J1953

== ENCOUNTER 2020-04-04 12:34 | Emergency (ER) | payer MEDICARE ==
--- NOTE | 2020-04-05 02:11 | Emergency Department Report ---
ED General Adult HPI - General Chief complaint: Weakness Stated complaint: CANT EAT PUI?: No Time Seen by Provider: 04/05/20 01:58 Source: patient, RN notes reviewed, old records reviewed Mode of arrival: Ambulatory Limitations: Other (Patient is hard of hearing) - History of Present Illness Initial comments: The patient was evaluated in the emergency department for symptoms described in the history of present illness. He/she was evaluated in the context of the global COVID-19 pandemic, which necessitated consideration that the patient might be at risk for infection with the virus that causes COVID-19. Institutional protocols and algorithms that pertain to the evaluation of patients at risk for COVID-19 are in a state of rapid change based on information released by regulatory bodies including the CDC and federal and state organizations. These policies and algorithms were followed during the patient's care in the emergency department. Please note that these policies, procedures and recommendations changed on a rapid basis. This is an 89-year-old female. I have evaluated her multiple times in the past. In addition, she was admitted to this hospital last month. She was seen by gastroenterology and other consulting services. 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 Patient was observed on the medical service to be consuming enlive, supportive care was recommended, and the GI service signed off. Today, the patient presents to the ER with her typical complaint poor appetite, food not sitting well, subjective constipation. She denies headache, neck pain, chest pain, abdominal pain, shortness of breath, dysuria. She states that she "does not have good BMs." -: year(s) Consistency: intermittent Improves with: none Worsens with: none - Related Data Previous Rx's Medication Instructions Recorded Last Taken Type Nitrofurantoin [place]/M-Cryst 100 mg PO Q12HR #14 capsule 03/07/20 Unknown Rx [Macrobid CAP] Multivitamin Tab [Multiple Vitamin 1 each PO QDAY #30 tablet 03/17/20 Unknown Rx TAB (Theragran)] Ondansetron [Zofran ODT TAB] 8 mg PO Q8HR #30 tab.rapdis 03/17/20 Unknown Rx Pantoprazole Sodium [Protonix] 40 mg PO DAILY #30 granpkt. 03/17/20 Unknown Rx amLODIPine 5 mg PO QDAY #30 tablet 03/17/20 Unknown Rx Sulfamethoxazole/Trimethoprim 1 each PO BID #4 tablet 03/24/20 Unknown Rx [Bactrim DS TAB] Allergies Allergy/AdvReac Type Severity Reaction Status Date / Time dextromethorphan HBr Allergy Unknown Verified 11/25/19 08:50 [From DexAlone] ED Review of Systems ROS: Stated complaint: CANT EAT Other details as noted in HPI Constitutional: denies: fever Respiratory: denies: cough Cardiovascular: denies: chest pain Gastrointestinal: constipation Genitourinary: as per HPI. denies: dysuria Neurological: weakness Hematological/Lymphatic: denies: easy bleeding ED Past Medical Hx - Past Medical History Previous Medical History?: Yes Hx Hypertension: Yes Hx Heart Attack/AMI: Yes Hx GERD: Yes Additional medical history: Lyme disease, Diverticulitis, Shingles - Surgical History Past Surgical History?: Yes Additional Surgical History: eyes, D&C - Social History Smoking Status: Never Smoker Substance Use Type: None - Medications Home Medications: Home Medications Medication Instructions Recorded Confirmed Last Taken Type Nitrofurantoin [place]/M-Cryst 100 mg PO Q12HR #14 capsule 03/07/20 Unknown Rx [Macrobid CAP] Multivitamin Tab [Multiple Vitamin 1 each PO QDAY #30 tablet 03/17/20 Unknown Rx TAB (Theragran)] Ondansetron [Zofran ODT TAB] 8 mg PO Q8HR #30 tab.daljit 03/17/20 Unknown Rx Pantoprazole Sodium [Protonix] 40 mg PO DAILY #30 granpkt. 03/17/20 Unknown Rx amLODIPine 5 mg PO QDAY #30 tablet 03/17/20 Unknown Rx Sulfamethoxazole/Trimethoprim 1 each PO BID #4 tablet 03/24/20 Unknown Rx [Bactrim DS TAB] ED Physical Exam - General Limitations: Other (Patient hard of hearing) General appearance: alert, in no apparent distress - Head Head exam: Present: atraumatic, normocephalic - Eye Eye exam: Present: normal appearance, EOMI. Absent: nystagmus - ENT ENT exam: Present: normal exam, normal orophraynx, mucous membranes moist, normal external ear exam - Neck Neck exam: Present: normal inspection, full ROM. Absent: tenderness, meningismus - Respiratory Respiratory exam: Present: normal lung sounds bilaterally. Absent: respiratory distress, wheezes, rales, rhonchi, stridor, decreased breath sounds - Cardiovascular Cardiovascular Exam: Present: regular rate, normal rhythm, normal heart sounds. Absent: bradycardia, tachycardia, irregular rhythm, systolic murmur, diastolic murmur, rubs, gallop - GI/Abdominal GI/Abdominal exam: Present: soft, normal bowel sounds. Absent: distended, tenderness, guarding, rebound, rigid, pulsatile mass - Extremities Exam Extremities exam: Present: normal inspection (Venous stasis changes noted in the bilateral lower extremities), full ROM, pedal edema (1+ edema noted in the bilateral lower extremities), other (2+ pulses noted in the bilateral upper and lower extremities. There is no palpable cord. negative Homans sign. Muscular compartments are soft. The pelvis is stable.). Absent: calf tenderness - Back Exam Back exam: Present: normal inspection. Absent: tenderness, CVA tenderness (R), CVA tenderness (L), paraspinal tenderness, vertebral tenderness - Neurological Exam Neurological exam: Present: alert, normal gait, other (No facial droop. Tongue midline. Extraocular movements intact bilaterally. Facial sensation intact to light touch in V1, V2, V3 distribution bilaterally. 5 and a 5 strength in 4 extremities. Sensation intact to light touch in 4 extremities.) - Psychiatric Psychiatric exam: Present: normal affect, normal mood - Skin Skin exam: Present: warm, dry, intact, normal color. Absent: rash ED Course Vital Signs 04/04/20 04/05/20 04/05/20 15:34 02:18 02:27 Temperature 97.9 F Pulse Rate 77 79 75 Respiratory 18 23 16 Rate Blood Pressure Blood Pressure 151/77 [Right] O2 Sat by Pulse 98 98 Oximetry 04/05/20 04/05/20 04/05/20 02:30 02:34 02:45 Temperature Pulse Rate 75 76 76 Respiratory 16 12 13 Rate Blood Pressure 136/73 Blood Pressure 133/68 [Right] O2 Sat by Pulse 96 95 93 Oximetry 04/05/20 03:00 Temperature Pulse Rate 76 Respiratory 16 Rate Blood Pressure 135/62 Blood Pressure [Right] O2 Sat by Pulse 89 Oximetry ED Medical Decision Making - Lab Data Result diagrams: 04/05/20 02:23 04/05/20 02:23 Vital Signs 04/04/20 04/05/20 04/05/20 15:34 02:18 02:27 Temperature 97.9 F Pulse Rate 77 79 75 Respiratory 18 23 16 Rate Blood Pressure Blood Pressure 151/77 [Right] O2 Sat by Pulse 98 98 Oximetry 04/05/20 04/05/20 04/05/20 02:30 02:34 02:45 Temperature Pulse Rate 75 76 76 Respiratory 16 12 13 Rate Blood Pressure 136/73 Blood Pressure 133/68 [Right] O2 Sat by Pulse 96 95 93 Oximetry 04/05/20 03:00 Temperature Pulse Rate 76 Respiratory 16 Rate Blood Pressure 135/62 Blood Pressure [Right] O2 Sat by Pulse 89 Oximetry Lab Results 04/04/20 04/05/20 04/05/20 Range/Units 19:30 02:23 02:23 Hgb 11.3 (10.1-14.3) gm/dl Hct 33.6 (30.3-42.9) % Plt Count 198 (140-440) K/mm3 Sodium 137 (137-145) mmol/L Potassium 4.0 (3.6-5.0) mmol/L Chloride 99.6 (98-107) mmol/L Carbon Dioxide 24 (22-30) mmol/L Anion Gap 17 mmol/L BUN 23 H (7-17) mg/dL Creatinine 1.1 (0.6-1.2) mg/dL Estimated GFR 47 ml/min BUN/Creatinine Ratio 21 % Glucose 81 (65-100) mg/dL Calcium 9.5 (8.4-10.2) mg/dL Magnesium 2.40 H (1.7-2.3) mg/dL Total Creatine Kinase 53 (30-135) units/L Urine Color Yellow (Yellow) Urine Turbidity Clear (Clear) Urine pH 6.0 (5.0-7.0) Ur Specific [place] 1.016 (1.003-1.030) Urine Protein 30 mg/dl (Negative) mg/dL Urine Glucose (UA) Neg (Negative) mg/dL Urine Ketones Neg (Negative) mg/dL Urine Blood Sm (Negative) Urine Nitrite Neg (Negative) Urine Bilirubin Neg (Negative) Urine Urobilinogen 4.0 (<2.0) mg/dL Ur Leukocyte Esterase Tr (Negative) Urine WBC (Auto) 9.0 H (0.0-6.0) /HPF Urine RBC (Auto) 34.0 (0.0-6.0) /HPF U Epithel Cells (Auto) < 1.0 (0-13.0) /HPF Hyaline Casts 4 /LPF Urine Mucus Few /HPF Salicylates (2.8-20.0) mg/dL Acetaminophen (10.0-30.0) ug/mL 04/05/20 04/05/20 Range/Units 02:23 02:23 Hgb (10.1-14.3) gm/dl Hct (30.3-42.9) % Plt Count (140-440) K/mm3 Sodium (137-145) mmol/L Potassium (3.6-5.0) mmol/L Chloride (98-107) mmol/L Carbon Dioxide (22-30) mmol/L Anion Gap mmol/L BUN (7-17) mg/dL Creatinine (0.6-1.2) mg/dL Estimated GFR ml/min BUN/Creatinine Ratio % Glucose (65-100) mg/dL Calcium (8.4-10.2) mg/dL Magnesium (1.7-2.3) mg/dL Total Creatine Kinase (30-135) units/L Urine Color (Yellow) Urine Turbidity (Clear) Urine pH (5.0-7.0) Ur Specific [place] (1.003-1.030) Urine Protein (Negative) mg/dL Urine Glucose (UA) (Negative) mg/dL Urine Ketones (Negative) mg/dL Urine Blood (Negative) Urine Nitrite (Negative) Urine Bilirubin (Negative) Urine Urobilinogen (<2.0) mg/dL Ur Leukocyte Esterase (Negative) Urine WBC (Auto) (0.0-6.0) /HPF Urine RBC (Auto) (0.0-6.0) /HPF U Epithel Cells (Auto) (0-13.0) /HPF Hyaline Casts /LPF Urine Mucus /HPF Salicylates < 0.3 L (2.8-20.0) mg/dL Acetaminophen 5.0 L (10.0-30.0) ug/mL - EKG Data 04/05/20 03:51 Sinus rhythm, 73 bpm, left axis deviation, left anterior fascicular block, incomplete right bundle branch block, low voltage in the lateral leads. Abnormal EKG. Not a STEMI. Unchanged from prior EKG from March 2020 - Medical Decision Making Differential diagnosis, including but not limited to: Nonulcer dyspepsia, constipation, functional abdominal pain, general medical evaluation Assessment and plan: 89-year-old female, whom I, and multiple other providers have evaluated in the past, presenting with her typical complaint of generalized malaise, and poor appetite. Objectively speaking, she is afebrile with reassuring vital signs, with an unremarkable physical exam, and her abdomen is soft and benign, but her examination today similar to prior examinations. Barbara becknt able to walk with a steady gait, and in fact was able to lay down 3 of her own blankets onto the stretcher, prior to laying down for her examination. Objective laboratory studies are reviewed and appreciated. Minimal pyuria appreciated on urinalysis, recent urine cultures were negative, and the patient denies urinary symptoms. This appears to be a continuation of the patient's chronic nonspecific GI complaints, she does not appear to have an emergent medical condition present today, and she is suitable to follow-up with an outpatient primary care doctor and/or movie star as an outpatient. Critical care attestation.: If time is entered above; I have spent that time in minutes in the direct care of this critically ill patient, excluding procedure time. ED Disposition Clinical Impression: General medical exam Disposition: DC-01 TO HOME OR SELFCARE Is pt being admited?: No Does the pt Need Aspirin: No Condition: Stable Additional Instructions: Minimize/avoid consumption of Motrin, ibuprofen, Naprosyn, Aleve. Avoid consumption of heavy and spicy foods. Please drink at least 4 cups of water per day indefinitely, and consume plenty of fiber, vegetables, and lean protein. Please follow-up with your primary care doctor or movie star within the next week to 2 weeks. Please return to the emergency room right away with new pain, worsened pain, migration of pain, projectile vomiting, change in mental status, confusion, inability to tolerate liquid feeds, new, worsened or different symptoms not present on the initial emergency room evaluation. Referrals: DIANNA HENDERSON MD [Staff Physician] - as needed ESTELLA GEORGES MD [Staff Physician] - as needed
[2020-04-05 02:53] LABS: Bilirubin,Urine NEG (Negative); Blood,Urine SM (Negative); Color,Urine Yellow (Yellow); Hyaline Casts,Urine 4 /LPF; Mucus,Urine FEW /HPF
[2020-04-05 03:03] LABS: Hematocrit 33.6 % (30.3-42.9); Hemoglobin 11.3 gm/dl (10.1-14.3)
[2020-04-05 03:09] LABS: Calcium 9.5 mg/dL (8.4-10.2)
[2020-04-05 06:08] VITALS: BP 144/67
== END 2020-04-05 14:16 | disposition home or self-care (01) ==
LOC: ED 12:34
DX: R53.1 Weakness (principal); R63.0 Anorexia; R53.81 Other malaise; K59.00 Constipation, unspecified; I25.2 Old myocardial infarction; I10 Essential (primary) hypertension; K21.9 Gastro-esophageal reflux disease without esophagitis; Z00.00 Encounter for general adult medical examination without abnormal findings; Z98.890 Other specified postprocedural states; Z79.899 Other long term (current) drug therapy; Z88.8 Allergy status to other drugs, medicaments and biological substances
CPT/HCPCS: 36415; 80048; 80320; 81001; 82550; 83735; 85014; 85018; 85049; 87086; 93005; G0480

== ENCOUNTER 2020-04-15 13:32 | Emergency (ER) | payer MEDICARE ==
--- NOTE | 2020-04-15 15:01 | Event Note ---
ED Screening Note Date of service: 04/15/20 Time: 15:00 ED Screening Note: 89-year-old female is brought here and dropped off by her son stating that she cannot pee. This initial assessment/diagnostic orders/clinical plan/treatment(s) is/are subject to change based on patients health status, clinical progression and re- assessment by fellow clinical providers in the ED. Further treatment and workup at subsequent clinical providers discretion. Patient/guardian urged not to elope from the ED as their condition may be serious if not clinically assessed and managed. Initial orders include:
--- NOTE | 2020-04-16 00:32 | Emergency Department Report ---
ED Female HPI - General Chief complaint: Urogenital-Female Stated complaint: CAN'T URINE Time Seen by Provider: 04/16/20 00:20 Source: patient, family Mode of arrival: Wheelchair Limitations: No Limitations - History of Present Illness Initial comments: 89-year-old female the past medical history of GERD, CAD, hypertension, hard of hearing, previous diverticulitis presents to the hospital with complaints of "inability to pee". Upon further questioning it appears that patient is actually urinating a small amount at a time but urinated more after arrival to the ED. patient states she "never feels well". As per medical record review, patient apparently has frequent ER visits for a variety of complaints she denies any pain or fever. She resides with her son. - Related Data Previous Rx's Medication Instructions Recorded Last Taken Type Nitrofurantoin [place]/M-Cryst 100 mg PO Q12HR #14 capsule 03/07/20 Unknown Rx [Macrobid CAP] Multivitamin Tab [Multiple Vitamin 1 each PO QDAY #30 tablet 03/17/20 Unknown Rx TAB (Theragran)] Ondansetron [Zofran ODT TAB] 8 mg PO Q8HR #30 tab.rapdis 03/17/20 Unknown Rx Pantoprazole Sodium [Protonix] 40 mg PO DAILY #30 granpkt.dr 03/17/20 Unknown Rx amLODIPine 5 mg PO QDAY #30 tablet 03/17/20 Unknown Rx Sulfamethoxazole/Trimethoprim 1 each PO BID #4 tablet 03/24/20 Unknown Rx [Bactrim DS TAB] Ondansetron [Zofran Odt] 4 mg PO Q8HR PRN #20 tab.rapdis 04/16/20 Unknown Rx Allergies Allergy/AdvReac Type Severity Reaction Status Date / Time dextromethorphan HBr Allergy Unknown Verified 11/25/19 08:50 [From DexAlone] ED Review of Systems ROS: Stated complaint: CAN'T URINE Other details as noted in HPI Comment: All other systems reviewed and negative ED Past Medical Hx - Past Medical History Previous Medical History?: Yes Hx Hypertension: Yes Hx Heart Attack/AMI: Yes Hx GERD: Yes Additional medical history: Lyme disease, Diverticulitis, Shingles - Surgical History Past Surgical History?: Yes Additional Surgical History: eyes, D&C - Social History Smoking Status: Never Smoker Substance Use Type: None - Medications Home Medications: Home Medications Medication Instructions Recorded Confirmed Last Taken Type Nitrofurantoin [place]/M-Cryst 100 mg PO Q12HR #14 capsule 03/07/20 Unknown Rx [Macrobid CAP] Multivitamin Tab [Multiple Vitamin 1 each PO QDAY #30 tablet 03/17/20 Unknown Rx TAB (Theragran)] Ondansetron [Zofran ODT TAB] 8 mg PO Q8HR #30 tab.rapdis 03/17/20 Unknown Rx Pantoprazole Sodium [Protonix] 40 mg PO DAILY #30 granpkt.dr 03/17/20 Unknown Rx amLODIPine 5 mg PO QDAY #30 tablet 03/17/20 Unknown Rx Sulfamethoxazole/Trimethoprim 1 each PO BID #4 tablet 03/24/20 Unknown Rx [Bactrim DS TAB] Ondansetron [Zofran Odt] 4 mg PO Q8HR PRN #20 tab.rapdis 04/16/20 Unknown Rx ED Physical Exam - General Limitations: No Limitations - Other Other exam information: General: No acute distress Head: Atraumatic Eyes: normal appearance ENT: Moist mucous membranes, hard of hearing Neck: Normal appearance, no midline tenderness Chest: Clear to auscultation bilaterally CV: Regular rate and rhythm Abdomen: Soft, normal bowel sounds, nontender, nondistended, no rebound or guarding Back: Normal inspection Extremity: Normal inspection, full range of motion Neuro: Alert, no facial asymmetry, speech clear, no gross motor sensory deficit Psych: Appropriate behavior Skin: No rash ED Course Vital Signs 04/16/20 04/16/20 04/16/20 00:19 00:20 00:21 Temperature 97.8 F Pulse Rate 69 69 Respiratory 14 10 L Rate Blood Pressure Blood Pressure 151/62 [Left] O2 Sat by Pulse 94 95 95 Oximetry 04/16/20 00:23 Temperature Pulse Rate 68 Respiratory 14 Rate Blood Pressure 151/62 Blood Pressure [Left] O2 Sat by Pulse 94 Oximetry ED Medical Decision Making - Lab Data Result diagrams: 04/16/20 00:26 04/16/20 00:26 Lab Results 04/16/20 04/16/20 04/16/20 Range/Units 00:26 00:26 00:41 WBC 4.5 (4.5-11.0) K/mm3 RBC 2.98 L (3.65-5.03) M/mm3 Hgb 10.8 (10.1-14.3) gm/dl Hct 32.6 (30.3-42.9) % MCV 109 H (79-97) fl MCH 36 H (28-32) pg MCHC 33 (30-34) % RDW 16.1 H (13.2-15.2) % Plt Count 195 (140-440) K/mm3 Lymph % (Auto) 25.0 (13.4-35.0) % [place] % (Auto) 10.7 H (0.0-7.3) % Eos % (Auto) 2.9 (0.0-4.3) % Baso % (Auto) 0.4 (0.0-1.8) % Lymph # (Auto) 1.1 L (1.2-5.4) K/mm3 [place] # (Auto) 0.5 (0.0-0.8) K/mm3 Eos # (Auto) 0.1 (0.0-0.4) K/mm3 Baso # (Auto) 0.0 (0.0-0.1) K/mm3 Seg Neutrophils % 61.0 (40.0-70.0) % Seg Neutrophils # 2.8 (1.8-7.7) K/mm3 Sodium 137 (137-145) mmol/L Potassium 4.2 (3.6-5.0) mmol/L Chloride 98.6 (98-107) mmol/L Carbon Dioxide 28 (22-30) mmol/L Anion Gap 15 mmol/L BUN 24 H (7-17) mg/dL Creatinine 1.2 (0.6-1.2) mg/dL Estimated GFR 42 ml/min BUN/Creatinine Ratio 20 % Glucose 72 (65-100) mg/dL Calcium 9.4 (8.4-10.2) mg/dL Urine Color Yellow (Yellow) Urine Turbidity Clear (Clear) Urine pH 6.0 (5.0-7.0) Ur Specific [place] 1.011 (1.003-1.030) Urine Protein <15 mg/dl (Negative) mg/dL Urine Glucose (UA) Neg (Negative) mg/dL Urine Ketones Neg (Negative) mg/dL Urine Blood Mod (Negative) Urine Nitrite Neg (Negative) Urine Bilirubin Neg (Negative) Urine Urobilinogen < 2.0 (<2.0) mg/dL Ur Leukocyte Esterase Neg (Negative) Urine WBC (Auto) 1.0 (0.0-6.0) /HPF Urine RBC (Auto) 8.0 (0.0-6.0) /HPF Urine Bacteria (Auto) 1+ (Negative) /HPF - Medical Decision Making Patient had a Brumfield catheter placed in the ED without difficulty and 30 mL of urine output obtained therefore patient does not have any signs of obstruction. She also admits to having urine output in the ED but felt it was decreased all day. pt;s labs unremarkable and urine without infection Patient is requesting a refill on her Zofran and is unsure if she has a refill waiting for her at her pharmacy she will be d/ce home to follow-up with her doctor since her ED work-up is unrem arkable Critical Care Time: No Critical care attestation.: If time is entered above; I have spent that time in minutes in the direct care of this critically ill patient, excluding procedure time. ED Disposition Clinical Impression: Lower urinary tract symptoms Disposition: TO HOME OR SELFCARE Is pt being admited?: No Does the pt Need Aspirin: No Condition: Stable Instructions: Dysuria Additional Instructions: Your labs and urine are unremarkable today without signs of infection. Follow- up with your doctor for further evaluation Prescriptions: Ondansetron [Zofran Odt] 4 mg PO Q8HR PRN #20 tab.rapdis PRN Reason: Nausea And Vomiting Referrals: PRIMARY CARE, [Primary Care Provider] - 3-5 Days Time of Disposition: 01:39
[2020-04-16 01:00] LABS: Basophils % (Auto) 0.4 % (0.0-1.8); Eosinophils # (Auto) 0.1 K/mm3 (0.0-0.4); Eosinophils % (Auto) 2.9 % (0.0-4.3); Hematocrit 32.6 % (30.3-42.9); Hemoglobin 10.8 gm/dl (10.1-14.3); Lymphocytes # (Auto) 1.1 K/mm3 (1.2-5.4); Mean Corpuscular HGB Conc 33 % (30-34); Mean Corpuscular Volume 109 fl (79-97); Monocytes # (Auto) 0.5 K/mm3 (0.0-0.8); Monocytes % (Auto) 10.7 % (0.0-7.3); Platelet Count 195 K/mm3 (140-440); Red Blood Count 2.98 M/mm3 (3.65-5.03); Red Cell Distribution Width 16.1 % (13.2-15.2)
[2020-04-16 01:07] LABS: Calcium 9.4 mg/dL (8.4-10.2)
[2020-04-16 01:23] LABS: Bacteria,Urine 1+ /HPF (Negative); Bilirubin,Urine NEG (Negative); Blood,Urine MOD (Negative); Color,Urine Yellow (Yellow); Protein,Urine <15 mg/dL mg/dL (Negative); Urobilinogen,Urine < 2.0 mg/dL (<2.0)
[2020-04-17] MEDS ORDERED: ONDANSETRON 8 MG ODT TAB PO PRN (16:49)
[2020-04-17] MEDS ORDERED: ACETAMINOPHEN 325 MG TAB PO PRN (16:50)
[2020-04-17 17:32] VITALS: BP 140/70
[2020-04-17] MEDS ORDERED: PANTOPRAZOLE 40 MG TAB PO SCH (18:00)
[2020-04-18] MEDS ORDERED: NON-FORMULARY EACH (Pantoprazole Sodium [Protonix] 40 MG Granpkt.Dr) PO SCH (10:00)
[2020-04-18] MEDS ORDERED: amLODIPine 5 MG TAB PO SCH (10:00)
[2020-04-18] MEDS ORDERED: MULTIVITAMINS ,THERAPEUTIC TAB PO SCH (10:00)
== END 2020-04-18 14:30 | disposition home or self-care (01) ==
LOC: ED 13:32
DX: R33.8 Other retention of urine (principal); I11.0 Hypertensive heart disease with heart failure; I50.9 Heart failure, unspecified; K21.9 Gastro-esophageal reflux disease without esophagitis; Z88.8 Allergy status to other drugs, medicaments and biological substances
CPT/HCPCS: 36415; 51702; 80048; 81001; 85025

== ENCOUNTER 2020-04-22 16:46 | Emergency (ER) | payer MEDICARE ==
[2020-04-22 17:33] VITALS: BP 118/64
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
[2020-04-23] MEDS ORDERED: amLODIPine 5 MG TAB PO SCH (10:00)
[2020-04-23] MEDS ORDERED: PANTOPRAZOLE 40 MG TAB PO SCH (10:00)
[2020-04-23] MEDS ORDERED: MULTIVITAMINS ,THERAPEUTIC TAB PO SCH (10:00)
[2020-04-23 11:54] LABS: Calcium 9.7 mg/dL (8.4-10.2)
== END 2020-04-23 13:10 | disposition home or self-care (01) ==
LOC: ED 16:46
DX: N28.9 Disorder of kidney and ureter, unspecified (principal); Z00.00 Encounter for general adult medical examination without abnormal findings; I11.0 Hypertensive heart disease with heart failure; I50.9 Heart failure, unspecified; K21.9 Gastro-esophageal reflux disease without esophagitis; Z88.8 Allergy status to other drugs, medicaments and biological substances
CPT/HCPCS: 36415; 80048; 80320; 82550; 83735; 99283; G0480

== ENCOUNTER 2020-05-07 19:50 | Inpatient (IN) | payer MEDICARE ==
[2020-05-07 21:19] LABS: Basophils % (Auto) 1.1 % (0.0-1.8); Eosinophils # (Auto) 0.1 K/mm3 (0.0-0.4); Eosinophils % (Auto) 2.4 % (0.0-4.3); Hematocrit 34.3 % (30.3-42.9); Hemoglobin 11.4 gm/dl (10.1-14.3); Lymphocytes # (Auto) 0.8 K/mm3 (1.2-5.4); Lymphocytes % (Auto) 18.4 % (13.4-35.0); Mean Corpuscular HGB Conc 33 % (30-34); Mean Corpuscular Volume 107 fl (79-97); Monocytes # (Auto) 0.4 K/mm3 (0.0-0.8); Monocytes % (Auto) 8.4 % (0.0-7.3); Platelet Count 197 K/mm3 (140-440); Red Cell Distribution Width 14.9 % (13.2-15.2)
[2020-05-07 21:40] LABS: Calcium 9.3 mg/dL (8.4-10.2)
[2020-05-07] MEDS ORDERED: SODIUM CHLORIDE 0.9% 1000 ML 1,000 ML IV ONE (23:18)
[2020-05-07] MEDS ORDERED: DICYCLOMINE 20 MG/2 ML INJ IM ONE (23:18)
--- NOTE | 2020-05-08 01:02 | Cat Scan Report ---
CT abdomen pelvis w con INDICATION: diarrhea with abd cramps. COMPARISON: 02/29/2020 CT abdomen TECHNIQUE: Abdominal and pelvic CT exam performed. All CT scans at this location are performed using CT dose reduction for ALARA by means of automated exposure control. FINDINGS: CT ABDOMEN and PELVIS: Lung Bases: Centrilobular nodularity with bronchiectasis seen within the lingula and right middle lob e. Atelectatic changes in the visualized lungs. Liver: No significant abnormality. Biliary: No significant abnormality. Spleen: No significant abnormality. Pancreas: No significant abnormality. Adrenals: No significant abnormality. Kidneys: Severe left renal atrophy. Right kidney appears within normal limits. No right stones. No hy dronephrosis. Lymphatics: No lymphadenopathy. Vasculature: Arterial atherosclerosis. Bowel: Diverticulosis without colonic wall thickening or pericolonic stranding. Normal appendix. Pelvis: Bladder is decompressed via Brumfield catheter. Osseous Structures: No aggressive osseous lesion. Scoliosis with associated multilevel spondylosis. N o acute osseous findings. Additional Findings: None IMPRESSION: 1. No acute abnormality of the abdomen or pelvis. Signer Name: Gabino Rosario MD Signed: 05/08/2020 12:57 AM Workstation Name: [id number]
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
[2020-05-08 02:14] LABS: Bacteria,Urine 1+ /HPF (Negative); Bilirubin,Urine NEG (Negative); Blood,Urine MOD (Negative); Color,Urine Straw (Yellow); Mucus,Urine FEW /HPF; Protein,Urine <15 mg/dL mg/dL (Negative); Urobilinogen,Urine < 2.0 mg/dL (<2.0)
[2020-05-08] MEDS ORDERED: cefTRIAXone/NS 1 GM/50 ML 1 GM/50 ML BAG IV ONE (03:16)
[2020-05-08] MEDS ORDERED: ONDANSETRON 4 MG/2 ML INJ IV PRN (03:26)
[2020-05-08] MEDS ORDERED: ACETAMINOPHEN 325 MG TAB PO PRN (03:26)
[2020-05-08] MEDS ORDERED: MORPHINE 2 MG/1 ML INJ IV PRN (03:26)
[2020-05-08] MEDS ORDERED: MAGNESIUM HYDROXIDE (MOM) ORAL LIQD UDC PO PRN (03:26)
--- NOTE | 2020-05-08 03:34 | History and Physical Report ---
History of Present Illness Date of examination: 05/08/20 Date of admission: 05/08/2020 Chief complaint: Diarrhea Abdominal Cramping History of present illness: 89-year-old white female with known history of hypertension, GERD and [place] presenting to the emergency room today with complaint of diarrhea which has been ongoing for the past 2 days. Patient is quite known to this hospital and has been in this facility on several occasions being abandoned by son. Patient states she has been having loose stools have been some abdominal pain which is crampy in nature. Patient is a poor historian but most of the history was gotten from the ER staff. Work-up in the emergency room today reveals some UTI. Patient is also being admitted for possible evaluation by case management Past History Past Medical History: GERD, hypertension, other (Diverticulitis,Shingles,Lyme disease,) Past Surgical History: Other (D&C, Eye surgery) Social history: other (Lives with Son) Family history: no significant family history Medications and Allergies Allergies Allergy/AdvReac Type Severity Reaction Status Date / Time dextromethorphan HBr Allergy Unknown Verified 11/25/19 08:50 [From DexAlone] Home Medications Medication Instructions Recorded Confirmed Last Taken Type Nitrofurantoin [place]/M-Cryst 100 mg PO Q12HR #14 capsule 03/07/20 Unknown Rx [Macrobid CAP] Multivitamin Tab [Multiple Vitamin 1 each PO QDAY #30 tablet 03/17/20 Unknown Rx TAB (Theragran)] Ondansetron [Zofran ODT TAB] 8 mg PO Q8HR #30 tab.rapdis 03/17/20 Unknown Rx Pantoprazole Sodium [Protonix] 40 mg PO DAILY #30 03/17/20 Unknown Rx amLODIPine 5 mg PO QDAY #30 tablet 03/17/20 Unknown Rx Sulfamethoxazole/Trimethoprim 1 each PO BID #4 tablet 03/24/20 Unknown Rx [Bactrim DS TAB] Ondansetron [Zofran Odt] 4 mg PO Q8HR PRN #20 tab.rapdis 04/16/20 Unknown Rx Active Meds: Active Medications Acetaminophen (Acetaminophen 325 Mg Tab) 650 mg PO Q4H PRN PRN Reason: Pain MILD(1-3)/Fever >100.5/SILVESTRE Heparin Sodium (Porcine) (Heparin 5,000 Unit/1 Ml Vial) 5,000 unit SUB-Q Q8HR RUDDY Ceftriaxone Sodium (Rocephin/Ns 1 Gm/50 Ml) 1 gm in 50 mls @ 100 mls/hr IV ONCE ONE; Protocol Stop: 05/08/20 03:45 Sodium Chloride (Nacl 0.9% 1000 Ml) 1,000 mls @ 75 mls/hr IV DIRECT RUDDY Magnesium Hydroxide (Magnesium Hydroxide (Mom) Oral Liqd Udc) 30 ml PO Q4H PRN PRN Reason: Constipation Morphine Sulfate (Morphine 2 Mg/1 Ml Inj) 2 mg IV Q4H PRN PRN Reason: Pain, Moderate (4-6) Ondansetron HCl (Ondansetron 4 Mg/2 Ml Inj) 4 mg IV Q8H PRN PRN Reason: Nausea And Vomiting Sodium Chloride (Sodium Chloride 0.9% 10 Ml Flush Syringe) 10 ml IV BID RUDDY Sodium Chloride (Sodium Chloride 0.9% 10 Ml Flush Syringe) 10 ml IV PRN PRN PRN Reason: LINE FLUSH Review of Systems Constitutional: no fever, no chills Ears, nose, mouth and throat: no nasal congestion, no sore throat Cardiovascular: no chest pain, no palpitations Respiratory: no cough, no shortness of breath Gastrointestinal: abdominal pain, diarrhea, no nausea, no vomiting Genitourinary Female: no pelvic pain, no flank pain, no dysuria Integumentary: no rash, no pruritis Neurological: no headaches, no confusion Psychiatric: no anxiety, no depression Exam - Constitutional Vitals: Temp Pulse Resp BP Pulse Ox 97.8 F 83 16 143/65 96 05/07/20 20:26 05/07/20 20:26 05/07/20 20:26 05/07/20 20:26 05/07/20 20:26 General appearance: Present: no acute distress, well-nourished - EENT Eyes: Present: PERRL, EOM intact. Absent: scleral icterus ENT: hearing intact, clear oral mucosa, dentition normal - Neck Neck: Present: supple, normal ROM - Respiratory Respiratory effort: normal Respiratory: bilateral: CTA - Cardiovascular Rhythm: regular Heart Sounds: Present: S1 & S2. Absent: gallop, systolic murmur, diastolic murmur, rub - Extremities Extremities: no ischemia, pulses intact, pulses symmetrical, Full ROM Extremity abnormal: edema (1+) Peripheral Pulses: within normal limits - Abdominal General gastrointestinal: Present: soft, non-tender, non-distended, normal bowel sounds. Absent: mass - Integumentary Integumentary: Present: clear, warm, dry - Musculoskeletal Musculoskeletal: strength equal bilaterally - Psychiatric Psychiatric: appropriate mood/affect, intact judgment & insight, memory intact, cooperative - Neurologic Neurologic: CNII-XII intact, no focal deficits, moves all extremities Results - Labs CBC & Chem 7: 05/07/20 21:05/07/20 21: Labs: Abnormal lab results 05/07/20 05/07/20 05/08/20 Range/Units 21: 21: 01:25 WBC 4.3 L (4.5-11.0) K/mm3 RBC 3.20 L (3.65-5.03) M/mm3 MCV 107 H (79-97) fl MCH 36 H (28-32) pg [place] % (Auto) 8.4 H (0.0-7.3) % Lymph # (Auto) 0.8 L (1.2-5.4) K/mm3 BUN 19 H (7-17) mg/dL Urine WBC (Auto) 66.0 H (0.0-6.0) /HPF Assessment and Plan - Patient Problems (1) Acute cystitis Current Visit: Yes Status: Acute Qualifiers: Hematuria presence: without hematuria Qualified Code(s): N30.00 - Acute cystitis without hematuria Plan to address problem: Placed on empiric IV antibiotics. We will await urine culture results. (2) Diarrhea Current Visit: No Status: Acute Qualifiers: Diarrhea type: unspecified type Qualified Code(s): R19.7 - Diarrhea, unspecified Plan to address problem: Etiology unclear. We will continue to monitor. Patient will be given some gentle IV fluid hydration. (3) Hypertension Current Visit: No Status: Acute Qualifiers: Hypertension type: essential hypertension Qualified Code(s): I10 - Essential (primary) hypertension Plan to address problem: We will resume routine home medications. Will monitor vital signs closely. (4) DVT prophylaxis Current Visit: No Status: Acute Plan to address problem: Patient placed on subcutaneous heparin. (5) Full code status Current Visit: No Status: Acute Plan to address problem: Patient is a full code.
[2020-05-08] MEDS: SODIUM CHLORIDE 0.9% 1000 ML 1,000 ML IV SCH ×3 (05:47→23:28)
[2020-05-08] MEDS: HEPARIN 5,000 UNIT/1 ML VIAL SUB-Q SCH ×3 (05:47→21:26)
--- NOTE | 2020-05-08 13:14 | Progress Note ---
Assessment and Plan Assessment and plan: --Acute diarrhea: Probably viral, and today advance IV fluids, supportive care Stool for analysis if no improvement I will increase IV fluids 200 mL/h Also add antidiarrheals And antiemetics --Acute cystitis/urinary tract infection Empiric antibiotics, follow cultures IV fluids and supportive care Follow urine cultures --Hypertension; moderate control Resume home antihypertensives, as needed medications --DVT prophylaxis;Lovenox --CODE STATUS We will closely monitor the patient and adjust management as needed\ plan of care reviewed with the patient's and her nurse Advance care 35 minutes - History Interval history: I have seen and examined the patient at the bedside Patient's chart and medications reviewed Hospitalist Physical - Constitutional Vitals: Temp Pulse Resp BP Pulse Ox 98.3 F 80 18 164/86 96 05/08/20 07:55 05/08/20 07:55 05/08/20 07:55 05/08/20 07:55 05/08/20 07:55 General appearance: Present: no acute distress, well-nourished - EENT Eyes: Present: PERRL, EOM intact - Neck Neck: Present: supple, normal ROM - Respiratory Respiratory effort: normal Respiratory: bilateral: diminished, negative: rales, rhonchi, wheezing - Cardiovascular Rhythm: regular Heart Sounds: Present: S1 & S2 - Extremities Extremities: no ischemia, No edema - Abdominal General gastrointestinal: soft, non-tender, non-distended, normal bowel sounds - Integumentary Integumentary: Present: clear, warm - Psychiatric Psychiatric: appropriate mood/affect, cooperative - Neurologic Neurologic: CNII-XII intact, moves all extremities Results - Labs CBC & Chem 7: 05/07/20 21:01 05/07/20 21: Labs: Laboratory Last Values WBC 4.3 K/mm3 (4.5-11.0) L 05/07/20 21: RBC 3.20 M/mm3 (3.65-5.03) L 05/07/20 21: Hgb 11.4 gm/dl (10.1-14.3) 05/07/20 21: Hct 34.3 % (30.3-42.9) 05/07/20 21: MCV 107 fl (79-97) H 05/07/20 21: MCH 36 pg (28-32) H 05/07/20 21:01 MCHC 33 % (30-34) 05/07/20 21:01 RDW 14.9 % (13.2-15.2) 05/07/20 21:01 Plt Count 197 K/mm3 (140-440) 05/07/20 21:01 Lymph % (Auto) 18.4 % (13.4-35.0) 05/07/20 21:01 [place] % (Auto) 8.4 % (0.0-7.3) H 05/07/20 21:01 Eos % (Auto) 2.4 % (0.0-4.3) 05/07/20 21:01 Baso % (Auto) 1.1 % (0.0-1.8) 05/07/20 21: Lymph # (Auto) 0.8 K/mm3 (1.2-5.4) L 05/07/20 21:01 [place] # (Auto) 0.4 K/mm3 (0.0-0.8) 05/07/20 21: Eos # (Auto) 0.1 K/mm3 (0.0-0.4) 05/07/20 21:01 Baso # (Auto) 0.0 K/mm3 (0.0-0.1) 05/07/20 21: Seg Neutrophils % 69.7 % (40.0-70.0) 05/07/20 21: Seg Neutrophils # 3.0 K/mm3 (1.8-7.7) 05/07/20 21: Sodium 139 mmol/L (137-145) 05/07/20 21: Potassium 3.8 mmol/L (3.6-5.0) 05/07/20 21: Chloride 102.4 mmol/L (98-107) 05/07/20 21: Carbon Dioxide 27 mmol/L (22-30) 05/07/20 21: Anion Gap 13 mmol/L 05/07/20 21: BUN 19 mg/dL (7-17) H 05/07/20 21:01 Creatinine 1.0 mg/dL (0.6-1.2) 05/07/20 21: Estimated GFR 52 ml/min 05/07/20 21: BUN/Creatinine Ratio 19 % 05/07/20 21:01 Glucose 89 mg/dL (65-100) 05/07/20 21:01 Calcium 9.3 mg/dL (8.4-10.2) 05/07/20 21:01 Urine Color Straw (Yellow) 05/08/20 01:25 Urine Turbidity Clear (Clear) 05/08/20 01:25 Urine pH 7.0 (5.0-7.0) 05/08/20 01:25 Ur Specific [place] 1.011 (1.003-1.030) 05/08/20 01:25 Urine Protein <15 mg/dl mg/dL (Negative) 05/08/20 01:25 Urine Glucose (UA) Neg mg/dL (Negative) 05/08/20 01:25 Urine Ketones Neg mg/dL (Negative) 05/08/20 01:25 Urine Blood Mod (Negative) 05/08/20 01:25 Urine Nitrite Pos (Negative) 05/08/20 01:25 Urine Bilirubin Neg (Negative) 05/08/20 01:25 Urine Urobilinogen < 2.0 mg/dL (<2.0) 05/08/20 01:25 Ur Leukocyte Esterase Lg (Negative) 05/08/20 01:25 Urine WBC (Auto) 66.0 /HPF (0.0-6.0) H 05/08/20 01:25 Urine RBC (Auto) 7.0 /HPF (0.0-6.0) 05/08/20 01:25 Urine Bacteria (Auto) 1+ /HPF (Negative) 05/08/20 01:25 Urine Mucus Few /HPF 05/08/20 01:25 [place]/IV: Voiding Method Indwelling Catheter IV Catheter Type [Left Forearm INT / Saline Lock ] Active Medications - Current Medications Current Medications: Generic Name Dose Route Start Last Admin Trade Name Freq PRN Reason Stop Dose Admin Acetaminophen 650 mg 05/08/20 03:26 Acetaminophen 325 Mg Tab PO Q4H PRN Pain MILD(1-3)/Fever >100.5/SILVESTRE Heparin Sodium (Porcine) 5,000 unit 05/08/20 06:00 05/08/20 05:47 Heparin 5,000 Unit/1 Ml Vial SUB-Q 5,000 unit Q8HR RUDDY Administration Sodium Chloride 1,000 mls @ 75 mls/hr 05/08/20 03:30 05/08/20 05:47 Nacl 0.9% 1000 Ml IV 75 mls/hr DIRECT RUDDY Administration Magnesium Hydroxide 30 ml 05/08/20 03:26 Magnesium Hydroxide (Mom) Oral Liqd Udc PO Q4H PRN Constipation Morphine Sulfate 2 mg 05/08/20 03:26 Morphine 2 Mg/1 Ml Inj IV Q4H PRN Pain, Moderate (4-6) Ondansetron HCl 4 mg 05/08/20 03:26 Ondansetron 4 Mg/2 Ml Inj IV Q8H PRN Nausea And Vomiting Sodium Chloride 10 ml 05/08/20 10:00 05/08/20 09:52 Sodium Chloride 0.9% 10 Ml Flush Syringe IV Not Given BID RUDDY Sodium Chloride 10 ml 05/08/20 03:26 Sodium Chloride 0.9% 10 Ml Flush Syringe IV PRN PRN LINE FLUSH
[2020-05-08] MEDS: cefTRIAXone/NS 1 GM/50 ML 1 GM/50 ML BAG IV SCH (23:27)
[2020-05-09] MEDS: HEPARIN 5,000 UNIT/1 ML VIAL SUB-Q SCH ×3 (05:41→21:40)
[2020-05-09 09:11] LABS: BUN/Creatinine Ratio 16; Blood Urea Nitrogen 13 mg/dL (7-17); Calcium 8.9 mg/dL (8.4-10.2); Hemolysis Index 17
[2020-05-09 10:01] LABS: Basophils % (Auto) 0.4 % (0.0-1.8); Eosinophils # (Auto) 0.4 K/mm3 (0.0-0.4); Eosinophils % (Auto) 5.5 % (0.0-4.3); Hemoglobin 12.5 gm/dl (10.1-14.3); Lymphocytes # (Auto) 0.7 K/mm3 (1.2-5.4); Lymphocytes % (Auto) 10.6 % (13.4-35.0); Mean Corpuscular HGB Conc 34 % (30-34); Mean Corpuscular Volume 106 fl (79-97); Monocytes # (Auto) 0.5 K/mm3 (0.0-0.8); Monocytes % (Auto) 7.2 % (0.0-7.3); Platelet Count 222 K/mm3 (140-440); Red Blood Count 3.49 M/mm3 (3.65-5.03); Red Cell Distribution Width 14.9 % (13.2-15.2)
[2020-05-09 10:11] LABS: INR 1.1 (0.87-1.13)
[2020-05-09] MEDS: MULTIVITAMINS ,THERAPEUTIC TAB PO SCH (10:12)
[2020-05-09] MEDS: amLODIPine 5 MG TAB PO SCH (10:12)
[2020-05-09] MEDS: SODIUM CHLORIDE 0.9% 1000 ML 1,000 ML IV SCH (10:15)
[2020-05-09] MEDS: hydrALAZINE 25 MG TAB PO SCH ×2 (14:09→21:38)
--- NOTE | 2020-05-09 14:29 | Progress Note ---
Assessment and Plan Assessment and plan: --Acute diarrhea: Probably viral, and today advance IV fluids, supportive care Stool for analysis if no improvement Continue IV fluids Also add antidiarrheals And antiemetics --Acute cystitis/urinary tract infection Empiric antibiotics, follow cultures IV fluids and supportive care --Positive urine cultures/Klebsiella Follow sensitivities, continue Rocephin Contact isolation, follow sensitivities and adjust Consult ID if needed --Hypertension; moderate control Resume home antihypertensives, as needed medications --DVT prophylaxis;Lovenox --CODE STATUS We will closely monitor the patient and adjust management as needed\ plan of care reviewed with the patient's and her nurse Physical therapy occupational therapy Possible placement fpc versus SNF History Interval history: I have seen and examined the patient at the bedside Patient's chart and medications reviewed Patient feels slightly better Receiving empiric antibiotics for UTI Vital signs noted Hospitalist Physical - Constitutional Vitals: Temp Pulse Resp BP Pulse Ox 97.7 F 91 H 18 153/81 95 05/09/20 12:36 05/09/20 12:36 05/09/20 12:36 05/09/20 12:36 05/09/20 12:36 General appearance: Present: no acute distress, well-nourished - EENT Eyes: Present: PERRL, EOM intact - Neck Neck: Present: supple, normal ROM Results - Labs CBC & Chem 7: 05/09/20 07:29 05/09/20 07:29 Labs: Laboratory Last Values WBC 6.7 K/mm3 (4.5-11.0) 05/09/20 07:29 RBC 3.49 M/mm3 (3.65-5.03) L 05/09/20 07:29 Hgb 12.5 gm/dl (10.1-14.3) 05/09/20 07:29 Hct 37.0 % (30.3-42.9) 05/09/20 07:29 MCV 106 fl (79-97) H 05/09/20 07:29 MCH 36 pg (28-32) H 05/09/20 07:29 MCHC 34 % (30-34) 05/09/20 07:29 RDW 14.9 % (13.2-15.2) 05/09/20 07:29 Plt Count 222 K/mm3 (140-440) 05/09/20 07:29 Lymph % (Auto) 10.6 % (13.4-35.0) L 05/09/20 07:29 [place] % (Auto) 7.2 % (0.0-7.3) 05/09/20 07:29 Eos % (Auto) 5.5 % (0.0-4.3) H 05/09/20 07:29 Baso % (Auto) 0.4 % (0.0-1.8) 05/09/20 07:29 Lymph # (Auto) 0.7 K/mm3 (1.2-5.4) L 05/09/20 07:29 [place] # (Auto) 0.5 K/mm3 (0.0-0.8) 05/09/20 07:29 Eos # (Auto) 0.4 K/mm3 (0.0-0.4) 05/09/20 07:29 Baso # (Auto) 0.0 K/mm3 (0.0-0.1) 05/09/20 07: Seg Neutrophils % 76.3 % (40.0-70.0) H 05/09/20 07:29 Seg Neutrophils # 5.1 K/mm3 (1.8-7.7) 05/09/20 07:29 PT 14.0 Sec. (12.2-14.9) 05/09/20 07:29 INR 1.10 (0.87-1.13) 05/09/20 07:29 Sodium 140 mmol/L (137-145) 05/09/20 07:29 Potassium 4.0 mmol/L (3.6-5.0) 05/09/20 07: Chloride 102.5 mmol/L (98-107) 05/09/20 07:29 Carbon Dioxide 32 mmol/L (22-30) H 05/09/20 07:29 Anion Gap 10 mmol/L 05/09/20 07:29 BUN 13 mg/dL (7-17) 05/09/20 07:29 Creatinine 0.8 mg/dL (0.6-1.2) 05/09/20 07:29 Estimated GFR > 60 ml/min 05/09/20 07:29 BUN/Creatinine Ratio 16 % 05/09/20 07:29 Glucose 89 mg/dL (65-100) 05/09/20 07:29 Calcium 8.9 mg/dL (8.4-10.2) 05/09/20 07:29 Urine Color Straw (Yellow) 05/08/20 01:25 Urine Turbidity Clear (Clear) 05/08/20 01:25 Urine pH 7.0 (5.0-7.0) 05/08/20 01:25 Ur Specific [place] 1.011 (1.003-1.030) 05/08/20 01:25 Urine Protein <15 mg/dl mg/dL (Negative) 05/08/20 01:25 Urine Glucose (UA) Neg mg/dL (Negative) 05/08/20 01:25 Urine Ketones Neg mg/dL (Negative) 05/08/20 01:25 Urine Blood Mod (Negative) 05/08/20 01:25 Urine Nitrite Pos (Negative) 05/08/20 01:25 Urine Bilirubin Neg (Negative) 05/08/20 01:25 Urine Urobilinogen < 2.0 mg/dL (<2.0) 05/08/20 01:25 Ur Leukocyte Esterase Lg (Negative) 05/08/20 01:25 Urine WBC (Auto) 66.0 /HPF (0.0-6.0) H 05/08/20 01:25 Urine RBC (Auto) 7.0 /HPF (0.0-6.0) 05/08/20 01:25 Urine Bacteria (Auto) 1+ /HPF (Negative) 05/08/20 01:25 Urine Mucus Few /HPF 05/08/20 01:25 [place]/IV: Voiding Method Indwelling Catheter IV Catheter Type [Left Forearm INT / Saline Lock ] Active Medications - Current Medications Current Medications: Generic Name Dose Route Start Last Admin Trade Name Freq PRN Reason Stop Dose Admin Acetaminophen 650 mg 05/08/20 03:26 Acetaminophen 325 Mg Tab PO Q4H PRN Pain MILD(1-3)/Fever >100.5/SILVESTRE Amlodipine Besylate 5 mg 05/09/20 10:00 05/09/20 10:12 Amlodipine 5 Mg Tab PO 5 mg QDAY RUDDY Administration Heparin Sodium (Porcine) 5,000 unit 05/08/20 06:00 05/09/20 14:09 Heparin 5,000 Unit/1 Ml Vial SUB-Q 5,000 unit Q8HR RUDDY Administration Hydralazine HCl 25 mg 05/09/20 14:00 05/09/20 14:09 Hydralazine 25 Mg Tab PO 25 mg Q8HR RUDDY Administration Sodium Chloride 1,000 mls @ 75 mls/hr 05/08/20 03:30 05/09/20 10:15 Nacl 0.9% 1000 Ml IV 75 mls/hr DIRECT RUDDY Administration Ceftriaxone Sodium 1 gm in 50 mls @ 100 mls/hr 05/08/20 23:00 05/08/20 23:27 Rocephin/Ns 1 Gm/50 Ml IV 100 mls/hr Q24H RUDDY Administration Protocol Magnesium Hydroxide 30 ml 05/08/20 03:26 Magnesium Hydroxide (Mom) Oral Liqd Udc PO Q4H PRN Constipation Morphine Sulfate 2 mg 05/08/20 03:26 Morphine 2 Mg/1 Ml Inj IV Q4H PRN Pain, Moderate (4-6) Multivitamins 1 each 05/09/20 10:00 05/09/20 10:12 Multivitamins ,Therapeutic Tab PO 1 each QDAY RUDDY Administration Ondansetron HCl 4 mg 05/08/20 03:26 Ondansetron 4 Mg/2 Ml Inj IV Q8H PRN Nausea And Vomiting Sodium Chloride 10 ml 05/08/20 10:00 05/09/20 10:12 Sodium Chloride 0.9% 10 Ml Flush Syringe IV 10 ml BID RUDDY Administration Sodium Chloride 10 ml 05/08/20 03:26 Sodium Chloride 0.9% 10 Ml Flush Syringe IV PRN PRN LINE FLUSH
[2020-05-09] MEDS: cefTRIAXone/NS 1 GM/50 ML 1 GM/50 ML BAG IV SCH (22:31)
[2020-05-10] MEDS: hydrALAZINE 25 MG TAB PO SCH ×3 (05:20→22:35)
[2020-05-10] MEDS: HEPARIN 5,000 UNIT/1 ML VIAL SUB-Q SCH ×3 (05:21→22:35)
[2020-05-10] MEDS: MULTIVITAMINS ,THERAPEUTIC TAB PO SCH (09:17)
--- NOTE | 2020-05-10 10:53 | Progress Note ---
Assessment and Plan Assessment and plan: --Acute cystitis/UTI Empiric antibiotics, follow cultures IV fluids and supportive care --Klebsiella UTI; Contact isolation, continue current antibiotics Rocephin Evaluation noted and appreciated Recommend 3 days of Rocephin and DC --Acute diarrhea: Resolved Supportive care --Positive urine cultures/Klebsiella 3 days of Rocephin and DC per ID --Hypertension; moderate control Resume home antihypertensives, as needed medications --DVT prophylaxis;Lovenox --CODE STATUS We will closely monitor the patient and adjust management as needed\ plan of care reviewed with the patient's and her nurse Physical therapy occupational therapy Possible placement detention versus SNF DC home tomorrow if stable Discharge planning per case management 05/10/2020; urinary tract infection Klebsiella pneumonia Patient is on Rocephin contact isolation ID evaluated the patient in consultation, recommend total 3 days of Rocephin and DC Possible discharge tomorrow if stable, home with son versus placement History Interval history: I seen and examined the patient at the bedside Patient's chart and medications reviewed Patient feels slightly better no new complaints Klebsiella UTI, on Rocephin and contact isolation Hospitalist Physical - Constitutional Vitals: Temp Pulse Resp BP Pulse Ox 98.7 F 91 H 18 116/61 94 05/10/20 08:19 05/10/20 08:19 05/10/20 08:19 05/10/20 08:19 05/10/20 08:19 General appearance: Present: no acute distress, well-nourished - EENT Eyes: Present: PERRL, EOM intact - Neck Neck: Present: supple, normal ROM - Respiratory Respiratory effort: normal Respiratory: bilateral: diminished, negative: rales, rhonchi, wheezing - Cardiovascular Rhythm: regular Heart Sounds: Present: S1 & S2 - Extremities Extremities: no ischemia, No edema - Abdominal General gastrointestinal: soft, non-tender, non-distended, normal bowel sounds - Integumentary Integumentary: Present: clear, warm - Psychiatric Psychiatric: appropriate mood/affect, cooperative - Neurologic Neurologic: moves all extremities Results - Labs CBC & Chem 7: 05/09/20 07:29 05/09/20 07:29 Labs: Laboratory Last Values WBC 6.7 K/mm3 (4.5-11.0) 05/09/20 07:29 RBC 3.49 M/mm3 (3.65-5.03) L 05/09/20 07: Hgb 12.5 gm/dl (10.1-14.3) 05/09/20 07: Hct 37.0 % (30.3-42.9) 05/09/20 07: MCV 106 fl (79-97) H 05/09/20 07: MCH 36 pg (28-32) H 05/09/20 07: MCHC 34 % (30-34) 05/09/20 07: RDW 14.9 % (13.2-15.2) 05/09/20 07: Plt Count 222 K/mm3 (140-440) 05/09/20 07: Lymph % (Auto) 10.6 % (13.4-35.0) L 05/09/20 07: [place] % (Auto) 7.2 % (0.0-7.3) 05/09/20 07: Eos % (Auto) 5.5 % (0.0-4.3) H 05/09/20 07: Baso % (Auto) 0.4 % (0.0-1.8) 05/09/20 07: Lymph # (Auto) 0.7 K/mm3 (1.2-5.4) L 05/09/20 07: [place] # (Auto) 0.5 K/mm3 (0.0-0.8) 05/09/20 07: Eos # (Auto) 0.4 K/mm3 (0.0-0.4) 05/09/20 07: Baso # (Auto) 0.0 K/mm3 (0.0-0.1) 05/09/20 07: Seg Neutrophils % 76.3 % (40.0-70.0) H 05/09/20 07: Seg Neutrophils # 5.1 K/mm3 (1.8-7.7) 05/09/20 07: PT 14.0 Sec. (12.2-14.9) 05/09/20 07: INR 1.10 (0.87-1.13) 05/09/20 07: Sodium 140 mmol/L (137-145) 05/09/20 07: Potassium 4.0 mmol/L (3.6-5.0) 05/09/20 07: Chloride 102.5 mmol/L (98-107) 05/09/20 07:29 Carbon Dioxide 32 mmol/L (22-30) H 05/09/20 07:29 Anion Gap 10 mmol/L 05/09/20 07:29 BUN 13 mg/dL (7-17) 05/09/20 07:29 Creatinine 0.8 mg/dL (0.6-1.2) 05/09/20 07:29 Estimated GFR > 60 ml/min 05/09/20 07:29 BUN/Creatinine Ratio 16 % 05/09/20 07:29 Glucose 89 mg/dL (65-100) 05/09/20 07: Calcium 8.9 mg/dL (8.4-10.2) 05/09/20 07:29 Urine Color Straw (Yellow) 05/08/20 01:25 Urine Turbidity Clear (Clear) 05/08/20 01:25 Urine pH 7.0 (5.0-7.0) 05/08/20 01:25 Ur Specific [place] 1.011 (1.003-1.030) 05/08/20 01:25 Urine Protein <15 mg/dl mg/dL (Negative) 05/08/20 01:25 Urine Glucose (UA) Neg mg/dL (Negative) 05/08/20 01:25 Urine Ketones Neg mg/dL (Negative) 05/08/20 01:25 Urine Blood Mod (Negative) 05/08/20 01:25 Urine Nitrite Pos (Negative) 05/08/20 01:25 Urine Bilirubin Neg (Negative) 05/08/20 01:25 Urine Urobilinogen < 2.0 mg/dL (<2.0) 05/08/20 01:25 Ur Leukocyte Esterase Lg (Negative) 05/08/20 01:25 Urine WBC (Auto) 66.0 /HPF (0.0-6.0) H 05/08/20 01:25 Urine RBC (Auto) 7.0 /HPF (0.0-6.0) 05/08/20 01:25 Urine Bacteria (Auto) 1+ /HPF (Negative) 05/08/20 01:25 Urine Mucus Few /HPF 05/08/20 01:25 Microbiology: Microbiology 05/08/20 01:25 Urine,Clean Catch Urine Culture - Preliminary Klebsiella Species [place]/IV: Voiding Method Indwelling Catheter IV Catheter Type [Left Forearm INT / Saline Lock ] Active Medications - Current Medications Current Medications: Generic Name Dose Route Start Last Admin Trade Name Freq PRN Reason Stop Dose Admin Acetaminophen 650 mg 05/08/20 03:26 Acetaminophen 325 Mg Tab PO Q4H PRN Pain MILD(1-3)/Fever >100.5/SILVESTRE Amlodipine Besylate 5 mg 05/09/20 10:00 05/09/20 10:12 Amlodipine 5 Mg Tab PO 5 mg QDAY RUDDY Administration Heparin Sodium (Porcine) 5,000 unit 05/08/20 06:00 05/10/20 05:21 Heparin 5,000 Unit/1 Ml Vial SUB-Q 5,000 unit Q8HR RUDDY Administration Hydralazine HCl 25 mg 05/09/20 14:00 05/10/20 05:20 Hydralazine 25 Mg Tab PO 25 mg Q8HR RUDDY Administration Sodium Chloride 1,000 mls @ 75 mls/hr 05/08/20 03:30 05/09/20 10:15 Nacl 0.9% 1000 Ml IV 75 mls/hr DIRECT RUDDY Administration Ceftriaxone Sodium 1 gm in 50 mls @ 100 mls/hr 05/08/20 23:00 05/09/20 22:31 Rocephin/Ns 1 Gm/50 Ml IV 100 mls/hr Q24H RUDDY Administration Protocol Magnesium Hydroxide 30 ml 05/08/20 03:26 Magnesium Hydroxide (Mom) Oral Liqd Udc PO Q4H PRN Constipation Morphine Sulfate 2 mg 05/08/20 03:26 Morphine 2 Mg/1 Ml Inj IV Q4H PRN Pain, Moderate (4-6) Multivitamins 1 each 05/09/20 10:00 05/10/20 09:17 Multivitamins ,Therapeutic Tab PO 1 each QDAY RUDDY Administration Ondansetron HCl 4 mg 05/08/20 03:26 Ondansetron 4 Mg/2 Ml Inj IV Q8H PRN Nausea And Vomiting Sodium Chloride 10 ml 05/08/20 10:00 05/10/20 09:20 Sodium Chloride 0.9% 10 Ml Flush Syringe IV 10 ml BID RUDDY Administration Sodium Chloride 10 ml 05/08/20 03:26 Sodium Chloride 0.9% 10 Ml Flush Syringe IV PRN PRN LINE FLUSH
--- NOTE | 2020-05-10 16:32 | Consultation ---
History of Present Illness - Reason for Consult Consult date: 05/10/20 - History of Present Illness 89-year-old female past medical history hypertension, [place], GERD presented to the hospital complaining of 2 days of diarrhea. She complains of associated crampy abdominal pain and loose stools. She is frequently brought to the hospital she is abandoned by her son. Afebrile since admission with a normal white count. Urinalysis with some pyuria. Urine culture with Klebsiella. She is currently on ceftriaxone. Imaging personally reviewed: Abdominal CT: No acute abnormality Past History Past Medical History: GERD, hypertension, other (Diverticulitis,Shingles,Lyme disease,) Past Surgical History: Other (D&C, Eye surgery) Social history: other (Lives with Son) Family history: no significant family history Medications and Allergies Allergies Allergy/AdvReac Type Severity Reaction Status Date / Time dextromethorphan HBr Allergy Unknown Verified 11/25/19 08:50 [From DexAlone] Home Medications Medication Instructions Recorded Confirmed Last Taken Type Nitrofurantoin [facility]/M-Cryst 100 mg PO Q12HR #14 capsule 03/07/20 Unknown Rx [Macrobid CAP] Multivitamin Tab [Multiple Vitamin 1 each PO QDAY #30 tablet 03/17/20 Unknown Rx TAB (Theragran)] Ondansetron [Zofran ODT TAB] 8 mg PO Q8HR #30 tab.rapdis 03/17/20 Unknown Rx Pantoprazole Sodium [Protonix] 40 mg PO DAILY #30 granpkt. 03/17/20 Unknown Rx amLODIPine 5 mg PO QDAY #30 tablet 03/17/20 Unknown Rx Sulfamethoxazole/Trimethoprim 1 each PO BID #4 tablet 03/24/20 Unknown Rx [Bactrim DS TAB] Ondansetron [Zofran Odt] 4 mg PO Q8HR PRN #20 tab.rapdis 04/16/20 Unknown Rx Active Meds: Active Medications Acetaminophen (Acetaminophen 325 Mg Tab) 650 mg PO Q4H PRN PRN Reason: Pain MILD(1-3)/Fever >100.5/SILVESTRE Amlodipine Besylate (Amlodipine 5 Mg Tab) 5 mg PO QDAY RUDDY Last Admin: 05/09/20 10:12 Dose: 5 mg Documented by: Heparin Sodium (Porcine) (Heparin 5,000 Unit/1 Ml Vial) 5,000 unit SUB-Q Q8HR [facility] Last Admin: 05/10/20 15:05 Dose: 5,000 unit Documented by: Hydralazine HCl (Hydralazine 25 Mg Tab) 25 mg PO Q8HR [facility] Last Admin: 05/10/20 05:20 Dose: 25 mg Documented by: Sodium Chloride (Nacl 0.9% 1000 Ml) 1,000 mls @ 75 mls/hr IV DIRECT [facility] Last Admin: 05/09/20 10:15 Dose: 75 mls/hr Documented by: Ceftriaxone Sodium (Rocephin/Ns 1 Gm/50 Ml) 1 gm in 50 mls @ 100 mls/hr IV Q24H [facility]; Protocol Last Admin: 05/09/20 22:31 Dose: 100 mls/hr Documented by: Magnesium Hydroxide (Magnesium Hydroxide (Mom) Oral Liqd Udc) 30 ml PO Q4H PRN PRN Reason: Constipation Morphine Sulfate (Morphine 2 Mg/1 Ml Inj) 2 mg IV Q4H PRN PRN Reason: Pain, Moderate (4-6) Multivitamins (Multivitamins ,Therapeutic Tab) 1 each PO QDAY [facility] Last Admin: 05/10/20 09:17 Dose: 1 each Documented by: Ondansetron HCl (Ondansetron 4 Mg/2 Ml Inj) 4 mg IV Q8H PRN PRN Reason: Nausea And Vomiting Sodium Chloride (Sodium Chloride 0.9% 10 Ml Flush Syringe) 10 ml IV BID [facility] Last Admin: 05/10/20 09:20 Dose: 10 ml Documented by: Sodium Chloride (Sodium Chloride 0.9% 10 Ml Flush Syringe) 10 ml IV PRN PRN PRN Reason: LINE FLUSH Review of Systems ROS unobtainable: due to mental status Physical Examination - Physical Exam Narrative exam: Physical Exam: Constitutional: Alert, cooperative. No acute distress Head, Ears, Nose: Normocephalic, atraumatic. External ears, nose normal Eyes: Conjunctivae/corneas clear. No icterus. No ptosis. Neck: Supple, no meningeal signs Oral: dentition fair, no thrush Cardiovascular: S1, S2 normal. Respiratory: Good air entry, clear to auscultation bilaterally GI: Soft, non-tender; bowel sounds normal. No peritoneal signs. Musculoskeletal: No pedal edema, no cyanosis. Skin: No rash or abscess Hem/Lymphatic: No palpable cervical or supraclavicular nodes. No lymphangitis Psych: Mood ok. Affect normal Neurological: Awake, alert, oriented. No gross abnormality - Constitutional Vitals: Vital Signs Temp Pulse Resp BP Pulse Ox 98.7 F 91 H 18 116/61 94 05/10/20 08:19 05/10/20 08:19 05/10/20 08:19 05/10/20 08:19 05/10/20 08:19 Temperature -Last 24 Hours Temperature 98.7 F Temperature 99.0 F Temperature 98.5 F Temperature 99.3 F Temperature 98.7 F Results - Labs CBC & Chem 7: 05/09/20 07:29 05/09/20 07:29 Assessment and Plan Cultures: Urine culture Klebsiella pneumoniae A/P: 89-year-old female past medical history hypertension, GERD admitted with diarrhea, found to have a UTI. #Acute UTI: Cultures with Klebsiella pneumoniae. Patient is a poor historian, as such medical to ascertain whether or not she has acute symptoms. As such we will treat #Hypertension #GERD #Social issues Recs: -Continue ceftriaxone 1g every 24 hours to complete 3 days therapy. Thank you for the consult, we will sign off. Hill Gurrola MD [facility] ([facility] O: [phone] F: [phone]
[2020-05-10] MEDS: cefTRIAXone/NS 1 GM/50 ML 1 GM/50 ML BAG IV SCH (22:45)
[2020-05-11] MEDS: SODIUM CHLORIDE 0.9% 1000 ML 1,000 ML IV SCH ×2 (01:11→23:16)
[2020-05-11] MEDS: HEPARIN 5,000 UNIT/1 ML VIAL SUB-Q SCH ×3 (05:56→22:26)
[2020-05-11] MEDS: hydrALAZINE 25 MG TAB PO SCH ×3 (05:56→22:26)
--- NOTE | 2020-05-11 09:30 | Discharge Summary ---
Providers - Providers Date of Admission: 05/10/20 11:52 Date of discharge: 05/12/20 Attending physician: NICKY CAMPOVERDE 05/08/20 Consult to Case Management [CONS] Routine Services Needed at Discharge: Senior Executive Compensation Analyst Notified:: case management Comment:: Discharge planning,Possible placement 05/09/20 10:04 Physical Therapy Evaluation and Treat [CONS] Routine Comment: Reason For Exam: debillity Date of last referral: 05/09/20 05/09/20 10:05 Occupational Therapy Evaluate and Treat [CONS] Urgent Comment: Reason For Exam: debility 05/10/20 10:48 Consult to Physician [CONS] Routine Comment: Consulting Provider: SHARRI CHAPPELL Physician Instructions: Reason For Exam: Klebsiella UTI Primary care physician: INTERNET SALES REPRESENTATIVE Hospitalization Reason for admission: Diarrhea and abdominal pain/UTI Condition: Stable Pertinent studies: CT abdomen and pelvis; no acute abnormality noted Hospital course: 89-year-old white female with known history of hypertension, GERD and [place] presenting to the emergency room today with complaint of diarrhea which has been ongoing for the past 2 days., Patient is quite known to this hospital and has been in this facility on several occasions being abandoned by son. Patient states she has been having loose stools have been some abdominal pain which is crampy in nature. Patient is a poor historian but most of the history was gotten from the ER staff. Work-up in the emergency room today is consistent with UTI, started on empiric antibiotics Cultures are positive for Klebsiella UTI, contact isolation, evaluated by ID, recommend 3 days of Rocephin Patient completed 3 days of antibiotics, symptoms significantly improved.Case misha valderrama evaluated and set up SNF placement Today patient is comfortable no new complaints vital signs stable physical examination is unremarkable Patient is hemodynamically and clinically stable at discharge Patient's COVID-19 test is negative Discharge diagnosis; --Acute cystitis/UTI Empiric antibiotics, follow cultures IV fluids and supportive care --Sepsis due to Klebsiella UTI; ID evaluation noted and appreciated Completed 3 days of Rocephin per ID Monitor off antibiotics, Okay to DC --Acute diarrhea: Resolved --Moderate malnutrition; nutrition supplements Supportive care --Hypertension; moderate control Resume home antihypertensives, as needed medications Patient is hemodynamically and clinically stable at discharge Disposition: DC/[place]-03 SNF [facility] Time spent for discharge: 35 min Core Measure Documentation - Palliative Care Palliative Care/ Comfort Measures: Not Applicable - Core Measures Any of the following diagnoses?: none Exam - Constitutional Vitals: Temp Pulse Resp BP Pulse Ox 98.4 F 84 18 138/66 94 05/11/20 07:41 05/11/20 07:41 05/11/20 07:41 05/11/20 07:41 05/11/20 07:41 General appearance: Present: no acute distress, well-nourished - EENT Eyes: Present: PERRL, EOM intact - Neck Neck: Present: supple, normal ROM - Respiratory Respiratory effort: normal Respiratory: bilateral: diminished, negative: rales, rhonchi, wheezing - Cardiovascular Rhythm: regular Heart Sounds: Present: S1 & S2 - Extremities Extremities: no ischemia, No edema - Abdominal General gastrointestinal: Present: soft, non-tender, non-distended, normal bowel sounds - Integumentary Integumentary: Present: clear, warm - Musculoskeletal Musculoskeletal: strength equal bilaterally, generalized weakness - Psychiatric Psychiatric: appropriate mood/affect, cooperative - Neurologic Neurologic: moves all extremities Plan Activity: advance as tolerated, fall precautions Diet: regular Additional Instructions: Fall precautions. If you have worsening symptoms contact MD or go to emergency room Follow up with: PRIMARY CARE,MD [Primary Care Provider] - 7 Days
[2020-05-11] MEDS: MULTIVITAMINS ,THERAPEUTIC TAB PO SCH (09:42)
[2020-05-11] MEDS: amLODIPine 5 MG TAB PO SCH (09:42)
--- NOTE | 2020-05-11 19:38 | Progress Note ---
Assessment and Plan Assessment and plan: --Acute cystitis/UTI Empiric antibiotics, follow cultures IV fluids and supportive care --Klebsiella UTI; Contact isolation, continue current antibiotics Rocephin ID evaluation noted and appreciated Recommend 3 days of Rocephin and DC --Acute diarrhea: Resolved Supportive care --Positive urine cultures/Klebsiella 3 days of Rocephin and DC per ID --Hypertension; moderate control Resume home antihypertensives, as needed medications --DVT prophylaxis;Lovenox We will closely monitor the patient and adjust management as needed\ plan of care reviewed with the patient's and her nurse Physical therapy occupational therapy Possible placement senior care versus SNF DC home tomorrow if stable Discharge planning per case management 05/10/2020; urinary tract infection Klebsiella pneumonia Patient is on Rocephin contact isolation ID evaluated the patient in consultation, recommend total 3 days of Rocephin and DC Possible discharge tomorrow if stable, home with son versus placement 05/11/2020; patient is ready to be discharged however patient and son request placement At the subacute or SNF, case management processing Stable for discharge pending placement Hospitalist Physical - Constitutional Vitals: Temp Pulse Resp BP Pulse Ox 98.3 F 93 H 16 124/57 94 05/11/20 16:17 05/11/20 16:17 05/11/20 16:17 05/11/20 16:17 05/11/20 16:17 General appearance: Present: no acute distress, well-nourished - EENT Eyes: Present: PERRL, EOM intact - Neck Neck: Present: supple, normal ROM - Respiratory Respiratory effort: normal Respiratory: bilateral: diminished, negative: rales, rhonchi, wheezing - Cardiovascular Rhythm: regular Heart Sounds: Present: S1 & S2 - Extremities Extremities: no ischemia, No edema - Abdominal General gastrointestinal: soft, non-tender, non-distended, normal bowel sounds - Integumentary Integumentary: Present: clear, warm - Psychiatric Psychiatric: appropriate mood/affect, cooperative - Neurologic Neurologic: moves all extremities Results - Labs CBC & Chem 7: 05/09/20 07:29 05/09/20 07:29 Labs: Laboratory Last Values WBC 6.7 K/mm3 (4.5-11.0) 05/09/20 07:29 RBC 3.49 M/mm3 (3.65-5.03) L 05/09/20 07: Hgb 12.5 gm/dl (10.1-14.3) 05/09/20: Hct 37.0 % (30.3-42.9) 05/09/20 07: MCV 106 fl (79-97) H 05/09/20 07: MCH 36 pg (28-32) H 05/09/20: MCHC 34 % (30-34) 05/09/20 07: RDW 14.9 % (13.2-15.2) 05/09/20 07: Plt Count 222 K/mm3 (140-440) 05/09/20 07: Lymph % (Auto) 10.6 % (13.4-35.0) L 05/09/20: [place] % (Auto) 7.2 % (0.0-7.3) 05/09/20 07: Eos % (Auto) 5.5 % (0.0-4.3) H 05/09/20 07: Baso % (Auto) 0.4 % (0.0-1.8) 05/09/20 07: Lymph # (Auto) 0.7 K/mm3 (1.2-5.4) L 05/09/20: [place] # (Auto) 0.5 K/mm3 (0.0-0.8) 05/09/20 07: Eos # (Auto) 0.4 K/mm3 (0.0-0.4) 05/09/20: Baso # (Auto) 0.0 K/mm3 (0.0-0.1) 05/09/20 07: Seg Neutrophils % 76.3 % (40.0-70.0) H 05/09/20: Seg Neutrophils # 5.1 K/mm3 (1.8-7.7) 05/09/20: PT 14.0 Sec. (12.2-14.9) 05/09/20 07: INR 1.10 (0.87-1.13) 05/09/20 07: Sodium 140 mmol/L (137-145) 05/09/20 07: Potassium 4.0 mmol/L (3.6-5.0) 05/09/20 07:29 Chloride 102.5 mmol/L (98-107) 05/09/20 07:29 Carbon Dioxide 32 mmol/L (22-30) H 05/09/20 07:29 Anion Gap 10 mmol/L 05/09/20 07:29 BUN 13 mg/dL (7-17) 05/09/20 07:29 Creatinine 0.8 mg/dL (0.6-1.2) 05/09/20 07:29 Estimated GFR > 60 ml/min 05/09/20 07:29 BUN/Creatinine Ratio 16 % 05/09/20 07:29 Glucose 89 mg/dL (65-100) 05/09/20 07:29 Calcium 8.9 mg/dL (8.4-10.2) 05/09/20 07:29 Urine Color Straw (Yellow) 05/08/20 01:25 Urine Turbidity Clear (Clear) 05/08/20 01:25 Urine pH 7.0 (5.0-7.0) 05/08/20 01:25 Ur Specific [place] 1.011 (1.003-1.030) 05/08/20 01:25 Urine Protein <15 mg/dl mg/dL (Negative) 05/08/20 01:25 Urine Glucose (UA) Neg mg/dL (Negative) 05/08/20 01:25 Urine Ketones Neg mg/dL (Negative) 05/08/20 01:25 Urine Blood Mod (Negative) 05/08/20 01:25 Urine Nitrite Pos (Negative) 05/08/20 01:25 Urine Bilirubin Neg (Negative) 05/08/20 01:25 Urine Urobilinogen < 2.0 mg/dL (<2.0) 05/08/20 01:25 Ur Leukocyte Esterase Lg (Negative) 05/08/20 01:25 Urine WBC (Auto) 66.0 /HPF (0.0-6.0) H 05/08/20 01:25 Urine RBC (Auto) 7.0 /HPF (0.0-6.0) 05/08/20 01:25 Urine Bacteria (Auto) 1+ /HPF (Negative) 05/08/20 01:25 Urine Mucus Few /HPF 05/08/20 01:25 [place]/IV: Voiding Method Indwelling Catheter IV Catheter Type [Left Forearm INT / Saline Lock ] Active Medications - Current Medications Current Medications: Generic Name Dose Route Start Last Admin Trade Name Freq PRN Reason Stop Dose Admin Acetaminophen 650 mg 05/08/20 03:26 Acetaminophen 325 Mg Tab PO Q4H PRN Pain MILD(1-3)/Fever >100.5/SILVESTRE Amlodipine Besylate 5 mg 05/09/20 10:00 05/11/20 09:42 Amlodipine 5 Mg Tab PO 5 mg QDAY RUDDY Administration Heparin Sodium (Porcine) 5,000 unit 05/08/20 06:00 05/11/20 13:57 Heparin 5,000 Unit/1 Ml Vial SUB-Q 5,000 unit Q8HR RUDDY Administration Hydralazine HCl 25 mg 05/09/20 14:00 05/11/20 13:55 Hydralazine 25 Mg Tab PO 25 mg Q8HR RUDDY Administration Sodium Chloride 1,000 mls @ 75 mls/hr 05/08/20 03:30 05/11/20 01:11 Nacl 0.9% 1000 Ml IV 75 mls/hr DIRECT RUDDY Administration Magnesium Hydroxide 30 ml 05/08/20 03:26 Magnesium Hydroxide (Mom) Oral Liqd Udc PO Q4H PRN Constipation Morphine Sulfate 2 mg 05/08/20 03:26 Morphine 2 Mg/1 Ml Inj IV Q4H PRN Pain, Moderate (4-6) Multivitamins 1 each 05/09/20 10:00 05/11/20 09:42 Multivitamins ,Therapeutic Tab PO 1 each QDAY RUDDY Administration Ondansetron HCl 4 mg 05/08/20 03:26 Ondansetron 4 Mg/2 Ml Inj IV Q8H PRN Nausea And Vomiting Sodium Chloride 10 ml 05/08/20 10:00 05/11/20 09:42 Sodium Chloride 0.9% 10 Ml Flush Syringe IV 10 ml BID RUDDY Administration Sodium Chloride 10 ml 05/08/20 03:26 Sodium Chloride 0.9% 10 Ml Flush Syringe IV PRN PRN LINE FLUSH
[2020-05-12] MEDS: HEPARIN 5,000 UNIT/1 ML VIAL SUB-Q SCH ×2 (05:51→15:03)
[2020-05-12] MEDS: hydrALAZINE 25 MG TAB PO SCH ×2 (05:56→15:03)
--- NOTE | 2020-05-12 09:24 | Progress Note ---
Assessment and Plan Assessment and plan: --Acute cystitis/UTI Empiric antibiotics, follow cultures IV fluids and supportive care --Sepsis due to Klebsiella UTI; Contact isolation, continue current antibiotics Rocephin ID evaluation noted and appreciated Completed 3 days of Rocephin per ID Monitor off antibiotics, Okay to DC --Acute diarrhea: Resolved --Positive urine cultures/Klebsiella Completed 3 days of Rocephin and DC per ID --Hypertension; moderate control Resume home antihypertensives, as needed medications --DVT prophylaxis;Lovenox We will closely monitor the patient and adjust management as needed\ plan of care reviewed with the patient's and her nurse Physical therapy occupational therapy Possible placement [facility] versus SNF DC home tomorrow if stable Discharge planning per case management 05/10/2020; urinary tract infection Klebsiella pneumonia Patient is on Rocephin contact isolation ID evaluated the patient in consultation, recommend total 3 days of Rocephin and DC Possible discharge tomorrow if stable, home with son versus placement 05/11/2020; patient is ready to be discharged however patient and son request placement At the subacute or SNF, case management processing Stable for discharge pending placement 05/12/2020; patient received 3 days of Rocephin recommended by ID Symptoms significantly improved, stable for discharge, awaiting placement Predischarge pizano PCR test requested Pizano PCR - 05/12/2020 Brief history 89-year-old female past medical history hypertension, [place], GERD presented to the hospital complaining of 2 days of diarrhea. She complains of associated crampy abdominal pain and loose stools. She is frequently brought to the hospital she is abandoned by her son. Afebrile since admission with a normal white count. Urinalysis with some pyuria. Urine culture with Klebsiella. She is currently on ceftriaxone. Symptoms significantly improved, patient and family requests placement Case management processing SNF/[facility]/rehab . History Interval history: I seen and examined the patient at the bedside Patient's chart and medications reviewed Patient feels slightly better Medically cleared for discharge However family and patient wants placement No new complaints Vital signs reviewed Hospitalist Physical - Constitutional Vitals: Temp Pulse Resp BP Pulse Ox 98.3 F 86 18 145/69 96 05/12/20 07:59 05/12/20 07:59 05/12/20 07:59 05/12/20 07:59 05/12/20 07:59 General appearance: Present: no acute distress, well-nourished - EENT Eyes: Present: PERRL, EOM intact - Neck Neck: Present: supple, normal ROM - Respiratory Respiratory effort: normal Respiratory: bilateral: diminished, negative: rales, rhonchi, wheezing - Cardiovascular Rhythm: regular Heart Sounds: Present: S1 & S2 - Extremities Extremities: no ischemia, No edema - Abdominal General gastrointestinal: soft, non-tender, non-distended, normal bowel sounds - Integumentary Integumentary: Present: clear, warm - Psychiatric Psychiatric: appropriate mood/affect, cooperative - Neurologic Neurologic: CNII-XII intact, moves all extremities Results - Labs CBC & Chem 7: 05/12/20 10:03 05/09/20 07:29 Labs: Laboratory Last Values WBC 6.7 K/mm3 (4.5-11.0) 05/09/20 07:29 RBC 3.49 M/mm3 (3.65-5.03) L 05/09/20 07:29 Hgb 12.5 gm/dl (10.1-14.3) 05/09/20 07:29 Hct 37.0 % (30.3-42.9) 05/09/20 07:29 MCV 106 fl (79-97) H 05/09/20 07:29 MCH 36 pg (28-32) H 05/09/20 07:29 MCHC 34 % (30-34) 05/09/20 07:29 RDW 14.9 % (13.2-15.2) 05/09/20 07:29 Plt Count 222 K/mm3 (140-440) 05/09/20 07:29 Lymph % (Auto) 10.6 % (13.4-35.0) L 05/09/20 07:29 [place] % (Auto) 7.2 % (0.0-7.3) 05/09/20 07:29 Eos % (Auto) 5.5 % (0.0-4.3) H 05/09/20 07:29 Baso % (Auto) 0.4 % (0.0-1.8) 05/09/20 07:29 Lymph # (Auto) 0.7 K/mm3 (1.2-5.4) L 05/09/20 07:29 [place] # (Auto) 0.5 K/mm3 (0.0-0.8) 05/09/20 07:29 Eos # (Auto) 0.4 K/mm3 (0.0-0.4) 05/09/20 07:29 Baso # (Auto) 0.0 K/mm3 (0.0-0.1) 05/09/20 07:29 Seg Neutrophils % 76.3 % (40.0-70.0) H 05/09/20 07:29 Seg Neutrophils # 5.1 K/mm3 (1.8-7.7) 05/09/20 07:29 PT 14.0 Sec. (12.2-14.9) 05/09/20 07:29 INR 1.10 (0.87-1.13) 05/09/20 07:29 Sodium 140 mmol/L (137-145) 05/09/20 07:29 Potassium 4.0 mmol/L (3.6-5.0) 05/09/20 07:29 Chloride 102.5 mmol/L (98-107) 05/09/20 07:29 Carbon Dioxide 32 mmol/L (22-30) H 05/09/20 07:29 Anion Gap 10 mmol/L 05/09/20 07:29 BUN 13 mg/dL (7-17) 05/09/20 07:29 Creatinine 0.8 mg/dL (0.6-1.2) 05/09/20 07:29 Estimated GFR > 60 ml/min 05/09/20 07:29 BUN/Creatinine Ratio 16 % 05/09/20 07:29 Glucose 89 mg/dL (65-100) 05/09/20 07:29 Calcium 8.9 mg/dL (8.4-10.2) 05/09/20 07:29 Urine Color Straw (Yellow) 05/08/20 01:25 Urine Turbidity Clear (Clear) 05/08/20 01:25 Urine pH 7.0 (5.0-7.0) 05/08/20 01:25 Ur Specific [place] 1.011 (1.003-1.030) 05/08/20 01:25 Urine Protein <15 mg/dl mg/dL (Negative) 05/08/20 01:25 Urine Glucose (UA) Neg mg/dL (Negative) 05/08/20 01:25 Urine Ketones Neg mg/dL (Negative) 05/08/20 01:25 Urine Blood Mod (Negative) 05/08/20 01:25 Urine Nitrite Pos (Negative) 05/08/20 01:25 Urine Bilirubin Neg (Negative) 05/08/20 01:25 Urine Urobilinogen < 2.0 mg/dL (<2.0) 05/08/20 01:25 Ur Leukocyte Esterase Lg (Negative) 05/08/20 01:25 Urine WBC (Auto) 66.0 /HPF (0.0-6.0) H 05/08/20 01:25 Urine RBC (Auto) 7.0 /HPF (0.0-6.0) 05/08/20 01:25 Urine Bacteria (Auto) 1+ /HPF (Negative) 05/08/20 01:25 Urine Mucus Few /HPF 05/08/20 01:25 [place]/IV: Voiding Method Indwelling Catheter IV Catheter Type [Left Forearm INT / Saline Lock ] Active Medications - Current Medications Current Medications: Generic Name Dose Route Start Last Admin Trade Name Freq PRN Reason Stop Dose Admin Acetaminophen 650 mg 05/08/20 03:26 Acetaminophen 325 Mg Tab PO Q4H PRN Pain MILD(1-3)/Fever >100.5/SILVESTRE Amlodipine Besylate 5 mg 05/09/20 10:00 05/11/20 09:42 Amlodipine 5 Mg Tab PO 5 mg QDAY RUDDY Administration Heparin Sodium (Porcine) 5,000 unit 05/08/20 06:00 05/12/20 05:51 Heparin 5,000 Unit/1 Ml Vial SUB-Q 5,000 unit Q8HR RUDDY Administration Hydralazine HCl 25 mg 05/09/20 14:00 05/12/20 05:56 Hydralazine 25 Mg Tab PO 25 mg Q8HR RUDDY Administration Sodium Chloride 1,000 mls @ 75 mls/hr 05/08/20 03:30 05/11/20 23:16 Nacl 0.9% 1000 Ml IV 75 mls/hr DIRECT RUDDY Administration Magnesium Hydroxide 30 ml 05/08/20 03:26 Magnesium Hydroxide (Mom) Oral Liqd Udc PO Q4H PRN Constipation Morphine Sulfate 2 mg 05/08/20 03:26 Morphine 2 Mg/1 Ml Inj IV Q4H PRN Pain, Moderate (4-6) Multivitamins 1 each 05/09/20 10:00 05/11/20 09:42 Multivitamins ,Therapeutic Tab PO 1 each QDAY RUDDY Administration Ondansetron HCl 4 mg 05/08/20 03:26 Ondansetron 4 Mg/2 Ml Inj IV Q8H PRN Nausea And Vomiting Sodium Chloride 10 ml 05/08/20 10:00 05/11/20 22:27 Sodium Chloride 0.9% 10 Ml Flush Syringe IV 10 ml BID RUDDY Administration Sodium Chloride 10 ml 05/08/20 03:26 Sodium Chloride 0.9% 10 Ml Flush Syringe IV PRN PRN LINE FLUSH
[2020-05-12] MEDS: amLODIPine 5 MG TAB PO SCH (09:51)
[2020-05-12] MEDS: MULTIVITAMINS ,THERAPEUTIC TAB PO SCH (09:51)
[2020-05-12] MEDS: SODIUM CHLORIDE 0.9% 1000 ML 1,000 ML IV SCH (09:52)
[2020-05-12 10:18] LABS: Basophils # (Auto) 0.1 K/mm3 (0.0-0.1); Basophils % (Auto) 1.1 % (0.0-1.8); Eosinophils # (Auto) 0.2 K/mm3 (0.0-0.4); Eosinophils % (Auto) 3.4 % (0.0-4.3); Hemoglobin 11.9 gm/dl (10.1-14.3); Mean Corpuscular HGB Conc 34 % (30-34); Mean Corpuscular Volume 105 fl (79-97); Monocytes # (Auto) 0.3 K/mm3 (0.0-0.8); Monocytes % (Auto) 5.3 % (0.0-7.3); Platelet Count 227 K/mm3 (140-440); Red Blood Count 3.33 M/mm3 (3.65-5.03); Red Cell Distribution Width 14.8 % (13.2-15.2)
[2020-05-12 21:58] VITALS: BP 124/54
== END 2020-05-12 22:09 | DRG 872 ==
LOC: ED 19:50 → 4A 05-08 04:14 → OBSVTOIN 05-10 11:52
PROVIDERS: ADMIT Internal Medicine Geriatric Medicine; ATTEND Internal Medicine
DX: A41.9 Sepsis, unspecified organism (principal); N30.00 Acute cystitis without hematuria; Z68.1 Body mass index [BMI] 19.9 or less, adult; K52.9 Noninfective gastroenteritis and colitis, unspecified; I10 Essential (primary) hypertension; K21.9 Gastro-esophageal reflux disease without esophagitis; B96.1 Klebsiella pneumoniae [K. pneumoniae] as the cause of diseases classified elsewhere; Z20.822 Contact with and (suspected) exposure to COVID-19; I25.2 Old myocardial infarction; Z79.899 Other long term (current) drug therapy; Z88.8 Allergy status to other drugs, medicaments and biological substances
CPT/HCPCS: 36415; 74177; 80048; 81001; 85025; 85610; 87086; 87641; G0378; J0500; J0696; J1644; J7030; Q9967; U0003